=== PATIENT | female | born 1955 | race African-American/Black ===

== ENCOUNTER 2017-01-02 15:00 | Emergency (ER) | payer MEDICAID ==
[~2017-01-02] VITALS: Ht 167.6 cm; Wt 93.4 kg
[~2017-01-02 15:00] MED LIST: AMLO10TA2; ATEN100T; GLIP-115; GLUC-202; HYDR-2595; INSUINJ37; METF-316; OMEP20TA44; ONDA4TAB5; PANT1INJ3; [UNRECOGNIZED DRUG - CODE]; [UNRECOGNIZED DRUG - CODE]
[2017-01-02 15:47] LABS: Urine Bilirubin Negative (Negative); Urine Blood Negative /uL (Negative); Urine Color Yellow (Yellow); Urine Ketone Negative (Negative); Urine Nitrite Negative (Negative); Urine RBC 1 /hpf (0 - 4); Urine Squamous Epithelial Cell FEW /hpf (<5); Urine Urobilinogen Normal (Negative); Urine pH 6.5 (5.0-8.0)
[2017-01-02 15:56] LABS: Urine Glucose 4+ mg/dL (Normal)
[2017-01-02 16:08] LABS: Basophils # (auto) 0.1 uL; Basophils % (auto) 0.9 % (0.0-2.0); DEFINITIVE VIEW TRANSMISSION; Eosinophils # (auto) 0.2 uL; Eosinophils % (auto) 1.9 % (0.0-7.0); Hematocrit 47.1 % (36.0-46.0); Hemoglobin 14.8 g/dL (12.2-16.2); Lymphocytes # (auto) 2.8 uL; Lymphocytes % (auto) 32.1 % (10.0-50.0); Mean Corpuscular Hemoglobin 26.7 pg (28.0-32.0); Mean Corpuscular Hgb Conc. 31.5 g/dL (32.0-36.0); Mean Platelet Volume 10.8 fL (7.4-10.4); Monocytes # (auto) 0.8 uL; Monocytes % (auto) 9.1 % (0.0-12.0); Neutrophils # (auto) 4.9 uL; Platelet Count (auto) 206 10^3/uL (140-450); Red Cell Distribution Width 15.3 % (11.6-16.0); White Blood Cell 8.8 10^3/uL (4.4-10.8)
[2017-01-02 16:23] LABS: Alkaline Phosphatase 117 U/L (45-117); Anion Gap 10 (5-15); Aspartate Aminotransferase 33 U/L (15-37); BUN/Creatinine Ratio 16.4; Bilirubin, Total 0.4 mg/dL (0.2-1.0); Blood Urea Nitrogen 20 mg/dL (7-18); Calcium 9.4 mg/dL (8.5-10.1); Carbon Dioxide 26 mmol/L (21-32); Chloride 101 mmol/L (98-107); GFR African American 57 mL/min; GFR Non-African American 47 mL/min; Glucose 399 mg/dL (74-106); Potassium 4.1 mmol/L (3.5-5.1); Sodium 137 mmol/L (136-145)
[2017-01-02] MEDS ORDERED: SODIUM CHLORIDE 0.9% 1,000 ML IVB ONE (22:50)
[2017-01-02] MEDS ORDERED: SODIUM CHLORIDE 0.9% 1,000 ML IV ONE (23:00)
[2017-01-02 23:52] LABS: Basophils # (auto) 0 uL; Basophils % (auto) 0.4 % (0.0-2.0); DEFINITIVE VIEW TRANSMISSION; Eosinophils # (auto) 0.2 uL; Eosinophils % (auto) 2.2 % (0.0-7.0); Hematocrit 45.8 % (36.0-46.0); Hemoglobin 14.2 g/dL (12.2-16.2); Lymphocytes % (auto) 34.4 % (10.0-50.0); Mean Corpuscular Hemoglobin 26.4 pg (28.0-32.0); Mean Corpuscular Hgb Conc. 31.1 g/dL (32.0-36.0); Mean Corpuscular Volume 84.9 fL (80.0-100.0); Mean Platelet Volume 10.6 fL (7.4-10.4); Monocytes # (auto) 1.1 uL; Monocytes % (auto) 12.5 % (0.0-12.0); Neutrophils # (auto) 4.4 uL; Neutrophils % (auto) 50.5 % (37.0-80.0); Platelet Count (auto) 188 10^3/uL (140-450); Red Cell Distribution Width 15.5 % (11.6-16.0); White Blood Cell 8.7 10^3/uL (4.4-10.8)
[2017-01-02 23:57] LABS: Partial Thromboplastin Time 24.8 sec (22.64-33.71); Prothrombin Time 12.2 sec (9.37-12.3)
[2017-01-03 00:04] LABS: INR 1.18 (0.9-1.15)
[2017-01-03 00:05] LABS: Albumin 3.8 g/dL (3.4-5.0); BUN/Creatinine Ratio 16.7; Calcium 8.5 mg/dL (8.5-10.1); Potassium 3.4 mmol/L (3.5-5.1)
[2017-01-03 00:08] LABS: Bilirubin, Total 0.5 mg/dL (0.2-1.0); Total Protein 7.4 g/dL (6.4-8.2)
[2017-01-03 00:33] LABS: B-Type Natriuretic Peptide 10.05 pg/mL (0-100)
[2017-01-03 00:37] LABS: Temperature: 22.2 C (20.0-25.0)
[2017-01-03] MEDS ORDERED: InsuLIN REG 1unit/0.01ml Soln (100units/ml) IV ONE (05:00)
[2017-01-03] MEDS ORDERED: SODIUM CHLORIDE 0.9% 1,000 ML IV ONE (05:00)
[2017-01-03 06:25] VITALS: BP 141/85
== END 2017-01-03 06:45 | disposition home or self-care (01) ==
LOC: EDBD 15:00 → ER 15:04
DX: E10.65 Type 1 diabetes mellitus with hyperglycemia (principal); I10 Essential (primary) hypertension; K76.9 Liver disease, unspecified; Z79.4 Long term (current) use of insulin; R07.9 Chest pain, unspecified; Z79.899 Other long term (current) drug therapy
CPT/HCPCS: 36415; 71010; 71020; 80053; 81001; 82010; 82962; 83036; 83735; 83880; 84484; 85025; 85610; 85730; 93005; 94761; 96361; 96374; 99285; J1815; J7030

== ENCOUNTER 2024-12-12 11:35 | Inpatient (IN) | payer MEDICARE, MEDICAID, OTHER ==
[2024-12-09 13:02] LABS: Basophils # (auto) 0.1 10 ^3/uL (0-0.2); Eosinophils # (auto) 0.3 10 ^3/uL (0-0.8); Eosinophils % (auto) 4.2 % (0.0-7.0); Hematocrit 41.3 % (36.0-46.0); Hemoglobin 13.4 g/dL (12.2-16.2); Lymphocytes # (auto) 2.5 10 ^3/uL (0.4-5.4); Lymphocytes % (auto) 32.6 % (10.0-50.0); Mean Corpuscular Hgb Conc. 32.4 g/dL (32.0-36.0); Mean Corpuscular Volume 83.3 fL (80.0-100.0); Monocytes # (auto) 0.9 10 ^3/uL (0-1.3); Monocytes % (auto) 11.8 % (0.0-12.0); Neutrophils # (auto) 3.8 10 ^3/uL (1.6-8.6); Neutrophils % (auto) 50.4 % (37.0-80.0); Nucleated Red Blood Cells % 0.1 %; Platelet Count (auto) 196 10^3/uL (140-450); Red Blood Cells 4.95 10^6/uL (4.0-5.20); Red Cell Distribution Width 18.7 % (11.8-14.3); White Blood Cell 7.6 10^3/uL (4.4-10.8)
[2024-12-09 13:25] LABS: Alanine Aminotransferase 16 U/L (7-40); Albumin 3.9 g/dL (3.2-4.8); Alkaline Phosphatase 98 U/L (46-116); Anion Gap 8 (5-15); Aspartate Aminotransferase 25 U/L (13-40); Blood Urea Nitrogen 20 mg/dL (9-23); Calcium 9.2 mg/dL (8.7-10.4); Carbon Dioxide 23 mmol/L (20-31); INR 1.17 (0.9-1.15); Partial Thromboplastin Time 27.9 SEC (24.5-34.5); Prothrombin Time 12.2 sec (9.3-11.8); Sodium 139 mmol/L (136-145)
[2024-12-09 13:26] LABS: Bilirubin, Total 0.4 mg/dL (0.2-1.0); Total Protein 6.2 g/dL (5.7-8.2)
[2024-12-09 13:35] LABS: Chloride 108 mmol/L (98-107); Glucose 222 mg/dL (74-106)
[2024-12-09 14:00] LABS: Urine Bacteria FEW /hpf (None Seen); Urine Blood Negative /uL (Negative); Urine Clarity Clear (Clear); Urine Color Light-Yellow (Yellow); Urine Hyaline Cast FEW /lpf (0 - 2); Urine Protein, UAD Negative (Negative); Urine Specific Gravity 1.017 (1.001-1.035); Urine Squamous Epithelial Cell FEW /hpf (<5); Urine Urobilinogen Normal (Negative); Urine WBC 3 /HPF (0-5)
[~2024-12-12] VITALS: Ht 167.6 cm; Wt 105.9 kg
[~2024-12-12 11:35] MED LIST changes: +ALPR0.254 PO; -AMLO10TA2; +ASPI-543 PO; -ATEN100T; +ATOR20TA50 PO; +CARV25TA55 PO; +CHOL20007 PO; +DOCU-268 PO; +DONE1TAB88 PO; +ESTR1TAB6 PO; -GLIP-115; -GLUC-202; -HYDR-2595; +HYDR-4798 PO; -INSUINJ37; +LORA10CA12 PO; +LOSA-533 PO; -METF-316; +NIFE90TA75 PO; -OMEP20TA44; -ONDA4TAB5; -PANT1INJ3; +PROG200C21 PO; +TIRZ5INJ SC; -[UNRECOGNIZED DRUG - CODE]; -[UNRECOGNIZED DRUG - CODE]
[2024-12-12] MEDS ORDERED: fentaNYL CITRATE 100 MCG/2 ML VL ONE (12:54)
[2024-12-12] MEDS ORDERED: MIDAZOLAM HCL 2MG/2ML 2ml VIAL (1mg/ml) ONE (12:54)
[2024-12-12] MEDS ORDERED: MEPERIDINE HCL (25 MG/ML) 1ML VIAL ONE (12:54)
[2024-12-12] MEDS: ceFAZolin 2 GM/D5W100ml 100 ML IV ONE (13:00)
[2024-12-12] MEDS ORDERED: NITROGLYCERIN 0.4 MG SL TAB SL PRN (13:15)
[2024-12-12] MEDS ORDERED: MIDAZOLAM HCL 2MG/2ML 2ml VIAL (1mg/ml) IV PRN (13:15)
[2024-12-12] MEDS ORDERED: DEXTROSE (50%) 50ML SYRG IV PRN ×2 (13:15→17:45)
[2024-12-12] MEDS ORDERED: hydrALAZINE HCL 20 MG/ML VL IV PRN (13:15)
[2024-12-12] MEDS ORDERED: ePHEDrine SULFATE 50 MG/ML AMP IV PRN (13:15)
[2024-12-12] MEDS: ceFAZolin 1GM/50ML 50 ML IV ONE (13:15)
[2024-12-12] MEDS ORDERED: MORPHINE SULFATE INJ 2 MG/ml SYRG IV PRN (13:15)
[2024-12-12] MEDS ORDERED: ONDANSETRON HCL 4 MG/2 ML VIAL IV PRN (13:15)
[2024-12-12] MEDS ORDERED: MORPHINE SULFATE 4 MG/ML SYR/VIAL IV PRN (13:15)
--- NOTE | 2024-12-12 13:26 | DVHOP2 ---
Operative Report - 2 Report Details Date: 12/12/24 Preop Diagnosis: Pelvic prolapse, pelvic pain, cystocele, stress incontinence Postop Diagnosis: Same Surgeon: Saúl Redman Church Warden: None Anesthesiologist: Charly CINTRON Anesthesia: General Implant: URETHRAL SLING Desera I ; Revita 2X12 GRAFT sub urethral Consent: The patient was informed of the risks and benefits of the procedure. These include but are not limited to complications of anesthesia, postoperative infection, incomplete relief of symptoms, recurrence of symptoms, damage to blood vessels, nerves and tendons, deep venous thrombosis, pulmonary embolism and possible need for repeat surgery in the future. THIS DISCUSSION NOT LIMITED TO INFECTION BLEEDING ANESTHESIA ACUTE CHRONIC PAIN DAMAGE TO ADJACENT ORGANS URETER BOWEL BLADDER VESSELS NERVES OR MUSCLES. PATIENT UNDERSTANDS THE RISKS ASSOCIATED WITH MESH IN LITIGATION ASSOCIATED PREVIOUSLY. SHE UNDERSTANDS THE RISKS OF MESH ACUTE CHRONIC PAIN EROSION FISTULA FAILURE. PATIENT UNDERSTANDS RISK OF NC STROKE PE DVT PARALYSIS. ALL QUESTIONS ANSWERED AND ENCOURAGED. Complications: None Estimated Blood Loss: 50 cc Fluids: See anesthesia log Findings: 10 x 20 cm abdominal rectus mesh Severe bowel adhesions impossible to free safely from the pelvis Grade II uterine prolapse Indications for Surgery: Pelvic prolapse , cystocele , stress incontinence Name of Procedure Performed Attempted diagnostic laparoscopy, abandoned for exploratory laparotomy, Desera I single incision urethral sling, cystocele repair Procedure Details Procedure Details: Patient taken to the operating room placed in supine position general anesthesia performed without difficulty she was then prepped draped sterile fashion pelvic exam shows you have grade 2 uterine prolapse and cystocele: Cervix was grasped with sharp tooth tenaculum Uterus sounded to 7 cm we then placed a [place] uterine manipulator placed and perineum re draped. Gloves changed attention turned to the abdomen. She had a large mid old scar incision with her umbilicus essentially gone from previous scar tissue. Secondary to the midline incision I elected to rotate her 30 to the left an attempt to enter the right lower quadrant with a Veress needle which was performed " water drip test" flowed easily and then pneumoperitoneum attempted to be started but she had no flow of CO2 ; At this point we abandoned the 5 mm right lower quadrant port and rotated her 30 to the right and attempted the left lower quadrant 5 mm port rectus fascia grasped with towel clip tented anteriorly Veress needle placed water flowed test flowed easily and then the pneumoperitoneum was again attempted with no flow at this point banded the right and left lower quadrant incisions ; I elected to perform midline incision proximally 4 cm cephalad to her what appeared to be an old umbilical scar this was carried through to the rectus fascia was immediately evident the rectus fascia ,once it was penetrated, that she had a large approximately 10 x 20 cm mesh with severe bowel adhesions gently and tediously I dissected to the right and left lower quadrants were the previous Veress and 5 mm port laparoscopy had been attempted I was able to identify the cecum as well as small bowel in the area of the Rt trocar attempted with no evidence of any bowel damage or internal organ damage. I then dissected to left lower quadrant and was able to obtain the colon and the small bowel in that area with no evidence of any bowel or other organ damage. At this point I called General surgery who was proximally 1 hour away. I felt as though it had a good exploration there was no evidence of bowel or organ damage so I told Dr. Laughlin ( General surgeon on the phone ) that I would go ahead and place a drain intraperitoneally ; I then closed the rectus fascia peritoneal mesh complex with interrupted of 0 Ethibond to the midline ; Camper's Lisbet's fascia space closed with 2-0 chromic; A David drain was placed within the peritoneum and brought out through the skin, just inferior central expl lap incision ; The intraperitoneal drain was secured with 0 silk; . Betadine soak swab was placed over the staple line as well as ABD pad and pressure dressing. Attention then turned to the pelvis ; The Ilana disposable cervical uterine manipulator was removed. The cystocele was grasped with Scotty clamp lateral to the midline Marcaine with epi was used subcu 10 cc to hydro dissect and for pos top pain. The cystocele was dissected inferior superior and laterally at the urethrovesical junction the Desera I single incision sling was placed with the appropriate tension. The chorionic amniotic graft was placed between the urethra and the mesh sling to promote granulation tissue and inhibit erosion. It was noted that she had a discolored lesion adjacent to the vaginal incision which was sent separate from the redundant vaginal mucosa as vaginal lesion. The redundant vaginal mucosa was sent to Pathology as vaginal mucosa. We then plicated cystocele to the midline using 2-0 Vicryl and closed vaginal mucosa with a running continuous 2-0 Vicryl copiously irrigated copiously placed a Premarin vaginal pack Alvarez in place was removed and cystoscopy showed no evidence of any bladder mucosal damage or blood. Alvarez replaced patient taken recovery room stable in stable condition instrument and sponge count correct x2. Hospital consult ordered was for medical management of her diabetes and hypertension. Dr Cabrera hospitalist according to PBX. Page sent order placed in [employer] as well. Discussed by phone with Dr Cabrera who " agreed to follow her for medical management". Specimen: Vaginal mucosa, Vaginal lesion Condition Good Disposition tele bed CALVIN REDMAN DO Dec 12, 2024 13:26
[2024-12-12] MEDS ORDERED: DexAMETHasone SOD PHOS 10MG/1ML VIAL INJ ONE (13:40)
[2024-12-12] MEDS ORDERED: PROPOFOL 10 MG/ML 20 ML IV ONE (13:40)
[2024-12-12] MEDS ORDERED: ONDANSETRON HCL 4 MG/2 ML VIAL ONE (13:40)
[2024-12-12] MEDS: BUPIVACAINE 0.25% INJ 50ML VIAL ONE (14:39)
[2024-12-12] MEDS: LIDOCAINE W/ EPINEPHRINE 1% 20ML VIAL ONE (14:39)
[2024-12-12] MEDS ORDERED: SUGAMMADEX 200mg/2ml Vial (100MG/ML) IV ONE (14:54)
[2024-12-12 15:15] VITALS: PULSE 59; RESP 10; O2SAT 99
[2024-12-12] MEDS ORDERED: ROCURONIUM 10MG/ML 10ML VIAL IV ONE (15:22)
[2024-12-12] MEDS: HYDROmorphone HCL 2 MG/ML VL/or syr IV PRN (15:25)
[2024-12-12] MEDS: ACETAMINOPHEN IV 1000 MG/100ML (10MG/ML) IV PRN (16:36)
[2024-12-12] MEDS: KETOROLAC TROMETH 30 MG/ML 1ML VIAL IV ONE (16:46)
[2024-12-12] MEDS: ACETAMINOPHEN IV 100 ML IV ONE (16:46)
[2024-12-12] MEDS: KETOROLAC TROMETH 30 MG/ML 1ML VIAL ONE (16:46)
[2024-12-12] MEDS: CONJ ESTROGENS 0.625MG/GM VAG CRM 30GM PV ONE (16:47)
[2024-12-12] MEDS: NIFEdipine 10 MG CAP PO ONE (16:47)
[2024-12-12] MEDS: ONDANSETRON HCL 4 MG/2 ML VIAL IV ONE (16:48)
[2024-12-12 16:58] VITALS: PULSE 68; RESP 20; O2SAT 97
[2024-12-12 17:00] VITALS: BP 119/69; PULSE 55; RESP 17; TEMP 97.4; O2SAT 94
--- NOTE | 2024-12-12 17:35 | DVHINCON2 ---
Date Seen: Dec 12, [address] KINGSTON Family History: Cancer G8 SISTER FHx: epilepsy G8 BROTHER Family history: Diabetes mellitus G8 FATHER G8 SISTER Family history: Hypertension G8 MOTHER G8 SISTER G8 SISTER Seizure disorder (situation) G8 BROTHER Allergies: Coded Allergies: NO KNOWN ALLERGIES (Unverified , 01/10/15) Home Meds Reported Medications Tirzepatide (Mounjaro) 5 Mg/0.5 Ml Inj, 5 MG SC, INJ 12/09/24 Cholecalciferol (VITAMIN D3) 2,000 Unit Tab, 1 TAB PO DAILY, #30 TAB 5 Refills 12/09/24 Losartan Potassium (Losartan Potassium) 25 Mg Tab, 12.5 MG PO DAILY for 30 Days, MG 12/09/24 Loratadine (Loratadine) 10 Mg Cap, 10 MG PO, CAP 12/09/24 Hydrocodone-Acetaminophen (Hydrocodone Bitartrate/AC 10-325 mg) 1 Tab Tab, 1 TAB PO, TAB 12/09/24 Progesterone Micronized (PROGESTERONE) 200 Mg Cap, 200 MG PO, CAP 12/09/24 Nifedipine (Nifedipine Er) 90 Mg Tab, 1 TAB PO DAILY, #30 TAB 5 Refills 12/09/24 Docusate Sodium (Gnp Stool Softener) 100 Mg Cap, 100 MG PO BID, CAP 12/09/24 Estradiol (Estradiol) 1 Mg Tab, 1 MG PO DAILY, MG 12/09/24 Alprazolam (Alprazolam) 0.25 Mg Tab, 1 TAB PO, #90 TAB 12/09/24 Donepezil Hydrochloride (DONEPEZIL HCL) 10 Mg Tab, 10 MG PO DAILY for 30 Days, MG 12/09/24 Carvedilol (Carvedilol) 25 Mg Tab, 25 MG PO for 30 Days, MG 12/09/24 Atorvastatin Calcium (ATORVASTATIN CALCIUM) 20 Mg Tab, 1 TAB PO DAILY, #30 TAB 5 Refills 12/09/24 Aspirin (Aspir-Low) 81 Mg Tab, 81 MG PO DAILY for 30 Days, MG 12/09/24 Current Medications Current Medications Medications (Trade) Dose Ordered Sig/Carlos Route PRN Reason Start Time Stop Time Status Last Admin Aspirin (Ecotrin Enteric Coated Tablet) 81 mg DAILY PO 12/13/24 10:00 Atorvastatin Calcium (Lipitor) 20 mg HS PO 12/12/24 22:00 Docusate Sodium (Colace Capsule) 100 mg BID PO 12/12/24 22:00 Losartan Potassium (Cozaar Tablet) 12.5 mg DAILY PO 12/13/24 10:00 12/12/24 17:34 DC Hydralazine HCl (Apresoline Injection) 5 mg Q10M PRN IV SBP>160 12/12/24 13:15 12/12/24 14:06 DC Morphine Sulfate 2 mg Q2HPRN PRN IV BREAKTHROUGH PAIN (7-10) 12/12/24 13:15 12/12/24 18:30 Midazolam HCl (Versed Injection) 1 mg Q10M PRN IV ANXIETY 12/12/24 13:15 12/12/24 18:30 Ephedrine Sulfate (ePHEDrine SULFATE) 10 mg Q10M PRN IV SBP LESS THAN 90 12/12/24 13:15 12/12/24 13:56 DC Hydromorphone HCl (Dilaudid Injection) 0.5 mg Q10M PRN IV SEVERE PAIN (7-10 PAIN SCALE) 12/12/24 13:15 12/12/24 18:30 12/12/24 16:24 Ondansetron HCl (Zofran) 4 mg Q4HP PRN IV NAUSEA / VOMITING 12/12/24 13:15 Morphine Sulfate 2 mg Q4HP PRN IV SEVERE PAIN (7-10 PAIN SCALE) 12/12/24 13:15 Acetaminophen (Tylenol Tablet Or Capsule) 500 mg Q6HP PRN PO TEMP GREATER THAN 100.4 12/12/24 13:15 Nitroglycerin (Ntrostat Sublingual) 0.4 mg Q5MINP PRN SL FOR CHEST PAIN 12/12/24 13:15 Morphine Sulfate 2 mg Q30M PRN IV FOR CHEST PAIN 12/12/24 13:15 Diagnostic Test (Pha) (Accu-Chek Comfort Curve T) 1 strip Q6HR 12/12/24 18:00 Insulin Human Regular (InsuLIN R) Q6HR SC 12/12/24 18:00 12/12/24 17:34 DC Dextrose 50 ml UD PRN IV Blood Sugar LESS THAN 60 12/12/24 13:15 Acetaminophen (Ofirmev) 1,000 mg ONCE PRN IV PAIN SCALE 1-3 OR TEMP>100.4 12/12/24 16:30 12/12/24 16:33 DC 12/12/24 16:36 Vital Signs Vital Signs Date Time Temp Pulse Resp B/P (MAP) Pulse Ox O2 Delivery O2 Flow Rate FiO2 12/12/24 17:00 97.4 55 17 119/69 (86) 94 97.4 12/12/24 15:15 Mask 7.0 12/12/24 15:15 99 Labs/Diagnostic Data Labs Test 12/12/24 12:26 12/09/24 12:40 Range/Units POC Glucose 130 H 70-106 mg/dl White Blood Count 7.6 4.4-10.8 10^3/uL Red Blood Count 4.95 4.0-5.20 10^6/uL Hemoglobin 13.4 12.2-16.2 g/dL Hematocrit 41.3 36.0-46.0 % Mean Corpuscular Volume 83.3 80.0-100.0 fL Mean Corpuscular Hemoglobin 27.0 L 28.0-32.0 pg Mean Corpuscular Hemoglobin Concent 32.4 32.0-36.0 g/dL Red Cell Distribution Width 18.7 H 11.8-14.3 % Platelet Count 196 140-450 10^3/uL Mean Platelet Volume 9.1 6.9-10.8 fL Neutrophils (%) (Auto) 50.4 37.0-80.0 % Lymphocytes (%) (Auto) 32.6 10.0-50.0 % Monocytes (%) (Auto) 11.8 0.0-12.0 % Eosinophils (%) (Auto) 4.2 0.0-7.0 % Basophils (%) (Auto) 1.0 0.0-2.0 % Neutrophils # (Auto) 3.8 1.6-8.6 10 ^3/uL Lymphocytes # (Auto) 2.5 0.4-5.4 10 ^3/uL Monocytes # (Auto) 0.9 0-1.3 10 ^3/uL Eosinophils # (Auto) 0.3 0-0.8 10 ^3/uL Basophils # (Auto) 0.1 0-0.2 10 ^3/uL Nucleated Red Blood Cells 0.1 % Prothrombin Time 12.2 H 9.3-11.8 sec Prothrombin Time INR 1.17 H 0.9-1.15 Activated Partial Thromboplast Time 27.9 24.5-34.5 SEC Urine Color Light-yellow Yellow Urine Clarity Clear Clear Urine pH 5.0 5.0-9.0 Urine Specific Lawn 1.017 1.001-1.035 Urine Protein Negative Negative Urine Ketones Negative Negative Urine Blood Negative Negative /uL Urine Nitrite Negative Negative Urine Bilirubin Negative Negative Urine Urobilinogen Normal Negative mg/dL Urine Leukocyte Esterase Negative Negative /uL Urine RBC 8 0 - 4 /hpf Urine Microscopic WBC 3 0-5 /HPF Urine Squamous Epithelial Cells Few <5 /hpf Urine Bacteria Few H None Seen /hpf Urine Hyaline Casts Few 0 - 2 /lpf Urine Glucose 4+ H Normal mg/dL Sodium Level 139 136-145 mmol/L Potassium Level 4.0 3.5-5.1 mmol/L Chloride Level 108 H 98-107 mmol/L Carbon Dioxide Level 23 20-31 mmol/L Anion Gap 8 5-15 Blood Urea Nitrogen 20 9-23 mg/dL Creatinine 1.33 H 0.550-1.02 mg/dL Glomerular Filtration Rate Calc 43 >90 mL/min BUN/Creatinine Ratio 15.0 10.0-20.0 Serum Glucose 222 H 74-106 mg/dL Calcium Level 9.2 8.7-10.4 mg/dL Total Bilirubin 0.4 0.2-1.0 mg/dL Aspartate Amino Transferase (AST) 25 13-40 U/L Alanine Aminotransferase (ALT) 16 7-40 U/L Alkaline Phosphatase 98 46-116 U/L Total Protein 6.2 5.7-8.2 g/dL Albumin 3.9 3.2-4.8 g/dL Microbiology Date/Time Source Procedure Growth Status 12/09/24 12:40 Voided Urine Urine Culture - Final Complete Assessment SEE DICTATED NOTE Plan discussed with: Patient Date of Service: Dec 12, 2024 Billing Provider: MJ PERERA MD Common Visit Codes: [id number] INP/OBS CARE (HIGH) MJ PERERA MD Dec 12, 2024 17:35
--- NOTE | 2024-12-12 17:38 | CODING ---
Date of Service: Dec 12, 2024 Billing Provider: MJ PERERA MD Common Visit Codes: [id number] INP/OBS CARE (HIGH) Secondary Visit Codes: [id number] CARE PLAN 30 MINUTES MJ PERERA MD Dec 12, 2024 17:38
--- NOTE | 2024-12-12 17:58 | DVHINCON2 ---
DATE OF CONSULTATION: 12/12/2024 INTERNAL MEDICINE CONSULT HISTORY OF PRESENT ILLNESS: The patient is a 68-year-old lady who was admitted after she underwent surgery for pelvic prolapse and cystocele. The patient denies any significant pain. No chest pain or shortness of breath. No nausea or vomiting. REVIEW OF SYSTEMS: Review of rest of systems are otherwise currently negative. PAST MEDICAL HISTORY: Significant for diabetes, hypertension, dementia, hyperlipidemia. MEDICATIONS: Include aspirin, Lipitor, Coreg, Aricept, losartan, Mounjaro. ALLERGIES: No known drug allergies. SOCIAL HISTORY: Denies smoking or alcohol. Lives at home with a caregiver. FAMILY HISTORY: Negative. PHYSICAL EXAMINATION: GENERAL: The patient is awake, alert. VITAL SIGNS: Temperature of 97.3, pulse of 61 per minute, blood pressure 119/62. SHEENT: Unremarkable. NECK: There is no JVD, no pedal edema. LUNGS: Equal bilaterally. No added sounds. CARDIOVASCULAR: S1, S2 is regular, no murmurs. ABDOMEN: Soft. There is no organomegaly. NEUROLOGIC: Nonfocal. MUSCULOSKELETAL: Normal. ASSESSMENT AND PLAN: * Diabetes mellitus for which she was placed on sliding scale insulin and a hemoglobin A1c will be checked. * Hypertension. * Chronic kidney disease, likely chronic kidney disease stage IIIB. * Obesity. * Hyperlipidemia. * Dementia. * Status post surgery for pelvic prolapse for which she will be followed up by Dr. Braun. ADVANCE CARE PLANNING: The patient is a Full Code. Time spent was 19 minutes. MD FLORESITA Reilly/OUSMANE TID: [id number] RECEIPT: [id number]
[2024-12-12] MEDS ORDERED: InsuLIN REG 1unit/0.01ml Soln (100units/ml) SC SCH (18:00)
[2024-12-12] MEDS ORDERED: ACCU-CHEK COMFORT CURVE STRIP VI SCH (18:00)
[2024-12-12] MEDS: MORPHINE SULFATE 4 MG/ML SYR/VIAL IV PRN (18:21)
[2024-12-12] MEDS: SODIUM CHLORIDE 0.9% 1,000 ML IV SCH (18:30)
[2024-12-12 20:00] VITALS: PULSE 71; RESP 20
[2024-12-12] MEDS: ATORVASTATIN 20 MG TAB PO SCH (21:27)
[2024-12-12] MEDS: DOCUSATE SOD 100 MG CAP PO SCH (21:27)
[2024-12-12] MEDS: ACCU-CHEK COMFORT CURVE STRIP VI SCH (21:28)
[2024-12-12] MEDS: InsuLIN REG 1unit/0.01ml Soln (100units/ml) SC SCH (21:36)
[2024-12-12] MEDS: ACETAMINOPHEN 500 MG TAB or CAP PO PRN (21:39)
[2024-12-12 22:00] VITALS: BP 145/76; PULSE 73; RESP 19; TEMP 98.1; O2SAT 90
[2024-12-13] VITALS (8 sets, daily range): BP systolic 113–172; BP diastolic 62–108; PULSE 97–114; RESP 18–21; TEMP 97.6–99; O2SAT 92–99
[2024-12-13] MEDS ORDERED: TIMO0.5S28 EACHEYE (05:57)
[2024-12-13] MEDS ORDERED: DORZ2SOL18 EACHEYE (05:57)
[2024-12-13] MEDS ORDERED: BRIM0.159 OP (05:57)
--- NOTE | 2024-12-13 06:15 | DVHPN2 ---
Chief Complaints Patient reports: Feels better, Feels worse (Poor pain control on Morphine and Tylenol ... ordered Dilaudid), Other (Patient has not ambulated or passed flatus) Nursing reports: No new complaints, No chest pain, No dizziness, No cough Objective Vitals Vital Signs Date Time Temp Pulse Resp B/P (MAP) Pulse Ox O2 Delivery O2 Flow Rate FiO2 12/13/24 05:00 97.6 97 19 168/108 (128) 96 97.6 12/12/24 20:00 Nasal Cannula* 3 32 Medications Current Medications Medications (Trade) Dose Ordered Sig/Carlos Route PRN Reason Start Time Stop Time Status Last Admin Acetaminophen (Tylenol Tablet Or Capsule) 500 mg Q6HP PRN PO TEMP GREATER THAN 100.4 12/12/24 13:15 12/13/24 05:32 Aspirin (Ecotrin Enteric Coated Tablet) 81 mg DAILY PO 12/13/24 10:00 Atorvastatin Calcium (Lipitor) 20 mg HS PO 12/12/24 22:00 12/12/24 21:27 Dextrose 50 ml UD PRN IV Blood Sugar LESS THAN 60 12/12/24 17:45 Diagnostic Test (Pha) (Accu-Chek Comfort Curve T) 1 strip ACHS 12/12/24 22:00 12/12/24 21:28 Docusate Sodium (Colace Capsule) 100 mg BID PO 12/12/24 22:00 12/12/24 21:27 Insulin Human Regular (InsuLIN R) ACHS SC 12/12/24 22:00 12/12/24 21:36 Morphine Sulfate 2 mg Q30M PRN IV FOR CHEST PAIN 12/12/24 13:15 Morphine Sulfate 2 mg Q4HP PRN IV SEVERE PAIN (7-10 PAIN SCALE) 12/12/24 13:15 12/13/24 03:51 Nitroglycerin (Ntrostat Sublingual) 0.4 mg Q5MINP PRN SL FOR CHEST PAIN 12/12/24 13:15 Ondansetron HCl (Zofran) 4 mg Q4HP PRN IV NAUSEA / VOMITING 12/12/24 13:15 Sodium Chloride 1,000 ml @ 75 mls/hr [id number] IV 12/12/24 17:45 12/12/24 18:30 Comment David drain dark old blood, no odor. General: Normal Head/Eyes: Normal Neck: Normal Lungs: Normal Cardiovascular: Normal Abdominal: Normal (+BS David drain serosang) Musculoskeletal: Normal Extremities: Normal Skin: Normal Neurological: Normal Studies Test 12/13/24 05:05 Range/Units Serum Glucose Pending Ass/Plan Assessment Poor Pain contraol ;Post op day one Explore lap / Lysis of adhesion, cystocele repair urethral sling, Intraperitoneal drain placement Plan Up in chair / ambulate, advance care , CBC results pending, PT for ambulating assist, Vag packing removal , Alvarez to stay 7 days CALVIN KINGSTON DO Dec 13, 2024 06:15
[2024-12-13 06:20] LABS: Basophils # (auto) 0 10 ^3/uL (0-0.2); Basophils % (auto) 0.2 % (0.0-2.0); Eosinophils # (auto) 0 10 ^3/uL (0-0.8); Hematocrit 48.5 % (36.0-46.0); Hemoglobin 15.7 g/dL (12.2-16.2); Lymphocytes # (auto) 1.7 10 ^3/uL (0.4-5.4); Lymphocytes % (auto) 9.2 % (10.0-50.0); Mean Corpuscular Hemoglobin 27.4 pg (28.0-32.0); Mean Corpuscular Hgb Conc. 32.3 g/dL (32.0-36.0); Mean Corpuscular Volume 84.8 fL (80.0-100.0); Monocytes # (auto) 1.8 10 ^3/uL (0-1.3); Monocytes % (auto) 9.6 % (0.0-12.0); Neutrophils # (auto) 14.8 10 ^3/uL (1.6-8.6); Platelet Count (auto) 230 10^3/uL (140-450); Red Blood Cells 5.71 10^6/uL (4.0-5.20); Red Cell Distribution Width 18.6 % (11.8-14.3); White Blood Cell 18.3 10^3/uL (4.4-10.8)
[2024-12-13] MEDS ORDERED: HYDROmorphone HCL 2 MG/ML VL/or syr IV PRN (06:30)
[2024-12-13 06:40] LABS: Alanine Aminotransferase 35 U/L (7-40); Albumin 4.6 g/dL (3.2-4.8); Anion Gap 14 (5-15); BUN/Creatinine Ratio 16.5 (10.0-20.0); Chloride 99 mmol/L (98-107); Potassium 4.7 mmol/L (3.5-5.1)
[2024-12-13 06:41] LABS: Bilirubin, Total 0.8 mg/dL (0.2-1.0); Total Protein 7.6 g/dL (5.7-8.2)
[2024-12-13 06:51] LABS: Alkaline Phosphatase 135 U/L (46-116); Aspartate Aminotransferase 57 U/L (13-40); Blood Urea Nitrogen 23 mg/dL (9-23); Calcium 10.6 mg/dL (8.7-10.4); Carbon Dioxide 20 mmol/L (20-31); Glucose 309 mg/dL (74-106); Sodium 133 mmol/L (136-145)
[2024-12-13] MEDS ORDERED: MORPHINE SULFATE 4 MG/ML SYR/VIAL IV PRN (07:15)
[2024-12-13] MEDS: HYDROmorphone HCL 2 MG/ML VL/or syr IV PRN ×2 (08:02→12:39)
--- NOTE | 2024-12-13 08:26 | DVH ---
CHEST RADIOGRAPH Indication: HTN Technique: Single frontal view of the chest was obtained Comparison: None FINDINGS: Lines and Tubes: None Lungs: No focal consolidation. Pleura: No effusion. No pneumothorax. Cardiomediastinal contours: Unremarkable Bones: No acute osseous abnormality. IMPRESSION: No acute cardiopulmonary disease.
[2024-12-13] MEDS ORDERED: LOSARTAN POTASSIUM 25 MG TAB PO SCH (10:00)
[2024-12-13] MEDS: ASPirin-EC 81 mg tab PO SCH (10:03)
[2024-12-13] MEDS: CARVEDILOL 3.125 MG TAB PO ONE (12:30)
[2024-12-13] MEDS: NIFEdipine ER 30 MG TAB PO ONE (12:30)
[2024-12-13] MEDS ORDERED: HYDROcodone-ACET 5/325MG TAB PO PRN (12:30)
--- NOTE | 2024-12-13 12:39 | DVHPN2 ---
Progress Note Date Seen: Dec 13, 2024 Medical Necessity Reason Pt with a Central, PICC or Fol: No Subjective Patient reports: No new complaints Review of Systems: HEENT:Normal, CVS:Normal, RESPIRATORY:Normal, GI:Normal, :Normal, MSK:Normal, NEURO:Normal Objective vital signs Vital Sign Date Time Temp Pulse Resp B/P (MAP) Pulse Ox O2 Delivery O2 Flow Rate FiO2 12/13/24 09:00 98.0 101 21 172/91 (118) 94 98.0 12/13/24 08:00 Nasal Cannula* 3 32 Total Intake and Output 12/12/24 12/12/24 12/13/24 15:00 23:00 07:00 Intake Total 100 ml 0 ml 400 ml Output Total 600 ml 2650 ml Balance 100 ml -600 ml -2250 ml medications Current Medications Medications Dose Ordered Sig/Carlos Route Start Time Stop Time Status Last Admin Dose Admin Aspirin 81 mg DAILY PO 12/13/24 10:00 12/13/24 10:03 81 MG Atorvastatin Calcium 20 mg HS PO 12/12/24 22:00 12/12/24 21:27 20 MG Docusate Sodium 100 mg BID PO 12/12/24 22:00 12/13/24 10:02 100 MG Ondansetron HCl 4 mg Q4HP PRN IV 12/12/24 13:15 Acetaminophen 500 mg Q6HP PRN PO 12/12/24 13:15 12/13/24 05:32 500 MG Nitroglycerin 0.4 mg Q5MINP PRN SL 12/12/24 13:15 Morphine Sulfate 2 mg Q30M PRN IV 12/12/24 13:15 Diagnostic Test (Pha) 1 strip ACHS 12/12/24 22:00 12/13/24 12:14 1 STRIP Insulin Human Regular ACHS SC 12/12/24 22:00 12/13/24 12:29 6 UNITS Dextrose 50 ml UD PRN IV 12/12/24 17:45 Sodium Chloride 1,000 ml @ 75 mls/hr [id number] IV 12/12/24 17:45 12/12/24 18:30 75 MLS/HR Morphine Sulfate 2 mg Q4HP PRN IV 12/13/24 07:15 Hydromorphone HCl 1 mg Q3HPRN PRN IV 12/13/24 10:00 Examination: GENERAL:Normal, HEENT:Normal, NECK:Normal, LUNGS:Normal, CVS:Normal, ABDOMEN:Normal, MSK:Normal, SKIN:Normal, NEURO:Normal, :Normal laboratory and microbiology Laboratory Tests 12/13/24 05:05 Test 12/13/24 05:05 Range/Units Serum Glucose 309 H 74-106 mg/dL Microbiology Date/Time Source Procedure Growth Status 12/09/24 12:40 Voided Urine Urine Culture - Final Complete Problem List/Assessment/Plan Problem List/Assessment/Plan * Diabetes mellitus for which she was placed on sliding scale insulin and a hemoglobin A1c will be checked. * Hypertension : resume home meds. * Chronic kidney disease, likely chronic kidney disease stage IIIB. * Obesity. * Hyperlipidemia. * Dementia. * Status post surgery for pelvic prolapse for which she will be followed up by Dr. Braun, pain control advance care planning- full code- time spent 18 mins Plan discussed with: Patient My Orders My Orders Orders - MJ PERERA MD Procedure Category Date Status Time Glucose Blood PHA 12/12/24 In Process (Accu-Chek Comfort 22:00 Insulin R (Human) PHA 12/12/24 In Process (Insulin R) 22:00 Dextrose 50% Syringe PHA 12/12/24 In Process 17:45 Sodium Chloride 0.9% PHA 12/12/24 In Process 17:45 Chest Portable XY 12/13/24 Resulted 06:00 Nifedipine Er PHA 12/14/24 Verified (Procardia Xl 10:00 Nifedipine Er PHA 12/13/24 Verified (Procardia Xl 12:30 Carvedilol Tablet PHA 12/13/24 Verified (Coreg Tablet) 12:30 Carvedilol Tablet PHA 12/13/24 Verified (Coreg Tablet) 22:00 Hydrocodone-Acet PHA 12/13/24 Verified 5/325mg Tab ([place]ising [place] 12:30 Timolol 0.5% Opth PHA 12/13/24 Verified Soln (Timoptic 0.5%) 22:00 Hydralazine Injection PHA 12/13/24 Verified (Apresoline Inject 12:30 Basic Metabolic Panel LAB 12/14/24 Verified 06:00 Complete Blood Count LAB 12/14/24 Verified 06:00 Date of Service: Dec 13, 2024 Billing Provider: MJ PERERA MD Common Visit Codes: [id number] INP/OBS CARE(HIGH) Secondary Visit Codes: [id number] CARE PLAN 30 MINUTES MJ PERERA MD Dec 13, 2024 12:39
--- NOTE | 2024-12-13 19:13 | DVHINCON2 ---
Date of service: Dec 13, [address] Braun Reason for Consultation Abdominal pain status post cystocel and Urethral sling History of Present Illness This is a 68-year-old Female who had severe uterine prolasus which underwent Cystocele repair and Urethral sling but complains of pain and is also lethargic. Past Medical History DM, Hyperlipidemia, HTN, and Dementia Past Surgical History Insignificant Family History: Cancer G8 SISTER FHx: epilepsy G8 BROTHER Family history: Diabetes mellitus G8 FATHER G8 SISTER Family history: Hypertension G8 MOTHER G8 SISTER G8 SISTER Seizure disorder (situation) G8 BROTHER Allergies: Coded Allergies: NO KNOWN ALLERGIES (Unverified , 01/10/15) Home Meds Reported Medications Dorzolamide-Timolol (Dorzolamide Hcl/Timolol M) 1 Ml Elsy, 1 DROP EACHEYE BID, #10 ML 6 Refills 12/13/24 Timolol Maleate (Timolol Maleate Ophthalmi) 0.5 % Elsy, 1 DROP EACHEYE QAM, #5 ML 5 Refills 12/13/24 Brimonidine Tartrate (Brimonidine Tartrate) 0.15 % Elsy, 1 DROP OP TID, DROP 12/13/24 Tirzepatide (Mounjaro) 5 Mg/0.5 Ml Inj, 5 MG SC, INJ 12/09/24 Cholecalciferol (VITAMIN D3) 2,000 Unit Tab, 1 TAB PO DAILY, #30 TAB 5 Refills 12/09/24 Losartan Potassium (Losartan Potassium) 25 Mg Tab, 12.5 MG PO DAILY for 30 Days, MG 12/09/24 Loratadine (Loratadine) 10 Mg Cap, 10 MG PO, CAP 12/09/24 Hydrocodone-Acetaminophen (Hydrocodone Bitartrate/AC 10-325 mg) 1 Tab Tab, 1 TAB PO, TAB 12/09/24 Progesterone Micronized (PROGESTERONE) 200 Mg Cap, 200 MG PO, CAP 12/09/24 Nifedipine (Nifedipine Er) 90 Mg Tab, 1 TAB PO DAILY, #30 TAB 5 Refills 12/09/24 Docusate Sodium (Gnp Stool Softener) 100 Mg Cap, 100 MG PO BID, CAP 12/09/24 Estradiol (Estradiol) 1 Mg Tab, 1 MG PO DAILY, MG 12/09/24 Alprazolam (Alprazolam) 0.25 Mg Tab, 1 TAB PO, #90 TAB 12/09/24 Donepezil Hydrochloride (DONEPEZIL HCL) 10 Mg Tab, 10 MG PO DAILY for 30 Days, MG 12/09/24 Carvedilol (Carvedilol) 25 Mg Tab, 25 MG PO for 30 Days, MG 12/09/24 Atorvastatin Calcium (ATORVASTATIN CALCIUM) 20 Mg Tab, 1 TAB PO DAILY, #30 TAB 5 Refills 12/09/24 Aspirin (Aspir-Low) 81 Mg Tab, 81 MG PO DAILY for 30 Days, MG 12/09/24 Current Medications Current Medications Medications (Trade) Dose Ordered Sig/Carlos Route PRN Reason Start Time Stop Time Status Last Admin Aspirin (Ecotrin Enteric Coated Tablet) 81 mg DAILY PO 12/13/24 10:00 12/13/24 10:03 Atorvastatin Calcium (Lipitor) 20 mg HS PO 12/12/24 22:00 12/12/24 21:27 Docusate Sodium (Colace Capsule) 100 mg BID PO 12/12/24 22:00 12/13/24 10:02 Losartan Potassium (Cozaar Tablet) 12.5 mg DAILY PO 12/13/24 10:00 12/12/24 17:34 DC Diagnostic Test (Pha) (Accu-Chek Comfort Curve T) 1 strip ACHS 12/12/24 22:00 12/13/24 16:23 Insulin Human Regular (InsuLIN R) ACHS SC 12/12/24 22:00 12/13/24 16:28 Hydromorphone HCl (Dilaudid Injection) 2 mg Q4HPRN PRN IV SEVERE PAIN (7-10 PAIN SCALE) 12/13/24 06:30 12/13/24 07:09 DC Hydromorphone HCl (Dilaudid Injection) 1.5 mg Q4HPRN PRN IV SEVERE PAIN (7-10 PAIN SCALE) 12/13/24 06:30 12/13/24 09:52 DC 12/13/24 08:02 Morphine Sulfate 2 mg Q4HP PRN IV BREAKTHROUGH PAIN 12/13/24 07:15 Hydromorphone HCl (Dilaudid Injection) 1 mg Q3HPRN PRN IV SEVERE PAIN (7-10 PAIN SCALE) 12/13/24 10:00 12/13/24 15:46 Nifedipine (Procardia Xl (Time-Release)) 90 mg DAILY PO 12/14/24 10:00 Carvedilol (Coreg Tablet) 6.25 mg Q12HR PO 12/13/24 22:00 Acetaminophen/ Hydrocodone Bitart (Mulberry 5/325MG Tab) 1 tab Q4HPRN PRN PO MODERATE PAIN (4-6 PAIN SCALE) 12/13/24 12:30 Timolol Maleate (Timoptic 0.5%) 1 drop BID EACHEYE 12/13/24 22:00 Hydralazine HCl (Apresoline Injection) 10 mg Q6HP PRN IV SBP>150 12/13/24 12:30 Review of Systems All ten review systems are within normal limit except mentioned before. Vital Signs Vital Signs Date Time Temp Pulse Resp B/P (MAP) Pulse Ox O2 Delivery O2 Flow Rate FiO2 12/13/24 17:01 98.7 102 18 115/64 (81) 93 98.7 12/13/24 08:00 Nasal Cannula* 3 32 Physical Exam She is lethargic and does not answer the questions. HEENT: PEERLA Neck: Supple Heart: S1, S2 Lung: Clear Abdomen: Soft Cranial nerves are intact. Labs/Diagnostic Data Labs Test 12/13/24 16:18 12/13/24 05:05 12/09/24 12:40 Range/Units POC Glucose 222 H 70-106 mg/dl White Blood Count 18.3 #H 4.4-10.8 10^3/uL Red Blood Count 5.71 H 4.0-5.20 10^6/uL Hemoglobin 15.7 # 12.2-16.2 g/dL Hematocrit 48.5 #H 36.0-46.0 % Mean Corpuscular Volume 84.8 80.0-100.0 fL Mean Corpuscular Hemoglobin 27.4 L 28.0-32.0 pg Mean Corpuscular Hemoglobin Concent 32.3 32.0-36.0 g/dL Red Cell Distribution Width 18.6 H 11.8-14.3 % Platelet Count 230 140-450 10^3/uL Mean Platelet Volume 9.1 6.9-10.8 fL Neutrophils (%) (Auto) 81.0 H 37.0-80.0 % Lymphocytes (%) (Auto) 9.2 L 10.0-50.0 % Monocytes (%) (Auto) 9.6 0.0-12.0 % Eosinophils (%) (Auto) 0.0 0.0-7.0 % Basophils (%) (Auto) 0.2 0.0-2.0 % Neutrophils # (Auto) 14.8 H 1.6-8.6 10 ^3/uL Lymphocytes # (Auto) 1.7 0.4-5.4 10 ^3/uL Monocytes # (Auto) 1.8 H 0-1.3 10 ^3/uL Eosinophils # (Auto) 0 0-0.8 10 ^3/uL Basophils # (Auto) 0 0-0.2 10 ^3/uL Nucleated Red Blood Cells 0.0 % Sodium Level 133 #L 136-145 mmol/L Potassium Level 4.7 3.5-5.1 mmol/L Chloride Level 99 98-107 mmol/L Carbon Dioxide Level 20 20-31 mmol/L Anion Gap 14 5-15 Blood Urea Nitrogen 23 9-23 mg/dL Creatinine 1.39 H 0.550-1.02 mg/dL Glomerular Filtration Rate Calc 41 >90 mL/min BUN/Creatinine Ratio 16.5 10.0-20.0 Serum Glucose 309 H 74-106 mg/dL Hemoglobin A1c 8.2 H <5.7 % A1C Calcium Level 10.6 H 8.7-10.4 mg/dL Total Bilirubin 0.8 0.2-1.0 mg/dL Aspartate Amino Transferase (AST) 57 H 13-40 U/L Alanine Aminotransferase (ALT) 35 7-40 U/L Alkaline Phosphatase 135 H 46-116 U/L Total Protein 7.6 5.7-8.2 g/dL Albumin 4.6 3.2-4.8 g/dL Prothrombin Time 12.2 H 9.3-11.8 sec Prothrombin Time INR 1.17 H 0.9-1.15 Activated Partial Thromboplast Time 27.9 24.5-34.5 SEC Urine Color Light-yellow Yellow Urine Clarity Clear Clear Urine pH 5.0 5.0-9.0 Urine Specific [place] 1.017 1.001-1.035 Urine Protein Negative Negative Urine Ketones Negative Negative Urine Blood Negative Negative /uL Urine Nitrite Negative Negative Urine Bilirubin Negative Negative Urine Urobilinogen Normal Negative mg/dL Urine Leukocyte Esterase Negative Negative /uL Urine RBC 8 0 - 4 /hpf Urine Microscopic WBC 3 0-5 /HPF Urine Squamous Epithelial Cells Few <5 /hpf Urine Bacteria Few H None Seen /hpf Urine Hyaline Casts Few 0 - 2 /lpf Urine Glucose 4+ H Normal mg/dL Microbiology Date/Time Source Procedure Growth Status 12/09/24 12:40 Voided Urine Urine Culture - Final Complete Assessment She is suffering from post-op pain and also is lethargic and does not respond to the questions. It can be related to pain or her Dementia.I will adjust her medication as well. Plan discussed with: Spouse MRACELINO READ MD Dec 13, 2024 19:13
[2024-12-13] MEDS: LORazepam 2MG/ML-1ML VIAL IV ONE (19:15)
[2024-12-13] MEDS: TIMOLOL MAL 0.5% OPTH(EYE) SOL 5ML EACHEYE SCH (22:00)
[2024-12-13] MEDS: CARVEDILOL 3.125 MG TAB PO SCH (22:00)
[2024-12-13] MEDS: diphenhdrAMINE HCL 50 MG/1 ML VL IV PRN (23:25)
[2024-12-14] VITALS (9 sets, daily range): BP systolic 136–195; BP diastolic 57–101; PULSE 90–122; RESP 18–20; TEMP 98–99.1; O2SAT 96–100
[2024-12-14 00:23] LABS: Basophils # (auto) 0.1 10 ^3/uL (0-0.2); Eosinophils # (auto) 0 10 ^3/uL (0-0.8); Hemoglobin 14.6 g/dL (12.2-16.2); White Blood Cell 14.4 10^3/uL (4.4-10.8)
[2024-12-14 00:25] LABS: Basophils % (auto) 0.4 % (0.0-2.0); Eosinophils % (auto) 0.1 % (0.0-7.0); Hematocrit 44.7 % (36.0-46.0); Lymphocytes # (auto) 1.4 10 ^3/uL (0.4-5.4); Lymphocytes % (auto) 9.5 % (10.0-50.0); Mean Corpuscular Hemoglobin 27.3 pg (28.0-32.0); Mean Corpuscular Hgb Conc. 32.7 g/dL (32.0-36.0); Mean Corpuscular Volume 83.5 fL (80.0-100.0); Monocytes # (auto) 1.4 10 ^3/uL (0-1.3); Monocytes % (auto) 9.8 % (0.0-12.0); Neutrophils # (auto) 11.6 10 ^3/uL (1.6-8.6); Neutrophils % (auto) 80.2 % (37.0-80.0); Nucleated Red Blood Cells % 0.1 %; Platelet Count (auto) 211 10^3/uL (140-450); Red Blood Cells 5.36 10^6/uL (4.0-5.20); Red Cell Distribution Width 18.4 % (11.8-14.3)
[2024-12-14 00:43] LABS: Alanine Aminotransferase 22 U/L (7-40); Albumin 4.1 g/dL (3.2-4.8); Alkaline Phosphatase 106 U/L (46-116); Anion Gap 11 (5-15); Bilirubin, Total 1.2 mg/dL (0.2-1.0); Carbon Dioxide 24 mmol/L (20-31); Chloride 99 mmol/L (98-107); Potassium 4.9 mmol/L (3.5-5.1); Total Protein 6.9 g/dL (5.7-8.2)
[2024-12-14 00:44] LABS: Aspartate Aminotransferase 42 U/L (13-40); Blood Urea Nitrogen 37 mg/dL (9-23); Glucose 209 mg/dL (74-106); Sodium 134 mmol/L (136-145)
[2024-12-14 01:40] LABS: Urine Bacteria None Seen /hpf (None Seen)
[2024-12-14 01:49] LABS: Urine Blood 2+ /uL (Negative); Urine Clarity Turbid (Clear); Urine Color Yellow (Yellow); Urine Hyaline Cast FEW /lpf (0 - 2); Urine Mucus FEW (None Seen); Urine Protein, UAD TRACE (Negative); Urine Specific Gravity 1.019 (1.001-1.035); Urine Squamous Epithelial Cell FEW /hpf (<5); Urine Urobilinogen Normal (Negative); Urine WBC 7 /HPF (0-5)
[2024-12-14] MEDS: PIPERACILLIN-TAZOB 3.375GM 100 ML IV SCH (07:07)
[2024-12-14] MEDS: GASTROGRAFIN 120 ML SOL ONE ×2 (08:14→14:05)
--- NOTE | 2024-12-14 09:50 | DVH ---
CLINICAL INFORMATION: 68 years old, Female; possible bowel injury. TECHNIQUE: Axial CT images of the abdomen and pelvis were obtained without IV contrast. Coronal and sagittal reformatted images were obtained, reviewed, and stored. Evaluation of the parenchymal organs is limited without IV contrast. Evaluation of the bowel and mesentery is limited without oral contra st. All CT scans at this medical facility are performed using dose modulation techniques as appropria te to a performed exam including the following: Automated exposure control was utilized; adjustment o f the MA and/or KV according to patient size; and use of iterative reconstruction technique. CTDIvol = 21.5 mGy DLP = 1229.7 mGy-cm COMPARISON: None FINDINGS: Lung bases: Trace bilateral pleural effusions with overlying atelectasis. Liver: Grossly unremarkable in its noncontrast enhanced appearance. No abnormal density or focal les ion identified. Biliary: Cholecystectomy. Spleen: Unremarkable. Pancreas: Grossly unremarkable in its noncontrast enhanced appearance. Adrenal glands: Unremarkable. No mass. Kidneys: No hydronephrosis. Cyst in the upper pole of the right kidney measures up to 2.9 cm. Small n onobstructing left renal calculi. No obstructing calculus. Aorta/Vascular: Scattered atherosclerotic calcification. No abdominal aortic aneurysm. Retroperitoneum: No mass or lymphadenopathy. Bowel/mesentery: There is a small volume pneumoperitoneum, may be partly due to recent postsurgical c hanges. A surgical drain extends adjacent to a fluid collection in the anterior aspect of the ventral abdomen adjacent to small bowel loops. The fluid and gas collection measures up to 7 cm in AP dimen shania, 5.5 cm in transverse dimension, and approximately 7.4 cm in craniocaudal dimension. Additional small foci of free air near this location. There is also stranding in the anterior abdomen and right hemiabdomen adjacent to large and small bowel loops. There are nonspecific Mildly distended small bow el loops, some are fluid-filled. There is mild distention of the stomach with fluid. Appendix is not visualized. Pelvic organs: Heterogeneous fibroid uterus with associated calcifications. Bladder: Bladder is partially collapsed around a Alvarez catheter balloon. Abdominal wall: There is marked subcutaneous emphysema in the ventral abdominal wall and left lateral abdominal wall. Cutaneous attila are seen overlying the midline of the ventral abdominal wall. Bones: No acute fracture or suspicious intraosseous lesion. IMPRESSION: 1. Pneumoperitoneum, may be partly due to recent postsurgical changes. 2. There is a surgical drain in the ventral aspect of the abdomen adjacent to small bowel loops, with a focal collection adjacent to the drainage catheter containing fluid and gas measuring up to 7.4 c m in greatest dimension. Given the proximity to the small bowel, may be due to small bowel perforatio n, although there is also abnormal appearing transverse colon near this location. 3. There is also stranding in the anterior and right lateral aspects of the abdomen adjacent to large and small bowel loops. 4. Distended small bowel loops gastric distension, may be due to ileus associated with the process in volving the small bowel and colon in the anterior abdomen. 5. Marked subcutaneous emphysema in the abdominal wall as described above. Cutaneous attila overlyin g the ventral abdominal wall from recent postsurgical changes. Critical findings Critical Result: Gas and fluid collection in the anterior aspect of the abdomen adjacent to small bow el loops and in close proximity to the transverse colon. Can not exclude bowel perforation or bowel i njury. Findings discussed with OUMAR MCWILLIAMS by Dr. Valdivia by phone at 12/14/2024 11:44 AM, and acknow ledged receipt and understanding of the findings. ..
[2024-12-14] MEDS: NIFEdipine ER 30 MG TAB PO SCH (09:56)
[2024-12-14 11:26] LABS: Basophils # (auto) 0 10 ^3/uL (0-0.2); Basophils % (auto) 0.1 % (0.0-2.0); Eosinophils # (auto) 0 10 ^3/uL (0-0.8)
[2024-12-14 11:28] LABS: Hematocrit 46.1 % (36.0-46.0); Hemoglobin 14.7 g/dL (12.2-16.2); Lymphocytes % (auto) 6.5 % (10.0-50.0); Mean Corpuscular Hemoglobin 26.9 pg (28.0-32.0); Mean Corpuscular Hgb Conc. 31.8 g/dL (32.0-36.0); Mean Corpuscular Volume 84.4 fL (80.0-100.0); Monocytes # (auto) 1.9 10 ^3/uL (0-1.3); Monocytes % (auto) 12.1 % (0.0-12.0); Neutrophils # (auto) 12.7 10 ^3/uL (1.6-8.6); Neutrophils % (auto) 81.3 % (37.0-80.0); Platelet Count (auto) 199 10^3/uL (140-450); Red Blood Cells 5.46 10^6/uL (4.0-5.20); Red Cell Distribution Width 18.3 % (11.8-14.3); White Blood Cell 15.6 10^3/uL (4.4-10.8)
[2024-12-14 11:35] LABS: Chloride 100 mmol/L (98-107)
[2024-12-14 11:36] LABS: Anion Gap 12 (5-15); Carbon Dioxide 22 mmol/L (20-31)
[2024-12-14 11:43] LABS: Blood Urea Nitrogen 33 mg/dL (9-23); Calcium 10.5 mg/dL (8.7-10.4); Glucose 278 mg/dL (74-106); Potassium 5.2 mmol/L (3.5-5.1); Sodium 134 mmol/L (136-145)
--- NOTE | 2024-12-14 11:44 | DVHPN2 ---
Progress Note Date Seen: Dec 14, 2024 Medical Necessity Reason Pt with a Central, PICC or Fol: No Subjective Patient reports: No new complaints Review of Systems: HEENT:Normal, CVS:Normal, RESPIRATORY:Normal, GI:Normal, :Normal, MSK:Normal, NEURO:Normal Objective vital signs Vital Sign Date Time Temp Pulse Resp B/P (MAP) Pulse Ox O2 Delivery O2 Flow Rate FiO2 12/14/24 09:00 99.1 95 18 165/75 (105) 97 99.1 12/13/24 20:00 Nasal Cannula* 3 32 Total Intake and Output 12/13/24 12/13/24 12/14/24 15:00 23:00 07:00 Intake Total 750 ml 750 ml Output Total 710 ml 600 ml Balance 40 ml 150 ml medications Current Medications Medications Dose Ordered Sig/Carlos Route Start Time Stop Time Status Last Admin Dose Admin Aspirin 81 mg DAILY PO 12/13/24 10:00 12/13/24 10:03 81 MG Atorvastatin Calcium 20 mg HS PO 12/12/24 22:00 12/12/24 21:27 20 MG Docusate Sodium 100 mg BID PO 12/12/24 22:00 12/13/24 10:02 100 MG Ondansetron HCl 4 mg Q4HP PRN IV 12/12/24 13:15 Acetaminophen 500 mg Q6HP PRN PO 12/12/24 13:15 12/13/24 05:32 500 MG Nitroglycerin 0.4 mg Q5MINP PRN SL 12/12/24 13:15 Morphine Sulfate 2 mg Q30M PRN IV 12/12/24 13:15 Diagnostic Test (Pha) 1 strip ACHS 12/12/24 22:00 12/14/24 11:24 1 STRIP Insulin Human Regular ACHS SC 12/12/24 22:00 12/14/24 11:24 6 UNITS Dextrose 50 ml UD PRN IV 12/12/24 17:45 Morphine Sulfate 2 mg Q4HP PRN IV 12/13/24 07:15 Hydromorphone HCl 1 mg Q3HPRN PRN IV 12/13/24 10:00 12/13/24 20:12 1 MG Nifedipine 90 mg DAILY PO 12/14/24 10:00 Carvedilol 6.25 mg Q12HR PO 12/13/24 22:00 Timolol Maleate 1 drop BID EACHEYE 12/13/24 22:00 12/14/24 11:08 1 DROP Hydralazine HCl 10 mg Q6HP PRN IV 12/13/24 12:30 Diphenhydramine HCl 25 mg Q6HPRN PRN IV 12/13/24 23:15 12/13/24 23:25 25 MG Piperacillin Sod/ Tazobactam Sod 100 ml @ 25 mls/hr Q6H IV 12/14/24 07:00 12/14/24 07:07 25 MLS/HR Examination: GENERAL:Normal, HEENT:Normal, NECK:Normal, LUNGS:Normal, CVS:Normal, ABDOMEN:Normal, ABDOMEN:Abnormal (DISTENSION, TENDER), MSK:Normal, SKIN:Normal, NEURO:Normal, :Normal laboratory and microbiology Laboratory Tests 12/14/24 10:47 Test 12/14/24 10:47 Range/Units Serum Glucose Pending Microbiology Date/Time Source Procedure Growth Status 12/09/24 12:40 Voided Urine Urine Culture - Final Complete Problem List/Assessment/Plan Problem List/Assessment/Plan * Diabetes mellitus for which she was placed on sliding scale insulin and a hemoglobin A1c will be checked. * Hypertension : prn meds * acute on Chronic kidney disease, likely chronic kidney disease stage IIIB. * Obesity. * Hyperlipidemia. * Dementia. * Status post surgery for pelvic prolapse for which she will be followed up by Dr. Braun, pain control * ? bowel perforation: npo, ivf, iv antibiotics, dw dr Braun, dr Riley advance care planning- full code- time spent 18 mins Plan discussed with: Patient My Orders My Orders Orders - MJ PERERA MD Procedure Category Date Status Time Nifedipine Er PHA 12/14/24 In Process (Procardia Xl 10:00 Carvedilol Tablet PHA 12/13/24 In Process (Coreg Tablet) 22:00 Timolol 0.5% Opth PHA 12/13/24 In Process Soln (Timoptic 0.5%) 22:00 Hydralazine Injection PHA 12/13/24 In Process (Apresoline Inject 12:30 Basic Metabolic Panel LAB 12/14/24 In Process 06:00 Date of Service: Dec 14, 2024 Billing Provider: MJ PERERA MD Common Visit Codes: [id number] INP/OBS CARE(HIGH) MJ PERERA MD Dec 14, 2024 11:43
--- NOTE | 2024-12-14 11:44 | DVHINCON2 ---
Date of service: Dec 14, 2024 Reason for Consultation abdominal pain History of Present Illness History Source: Patient, RN Notes, MD Notes Exam Limitations: No limitations Home Meds Reported Medications Dorzolamide-Timolol (Dorzolamide Hcl/Timolol M) 1 Ml Elsy, 1 DROP EACHEYE BID, #10 ML 6 Refills 12/13/24 Timolol Maleate (Timolol Maleate Ophthalmi) 0.5 % Elsy, 1 DROP EACHEYE QAM, #5 ML 5 Refills 12/13/24 Brimonidine Tartrate (Brimonidine Tartrate) 0.15 % Elsy, 1 DROP OP TID, DROP 12/13/24 Tirzepatide (Mounjaro) 5 Mg/0.5 Ml Inj, 5 MG SC, INJ 12/09/24 Cholecalciferol (VITAMIN D3) 2,000 Unit Tab, 1 TAB PO DAILY, #30 TAB 5 Refills 12/09/24 Losartan Potassium (Losartan Potassium) 25 Mg Tab, 12.5 MG PO DAILY for 30 Days, MG 12/09/24 Loratadine (Loratadine) 10 Mg Cap, 10 MG PO, CAP 12/09/24 Hydrocodone-Acetaminophen (Hydrocodone Bitartrate/AC 10-325 mg) 1 Tab Tab, 1 TAB PO, TAB 12/09/24 Progesterone Micronized (PROGESTERONE) 200 Mg Cap, 200 MG PO, CAP 12/09/24 Nifedipine (Nifedipine Er) 90 Mg Tab, 1 TAB PO DAILY, #30 TAB 5 Refills 12/09/24 Docusate Sodium (Gnp Stool Softener) 100 Mg Cap, 100 MG PO BID, CAP 12/09/24 Estradiol (Estradiol) 1 Mg Tab, 1 MG PO DAILY, MG 12/09/24 Alprazolam (Alprazolam) 0.25 Mg Tab, 1 TAB PO, #90 TAB 12/09/24 Donepezil Hydrochloride (DONEPEZIL HCL) 10 Mg Tab, 10 MG PO DAILY for 30 Days, MG 12/09/24 Carvedilol (Carvedilol) 25 Mg Tab, 25 MG PO for 30 Days, MG 12/09/24 Atorvastatin Calcium (ATORVASTATIN CALCIUM) 20 Mg Tab, 1 TAB PO DAILY, #30 TAB 5 Refills 12/09/24 Aspirin (Aspir-Low) 81 Mg Tab, 81 MG PO DAILY for 30 Days, MG 12/09/24 Past Medical History Cardiac: HTN Dermatology: No pertinent Hx Others per notes DM, Hyperlipidemia, HTN, and Dementia patient unable to answer questions Patient Family History: Cancer G8 SISTER FHx: epilepsy G8 BROTHER Family history: Diabetes mellitus G8 FATHER G8 SISTER Family history: Hypertension G8 MOTHER G8 SISTER G8 SISTER Seizure disorder (situation) G8 BROTHER Review of Systems Constitutional: No symptom reported Ears, Nose, & Throat: No symptom reported Eyes: No symptom reported Pulmonary/Respiratory: No symptom reported Cardiovascular: No symptom reported Gastrointestinal: Abdominal Pain Genitourinary: No symptom reported Musculoskeletal: No symptom reported Skin: No symptom reported Psychiatric: No symptom reported Endocrine: No symptom reported Hemotologic/Lymphatic: No symptom reported H&P Exam Vital Signs Vital Signs Date Time Temp Pulse Resp B/P (MAP) Pulse Ox O2 Delivery O2 Flow Rate FiO2 12/14/24 09:00 99.1 95 18 165/75 (105) 97 99.1 12/13/24 20:00 Nasal Cannula* 3 32 General Appeara: Moderate distress Pulmonary/Respiratory: Normal inspection Cardiovascular/Chest: Normal inspection, Regular rate, Normal Rhythm Neuro/Mental St: Disoriented Labs/Xrays Labs Test 12/14/24 10:58 12/14/24 10:47 12/14/24 01:38 12/14/24 00:00 Range/Units POC Glucose 255 H 70-106 mg/dl Urine Color Yellow Yellow Urine Clarity Turbid H Clear Urine pH 5.0 5.0-9.0 Urine Specific [place] 1.019 1.001-1.035 Urine Protein Trace H Negative Urine Ketones Negative Negative Urine Blood 2+ H Negative /uL Urine Nitrite Negative Negative Urine Bilirubin Negative Negative Urine Urobilinogen Normal Negative mg/dL Urine Leukocyte Esterase Trace Negative /uL Urine RBC 59 0 - 4 /hpf Urine Microscopic WBC 7 H 0-5 /HPF Urine Squamous Epithelial Cells Few <5 /hpf Urine Bacteria None seen None Seen /hpf Urine Hyaline Casts Few 0 - 2 /lpf Urine Mucus Few None Seen Urine Glucose 3+ H Normal mg/dL Eosinophils (%) (Auto) 0.1 0.0-7.0 % Eosinophils # (Auto) 0 0-0.8 10 ^3/uL Basophils # (Auto) 0.1 0-0.2 10 ^3/uL Nucleated Red Blood Cells 0.1 % Total Bilirubin 1.2 H 0.2-1.0 mg/dL Aspartate Amino Transferase (AST) 42 H 13-40 U/L Alanine Aminotransferase (ALT) 22 7-40 U/L Alkaline Phosphatase 106 46-116 U/L Total Protein 6.9 5.7-8.2 g/dL Albumin 4.1 3.2-4.8 g/dL Test 12/13/24 05:05 12/09/24 12:40 Range/Units Hemoglobin A1c 8.2 H <5.7 % A1C Prothrombin Time 12.2 H 9.3-11.8 sec Prothrombin Time INR 1.17 H 0.9-1.15 Activated Partial Thromboplast Time 27.9 24.5-34.5 SEC Microbiology Date/Time Source Procedure Growth Status 12/09/24 12:40 Voided Urine Urine Culture - Final Complete Assessment/Plan Plan image reports, labs and notes reviewed, patient disoriented, sitter at bedside,patient does not answer question, abdomen tender, abdominal distention, LIZA drain dark red fluid 20cc NGT to LCS NPO close observation continue IV antibiotics LIZA drain to LIZA bulb suction Dr. Riley agrees with plan Plan discussed with: Other (Dr. Riley ) Visit Coding Surgery Date of Service if different f: Dec 14, 2024 Billing Provider: NITO RILEY MD Surgery Visit Codes: 46869 - INP CONSULT <80 MIN ANTHONY ONOFRE [employer] MANAGER Dec 14, 2024 11:44
[2024-12-14] MEDS: SODIUM CHLORIDE 0.9% 1,000 ML IV SCH (11:45)
--- NOTE | 2024-12-14 13:28 | DVH ---
XY CHEST XRAY 1 VIEW, HISTORY: NG TUBE PLACEMENT COMPARISON: XY CHEST PORTABLE on DOS: 12/13/24 XY CHEST PORTABLE on DOS: 12/13/24 TECHNICAL DATA: 1 view of the chest was obtained. FINDINGS: Lines and tubes: NG in the stomach. Cardiomediastinal silhouette: normal Pulmonary vasculature: normal Lung expansion: normal Lung airspace: normal Lung interstitium: normal Pleura: normal Pneumothorax: no Bones: Unremarkable Other: Left chest wall subcutaneous emphysema is seen. IMPRESSION: No acute intrathoracic abnormality. Left chest wall subcutaneous emphysema is seen.
[2024-12-14] MEDS: hydrALAZINE HCL 20 MG/ML VL IV PRN (17:50)
--- NOTE | 2024-12-14 18:18 | DVHPN2 ---
Progress Note - Dictate Date Seen: Dec 14, 2024 Medical Necessity Reason Pt with a Central, PICC or Fol: Yes The following are medically ne: Porter Catheter Reason for porter catheter: Bladder Retention/Obstruc, Dony. Abd Surgery, Strict I&O vital signs Vital Sign Date Time Temp Pulse Resp B/P (MAP) Pulse Ox O2 Delivery O2 Flow Rate FiO2 12/14/24 17:50 197/96 12/14/24 17:00 98.0 93 19 100 98.0 12/14/24 08:00 Nasal Cannula* 3 32 Total Intake and Output 12/13/24 12/13/24 12/14/24 15:00 23:00 07:00 Intake Total 750 ml 750 ml Output Total 710 ml 600 ml Balance 40 ml 150 ml medications Current Medications Medications Dose Ordered Sig/Carlos Route Start Time Stop Time Status Last Admin Dose Admin Ondansetron HCl 4 mg Q4HP PRN IV 12/12/24 13:15 Acetaminophen 500 mg Q6HP PRN PO 12/12/24 13:15 12/13/24 05:32 500 MG Nitroglycerin 0.4 mg Q5MINP PRN SL 12/12/24 13:15 Morphine Sulfate 2 mg Q30M PRN IV 12/12/24 13:15 Diagnostic Test (Pha) 1 strip ACHS 12/12/24 22:00 12/14/24 17:00 1 STRIP Insulin Human Regular ACHS SC 12/12/24 22:00 12/14/24 17:00 6 UNITS Dextrose 50 ml UD PRN IV 12/12/24 17:45 Hydromorphone HCl 1 mg Q3HPRN PRN IV 12/13/24 10:00 12/13/24 20:12 1 MG Timolol Maleate 1 drop BID EACHEYE 12/13/24 22:00 12/14/24 11:08 1 DROP Hydralazine HCl 10 mg Q6HP PRN IV 12/13/24 12:30 12/14/24 17:50 10 MG Diphenhydramine HCl 25 mg Q6HPRN PRN IV 12/13/24 23:15 12/13/24 23:25 25 MG Piperacillin Sod/ Tazobactam Sod 100 ml @ 25 mls/hr Q6H IV 12/14/24 07:00 1/29/25 16:47 25 MLS/HR Sodium Chloride 1,000 ml @ 100 mls/hr Q10H IV 12/14/24 11:45 12/14/24 11:45 100 MLS/HR laboratory and microbiology Laboratory Tests 12/14/24 10:47 Test 12/14/24 10:47 Range/Units Serum Glucose 278 H 74-106 mg/dL Assessment/Plan appreciate recommendations of general surgeon and Internal medicine, agree will follow along. Dr. Braun will be available for surgical needs should they arise. image reports, labs and notes reviewed, patient disoriented, sitter at bedside,patient does not answer question, abdomen tender, abdominal distention, LIZA drain dark red fluid NPO close observation Prognosis guarded Plan discussed with: Other LIBBY DIAZ FINGER WAVER Dec 14, 2024 18:18
--- NOTE | 2024-12-14 22:05 | DVH ---
Procedure: XY SMALL BOWEL SERIES-W GASTROGRA Reason for study/Clinical History: r/o extravasation Comparison Study: CT abdomen pelvis from earlier today Technique: Single contrast small bowel series performed. FINDINGS/IMPRESSION: Gas distention of central small bowel loops. Skin attila in the midline abdomen and in the bilateral abdomen. A surgical drain projects over the lower abdomen and pelvis. Alvarez catheter projects over t he pelvis. Soft tissue emphysema projects over the left abdomen known to be in the body wall on same- day CT. Gastric tube with tip projecting over the body of the stomach Contrast opacifies the stomach and duodenum. No significant contrast is otherwise seen in the bowel. No definite extraluminal contrast is visualized at 7 hours
[2024-12-15] VITALS (59 sets, daily range): BP systolic 79–225; BP diastolic 44–108; PULSE 71–115; RESP 13–19; TEMP 98.1–99.8; O2SAT 96–100
--- NOTE | 2024-12-15 07:22 | DVHPN2 ---
Progress Note Date Seen: Dec 15, 2024 Medical Necessity Reason Pt with a Central, PICC or Fol: Yes The following are medically ne: Porter Catheter Reason for porter catheter: Bladder Retention/Obstruc, Dony. Abd Surgery, Strict I&O Objective vital signs Vital Sign Date Time Temp Pulse Resp B/P (MAP) Pulse Ox O2 Delivery O2 Flow Rate FiO2 12/15/24 05:00 98.9 113 19 152/86 (108) 96 98.9 12/14/24 20:00 Nasal Cannula* 3 32 Total Intake and Output 12/14/24 12/14/24 12/15/24 15:00 23:00 07:00 Intake Total 100 ml 1100 ml 100 ml Output Total 750 ml 750 ml Balance 100 ml 350 ml -650 ml medications Current Medications Medications Dose Ordered Sig/Carlos Route Start Time Stop Time Status Last Admin Dose Admin Ondansetron HCl 4 mg Q4HP PRN IV 12/12/24 13:15 Acetaminophen 500 mg Q6HP PRN PO 12/12/24 13:15 12/13/24 05:32 500 MG Nitroglycerin 0.4 mg Q5MINP PRN SL 12/12/24 13:15 Morphine Sulfate 2 mg Q30M PRN IV 12/12/24 13:15 Diagnostic Test (Pha) 1 strip ACHS 12/12/24 22:00 12/15/24 06:32 1 STRIP Insulin Human Regular ACHS SC 12/12/24 22:00 12/15/24 06:36 8 UNITS Dextrose 50 ml UD PRN IV 12/12/24 17:45 Hydromorphone HCl 1 mg Q3HPRN PRN IV 12/13/24 10:00 12/13/24 20:12 1 MG Timolol Maleate 1 drop BID EACHEYE 12/13/24 22:00 12/14/24 21:20 1 DROP Hydralazine HCl 10 mg Q6HP PRN IV 12/13/24 12:30 12/15/24 01:27 10 MG Diphenhydramine HCl 25 mg Q6HPRN PRN IV 12/13/24 23:15 12/13/24 23:25 25 MG Piperacillin Sod/ Tazobactam Sod 100 ml @ 25 mls/hr Q6H IV 12/14/24 07:00 12/15/24 06:32 25 MLS/HR Sodium Chloride 1,000 ml @ 100 mls/hr Q10H IV 12/14/24 11:45 12/14/24 21:38 100 MLS/HR laboratory and microbiology Laboratory Tests 12/14/24 10:47 Test 12/14/24 10:47 Range/Units Serum Glucose 278 H 74-106 mg/dL Problem List/Assessment/Plan Problem List/Assessment/Plan 12/15/24 abdomen more distended, green drainage per colleen drains elev.WBC, abdomen very tender, will proceed with exploratory laparotomy as CT scan report is suspicious for bowel perforation and clinical findings corroborate the suspicion. Plan discussed with: Other NITO LANDA MD Dec 15, 2024 07:22
[2024-12-15] MEDS: LIDOCAINE W/ EPINEPHRINE 1% 20ML VIAL ONE (07:34)
[2024-12-15] MEDS: BUPIVACAINE 0.25% INJ 50ML VIAL ONE (07:34)
[2024-12-15] MEDS ORDERED: GLYCOPYRROLATE 0.2 MG/ML 1ML VIAL ONE (09:21)
[2024-12-15] MEDS ORDERED: LIDOCAINE 2% (LOCAL ANESTH.) PF 5ml SDV ONE (09:21)
[2024-12-15] MEDS ORDERED: PROPOFOL 10 MG/ML 20 ML IV ONE (09:21)
[2024-12-15] MEDS ORDERED: ONDANSETRON HCL 4 MG/2 ML VIAL ONE (09:21)
[2024-12-15] MEDS ORDERED: KETOROLAC TROMETH 30 MG/ML 1ML VIAL ONE (09:21)
[2024-12-15] MEDS ORDERED: DexAMETHasone SOD PHOS 10MG/1ML VIAL INJ ONE (09:21)
[2024-12-15] MEDS ORDERED: LIDOCAINE HCL 2% TOP JELLY 5ML TOP ONE (09:21)
[2024-12-15] MEDS ORDERED: ROCURONIUM 10MG/ML 10ML VIAL IV ONE (09:21)
[2024-12-15] MEDS ORDERED: KETAMINE 50mg/ML 1ml syringe ONE (09:22)
[2024-12-15] MEDS: VASOPRESSIN 20 UNIT/ML ONE (10:03)
--- NOTE | 2024-12-15 10:12 | DVH ---
Exam: XY KUB ABDOMEN SINGLE VIEW Indication: R/O EXTRAVASATION Comparison: None Technique: 1 radiographic views of the abdomen. Findings: Nonspecific bowel-gas pattern. Surgical drain in the midabdomen. There is no definite evidence for pneumoperitoneum. No abnormal calcifications noted. Impression: Nonspecific bowel-gas pattern.
[2024-12-15] MEDS ORDERED: LABETALOL HCL 5 MG/ML ML 20ML VIAL IV ONE (10:41)
[2024-12-15] MEDS ORDERED: MIDAZOLAM HCL 2MG/2ML 2ml VIAL (1mg/ml) ONE (11:10)
[2024-12-15] MEDS ORDERED: ONDANSETRON HCL 4 MG/2 ML VIAL IV PRN ×2 (11:45→12:15)
--- NOTE | 2024-12-15 12:04 | DVHOP ---
DATE OF SURGERY: 12/15/2024 PREOPERATIVE DIAGNOSIS: Peritonitis. POSTOPERATIVE DIAGNOSES: Peritonitis secondary to small bowel perforation and feculent contamination. SURGEON: Hill Riley MD TREE TRIMMING LINE TECHNICIAN: Rory Andino. ANESTHESIA: General endotracheal. ANESTHESIOLOGIST: Julian Jenkins. PROCEDURES: Exploratory laparotomy, small bowel resection, enteroenterostomy, irrigation of the bowel, lysis of adhesions, insertion of drains. DESCRIPTION OF PROCEDURE: Under general endotracheal anesthesia, with the patient's skin prepped and draped, previous attila secondary to a Leakage Tester procedure 48 hours prior to this operation were removed. The drain that was left by the previous surgeon was removed. The abdomen was opened. There was immediate presentation of feculent enteric contents. Cultures and sensitivities were submitted. The abdomen was then thoroughly explored. Lysis of adhesions was accomplished. The small bowel was found to have a transection in the mid portion of the jejunum. The bowel was densely adherent to the anterior abdominal wall and it was lysed from these adhesions secondary to serosal injuries and the segment of bowel was resected. Enteroenterostomy was then accomplished utilizing an Endo-SAEED stapler. The mesenteric defect was approximated using 2-0 Monocryl suture, the abdomen was then profusely irrigated with 5 liters of warm saline, which was aspirated. At this point, the entire bowel from the ligament of Treitz to the ileocecal valve was inspected. There were no other injuries to the bowel noted. The transverse colon was inspected. It was densely adherent to the anterior abdominal wall, where there was a prosthetic material from previous surgery. The colon was partially mobilized and found to be intact. Two new Lamont-Brody drains were placed into the peritoneal cavity and separately exteriorized in the right and left lower quadrant, secured with a 2-0 nylon suture. Subsequently, following assurance of complete hemostasis and assurance of an accurate needle and sponge count reported x 2 by the nurses, the fascia was approximated using #1 double-stranded PDS suture. The subcutaneous tissues were irrigated. A 10 mm LIZA drain was placed into the subcutaneous space and metallic skin attila used for approximation of skin edges. The patient remained hemodynamically stable throughout the procedure, left the operating room following an accurate needle and sponge count. The patient's daughter, Vicki Oseguera, was thoroughly informed at [phone]. Hill Riley MD PF/ALETHEA TID: [id number] RECEIPT: [id number]
[2024-12-15] MEDS ORDERED: NALOXONE HCL 0.4 MG/ML VIAL IV PRN (12:15)
[2024-12-15] MEDS ORDERED: ePHEDrine SULFATE 50 MG/ML AMP IV PRN (12:15)
[2024-12-15] MEDS ORDERED: HYDROmorphone HCL 2 MG/ML VL/or syr IV PRN (12:15)
[2024-12-15] MEDS ORDERED: FLUMAZENIL 0.1 MG/ML INJ 10ML MDV IV PRN (12:15)
[2024-12-15] MEDS ORDERED: fentaNYL CITRATE 100 MCG/2 ML VL IV PRN (12:15)
[2024-12-15] MEDS: hydrALAZINE HCL 20 MG/ML VL IV PRN (12:20)
[2024-12-15] MEDS: NOREPINEPHRINE 8 MG/250ML KIT 250 ML IV SCH (12:45)
[2024-12-15] MEDS: MIDAZOLAM DRIP 50 mg/50mL 50 ML IV SCH ×2 (12:45→15:00)
--- NOTE | 2024-12-15 12:46 | DVH ---
EXAM: XY CHEST PORTABLE Indication: post intubation in the OR Technique: Single frontal view of the chest was obtained Comparison: XY CHEST XRAY 1 VIEW on DOS: 12/14/24, XY CHEST PORTABLE on DOS: 12/13/24 FINDINGS: Lines and Tubes: Endotracheal tube projects 2 cm above the clare. Right internal jugular central ve nous catheter tip projects over the cavoatrial junction. Enteric tube projects in appropriate positio n. Lungs: Low lung volumes. Left chest wall subcutaneous emphysema is again visualized. Pleura: No effusion. No pneumothorax. Cardiomediastinal contours: Unchanged. Bones: No acute osseous abnormality. IMPRESSION: Endotracheal tube is in appropriate position.
[2024-12-15] MEDS: fentaNYL Drip 2500mCg/250mlNS 250 ML IV ONE (13:16)
[2024-12-15] MEDS: PROPOFOL 100 ML IV ONE (13:16)
[2024-12-15] MEDS: fentaNYL Drip 2500mCg/250mlNS 250 ML IV SCH (13:30)
[2024-12-15] MEDS: PROPOFOL 100 ML IV SCH (13:30)
[2024-12-15] MEDS: metroNIDAZOLE 500MG/100ML 100 ML IV SCH (13:47)
[2024-12-15] MEDS: D5W/SOD CHL 0.45%/KCL 20MEQ 1,000 ML IV SCH (13:54)
[2024-12-15 14:38] LABS: Basophils # (auto) 0 10 ^3/uL (0-0.2); Eosinophils # (auto) 0 10 ^3/uL (0-0.8); Hematocrit 43.9 % (36.0-46.0); Hemoglobin 14.1 g/dL (12.2-16.2); Lymphocytes # (auto) 0.5 10 ^3/uL (0.4-5.4); Lymphocytes % (auto) 4.5 % (10.0-50.0); Mean Corpuscular Hemoglobin 26.5 pg (28.0-32.0); Mean Corpuscular Hgb Conc. 32.1 g/dL (32.0-36.0); Mean Corpuscular Volume 82.6 fL (80.0-100.0); Monocytes # (auto) 1.2 10 ^3/uL (0-1.3); Monocytes % (auto) 10.3 % (0.0-12.0); Neutrophils # (auto) 10.1 10 ^3/uL (1.6-8.6); Neutrophils % (auto) 85.2 % (37.0-80.0); Nucleated Red Blood Cells % 0.2 %; Platelet Count (auto) 233 10^3/uL (140-450); Red Blood Cells 5.32 10^6/uL (4.0-5.20); White Blood Cell 11.9 10^3/uL (4.4-10.8)
[2024-12-15 14:51] LABS: INR 1.2 (0.9-1.15); Partial Thromboplastin Time 27.6 SEC (24.5-34.5); Prothrombin Time 12.5 sec (9.3-11.8)
[2024-12-15 14:57] LABS: Base Excess -3.1 mmol/L (-2.0-3.0)
[2024-12-15] MEDS: SODIUM CHLORIDE 0.9% 1,000 ML IV SCH (15:00)
[2024-12-15 15:06] LABS: Albumin 3.8 g/dL (3.2-4.8); Alkaline Phosphatase 102 U/L (46-116); Anion Gap 13 (5-15); Aspartate Aminotransferase 26 U/L (13-40); BUN/Creatinine Ratio 28.7 (10.0-20.0); Calcium 9.6 mg/dL (8.7-10.4); Carbon Dioxide 24 mmol/L (20-31); Chloride 106 mmol/L (98-107); Potassium 3.9 mmol/L (3.5-5.1); Sodium 143 mmol/L (136-145); Total Protein 6.5 g/dL (5.7-8.2)
--- NOTE | 2024-12-15 15:09 | DVHPN2 ---
Progress Note Date Seen: Dec 15, 2024 Medical Necessity Reason Pt with a Central, PICC or Fol: Yes The following are medically ne: Central Line, Porter Catheter Reason for porter catheter: Bladder Retention/Obstruc, Dony. Abd Surgery, Strict I&O Subjective Patient reports: No new complaints Review of Systems: HEENT:Normal, CVS:Normal, RESPIRATORY:Normal, GI:Normal, :Normal, MSK:Normal, NEURO:Normal Objective vital signs Vital Sign Date Time Temp Pulse Resp B/P (MAP) Pulse Ox O2 Delivery O2 Flow Rate FiO2 12/15/24 14:15 84 17 120/61 (80) 100 135/65 (88) 12/15/24 13:34 100 12/15/24 13:32 Mechanical Ventilator+ 12/15/24 13:00 98.1 98.1 12/15/24 08:00 0 Total Intake and Output 12/14/24 12/14/24 12/15/24 14:59 22:59 06:59 Intake Total 100 ml 1100 ml 100 ml Output Total 750 ml 750 ml Balance 100 ml 350 ml -650 ml medications Current Medications Medications Dose Ordered Sig/Carlos Route Start Time Stop Time Status Last Admin Dose Admin Ondansetron HCl 4 mg Q4HP PRN IV 12/12/24 13:15 Acetaminophen 500 mg Q6HP PRN PO 12/12/24 13:15 12/13/24 05:32 500 MG Nitroglycerin 0.4 mg Q5MINP PRN SL 12/12/24 13:15 Morphine Sulfate 2 mg Q30M PRN IV 12/12/24 13:15 Diagnostic Test (Pha) 1 strip ACHS 12/12/24 22:00 12/15/24 13:55 1 STRIP Insulin Human Regular ACHS SC 12/12/24 22:00 12/15/24 06:36 8 UNITS Dextrose 50 ml UD PRN IV 12/12/24 17:45 Timolol Maleate 1 drop BID EACHEYE 12/13/24 22:00 12/14/24 21:20 1 DROP Hydralazine HCl 10 mg Q6HP PRN IV 12/13/24 12:30 12/15/24 01:27 10 MG Piperacillin Sod/ Tazobactam Sod 100 ml @ 25 mls/hr Q6H IV 12/14/24 07:00 12/15/24 13:47 25 MLS/HR Pantoprazole Sodium 40 mg DAILY IV 12/16/24 10:00 Metronidazole 100 ml @ 100 mls/hr Q8HR IV 12/15/24 14:00 12/15/24 13:47 100 MLS/HR Propofol 100 ml @ 2.856 mls/ hr Q24H IV 12/15/24 12:15 12/15/24 13:30 2.856 MLS/HR Norepinephrine Bitartrate 250 ml @ 3.75 mls/hr Q24H IV 12/15/24 12:45 Midazolam HCl 50 ml @ 1 mls/hr Q24H IV 12/15/24 12:45 Fentanyl Citrate 250 ml @ 2.5 mls/hr Q24H IV 12/15/24 12:45 12/15/24 13:30 2.5 MLS/HR Examination: GENERAL:Normal, HEENT:Normal, NECK:Normal, LUNGS:Normal, LUNGS:Abnormal (intubated), CVS:Normal, ABDOMEN:Normal, ABDOMEN:Abnormal (colleen drains), MSK:Normal, SKIN:Normal, NEURO:Normal, :Normal laboratory and microbiology Laboratory Tests 12/15/24 14:08 Test 12/15/24 14:08 Range/Units Serum Glucose Pending Microbiology Date/Time Source Procedure Growth Status 12/09/24 12:40 Voided Urine Urine Culture - Final Complete Problem List/Assessment/Plan Problem List/Assessment/Plan * Diabetes mellitus for which she was placed on sliding scale insulin and a hemoglobin A1c will be checked. * Hypertension : prn meds * acute on Chronic kidney disease, likely chronic kidney disease stage IIIB.- atn/vmn * Obesity. * Hyperlipidemia. * Dementia. * Status post surgery for pelvic prolapse for which she will be followed up by Dr. Braun, pain control * small bowel perforation: s/p exp lap * acute resp failure: cont acv advance care planning- full code- time spent 18 mins Plan discussed with: Other (rn) My Orders My Orders Orders - MJ PERERA MD Procedure Category Date Status Time Kub Abdomen Single XY 12/15/24 Resulted View 08:00 Norepinephrine 8 PHA 12/15/24 In Process Mg/250ml Kit 12:45 Midazolam Drip 50 PHA 12/15/24 In Process Mg/50ml (Versed Drip 5 12:45 Fentanyl Drip PHA 12/15/24 In Process 2500mcg/250mlns 12:45 Comprehensive LAB 12/15/24 In Process Metabolic Panel 12:44 Magnesium LAB 12/15/24 In Process 12:44 Mrsa Screen MADELYN 12/15/24 In Process 13:10 Versed Drip Target -3 PHA 12/15/24 Transmitted Rass 15:15 Rass Sedation Scale ABEBE 12/15/24 Transmitted 15:03 NS PHA 12/15/24 Transmitted 15:15 Vancomycin Per PHA 12/15/24 Transmitted Pharmacy 15:15 Glucose Blood PHA 12/15/24 Transmitted (Accu-Chek Comfort 18:00 Moderate Insulin Ss PHA 12/15/24 Transmitted 18:00 Dextrose 50% Syringe PHA 12/15/24 Transmitted 15:15 Complete Blood Count LAB 12/16/24 Verified 06:00 Comprehensive LAB 12/16/24 Verified Metabolic Panel 06:00 Chest Portable XY 12/16/24 Transmitted 06:00 Abg W/ Co-Ox RT 12/16/24 Verified 06:00 Critical Care Time (mins): 41 (critical care time 41 mins) Date of Service: Dec 15, 2024 Billing Provider: MJ PERERA MD Common Visit Codes: [id number] CARE 30-74 MIN MJ PERERA MD Dec 15, 2024 15:09
[2024-12-15 15:11] LABS: Bilirubin, Total 1.4 mg/dL (0.2-1.0); Blood Urea Nitrogen 45 mg/dL (9-23); Glucose 288 mg/dL (74-106); Magnesium 2.7 mg/dL (1.6-2.6)
[2024-12-15] MEDS ORDERED: VANCOMYCIN PER PHARMACY 0 MG IV SCH (15:15)
[2024-12-15] MEDS ORDERED: DEXTROSE (50%) 50ML SYRG IV PRN (15:15)
[2024-12-15 15:27] LABS: Alanine Aminotransferase 12 U/L (7-40)
[2024-12-15] MEDS: VANCOMYCIN 1GM/250ML KIT 250 ML IV ONE (15:30)
[2024-12-15] MEDS: ACCU-CHEK COMFORT CURVE STRIP VI SCH (16:32)
[2024-12-15] MEDS: InsuLIN REG 1unit/0.01ml Soln (100units/ml) SC SCH (16:33)
[2024-12-16] VITALS (118 sets, daily range): BP systolic 88–167; BP diastolic 38–75; PULSE 43–86; RESP 12–21; TEMP 98.2–99.4; O2SAT 93–100
[2024-12-16 04:09] LABS: Basophils # (auto) 0 10 ^3/uL (0-0.2); Basophils % (auto) 0.2 % (0.0-2.0); Eosinophils # (auto) 0 10 ^3/uL (0-0.8); Hematocrit 37.5 % (36.0-46.0); Hemoglobin 12.3 g/dL (12.2-16.2); Lymphocytes # (auto) 0.5 10 ^3/uL (0.4-5.4); Lymphocytes % (auto) 3.6 % (10.0-50.0); Mean Corpuscular Hemoglobin 27.2 pg (28.0-32.0); Mean Corpuscular Hgb Conc. 32.7 g/dL (32.0-36.0); Mean Corpuscular Volume 83.1 fL (80.0-100.0); Monocytes # (auto) 1.5 10 ^3/uL (0-1.3); Neutrophils % (auto) 86.2 % (37.0-80.0); Platelet Count (auto) 227 10^3/uL (140-450); Red Blood Cells 4.52 10^6/uL (4.0-5.20); Red Cell Distribution Width 18.2 % (11.8-14.3)
[2024-12-16 04:22] LABS: Albumin 3.5 g/dL (3.2-4.8); Alkaline Phosphatase 89 U/L (46-116); Anion Gap 12 (5-15); Aspartate Aminotransferase 23 U/L (13-40); BUN/Creatinine Ratio 25.6 (10.0-20.0); Bilirubin, Total 1.1 mg/dL (0.2-1.0); Calcium 8.8 mg/dL (8.7-10.4); Carbon Dioxide 22 mmol/L (20-31); Potassium 3.9 mmol/L (3.5-5.1); Sodium 142 mmol/L (136-145); Total Protein 5.8 g/dL (5.7-8.2)
[2024-12-16 04:24] LABS: Alanine Aminotransferase 9 U/L (7-40); Blood Urea Nitrogen 55 mg/dL (9-23); Chloride 108 mmol/L (98-107)
[2024-12-16 04:25] LABS: Glucose 433 mg/dL (74-106)
--- NOTE | 2024-12-16 05:24 | DVH ---
CHEST RADIOGRAPH Indication: resp failure Technique: Single frontal view of the chest was obtained COMPARISON: XY CHEST PORTABLE on DOS: 12/15/24, XY CHEST XRAY 1 VIEW on DOS: 12/14/24, XY CHEST PORTABL E on DOS: 12/13/24 FINDINGS: Lines and Tubes: Endotracheal tube is 0.8 cm above the level of the clare. Enteric catheter and righ t central venous catheter in satisfactory position. Lungs: Diffuse congestion Pleura: No effusion. No pneumothorax. Cardiomediastinal contours: Unremarkable Bones: Unremarkable IMPRESSION: Recommend retraction of endotracheal tube by 1 cm.
[2024-12-16] MEDS ORDERED: DEXTROSE (50%) 50ML SYRG IV PRN (05:45)
[2024-12-16 07:22] LABS: Base Excess -1.7 mmol/L (-2.0-3.0)
[2024-12-16] MEDS: PANTOPRAZOLE 40 MG/10 ML VIAL INJ IV SCH (07:35)
[2024-12-16] MEDS: ACCU-CHEK COMFORT CURVE STRIP VI SCH (07:35)
[2024-12-16] MEDS: InsuLIN REG 1unit/0.01ml Soln (100units/ml) SC SCH (07:46)
--- NOTE | 2024-12-16 12:00 | DVHPN2 ---
Progress Note Date Seen: Dec 16, 2024 Medical Necessity Reason Pt with a Central, PICC or Fol: Yes The following are medically ne: Central Line, Porter Catheter Reason for porter catheter: Bladder Retention/Obstruc, Dony. Abd Surgery, Strict I&O Objective vital signs Vital Sign Date Time Temp Pulse Resp B/P (MAP) Pulse Ox O2 Delivery O2 Flow Rate FiO2 12/16/24 11:50 40 12/16/24 11:49 14 98 Mechanical Ventilator+ 12/16/24 11:46 98.2 53 131/50 (77) 98.2 122/49 (73) 12/15/24 08:00 0 Total Intake and Output 12/15/24 12/15/24 12/16/24 15:00 23:00 07:00 Intake Total 462.492 ml 1336.068 ml 1357.50 ml Output Total 40 ml 400 ml 480 ml Balance 422.492 ml 936.068 ml 877.50 ml medications Current Medications Medications Dose Ordered Sig/Carlos Route Start Time Stop Time Status Last Admin Dose Admin Ondansetron HCl 4 mg Q4HP PRN IV 12/12/24 13:15 Acetaminophen 500 mg Q6HP PRN PO 12/12/24 13:15 12/13/24 05:32 500 MG Nitroglycerin 0.4 mg Q5MINP PRN SL 12/12/24 13:15 Morphine Sulfate 2 mg Q30M PRN IV 12/12/24 13:15 Dextrose 50 ml UD PRN IV 12/12/24 17:45 Timolol Maleate 1 drop BID EACHEYE 12/13/24 22:00 12/16/24 10:16 1 DROP Hydralazine HCl 10 mg Q6HP PRN IV 12/13/24 12:30 12/15/24 01:27 10 MG Piperacillin Sod/ Tazobactam Sod 100 ml @ 25 mls/hr Q6H IV 12/14/24 07:00 12/16/24 07:35 25 MLS/HR Pantoprazole Sodium 40 mg DAILY IV 12/16/24 10:00 12/16/24 07:35 40 MG Metronidazole 100 ml @ 100 mls/hr Q8HR IV 12/15/24 14:00 12/16/24 05:40 100 MLS/HR Propofol 100 ml @ 2.856 mls/ hr Q24H IV 12/15/24 12:15 12/15/24 13:30 2.856 MLS/HR Norepinephrine Bitartrate 250 ml @ 3.75 mls/hr Q24H IV 12/15/24 12:45 12/16/24 03:00 18.75 MLS/HR Fentanyl Citrate 250 ml @ 2.5 mls/hr Q24H IV 12/15/24 12:45 12/15/24 23:54 15 MLS/HR Midazolam HCl 50 ml @ 1 mls/hr Q24H IV 12/15/24 15:15 12/16/24 03:00 5 MLS/HR Sodium Chloride 1,000 ml @ 100 mls/hr Q10H IV 12/15/24 15:15 12/16/24 11:00 100 MLS/HR Vancomycin HCl 0 ml @ 0 mls/hr UD IV 12/15/24 15:15 Diagnostic Test (Pha) 1 strip IQ4HR 12/16/24 08:00 12/16/24 11:04 1 STRIP Insulin Human Regular IQ4HR SC 12/16/24 08:00 12/16/24 11:47 9 UNITS Dextrose 50 ml UD PRN IV 12/16/24 05:45 laboratory and microbiology Laboratory Tests 12/16/24 03:00 Test 12/16/24 03:00 Range/Units Serum Glucose 433 *H 74-106 mg/dL Problem List/Assessment/Plan Problem List/Assessment/Plan 12/15/24 abdomen more distended, green drainage per colleen drains elev.WBC, abdomen very tender, will proceed with exploratory laparotomy as CT scan report is suspicious for bowel perforation and clinical findings corroborate the suspicion. 12/16/24 AFEBRILE, WOUND CLEAN AND WELL APPROXIMATED, DRAINS SEROSANGUINEOUS, ABDOMEN NON DISTENDED, SOFT, GOOD URINE OUTPUT. DISCUSSED WITH PRIMARY TEAM WEANING OFF VENTILATOR. Plan discussed with: Patient NITO LANDA MD Dec 16, 2024 12:00
--- NOTE | 2024-12-16 12:26 | DVHPNRES ---
Progress Note Date Seen: Dec 16, 2024 Resident Creating Document: SAMARA MARKS RESIDENT Medical Necessity Reason Pt with a Central, PICC or Fol: Yes The following are medically ne: Central Line, Porter Catheter Reason for porter catheter: Bladder Retention/Obstruc, Dony. Abd Surgery, Strict I&O Subjective Review of Systems ANEESH QUINTANILLA Nisha 68 years old female with a PMH of type 2 DM, HTN, dementia admitted for the surgery of pelvic prolapse and cystocele, surgery was done on 12/12/2024, developed peritonitis and small-bowel perforation which is evident on CT, performed exploratory laparotomy on 12/15/2024, intubated and brought her to ICU. Patient seen and examined at the bedside. Currently sedated, intubated and on mechanical ventilation. Unable to obtain ROS due to patient's clinical status. Monitoring lab. Started Diet Clinimix. Objective vital signs Vital Sign Date Time Temp Pulse Resp B/P (MAP) Pulse Ox O2 Delivery O2 Flow Rate FiO2 12/16/24 11:56 52 12/16/24 11:50 40 12/16/24 11:49 14 98 Mechanical Ventilator+ 12/16/24 11:46 98.2 131/50 (77) 98.2 122/49 (73) 12/15/24 08:00 0 Total Intake and Output 12/15/24 12/15/24 12/16/24 14:59 22:59 06:59 Intake Total 431.068 ml 1124.992 ml 1463.75 ml Output Total 40 ml 400 ml 480 ml Balance 391.068 ml 724.992 ml 983.75 ml medications Current Medications Medications Dose Ordered Sig/Carlos Route Start Time Stop Time Status Last Admin Dose Admin Ondansetron HCl 4 mg Q4HP PRN IV 12/12/24 13:15 Acetaminophen 500 mg Q6HP PRN PO 12/12/24 13:15 12/13/24 05:32 500 MG Nitroglycerin 0.4 mg Q5MINP PRN SL 12/12/24 13:15 Morphine Sulfate 2 mg Q30M PRN IV 12/12/24 13:15 Dextrose 50 ml UD PRN IV 12/12/24 17:45 Timolol Maleate 1 drop BID EACHEYE 12/13/24 22:00 12/16/24 10:16 1 DROP Hydralazine HCl 10 mg Q6HP PRN IV 12/13/24 12:30 12/15/24 01:27 10 MG Piperacillin Sod/ Tazobactam Sod 100 ml @ 25 mls/hr Q6H IV 12/14/24 07:00 12/16/24 07:35 25 MLS/HR Pantoprazole Sodium 40 mg DAILY IV 12/16/24 10:00 12/16/24 07:35 40 MG Metronidazole 100 ml @ 100 mls/hr Q8HR IV 12/15/24 14:00 12/16/24 05:40 100 MLS/HR Propofol 100 ml @ 2.856 mls/ hr Q24H IV 12/15/24 12:15 12/15/24 13:30 2.856 MLS/HR Norepinephrine Bitartrate 250 ml @ 3.75 mls/hr Q24H IV 12/15/24 12:45 12/16/24 03:00 18.75 MLS/HR Fentanyl Citrate 250 ml @ 2.5 mls/hr Q24H IV 12/15/24 12:45 12/15/24 23:54 15 MLS/HR Midazolam HCl 50 ml @ 1 mls/hr Q24H IV 12/15/24 15:15 12/16/24 03:00 5 MLS/HR Sodium Chloride 1,000 ml @ 100 mls/hr Q10H IV 12/15/24 15:15 12/16/24 11:00 100 MLS/HR Vancomycin HCl 0 ml @ 0 mls/hr UD IV 12/15/24 15:15 Diagnostic Test (Pha) 1 strip IQ4HR 12/16/24 08:00 12/16/24 11:04 1 STRIP Insulin Human Regular IQ4HR SC 12/16/24 08:00 12/16/24 11:47 9 UNITS Dextrose 50 ml UD PRN IV 12/16/24 05:45 Examination Pt is lying on bed General Appearance: sedated, intubated and on mechanical ventilation HEENT: Atraumatic, Mucous membranes moist/pink Respiratory: Clear to auscultation, Normal air movement, No added sounds Cardiovascular: Regular rate, Normal S1, Normal S2, No murmurs Abdominal: Laparotomy wound covered with dressing, sutures intact no signs of infection inflammation for now, [address], mildly distended Extremities: No edema, Normal pulses, No tenderness/swelling Skin: No Significant rash, except surgical wound Neuro: sedated, pupillary reflex reactive Nurse was there as kaminine during examination laboratory and microbiology Laboratory Tests 12/16/24 03:00 Test 12/16/24 03:00 Range/Units Serum Glucose 433 *H 74-106 mg/dL Microbiology Date/Time Source Procedure Growth Status 12/15/24 11:59 Sputum Gram Stain - Final Resulted 12/15/24 11:59 Sputum Respiratory Culture - Preliminary Resulted 12/15/24 11:30 Peritoneal Fluid Gram Stain - Final Resulted 12/15/24 11:30 Peritoneal Fluid Anaerobic Culture - Preliminary Resulted 12/15/24 11:30 Peritoneal Fluid Aerobic Culture - Preliminary Resulted 12/09/24 12:40 Voided Urine Urine Culture - Final Complete Labs and/or images reviewed: Labs reviewed by me, Image(s) reviewed by me Problem List/Assessment/Plan Problem List/Assessment/Plan Neurology Cardiology # HTN # Shock likely due to sepsis from peritonitis - currently on Levophed 12/15 - sedated with fentanyl and Versed 12/15 - currently receiving Zosyn, vancomycin & Flagyl - ordered pancultures, preliminary showed no growth - monitor lab Respiratory # acute hypoxic respiratory failure likely due to sepsis s/p intubation - sedated, intubated and on mechanical ventilation - RR 14, VT 500, FiO2 30%, peep 5 - currently ICU status - currently on Levophed and sedated with fentanyl and Versed 12/15 - currently receiving Zosyn, vancomycin - Dc Flagyl - Monitor GI/Liver/ Abdomen # Morbid Obesity - Nutrional councelling # Peritonitis due to ? perforation # Septic shock due to above # ? small bowel perforation # Bowel Adhesions - Evident on CT - postoperative day 1 status post exploratory laparotomy, small-bowel resection, enteroenterostomy, adhesiolysis, patient tolerated to the procedure - currently monitoring - sedated, intubated and on mechanical ventilation - currently receiving Zosyn, vancomycin - Dc flagyl /Kidney/Reproductive # JAKE likely vasomotor on CKD stage 3 - monitor lab - avoid nephrotoxic agents # Uterine/Pelvic prolapse # cystocele # stress incontinence # ? vaginal lesion - postoperative day 4 status post desera I single incision urethral sling, cystocele repair - vaginal mucosa lesion sent for biopsy MSK Endocrine/Meatbolic # uncontrolled type 2 DM HbA1c 8.2 - Accu-Cheks and ISS # hyperkalemia - monitor lab # Skin ID # Peritonitis due to ? perforation # Septic shock due to above - currently receiving Zosyn, vancomycin - DC Flagyl - ordered pancultures, preliminary showed no growth Lines Intubated 12/15 Right IJ CVC 12/15 Porter Dips Fentanyl Versed Levophed Diprivan DC 12/16 PUD PPX : Protonix VTE PPX : SCDs Diet: Clinimix Goals of care discussed with the family for more than 29 minutes: Full code status Critical care time spent including chart review, discussing with the patient's family excluding procedures: 54 minutes Plan of care updated to daughter on phone. Case discussed with Dr. Philip Plan discussed with: Other (family) My Orders My Orders Orders - SAMARA MARKS Procedure Category Date Status Time Mrsa Screen MADELYN 12/16/24 Uncollected 12:09 Date of Service: Dec 16, 2024 Billing Provider: MARTIN PHILIP MD Common Visit Codes: [id number] CARE 30-74 MIN SAMARA MARKS Dec 16, 2024 12:26 MARTIN PHILIP MD Dec 19, 2024 09:07
[2024-12-16] MEDS: INSULIN LANTUS (GLARGINE) 1 /0.01ml (100units/ml) SC ONE (15:30)
[2024-12-16] MEDS ORDERED: CLINIMIX PER PHARMACY 0 ML IV SCH (15:30)
[2024-12-16] MEDS: VANCOMYCIN 500mg/100mL 100 ML IV ONE (16:00)
--- NOTE | 2024-12-16 19:31 | DVHPN2 ---
Progress Note - Dictate Date Seen: Dec 16, 2024 Medical Necessity Reason Pt with a Central, PICC or Fol: Yes The following are medically ne: Central Line, Proter Catheter Reason for porter catheter: Bladder Retention/Obstruc, Dony. Abd Surgery, Strict I&O vital signs Vital Sign Date Time Temp Pulse Resp B/P (MAP) Pulse Ox O2 Delivery O2 Flow Rate FiO2 12/16/24 18:46 98.4 46 13 117/45 (69) 99 209.1 109/50 (69) 12/16/24 18:26 40 12/16/24 18:24 Mechanical Ventilator+ 12/15/24 08:00 0 Total Intake and Output 12/15/24 12/15/24 12/16/24 15:00 23:00 07:00 Intake Total 462.492 ml 1336.068 ml 1357.50 ml Output Total 40 ml 400 ml 480 ml Balance 422.492 ml 936.068 ml 877.50 ml medications Current Medications Medications Dose Ordered Sig/Carlos Route Start Time Stop Time Status Last Admin Dose Admin Acetaminophen 500 mg Q6HP PRN PO 12/12/24 13:15 12/13/24 05:32 500 MG Timolol Maleate 1 drop BID EACHEYE 12/13/24 22:00 12/16/24 10:16 1 DROP Pantoprazole Sodium 40 mg DAILY IV 12/16/24 10:00 12/16/24 07:35 40 MG Propofol 100 ml @ 2.856 mls/ hr Q24H IV 12/15/24 12:15 12/15/24 13:30 2.856 MLS/HR Norepinephrine Bitartrate 250 ml @ 3.75 mls/hr Q24H IV 12/15/24 12:45 12/16/24 14:51 18.75 MLS/HR Fentanyl Citrate 250 ml @ 2.5 mls/hr Q24H IV 12/15/24 12:45 12/16/24 13:01 20 MLS/HR Midazolam HCl 50 ml @ 1 mls/hr Q24H IV 12/15/24 15:15 12/16/24 18:18 5 MLS/HR Vancomycin HCl 0 ml @ 0 mls/hr UD IV 12/15/24 15:15 Diagnostic Test (Pha) 1 strip IQ4HR 12/16/24 08:00 12/16/24 16:02 1 STRIP Insulin Human Regular IQ4HR SC 12/16/24 08:00 12/16/24 16:03 6 UNITS Dextrose 50 ml UD PRN IV 12/16/24 05:45 Piperacillin Sod/ Tazobactam Sod 100 ml @ 25 mls/hr Q8H IV 12/16/24 21:00 Insulin Glargine 15 units QAM SC 12/17/24 07:00 Amino Acids 0 ml @ 0 mls/hr PER PHARMACY IV 12/16/24 15:30 Amino Acids/ Electrolytes/ Dextrose 1,000 ml @ 41 mls/hr DAILY@2200 IV 12/16/24 22:00 objective 68 years old female with a PMH of type 2 DM, HTN, dementia admitted for the surgery of pelvic prolapse and cystocele, surgery was done on 12/12/2024, developed peritonitis and small-bowel perforation which is evident on CT, performed exploratory laparotomy on 12/15/2024, intubated and brought her to ICU. Patient seen and examined at the bedside. Currently sedated, intubated and on mechanical ventilation. On pressors for blood pressure support. Unable to obtain ROS due to patient's clinical status. Monitoring lab. Started Diet Clinimix. Pt is bradycardic. laboratory and microbiology Laboratory Tests 12/16/24 03:00 Test 12/16/24 03:00 Range/Units Serum Glucose 433 *H 74-106 mg/dL Assessment/Plan appreciate recommendations of general surgeon and Internal medicine, agree will follow along. Dr. Braun will be available for surgical needs should they arise. image reports, labs and notes reviewed, patient disoriented, sitter at bedside,patient does not answer question, abdomen tender, abdominal distention, LIZA drain dark red fluid NPO close observation Prognosis gaurded Plan discussed with: Other Total Time (mins): 12 LIBBY DIAZ NP Dec 16, 2024 19:31
[2024-12-16] MEDS: PIPERACILLIN-TAZOB 3.375GM 100 ML IV SCH (20:34)
[2024-12-16] MEDS: EPINEPHrine HCL 250 ML IV SCH (20:46)
[2024-12-16] MEDS: EPINEPHrine HCL 250 ML IV ONE (20:54)
[2024-12-16] MEDS: AMINO ACID INFUSION IN D10W 1,000 ML IV SCH (21:48)
[2024-12-17] VITALS (116 sets, daily range): BP systolic 89–197; BP diastolic 38–148; PULSE 40–74; RESP 12–18; TEMP 97.7–98.6; O2SAT 98–100
[2024-12-17 03:58] LABS: Basophils # (auto) 0 10 ^3/uL (0-0.2); Basophils % (auto) 0.2 % (0.0-2.0); Eosinophils # (auto) 0 10 ^3/uL (0-0.8); Hematocrit 35.7 % (36.0-46.0); Hemoglobin 11.5 g/dL (12.2-16.2); Lymphocytes % (auto) 6.1 % (10.0-50.0); Mean Corpuscular Hemoglobin 26.6 pg (28.0-32.0); Mean Corpuscular Hgb Conc. 32.3 g/dL (32.0-36.0); Mean Corpuscular Volume 82.3 fL (80.0-100.0); Monocytes # (auto) 1.8 10 ^3/uL (0-1.3); Monocytes % (auto) 10.7 % (0.0-12.0); Nucleated Red Blood Cells % 0.2 %; Platelet Count (auto) 232 10^3/uL (140-450); Red Blood Cells 4.34 10^6/uL (4.0-5.20); Red Cell Distribution Width 18.2 % (11.8-14.3); White Blood Cell 16.8 10^3/uL (4.4-10.8)
[2024-12-17 04:24] LABS: Alanine Aminotransferase 13 U/L (7-40); Alkaline Phosphatase 96 U/L (46-116); Anion Gap 10 (5-15); Bilirubin, Total 0.8 mg/dL (0.2-1.0); Carbon Dioxide 22 mmol/L (20-31); Phosphorus 2.8 mg/dL (2.4-5.1); Potassium 3.9 mmol/L (3.5-5.1)
[2024-12-17 04:25] LABS: Albumin 3.1 g/dL (3.2-4.8); Aspartate Aminotransferase 40 U/L (13-40); Blood Urea Nitrogen 57 mg/dL (9-23); Chloride 115 mmol/L (98-107); Glucose 364 mg/dL (74-106); Sodium 147 mmol/L (136-145); Total Protein 5.6 g/dL (5.7-8.2)
[2024-12-17] MEDS: INSULIN LANTUS (GLARGINE) 1 /0.01ml (100units/ml) SC SCH (05:56)
--- NOTE | 2024-12-17 06:10 | DVH ---
CHEST RADIOGRAPH Indication: Pna Technique: Single frontal view of the chest was obtained COMPARISON: XY CHEST PORTABLE on DOS: 12/16/24, XY CHEST PORTABLE on DOS: 12/15/24, XY CHEST XRAY 1 VIE W on DOS: 12/14/24, XY CHEST PORTABLE on DOS: 12/13/24 FINDINGS: Lines and Tubes: Endotracheal tube and right central venous catheter and enteric catheter in satisfac tory position. Lungs: Mild congestion Pleura: No effusion. No pneumothorax. Cardiomediastinal contours: Unremarkable Bones: Unremarkable IMPRESSION: Lines and tubes in satisfactory position. No significant interval change.
[2024-12-17 09:34] LABS: Base Excess -5.3 mmol/L (-2.0-3.0)
[2024-12-17] MEDS ORDERED: DEXTROSE (50%) 50ML SYRG IV PRN (09:45)
--- NOTE | 2024-12-17 09:47 | DVHPN2 ---
Subjective 12/17-follow up with the pressure drip was changed from leave O2 appy due to new onset bradycardia overnight. No atropine given/needed. This a.m. heart rates RN low 40s, we will start dopamine goal to keep heart rate more than 45. Consult Cardiology for bradycardia. Clinimix was started last night on 40 and local closer high now, she was on morbid q.4 SSI which revealed upgrade to aggressive q.4 SSI. On vanc/Zosyn/Flagyl. We will keep the antibiotics despite dual anaerobic coverage, preference by surgery for significant abdominal surgery/manipulation. Plan for bradycardia , have epi/ dopamine drips now, +cardiology consult. We will try SBT today, no plan for weaning vasopressors. Reviewed: H&P Changes from previous H/P or p: No Changes General: Per HPI Objective Vitals Vital Signs Date Time Temp Pulse Resp B/P (MAP) Pulse Ox O2 Delivery O2 Flow Rate FiO2 12/17/24 08:46 98.1 41 14 137/59 (85) 100 208.6 128/106 (113) 12/17/24 08:22 30 12/17/24 08:21 Mechanical Ventilator+ 12/15/24 08:00 0 Intake/Output Intake and Output 12/17/24 07:00 Intake Total 2981.75 ml Output Total 1420 ml Balance 1561.75 ml Intake Oral 0 ml IV Total 2981.75 ml Output Urine Total 1300 ml Gastric Drainage Total 15 ml Drainage Total 105 ml Exam Lungs clear, abdominal sounds present, no crepitus in abdomen are anywhere. Chest x-ray this a.m. without any concern for pneumoperitoneum. Blood pressure stable on a line. vents minimal. Laparotomy wound covered with dressing, sutures intact no signs of infection inflammation for now, [address], mildly distended Medications Current Medications Medications Dose Ordered Sig/Carlos Route Start Time Stop Time Status Last Admin Dose Admin Acetaminophen 500 mg Q6HP PRN PO 12/12/24 13:15 12/13/24 05:32 500 MG Timolol Maleate 1 drop BID EACHEYE 12/13/24 22:00 12/17/24 07:43 1 DROP Pantoprazole Sodium 40 mg DAILY IV 12/16/24 10:00 12/17/24 07:43 40 MG Propofol 100 ml @ 2.856 mls/ hr Q24H IV 12/15/24 12:15 12/15/24 13:30 2.856 MLS/HR Norepinephrine Bitartrate 250 ml @ 3.75 mls/hr Q24H IV 12/15/24 12:45 12/16/24 14:51 18.75 MLS/HR Fentanyl Citrate 250 ml @ 2.5 mls/hr Q24H IV 12/15/24 12:45 12/17/24 07:26 12.5 MLS/HR Midazolam HCl 50 ml @ 1 mls/hr Q24H IV 12/15/24 15:15 12/17/24 07:43 8 MLS/HR Vancomycin HCl 0 ml @ 0 mls/hr UD IV 12/15/24 15:15 Diagnostic Test (Pha) 1 strip IQ4HR 12/16/24 08:00 12/17/24 07:43 1 STRIP Insulin Human Regular IQ4HR SC 12/16/24 08:00 12/17/24 07:52 12 UNITS Dextrose 50 ml UD PRN IV 12/16/24 05:45 Piperacillin Sod/ Tazobactam Sod 100 ml @ 25 mls/hr Q8H IV 12/16/24 21:00 12/17/24 04:41 25 MLS/HR Insulin Glargine 15 units QAM SC 12/17/24 07:00 12/17/24 05:56 15 UNITS Amino Acids 0 ml @ 0 mls/hr PER PHARMACY IV 12/16/24 15:30 Amino Acids/ Electrolytes/ Dextrose 1,000 ml @ 41 mls/hr DAILY@2200 IV 12/16/24 22:00 12/16/24 21:48 41 MLS/HR Epinephrine HCl 250 ml @ 7.5 mls/hr Q24H IV 12/16/24 21:00 12/16/24 20:46 7.5 MLS/HR Laboratory Results Laboratory Tests 12/17/24 03:25 Chemistry Test 12/17/24 03:25 Albumin 3.1 g/dL (3.2-4.8) L Calcium Level 9.0 mg/dL (8.7-10.4) Magnesium Level 3.0 mg/dL (1.6-2.6) H Phosphorus Level 2.8 mg/dL (2.4-5.1) Total Protein 5.6 g/dL (5.7-8.2) L LFT Test 12/17/24 03:25 Alanine Aminotransferase (ALT) 13 U/L (7-40) Alkaline Phosphatase 96 U/L (46-116) Aspartate Amino Transferase (AST) 40 U/L (13-40) Total Bilirubin 0.8 mg/dL (0.2-1.0) Urinalysis Test 12/14/24 01:38 Urine Color Yellow (Yellow) Urine Clarity Turbid (Clear) H Urine pH 5.0 (5.0-9.0) Urine Specific [place] 1.019 (1.001-1.035) Urine Protein Trace (Negative) H Urine Ketones Negative (Negative) Urine Blood 2+ /uL (Negative) H Urine Nitrite Negative (Negative) Urine Bilirubin Negative (Negative) Urine Urobilinogen Normal mg/dL (Negative) Urine Leukocyte Esterase Trace /uL (Negative) Urine RBC 59 /hpf (0 - 4) Urine Microscopic WBC 7 /HPF (0-5) H Urine Squamous Epithelial Cells Few /hpf (<5) Urine Bacteria None seen /hpf (None Seen) Urine Hyaline Casts Few /lpf (0 - 2) Urine Mucus Few (None Seen) Urine Glucose 3+ mg/dL (Normal) H Blood Gas Results Test 12/17/24 07:50 Arterial Blood pH 7.356 (7.350-7.450) FiO2 % 30.0 Microbiology Microbiology Date/Time Source Procedure Growth Status 12/15/24 13:10 Nose MRSA Screen - Final Complete 12/15/24 11:59 Sputum Gram Stain - Final Resulted 12/15/24 11:59 Sputum Respiratory Culture - Preliminary Resulted 12/15/24 11:30 Peritoneal Fluid Gram Stain - Final Resulted 12/15/24 11:30 Peritoneal Fluid Anaerobic Culture - Preliminary Resulted 12/15/24 11:30 Peritoneal Fluid Aerobic Culture - Preliminary Resulted 12/09/24 12:40 Voided Urine Urine Culture - Final Complete Labs and/or images reviewed: Labs reviewed by me, Image(s) reviewed by me Assessment/Plan Assessment/Plan 12/17-follow up with the pressure drip was changed from leave O2 appy due to new onset bradycardia overnight. No atropine given/needed. This a.m. heart rates RN low 40s, we will start dopamine goal to keep heart rate more than 45. Consult Cardiology for bradycardia. Clinimix was started last night on 40 and local closer high now, she was on morbid q.4 SSI which revealed upgrade to aggressive q.4 SSI. On vanc/Zosyn/Flagyl. We will keep the antibiotics despite dual anaerobic coverage, preference by surgery for significant abdominal surgery/manipulation. Plan for bradycardia , have epi/ dopamine drips now, +cardiology consult. We will try SBT today, no plan for weaning vasopressors. Neurology Cardiology # HTN # Shock likely due to sepsis from peritonitis - currently on epi and dopa (prior Levophed 12/15) - sedated with fentanyl and Versed 12/15 - currently receiving Zosyn, vancomycin & Flagyl - ordered pancultures, preliminary showed no growth - monitor lab #bradycardia - on 12/16 overnight, ekg w/o ST changes. 12/17 started epi and dopa gtt goal HR>45, card consulted. - atropine push for acute HR<35 Respiratory # acute hypoxic respiratory failure likely due to sepsis s/p intubation - sedated, intubated and on mechanical ventilation - RR 14, VT 500, FiO2 30%, peep 5 - currently ICU status - currently on Levophed and sedated with fentanyl and Versed 12/15 - currently receiving Zosyn, vancomycin - Dc Flagyl - Monitor GI/Liver/ Abdomen # Morbid Obesity - Nutrional councelling. started on clinimix # Peritonitis due to ? perforation # Septic shock due to above # ? small bowel perforation # Bowel Adhesions - Evident on CT - postoperative day 1 status post exploratory laparotomy, small-bowel resection, enteroenterostomy, adhesiolysis, patient tolerated to the procedure - currently monitoring - sedated, intubated and on mechanical ventilation - currently receiving Zosyn, vancomycin , Dc flagyl 12/16 /Kidney/Reproductive # JAKE likely vasomotor on CKD stage 3 - monitor lab - avoid nephrotoxic agents # Uterine/Pelvic prolapse # cystocele # stress incontinence # ? vaginal lesion - postoperative day 4 status post desera I single incision urethral sling, cystocele repair - vaginal mucosa lesion sent for biopsy [facility] Endocrine/Meatbolic # uncontrolled type 2 DM HbA1c 8.2 - Accu-Cheks and ISS # hyperkalemia - monitor lab # Skin ID # Peritonitis due to ? perforation # Septic shock due to above - currently receiving Zosyn, vancomycin - DC Flagyl - ordered pancultures, preliminary showed no growth Lines Intubated 12/15 Right IJ CVC 12/15 Alvarez Dips Fentanyl Versed epi dopa Diprivan DC 12/16 PUD PPX : Protonix VTE PPX : SCDs Diet: Clinimix Goals of care discussed with the family for more than 29 minutes: Full code status Critical care time spent including chart review, discussing with the patient's family excluding procedures: 54 minutes Plan of care updated to RN Plan discussed with: Other Date of Service: Dec 17, 2024 Billing Provider: MARIA TERESA STEVEN MD Common Visit Codes: 32658-[id number] CARE-EACH +30MIN MARIA TERESA STEVEN MD Dec 17, 2024 09:47
[2024-12-17] MEDS: DOPamine 1600MCG/ML D5W 250 ML IV SCH (09:56)
--- NOTE | 2024-12-17 10:18 | ECG ---
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
[2024-12-17] MEDS: ACCU-CHEK COMFORT CURVE STRIP VI SCH (11:47)
[2024-12-17] MEDS: InsuLIN REG 1unit/0.01ml Soln (100units/ml) SC SCH (12:21)
--- NOTE | 2024-12-17 12:24 | DVHPN2 ---
Progress Note Date Seen: Dec 17, 2024 Medical Necessity Reason Pt with a Central, PICC or Fol: Yes The following are medically ne: Central Line, Porter Catheter Reason for porter catheter: Bladder Retention/Obstruc, Dony. Abd Surgery, Strict I&O Objective vital signs Vital Sign Date Time Temp Pulse Resp B/P (MAP) Pulse Ox O2 Delivery O2 Flow Rate FiO2 12/17/24 12:03 30 12/17/24 12:02 14 99 Mechanical Ventilator+ 12/17/24 12:01 97.7 42 118/48 (71) 207.9 96/85 (89) 12/15/24 08:00 0 Total Intake and Output 12/16/24 12/16/24 12/17/24 15:00 23:00 07:00 Intake Total 1375.50 ml 723.25 ml 883.0 ml Output Total 635 ml 785 ml Balance 1375.50 ml 88.25 ml 98.0 ml medications Current Medications Medications Dose Ordered Sig/Acrlos Route Start Time Stop Time Status Last Admin Dose Admin Acetaminophen 500 mg Q6HP PRN PO 12/12/24 13:15 12/13/24 05:32 500 MG Timolol Maleate 1 drop BID EACHEYE 12/13/24 22:00 12/17/24 07:43 1 DROP Pantoprazole Sodium 40 mg DAILY IV 12/16/24 10:00 12/17/24 07:43 40 MG Propofol 100 ml @ 2.856 mls/ hr Q24H IV 12/15/24 12:15 12/15/24 13:30 2.856 MLS/HR Norepinephrine Bitartrate 250 ml @ 3.75 mls/hr Q24H IV 12/15/24 12:45 12/16/24 14:51 18.75 MLS/HR Fentanyl Citrate 250 ml @ 2.5 mls/hr Q24H IV 12/15/24 12:45 12/17/24 07:26 12.5 MLS/HR Midazolam HCl 50 ml @ 1 mls/hr Q24H IV 12/15/24 15:15 12/17/24 07:43 8 MLS/HR Vancomycin HCl 0 ml @ 0 mls/hr UD IV 12/15/24 15:15 Piperacillin Sod/ Tazobactam Sod 100 ml @ 25 mls/hr Q8H IV 12/16/24 21:00 12/17/24 12:14 25 MLS/HR Insulin Glargine 15 units QAM SC 12/17/24 07:00 12/17/24 05:56 15 UNITS Amino Acids 0 ml @ 0 mls/hr PER PHARMACY IV 12/16/24 15:30 Amino Acids/ Electrolytes/ Dextrose 1,000 ml @ 41 mls/hr DAILY@2200 IV 12/16/24 22:00 12/16/24 21:48 41 MLS/HR Epinephrine HCl 250 ml @ 7.5 mls/hr Q24H IV 12/16/24 21:00 12/16/24 20:46 7.5 MLS/HR Dopamine HCl/ Dextrose 250 ml @ 18.6 mls/hr [id number] IV 12/17/24 09:30 12/17/24 09:56 18.6 MLS/HR Diagnostic Test (Pha) 1 strip IQ4HR 12/17/24 12:00 12/17/24 11:47 1 STRIP Insulin Human Regular IQ4HR SC 12/17/24 12:00 12/17/24 12:21 12 UNITS Dextrose 50 ml UD PRN IV 12/17/24 09:45 laboratory and microbiology Laboratory Tests 12/17/24 03:25 Test 12/17/24 03:25 Range/Units Serum Glucose 364 H 74-106 mg/dL Problem List/Assessment/Plan Problem List/Assessment/Plan 12/15/24 abdomen more distended, green drainage per colleen drains elev.WBC, abdomen very tender, will proceed with exploratory laparotomy as CT scan report is suspicious for bowel perforation and clinical findings corroborate the suspicion. 12/16/24 AFEBRILE, WOUND CLEAN AND WELL APPROXIMATED, DRAINS SEROSANGUINEOUS, ABDOMEN NON DISTENDED, SOFT, GOOD URINE OUTPUT. DISCUSSED WITH PRIMARY TEAM WEANING OFF VENTILATOR. 12/17/24 REMAINS INTUBATED SEDATED ON VENTILATOR, WOUND CLEAN AND WELL APPROXIMATED, COLLEEN DRAINAGE SERO SANGUINEOUS, LABS OK, 'surgically"stable. Plan discussed with: NITO Urbina MD Dec 17, 2024 12:24
--- NOTE | 2024-12-17 13:58 | DVH ---
CLINICAL INFORMATION: 68 years old, Female; endotracheal tube placement. TECHNIQUE: Single AP portable chest radiograph was obtained. COMPARISON: XY CHEST XRAY 1 VIEW on DOS: 12/17/24 5:21 a.m., XY CHEST PORTABLE on DOS: 12/16/24, XY CHES T PORTABLE on DOS: 12/15/24 FINDINGS: Distal tip of the endotracheal tube is approximately 2.2 cm above the level of the clare, in satisfa ctory position. Enteric tube reaches the stomach with the tip at the level of the gastric antrum. Sta ble satisfactory positioning of the right internal jugular central venous catheter. There is contras t within the body of the stomach. Atelectasis in the lung bases. No focal consolidation visualized. N o pneumothorax. No other significant interval change. IMPRESSION: 1. Satisfactory positioning of the endotracheal tube, enteric tube, and right internal jugular centra l venous catheter. 2. No other significant interval change.
--- NOTE | 2024-12-17 15:39 | DVHINCON2 ---
Date Seen: Dec 17, 2024 Referring Physician MD Dori Reason for Consultation Bradycardia History of Present Illness This is a 68 year old female who initially comes to this facility for surgical repair of pelvic prolapse and cystocele. The patient was initially taken for surgery on 12/12/24. Postoperatively, the patient was on the telemetry unit and began deteriorating. Subsequently, imaging revealed a pneumoperitoneum and the patient was urgently taken to the operating room on 12/15/24 in which the patient underwent an exploratory laparotomy and small-bowel resection. The patient is in the intensive care unit at time of assessment, mechanically ventilated and chemically sedated. History obtained from bedside RN and patient's medical records. Cardiology has been consulted for new onset bradycardia. A recent twelve lead electrocardiogram reveals sinus bradycardia. After reviewing retail center receptionist, no pauses or atrioventricular blocks noted. Significant past medical history includes hypertension and type 2 diabetes mellitus. Past Medical History Past medical history reviewed. No other significant than mentioned above. Past Surgical History 12/12/24 exploratory laparotomy with single incision urethral sling, cystocele repair 12/15/24 exploratory laparotomy, small-bowel resection, enteroenterostomy, irrigation of the bowel, lysis of adhesions Family History: Cancer G8 SISTER FHx: epilepsy G8 BROTHER Family history: Diabetes mellitus G8 FATHER G8 SISTER Family history: Hypertension G8 MOTHER G8 SISTER G8 SISTER Seizure disorder (situation) G8 BROTHER Family History Family history reviewed. Social History Unable to obtain at this time Allergies: Coded Allergies: NO KNOWN ALLERGIES (Unverified , 01/10/15) Home Meds Reported Medications Dorzolamide-Timolol (Dorzolamide Hcl/Timolol M) 1 Ml Elsy, 1 DROP EACHEYE BID, #10 ML 6 Refills 12/13/24 Timolol Maleate (Timolol Maleate Ophthalmi) 0.5 % Elsy, 1 DROP EACHEYE QAM, #5 ML 5 Refills 12/13/24 Brimonidine Tartrate (Brimonidine Tartrate) 0.15 % Elsy, 1 DROP OP TID, DROP 12/13/24 Tirzepatide (Mounjaro) 5 Mg/0.5 Ml Inj, 5 MG SC, INJ 12/09/24 Cholecalciferol (VITAMIN D3) 2,000 Unit Tab, 1 TAB PO DAILY, #30 TAB 5 Refills 12/09/24 Losartan Potassium (Losartan Potassium) 25 Mg Tab, 12.5 MG PO DAILY for 30 Days, MG 12/09/24 Loratadine (Loratadine) 10 Mg Cap, 10 MG PO, CAP 12/09/24 Hydrocodone-Acetaminophen (Hydrocodone Bitartrate/AC 10-325 mg) 1 Tab Tab, 1 TAB PO, TAB 12/09/24 Progesterone Micronized (PROGESTERONE) 200 Mg Cap, 200 MG PO, CAP 12/09/24 Nifedipine (Nifedipine Er) 90 Mg Tab, 1 TAB PO DAILY, #30 TAB 5 Refills 12/09/24 Docusate Sodium (Gnp Stool Softener) 100 Mg Cap, 100 MG PO BID, CAP 12/09/24 Estradiol (Estradiol) 1 Mg Tab, 1 MG PO DAILY, MG 12/09/24 Alprazolam (Alprazolam) 0.25 Mg Tab, 1 TAB PO, #90 TAB 12/09/24 Donepezil Hydrochloride (DONEPEZIL HCL) 10 Mg Tab, 10 MG PO DAILY for 30 Days, MG 12/09/24 Carvedilol (Carvedilol) 25 Mg Tab, 25 MG PO for 30 Days, MG 12/09/24 Atorvastatin Calcium (ATORVASTATIN CALCIUM) 20 Mg Tab, 1 TAB PO DAILY, #30 TAB 5 Refills 12/09/24 Aspirin (Aspir-Low) 81 Mg Tab, 81 MG PO DAILY for 30 Days, MG 12/09/24 Home Meds Home medications reviewed. Current Medications Current Medications Medications (Trade) Dose Ordered Sig/Carlos Route PRN Reason Start Time Stop Time Status Last Admin Piperacillin Sod/ Tazobactam Sod 100 ml @ 25 mls/hr Q8H IV 12/16/24 21:00 12/17/24 12:14 Insulin Glargine (Lantus) 15 units QAM SC 12/17/24 07:00 12/17/24 05:56 Amino Acids/ Electrolytes/ Dextrose 1,000 ml @ 41 mls/hr DAILY@2200 IV 12/16/24 22:00 12/16/24 21:48 Epinephrine HCl 250 ml @ 7.5 mls/hr Q24H IV 12/16/24 21:00 12/16/24 20:46 Dopamine HCl/ Dextrose 250 ml @ 18.6 mls/hr [id number] IV 12/17/24 09:30 12/17/24 09:56 Diagnostic Test (Pha) (Accu-Chek Comfort Curve T) 1 strip IQ4HR 12/17/24 12:00 12/17/24 14:17 Insulin Human Regular (InsuLIN R) IQ4HR SC 12/17/24 12:00 12/17/24 12:21 Dextrose 50 ml UD PRN IV Blood Sugar LESS THAN 60 12/17/24 09:45 Review of Systems Constitutional: Generalized weakness Ears, Nose, & Throat: No symptom reported Eyes: No symptom reported Neurological: No symptoms reported Pulmonary/Respiratory: No symptoms reported Cardiovascular: No symptom reported Gastrointestinal: No symptom reported Genitourinary: No symptom reported Musculoskeletal: No symptom reported Skin: No symptom reported Psychiatric: No symptom reported Endocrine: No symptom reported Hematologic/Lymphatic: No symptom reported Vital Signs Vital Signs Date Time Temp Pulse Resp B/P (MAP) Pulse Ox O2 Delivery O2 Flow Rate FiO2 12/17/24 14:16 97.9 42 14 108/43 (64) 99 208.2 126/53 (77) 12/17/24 13:46 30 12/17/24 13:36 Mechanical Ventilator+ 12/15/24 08:00 0 Physical Exam General Appearance: Calm, relaxed Pulmonary/Respiratory: Clear, bilateral breaths sounds. Mechanically ventilated Cardiovascular/Chest: Regular rate and rhythm. Peripheral Pulses: 2+ Radial (R). 2+ Radial (L). 2+ Pedal (R). 2+ Pedal (L) Abdominal Exam: Normal bowel sounds. Ankle Exam: Negative ankle edema Lower extremities: Negative lower extremity edema Neuro/Mental Status: Chemically sedated Thoughts/Psych: Deferred Appearance: No acute distress. Skin Exam: Normal inspection. Normal color. Warm and dry. Labs/Diagnostic Data Labs Test 12/17/24 12:17 12/17/24 07:50 12/17/24 03:25 12/15/24 14:08 Range/Units POC Glucose 254 H 70-106 mg/dl Blood Gas Specimen Type Arterial Blood Gas Sample Site Arterial line Blood Gas Patient Temperature 37.0 Arterial Blood Date Drawn [id number] Arterial Blood pH 7.356 7.350-7.450 Arterial Blood Partial Pressure CO2 35.7 32.0-45.0 mmHg Arterial Blood Partial Pressure O2 90.5 83.0-108.0 mmHg Arterial Blood HCO3 19.5 L 21.0-28.0 mmol/L Arterial Blood Oxygen Saturation 96.4 94.0-98.0 % Arterial Blood Base Excess -5.3 L -2.0-3.0 mmol/L Arterial Blood Oxyhemoglobin 95.2 94.0-98.0 % Arterial Blood Carboxyhemoglobin 1.0 0.5-1.5 % Arterial Blood Methemoglobin 0.2 0.0-1.5 % Leandro Test N/a Blood Gas Total Hemoglobin 12.80 12.0-16.0 g/dL Blood Gas Set Respiration Rate 14.0 Blood Gas Modality Vent - ac FiO2 % 30.0 Blood Gas Tidal Volume 500.0 Blood Gas PEEP or CPAP 5.0 Blood Gas Critical Value Read Back Yes White Blood Count 16.8 H 4.4-10.8 10^3/uL Red Blood Count 4.34 4.0-5.20 10^6/uL Hemoglobin 11.5 L 12.2-16.2 g/dL Hematocrit 35.7 L 36.0-46.0 % Mean Corpuscular Volume 82.3 80.0-100.0 fL Mean Corpuscular Hemoglobin 26.6 L 28.0-32.0 pg Mean Corpuscular Hemoglobin Concent 32.3 32.0-36.0 g/dL Red Cell Distribution Width 18.2 H 11.8-14.3 % Platelet Count 232 140-450 10^3/uL Mean Platelet Volume 9.4 6.9-10.8 fL Neutrophils (%) (Auto) 83.0 H 37.0-80.0 % Lymphocytes (%) (Auto) 6.1 L 10.0-50.0 % Monocytes (%) (Auto) 10.7 0.0-12.0 % Eosinophils (%) (Auto) 0.0 0.0-7.0 % Basophils (%) (Auto) 0.2 0.0-2.0 % Neutrophils # (Auto) 14.0 H 1.6-8.6 10 ^3/uL Lymphocytes # (Auto) 1.0 0.4-5.4 10 ^3/uL Monocytes # (Auto) 1.8 H 0-1.3 10 ^3/uL Eosinophils # (Auto) 0 0-0.8 10 ^3/uL Basophils # (Auto) 0 0-0.2 10 ^3/uL Nucleated Red Blood Cells 0.2 % Sodium Level 147 #H 136-145 mmol/L Potassium Level 3.9 3.5-5.1 mmol/L Chloride Level 115 H 98-107 mmol/L Carbon Dioxide Level 22 20-31 mmol/L Anion Gap 10 5-15 Blood Urea Nitrogen 57 H 9-23 mg/dL Creatinine 1.90 H 0.550-1.02 mg/dL Glomerular Filtration Rate Calc 28 >90 mL/min BUN/Creatinine Ratio 30.0 H 10.0-20.0 Serum Glucose 364 H 74-106 mg/dL Calcium Level 9.0 8.7-10.4 mg/dL Phosphorus Level 2.8 2.4-5.1 mg/dL Magnesium Level 3.0 H 1.6-2.6 mg/dL Total Bilirubin 0.8 0.2-1.0 mg/dL Aspartate Amino Transferase (AST) 40 13-40 U/L Alanine Aminotransferase (ALT) 13 7-40 U/L Alkaline Phosphatase 96 46-116 U/L Total Protein 5.6 L 5.7-8.2 g/dL Albumin 3.1 L 3.2-4.8 g/dL Random Vancomycin Level 10.9 H 5-10 ug/mL Prothrombin Time 12.5 H 9.3-11.8 sec Prothrombin Time INR 1.20 H 0.9-1.15 Activated Partial Thromboplast Time 27.6 24.5-34.5 SEC Test 12/14/24 01:38 12/13/24 05:05 Range/Units Urine Color Yellow Yellow Urine Clarity Turbid H Clear Urine pH 5.0 5.0-9.0 Urine Specific [place] 1.019 1.001-1.035 Urine Protein Trace H Negative Urine Ketones Negative Negative Urine Blood 2+ H Negative /uL Urine Nitrite Negative Negative Urine Bilirubin Negative Negative Urine Urobilinogen Normal Negative mg/dL Urine Leukocyte Esterase Trace Negative /uL Urine RBC 59 0 - 4 /hpf Urine Microscopic WBC 7 H 0-5 /HPF Urine Squamous Epithelial Cells Few <5 /hpf Urine Bacteria None seen None Seen /hpf Urine Hyaline Casts Few 0 - 2 /lpf Urine Mucus Few None Seen Urine Glucose 3+ H Normal mg/dL Hemoglobin A1c 8.2 H <5.7 % A1C Microbiology Date/Time Source Procedure Growth Status 12/16/24 00:00 Voided Urine Urine Culture - Preliminary Resulted 12/15/24 13:10 Nose MRSA Screen - Final Complete 12/15/24 11:59 Sputum Gram Stain - Final Resulted 12/15/24 11:59 Sputum Respiratory Culture - Preliminary Resulted 12/15/24 11:30 Peritoneal Fluid Gram Stain - Final Resulted 12/15/24 11:30 Peritoneal Fluid Anaerobic Culture - Preliminary Resulted 12/15/24 11:30 Peritoneal Fluid Aerobic Culture - Preliminary Resulted Assessment Sinus bradycardia without pauses or atrioventricular blocks Rule out structural heart disease Peritonitis status post exploratory laparotomy History of hypertension Type 2 diabetes mellitus Acute kidney injury Uterine prolapse status post cystocele repair Plan/Recommendation We will continue with the following plan/recommendations (Dr. Jameson): * Transthoracic echocardiogram to evaluate cardiac function * Avoid all AV manuel blocking agents * Stopped dopamine drip * Titrate down on sedation * Close Cardiac surveillance: Notify cardiology team for any pauses or high- degree AV blocks * Check TSH Patient seen and examined at bedside with . At this time, we will recommend to titrate down off of sedation. Patient is in sinus bradycardia without any pauses or atrioventricular blocks were seen on retail center receptionist. No indication at this time for temporary or permanent pacemaker. We will continue to monitor closely. Thank you for allowing us to care for this patient. Please call with any questions or concerns. Critical care time spent: 41 minutes This medical document was created using an electronic medical record system with voice recognition software and computerized dictation system. Although this document has been carefully reviewed, there might still be some phonetic and typographical errors. Occasional wrong-word or ``sound-alike substitutions may have occurred due to the inherent limitations of voice recognition software. These areas are purely typographical due to imperfections of the software programs and do not reflect any compromise in the patient's medical care. Please read the chart carefully and recognize, using context, where these substitutions have occurred. Plan discussed with: Other (Bedside RN) NYHA Physical activity limitations: NA Date of Service: Dec 17, 2024 Billing Provider: RASHEEDA DOVER Cardiology Common Codes: [id number] INP/OBS CARE (High) Cardiology Consultation Codes: [id number] CONSULT <45MIN RASHEEDA DOVER Dec 17, 2024 15:39
[2024-12-17] MEDS: VANCOMYCIN 500mg/100mL 100 ML IV ONE (16:13)
--- NOTE | 2024-12-17 20:31 | DVHSR ---
APPROVED REPORT EXAM: Two-dimensional and M-mode echocardiogram with Doppler and color Doppler. Blood Pressure: 108/43 mmHg INDICATION Heart function RISK FACTORS Obesity: Height: 5'6", Weight: 218 DIMENSIONS LVDd4.1 (3.8-5.7cm)LA (2D)4.2 (1.9-4.0cm)Aortic Root3.1 (2.0-3.7cm) LVDs2.8 (2.5-4.0cm)LA (MM) (1.9-4.0cm)Aortic Cusp Exc1.7 (1.5-2.0cm) EF (%) 60.0 (55-70%)Rt. Atrium4.1 (1.9-4.0cm)Asc. Aorta cm IVSd1.1 (0.7-1.1cm)RV (D)3.6 (1.8-2.4cm) PWd1.2 (0.7-1.1cm) Mitral Valve MitralMitral Stenosis E wave0.69m/sMV Mean GR.mmHg A wave0.93m/sMV Peak GR.mmHg E/A ratio0.72D MVAcm2 DECEL [id number] 1/2 Timems Aortic Valve Aortic ValveAortic Stenosis V11.11m/Lian Mean GR.4mmHg V21.42m/Lian Peak GR.8mmHg LVOT Diameter1.7 (1.8-2.4cm)Doppler AVA1.77cm2 Pulmonic Valve V20.83m/s Tricuspid Valve TR Velocity2.67m/s [id number] LEFT VENTRICLE The left ventricle is normal size. There is borderlineconcentric left ventricular hypertrophy. The left ventricle is normal in structure and function, LVEF 65%. Mild diastolic dysfunction. Normal wall motion. RIGHT VENTRICLE The right ventricle is normal size. The right ventricular systolic function is normal. ATRIA The left atrial size is normal. The right atrium size is normal. MITRAL VALVE The mitral valve is grossly normal. Mitral regurgitation is trace. PULMONIC VALVE The pulmonic valve is not well visualized. There is trace pulmonic valvular regurgitation. TRICUSPID VALVE The tricuspid valve is grossly normal. There is trace to mild tricuspid regurgitation. AORTIC VALVE The aortic valve is trileaflet. No aortic regurgitation is present. GREAT VESSELS The aortic root is normal size. PERICARDIAL EFFUSION No significant pericardial effusion. Other Information Technically limited study due to body habitus and on vent. Conclusion The left ventricle is normal size. There is borderlineconcentric left ventricular hypertrophy. The le ft ventricle is normal in structure and function, LVEF 65%. Mild diastolic dysfunction. Normal wall m otion. The right ventricular systolic function is normal. The left and right atrial size is normal. No significant valvular abnormalities. No significant pericardial effusion.
--- NOTE | 2024-12-17 23:29 | DVHINCON2 ---
Date of service: Dec 17, 2024 Referring Physician Covering ICU team Reason for Consultation Acute hypoxic respiratory failure requiring mechanical vent History of Present Illness A 68-year-old woman with PMHx of diabetes, hypertension, dementia, and hyperlipidemia. who was admitted on 12/12/24 after she underwent surgery for pelvic prolapse and cystocele. Subsequently, imaging revealed a pneumoperitoneum and the patient was urgently taken to the operating room on 12/15/24 and underwent exploratory laparotomy and small-bowel resection. Pulmonary consultation is requested for evaluation and management of acute hypoxic respiratory failure requiring mechanical vent. Review of Systems: 14-point review of systems negative unless otherwise noted above. Past Medical History: Significant for diabetes, hypertension, dementia, hyperlipidemia. Past Surgical History: 12/12/24 exploratory laparotomy with single incision urethral sling, cystocele repair 12/15/24 exploratory laparotomy, small-bowel resection, enteroenterostomy, irr igation of the bowel, lysis of adhesions Medications: Reviewed. Allergies: No known drug allergies. Family History: Cancer Epilepsy Diabetes mellitus Hypertension Seizure disorder Social History: Nonsmoker. No alcohol or illicit drug use. Family History: Cancer G8 SISTER FHx: epilepsy G8 BROTHER Family history: Diabetes mellitus G8 FATHER G8 SISTER Family history: Hypertension G8 MOTHER G8 SISTER G8 SISTER Seizure disorder (situation) G8 BROTHER Allergies: Coded Allergies: NO KNOWN ALLERGIES (Unverified , 01/10/15) Home Meds Reported Medications Dorzolamide-Timolol (Dorzolamide Hcl/Timolol M) 1 Ml Elsy, 1 DROP EACHEYE BID, #10 ML 6 Refills 12/13/24 Timolol Maleate (Timolol Maleate Ophthalmi) 0.5 % Elsy, 1 DROP EACHEYE QAM, #5 ML 5 Refills 12/13/24 Brimonidine Tartrate (Brimonidine Tartrate) 0.15 % Elsy, 1 DROP OP TID, DROP 12/13/24 Tirzepatide (Mounjaro) 5 Mg/0.5 Ml Inj, 5 MG SC, INJ 12/09/24 Cholecalciferol (VITAMIN D3) 2,000 Unit Tab, 1 TAB PO DAILY, #30 TAB 5 Refills 12/09/24 Losartan Potassium (Losartan Potassium) 25 Mg Tab, 12.5 MG PO DAILY for 30 Days, MG 12/09/24 Loratadine (Loratadine) 10 Mg Cap, 10 MG PO, CAP 12/09/24 Hydrocodone-Acetaminophen (Hydrocodone Bitartrate/AC 10-325 mg) 1 Tab Tab, 1 TAB PO, TAB 12/09/24 Progesterone Micronized (PROGESTERONE) 200 Mg Cap, 200 MG PO, CAP 12/09/24 Nifedipine (Nifedipine Er) 90 Mg Tab, 1 TAB PO DAILY, #30 TAB 5 Refills 12/09/24 Docusate Sodium (Gnp Stool Softener) 100 Mg Cap, 100 MG PO BID, CAP 12/09/24 Estradiol (Estradiol) 1 Mg Tab, 1 MG PO DAILY, MG 12/09/24 Alprazolam (Alprazolam) 0.25 Mg Tab, 1 TAB PO, #90 TAB 12/09/24 Donepezil Hydrochloride (DONEPEZIL HCL) 10 Mg Tab, 10 MG PO DAILY for 30 Days, MG 12/09/24 Carvedilol (Carvedilol) 25 Mg Tab, 25 MG PO for 30 Days, MG 12/09/24 Atorvastatin Calcium (ATORVASTATIN CALCIUM) 20 Mg Tab, 1 TAB PO DAILY, #30 TAB 5 Refills 12/09/24 Aspirin (Aspir-Low) 81 Mg Tab, 81 MG PO DAILY for 30 Days, MG 12/09/24 Current Medications Current Medications Medications (Trade) Dose Ordered Sig/Carlos Route PRN Reason Start Time Stop Time Status Last Admin Insulin Glargine (Lantus) 15 units QAM SC 12/17/24 07:00 12/17/24 05:56 Dopamine HCl/ Dextrose 250 ml @ 18.6 mls/hr [id number] IV 12/17/24 09:30 12/17/24 09:56 Diagnostic Test (Pha) (Accu-Chek Comfort Curve T) 1 strip IQ4HR 12/17/24 12:00 12/17/24 23:26 Insulin Human Regular (InsuLIN R) IQ4HR SC 12/17/24 12:00 12/17/24 23:26 Dextrose 50 ml UD PRN IV Blood Sugar LESS THAN 60 12/17/24 09:45 Vital Signs Vital Signs Date Time Temp Pulse Resp B/P (MAP) Pulse Ox O2 Delivery O2 Flow Rate FiO2 12/17/24 22:09 55 14 109/44 (65) 100 30 12/17/24 21:30 98.1 208.6 12/17/24 20:00 Mechanical Ventilator+ 12/15/24 08:00 0 Physical Exam Gen.: Patient lying in bed in medical ICU. Sedated, intubated on mechanical ventilator. Head: Normocephalic, atraumatic. Eyes: PERRLA. Ears: Normal external anatomy. Throat: Endotracheal tube and orogastric tube in place. Neck: Supple, trachea midline. Chest: Transmitted breath sounds bilaterally. Decreased air entry bilaterally. No wheezing. Bibasilar crackles. Cardiovascular: Positive S1, positive S2. Regular rate and rhythm. Abdomen: Positive bowel sounds in all 4 quadrants. Soft, nontender, nondistended. : Alvarez in place. Normal external genitalia. Rectal: Deferred. Skin: Warm, dry. Intact. Extremities: 2+ radial pulses bilaterally. No lower extremity edema. Neuro: Sedated. Labs/Diagnostic Data Labs Test 12/17/24 20:32 12/17/24 15:40 12/17/24 07:50 12/17/24 03:25 Range/Units POC Glucose 146 H 70-106 mg/dl Lactic Acid Level 1.8 0.4-2.0 mmol/L Blood Gas Specimen Type Arterial Blood Gas Sample Site Arterial line Blood Gas Patient Temperature 37.0 Arterial Blood Date Drawn Arterial Blood pH 7.356 7.350-7.450 Arterial Blood Partial Pressure CO2 35.7 32.0-45.0 mmHg Arterial Blood Partial Pressure O2 90.5 83.0-108.0 mmHg Arterial Blood HCO3 19.5 L 21.0-28.0 mmol/L Arterial Blood Oxygen Saturation 96.4 94.0-98.0 % Arterial Blood Base Excess -5.3 L -2.0-3.0 mmol/L Arterial Blood Oxyhemoglobin 95.2 94.0-98.0 % Arterial Blood Carboxyhemoglobin 1.0 0.5-1.5 % Arterial Blood Methemoglobin 0.2 0.0-1.5 % Leandro Test N/a Blood Gas Total Hemoglobin 12.80 12.0-16.0 g/dL Blood Gas Set Respiration Rate 14.0 Blood Gas Modality Vent - ac FiO2 % 30.0 Blood Gas Tidal Volume 500.0 Blood Gas PEEP or CPAP 5.0 Blood Gas Critical Value Read Back Yes White Blood Count 16.8 H 4.4-10.8 10^3/uL Red Blood Count 4.34 4.0-5.20 10^6/uL Hemoglobin 11.5 L 12.2-16.2 g/dL Hematocrit 35.7 L 36.0-46.0 % Mean Corpuscular Volume 82.3 80.0-100.0 fL Mean Corpuscular Hemoglobin 26.6 L 28.0-32.0 pg Mean Corpuscular Hemoglobin Concent 32.3 32.0-36.0 g/dL Red Cell Distribution Width 18.2 H 11.8-14.3 % Platelet Count 232 140-450 10^3/uL Mean Platelet Volume 9.4 6.9-10.8 fL Neutrophils (%) (Auto) 83.0 H 37.0-80.0 % Lymphocytes (%) (Auto) 6.1 L 10.0-50.0 % Monocytes (%) (Auto) 10.7 0.0-12.0 % Eosinophils (%) (Auto) 0.0 0.0-7.0 % Basophils (%) (Auto) 0.2 0.0-2.0 % Neutrophils # (Auto) 14.0 H 1.6-8.6 10 ^3/uL Lymphocytes # (Auto) 1.0 0.4-5.4 10 ^3/uL Monocytes # (Auto) 1.8 H 0-1.3 10 ^3/uL Eosinophils # (Auto) 0 0-0.8 10 ^3/uL Basophils # (Auto) 0 0-0.2 10 ^3/uL Nucleated Red Blood Cells 0.2 % Sodium Level 147 #H 136-145 mmol/L Potassium Level 3.9 3.5-5.1 mmol/L Chloride Level 115 H 98-107 mmol/L Carbon Dioxide Level 22 20-31 mmol/L Anion Gap 10 5-15 Blood Urea Nitrogen 57 H 9-23 mg/dL Creatinine 1.90 H 0.550-1.02 mg/dL Glomerular Filtration Rate Calc 28 >90 mL/min BUN/Creatinine Ratio 30.0 H 10.0-20.0 Serum Glucose 364 H 74-106 mg/dL Calcium Level 9.0 8.7-10.4 mg/dL Phosphorus Level 2.8 2.4-5.1 mg/dL Magnesium Level 3.0 H 1.6-2.6 mg/dL Total Bilirubin 0.8 0.2-1.0 mg/dL Aspartate Amino Transferase (AST) 40 13-40 U/L Alanine Aminotransferase (ALT) 13 7-40 U/L Alkaline Phosphatase 96 46-116 U/L Total Protein 5.6 L 5.7-8.2 g/dL Albumin 3.1 L 3.2-4.8 g/dL Thyroid Stimulating Hormone (TSH) 0.39 L 0.55-4.78 uIU/mL Random Vancomycin Level 10.9 H 5-10 ug/mL Test 12/15/24 14:08 12/14/24 01:38 12/13/24 05:05 Range/Units Prothrombin Time 12.5 H 9.3-11.8 sec Prothrombin Time INR 1.20 H 0.9-1.15 Activated Partial Thromboplast Time 27.6 24.5-34.5 SEC Urine Color Yellow Yellow Urine Clarity Turbid H Clear Urine pH 5.0 5.0-9.0 Urine Specific [place] 1.019 1.001-1.035 Urine Protein Trace H Negative Urine Ketones Negative Negative Urine Blood 2+ H Negative /uL Urine Nitrite Negative Negative Urine Bilirubin Negative Negative Urine Urobilinogen Normal Negative mg/dL Urine Leukocyte Esterase Trace Negative /uL Urine RBC 59 0 - 4 /hpf Urine Microscopic WBC 7 H 0-5 /HPF Urine Squamous Epithelial Cells Few <5 /hpf Urine Bacteria None seen None Seen /hpf Urine Hyaline Casts Few 0 - 2 /lpf Urine Mucus Few None Seen Urine Glucose 3+ H Normal mg/dL Hemoglobin A1c 8.2 H <5.7 % A1C Microbiology Date/Time Source Procedure Growth Status 12/16/24 00:00 Voided Urine Urine Culture - Preliminary Resulted 12/15/24 13:10 Nose MRSA Screen - Final Complete 12/15/24 11:59 Sputum Gram Stain - Final Resulted 12/15/24 11:59 Sputum Respiratory Culture - Preliminary Resulted 12/15/24 11:30 Peritoneal Fluid Gram Stain - Final Resulted 12/15/24 11:30 Peritoneal Fluid Anaerobic Culture - Preliminary Resulted 12/15/24 11:30 Peritoneal Fluid Aerobic Culture - Preliminary Resulted Assessment Impression: Acute hypoxic respiratory failure On mechanical ventilator S/p perforated bowel. S/p bowel resection Shock Obesity Plan: s/p intubation on mechanical ventilator. CXR image and report reviewed. Devices in place. Atelectasis in the lung bases. No focal consolidation. No pneumothorax. ABG reviewed, compensated. On AC mode; RR 14, VT 500, PEEP 5, FiO2 30% Titrate FIO2 to keep O2 saturation above 90%. VAP bundle. Daily ABG and CXR while intubated Sedate for ventilator synchrony - On Versed, Fentanyl. Continue antibiotics. Clinimix for nutritional support Off pressors - on dopamine/epinephrine in AM. Start pressors if necessary to maintain a mean arterial blood pressure greater than 65 mmHg. Monitor renal function Monitor electrolytes. Supplement as necessary. Monitor ins and outs. Maintain euvolemia. Taper sedation as tolerated CPAP in AM with PS 8, PEEP 5. GI prophylaxis. DVT prophylaxis. Prognosis: Poor given patient's multiple co-morbidities. Condition: Critical Rest of plan per hospitalist and other consultants. A total of 35 minutes of critical care time was spent reviewing the patient record, examining the patient, making a diagnostic and therapeutic plan, discussing this plan with the medical personnel, following up on diagnostic studies and following the patient for clinical stability excluding any and all procedures. At least 50% of this time was spent in direct, [id number] contact. Thank you Dr. Meadows for allowing me to participate in this patient's care. Further recommendations will depend on the patient's clinical course. Please do not hesitate to contact me if you have any questions or concerns. This medical document was created using an electronic medical record system with [employer] dictation system. Although these documentations are being carefully reviewed, there may still be some phonetic and typographical changes. The errors are purely typographical, due to imperfection on the software program , and do not reflect any compromise in the patient's medical care. Plan discussed with: Other (DAVID Aragon/MD Diego) DANA MAK MD Dec 17, 2024 23:29
[2024-12-18] VITALS (107 sets, daily range): BP systolic 93–216; BP diastolic 42–107; PULSE 52–112; RESP 12–18; TEMP 97.7–99.3; O2SAT 94–100
[2024-12-18 03:40] LABS: Basophils # (auto) 0 10 ^3/uL (0-0.2); Eosinophils # (auto) 0 10 ^3/uL (0-0.8); Eosinophils % (auto) 0.2 % (0.0-7.0); Hemoglobin 11.4 g/dL (12.2-16.2); Lymphocytes # (auto) 1.1 10 ^3/uL (0.4-5.4); Neutrophils # (auto) 8.9 10 ^3/uL (1.6-8.6); Nucleated Red Blood Cells % 0.2 %; White Blood Cell 11.4 10^3/uL (4.4-10.8)
[2024-12-18 03:43] LABS: Basophils % (auto) 0.1 % (0.0-2.0); Hematocrit 35.3 % (36.0-46.0); Lymphocytes % (auto) 9.5 % (10.0-50.0); Mean Corpuscular Hemoglobin 26.9 pg (28.0-32.0); Mean Corpuscular Hgb Conc. 32.2 g/dL (32.0-36.0); Mean Corpuscular Volume 83.6 fL (80.0-100.0); Monocytes # (auto) 1.4 10 ^3/uL (0-1.3); Neutrophils % (auto) 78.2 % (37.0-80.0); Platelet Count (auto) 181 10^3/uL (140-450); Red Blood Cells 4.23 10^6/uL (4.0-5.20); Red Cell Distribution Width 17.8 % (11.8-14.3)
[2024-12-18 04:02] LABS: Alanine Aminotransferase 13 U/L (7-40); Alkaline Phosphatase 96 U/L (46-116); Anion Gap 8 (5-15); BUN/Creatinine Ratio 31.3 (10.0-20.0); Calcium 9.1 mg/dL (8.7-10.4); Carbon Dioxide 23 mmol/L (20-31); Potassium 3.7 mmol/L (3.5-5.1)
[2024-12-18 04:03] LABS: Bilirubin, Total 0.7 mg/dL (0.2-1.0)
[2024-12-18 04:18] LABS: Albumin 2.9 g/dL (3.2-4.8); Aspartate Aminotransferase 44 U/L (13-40); Blood Urea Nitrogen 46 mg/dL (9-23); Chloride 122 mmol/L (98-107); Glucose 181 mg/dL (74-106); Magnesium 2.8 mg/dL (1.6-2.6); Phosphorus 2.2 mg/dL (2.4-5.1); Sodium 153 mmol/L (136-145); Total Protein 5.2 g/dL (5.7-8.2)
[2024-12-18] MEDS: FREE WATER GT SCH (06:12)
[2024-12-18] MEDS: hydrALAZINE HCL 20 MG/ML VL IV PRN (06:15)
--- NOTE | 2024-12-18 06:54 | DVH ---
EXAM: XY CHEST PORTABLE HISTORY: INTUBATED COMPARISON: XY CHEST PORTABLE on DOS: 12/17/24, XY CHEST XRAY 1 VIEW on DOS: 12/17/24, XY CHEST PORTABLE on DOS: 12/16/24, XY CHEST PORTABLE on DOS: 12/15/24, XY CHEST XRAY 1 VIEW on DOS: 12/14/24 TECHNIQUE: Portable AP view of the chest was performed. FINDINGS: Endotracheal tube is re-identified with its tip 3.5 cm above the clare. OG tube and right IJ centra l line are re-identified. There is mild patchy infiltrate in the left lung base, slightly increased s sally the previous chest x-ray. No pneumothorax or pulmonary edema. The heart is borderline enlarged. Left chest wall subcutaneous emphysema is re-identified. Chronic right distal clavicle fracture re-i dentified. IMPRESSION: 1. Mechanical ventilation with tubes and lines as above. 2. Increased left basilar infiltrate.
[2024-12-18 07:28] LABS: Base Excess -4.3 mmol/L (-2.0-3.0)
--- NOTE | 2024-12-18 08:33 | DVH ---
CHEST RADIOGRAPH Indication: NG RE-INSERTION. Technique: Single frontal view of the chest was obtained COMPARISON: XY CHEST PORTABLE on DOS: 12/18/24, XY CHEST PORTABLE on DOS: 12/17/24, XY CHEST XRAY 1 VIEW on DOS: 12/17/24, XY CHEST PORTABLE on DOS: 12/16/24, XY CHEST PORTABLE on DOS: 12/15/24 FINDINGS: Lines and Tubes: Endotracheal tube, enteric catheter and right central venous catheter in satisfactor y position. Lungs: Congestion Pleura: No effusion. No pneumothorax. Cardiomediastinal contours: Unremarkable Bones: Unremarkable IMPRESSION: Lines and tubes in satisfactory position. No significant interval change.
--- NOTE | 2024-12-18 10:25 | DVHPN2 ---
Subjective 12/17-follow up with the pressure drip was changed from leave O2 appy due to new onset bradycardia overnight. No atropine given/needed. This a.m. heart rates RN low 40s, we will start dopamine goal to keep heart rate more than 45. Consult Cardiology for bradycardia. Clinimix was started last night on 40 and local closer high now, she was on morbid q.4 SSI which revealed upgrade to aggressive q.4 SSI. On vanc/Zosyn/Flagyl. We will keep the antibiotics despite dual anaerobic coverage, preference by surgery for significant abdominal surgery/manipulation. Plan for bradycardia , have epi/ dopamine drips now, +cardiology consult. We will try SBT today, no plan for weaning vasopressors. 12/18-unclear cause of bradycardia, couldve been sedation. card evaluated no PPM indication. this am is hypernatremic, npo in NG tube, will give IVF. SAT trial failed as patient hypertension and grimacing with pain when weaning tried. failed SAT, will hold off SBT. Reviewed: H&P Changes from previous H/P or p: No Changes General: Per HPI Objective Vitals Vital Signs Date Time Temp Pulse Resp B/P (MAP) Pulse Ox O2 Delivery O2 Flow Rate FiO2 12/18/24 09:51 69 14 127/49 (75) 100 30 12/18/24 08:00 Mechanical Ventilator+ 12/18/24 08:00 98.1 208.6 Intake/Output Intake and Output 12/18/24 07:00 Intake Total 1802.00 ml Output Total 1970 ml Balance -168.00 ml Intake Oral 0 ml IV Total 1802.00 ml Output Urine Total 1900 ml Gastric Drainage Total 5 ml Drainage Total 65 ml Exam Lungs clear, abdominal sounds present, no crepitus in abdomen are anywhere. Chest x-ray this a.m. without any concern for pneumoperitoneum. Blood pressure stable on a line. vents minimal. Laparotomy wound covered with dressing, sutures intact no signs of infection inflammation for now, [address], mildly distended Medications Current Medications Medications Dose Ordered Sig/Carlos Route Start Time Stop Time Status Last Admin Dose Admin Acetaminophen 500 mg Q6HP PRN PO 12/12/24 13:15 12/13/24 05:32 500 MG Pantoprazole Sodium 40 mg DAILY IV 12/16/24 10:00 12/17/24 07:43 40 MG Propofol 100 ml @ 2.856 mls/ hr Q24H IV 12/15/24 12:15 12/15/24 13:30 2.856 MLS/HR Norepinephrine Bitartrate 250 ml @ 3.75 mls/hr Q24H IV 12/15/24 12:45 12/16/24 14:51 18.75 MLS/HR Fentanyl Citrate 250 ml @ 2.5 mls/hr Q24H IV 12/15/24 12:45 12/18/24 08:20 2.5 MLS/HR Midazolam HCl 50 ml @ 1 mls/hr Q24H IV 12/15/24 15:15 12/17/24 14:17 7 MLS/HR Vancomycin HCl 0 ml @ 0 mls/hr UD IV 12/15/24 15:15 Piperacillin Sod/ Tazobactam Sod 100 ml @ 25 mls/hr Q8H IV 12/16/24 21:00 12/18/24 04:18 25 MLS/HR Insulin Glargine 15 units QAM SC 12/17/24 07:00 12/18/24 06:12 15 UNITS Amino Acids 0 ml @ 0 mls/hr PER PHARMACY IV 12/16/24 15:30 Amino Acids/ Electrolytes/ Dextrose 1,000 ml @ 41 mls/hr DAILY@2200 IV 12/16/24 22:00 12/17/24 21:52 41 MLS/HR Epinephrine HCl 250 ml @ 7.5 mls/hr Q24H IV 12/16/24 21:00 12/16/24 20:46 7.5 MLS/HR Dopamine HCl/ Dextrose 250 ml @ 18.6 mls/hr [id number] IV 12/17/24 09:30 12/17/24 09:56 18.6 MLS/HR Diagnostic Test (Pha) 1 strip IQ4HR 12/17/24 12:00 12/18/24 08:18 1 STRIP Insulin Human Regular IQ4HR SC 12/17/24 12:00 12/18/24 08:18 4 UNITS Dextrose 50 ml UD PRN IV 12/17/24 09:45 Purified Water 200 ml Q4HR GT 12/18/24 06:00 12/18/24 06:12 200 ML Hydralazine HCl 10 mg Q6HP PRN IV 12/18/24 06:15 12/18/24 06:15 10 MG Laboratory Results Laboratory Tests 12/18/24 03:05 Chemistry Test 12/18/24 03:05 Albumin 2.9 g/dL (3.2-4.8) L Calcium Level 9.1 mg/dL (8.7-10.4) Magnesium Level 2.8 mg/dL (1.6-2.6) H Phosphorus Level 2.2 mg/dL (2.4-5.1) L Total Protein 5.2 g/dL (5.7-8.2) L LFT Test 12/18/24 03:05 Alanine Aminotransferase (ALT) 13 U/L (7-40) Alkaline Phosphatase 96 U/L (46-116) Aspartate Amino Transferase (AST) 44 U/L (13-40) H Total Bilirubin 0.7 mg/dL (0.2-1.0) Urinalysis Test 12/14/24 01:38 Urine Color Yellow (Yellow) Urine Clarity Turbid (Clear) H Urine pH 5.0 (5.0-9.0) Urine Specific [place] 1.019 (1.001-1.035) Urine Protein Trace (Negative) H Urine Ketones Negative (Negative) Urine Blood 2+ /uL (Negative) H Urine Nitrite Negative (Negative) Urine Bilirubin Negative (Negative) Urine Urobilinogen Normal mg/dL (Negative) Urine Leukocyte Esterase Trace /uL (Negative) Urine RBC 59 /hpf (0 - 4) Urine Microscopic WBC 7 /HPF (0-5) H Urine Squamous Epithelial Cells Few /hpf (<5) Urine Bacteria None seen /hpf (None Seen) Urine Hyaline Casts Few /lpf (0 - 2) Urine Mucus Few (None Seen) Urine Glucose 3+ mg/dL (Normal) H Blood Gas Results Test 12/18/24 07:15 Arterial Blood pH 7.356 (7.350-7.450) FiO2 % 30.0 Microbiology Microbiology Date/Time Source Procedure Growth Status 12/16/24 00:00 Voided Urine Urine Culture - Preliminary Resulted 12/15/24 13:10 Nose MRSA Screen - Final Complete 12/15/24 11:59 Sputum Gram Stain - Final Resulted 12/15/24 11:59 Sputum Respiratory Culture - Preliminary Resulted 12/15/24 11:30 Peritoneal Fluid Gram Stain - Final Resulted 12/15/24 11:30 Peritoneal Fluid Anaerobic Culture - Preliminary Resulted 12/15/24 11:30 Peritoneal Fluid Aerobic Culture - Preliminary Resulted Labs and/or images reviewed: Labs reviewed by me, Image(s) reviewed by me Assessment/Plan Assessment/Plan 12/18-unclear cause of bradycardia, couldve been sedation. card evaluated no PPM indication. this am is hypernatremic, npo in NG tube, will give IVF. nephro consult was input overnight for hyperNa and jake. SAT trial failed as patient hypertension and grimacing with pain when weaning tried. failed SAT, will hold off SBT. cont clinimix, off vaso[pressors. cont aggressive SSI for hihgh BG. continue vanc/zosyn (stopped flagyl). Neurology Cardiology # HTN # Shock likely due to sepsis from peritonitis - currently on epi and dopa (prior Levophed 12/15) - sedated with fentanyl and Versed 12/15 - currently receiving Zosyn, vancomycin & Flagyl - ordered pancultures, preliminary showed no growth - monitor lab #bradycardia - on 12/16 overnight, ekg w/o ST changes. 12/17 started epi and dopa gtt goal HR>45, card consulted. - atropine push for acute HR<35 Respiratory # acute hypoxic respiratory failure likely due to sepsis s/p intubation - sedated, intubated and on mechanical ventilation - RR 14, VT 500, FiO2 30%, peep 5 - currently ICU status - currently on Levophed and sedated with fentanyl and Versed 12/15 - currently receiving Zosyn, vancomycin - Dc Flagyl - Monitor GI/Liver/ Abdomen # Morbid Obesity - Nutrional councelling. started on clinimix # Peritonitis due to ? perforation # Septic shock due to above # ? small bowel perforation # Bowel Adhesions - Evident on CT - postoperative day 1 status post exploratory laparotomy, small-bowel resection, enteroenterostomy, adhesiolysis, patient tolerated to the procedure - currently monitoring - sedated, intubated and on mechanical ventilation - currently receiving Zosyn, vancomycin , Dc flagyl 12/16 /Kidney/Reproductive # JAKE likely vasomotor on CKD stage 3 - monitor lab - avoid nephrotoxic agents # Uterine/Pelvic prolapse # cystocele # stress incontinence # ? vaginal lesion - postoperative day 4 status post desera I single incision urethral sling, cystocele repair - vaginal mucosa lesion sent for biopsy [facility] Endocrine/Meatbolic # uncontrolled type 2 DM HbA1c 8.2 - Accu-Cheks and ISS # hyperkalemia - monitor lab # Skin ID # Peritonitis due to ? perforation # Septic shock due to above - currently receiving Zosyn, vancomycin - DC Flagyl - ordered pancultures, preliminary showed no growth Lines Intubated 12/15 Right IJ CVC 12/15 Alvarez Dips Fentanyl Versed epi dopa Diprivan DC 12/16 PUD PPX : Protonix VTE PPX : SCDs Diet: Clinimix Goals of care discussed with the family for more than 29 minutes: Full code status Critical care time spent including chart review, discussing with the patient's family excluding procedures: 54 minutes Plan of care updated to RN Plan discussed with: Patient My Orders Orders - MARIA TERESA TSEVEN MD Procedure Category Date Status Time Chest Portable XY 12/17/24 Resulted 12:33 Chest Portable XY 12/18/24 Resulted 04:00 Cpap Trial For Am ORDERS 12/18/24 Transmitted 08:00 Date of Service: Dec 18, 2024 Billing Provider: MARIA TERESA STEVEN MD Common Visit Codes: [id number] CARE-EACH +30MIN MARIA TERESA STEVEN MD Dec 18, 2024 10:25
[2024-12-18] MEDS: D5W 5% 1,000 ML IV SCH (10:43)
--- NOTE | 2024-12-18 11:47 | DVHPN2 ---
Progress Note Date Seen: Dec 18, 2024 Medical Necessity Reason Pt with a Central, PICC or Fol: Yes The following are medically ne: Central Line, Porter Catheter Reason for porter catheter: Bladder Retention/Obstruc, Dony. Abd Surgery, Strict I&O Objective vital signs Vital Sign Date Time Temp Pulse Resp B/P (MAP) Pulse Ox O2 Delivery O2 Flow Rate FiO2 12/18/24 10:00 64 12/18/24 10:00 30 12/18/24 09:51 14 127/49 (75) 100 12/18/24 08:00 Mechanical Ventilator+ 12/18/24 08:00 98.1 208.6 Total Intake and Output 12/17/24 12/17/24 12/18/24 15:00 23:00 07:00 Intake Total 808.00 ml 546.50 ml 447.5 ml Output Total 1390 ml 580 ml Balance 808.00 ml -843.50 ml -132.5 ml medications Current Medications Medications Dose Ordered Sig/Carlos Route Start Time Stop Time Status Last Admin Dose Admin Acetaminophen 500 mg Q6HP PRN PO 12/12/24 13:15 12/13/24 05:32 500 MG Pantoprazole Sodium 40 mg DAILY IV 12/16/24 10:00 12/18/24 10:31 40 MG Propofol 100 ml @ 2.856 mls/ hr Q24H IV 12/15/24 12:15 12/15/24 13:30 2.856 MLS/HR Norepinephrine Bitartrate 250 ml @ 3.75 mls/hr Q24H IV 12/15/24 12:45 12/16/24 14:51 18.75 MLS/HR Fentanyl Citrate 250 ml @ 2.5 mls/hr Q24H IV 12/15/24 12:45 12/18/24 08:20 2.5 MLS/HR Midazolam HCl 50 ml @ 1 mls/hr Q24H IV 12/15/24 15:15 12/17/24 14:17 7 MLS/HR Vancomycin HCl 0 ml @ 0 mls/hr UD IV 12/15/24 15:15 Piperacillin Sod/ Tazobactam Sod 100 ml @ 25 mls/hr Q8H IV 12/16/24 21:00 12/18/24 04:18 25 MLS/HR Insulin Glargine 15 units QAM SC 2/1/25 07:00 12/18/24 06:12 15 UNITS Amino Acids 0 ml @ 0 mls/hr PER PHARMACY IV 12/16/24 15:30 Amino Acids/ Electrolytes/ Dextrose 1,000 ml @ 41 mls/hr DAILY@2200 IV 12/16/24 22:00 12/17/24 21:52 41 MLS/HR Epinephrine HCl 250 ml @ 7.5 mls/hr Q24H IV 12/16/24 21:00 12/16/24 20:46 7.5 MLS/HR Dopamine HCl/ Dextrose 250 ml @ 18.6 mls/hr [id number] IV 12/17/24 09:30 12/17/24 09:56 18.6 MLS/HR Diagnostic Test (Pha) 1 strip IQ4HR 12/17/24 12:00 12/18/24 08:18 1 STRIP Insulin Human Regular IQ4HR SC 12/17/24 12:00 12/18/24 08:18 4 UNITS Dextrose 50 ml UD PRN IV 12/17/24 09:45 Purified Water 200 ml Q4HR GT 12/18/24 06:00 12/18/24 06:12 200 ML Hydralazine HCl 10 mg Q6HP PRN IV 12/18/24 06:15 12/18/24 06:15 10 MG Dextrose 1,000 ml @ 75 mls/hr [id number] IV 12/18/24 10:30 12/18/24 15:29 12/18/24 10:43 75 MLS/HR laboratory and microbiology Laboratory Tests 12/18/24 03:05 Test 12/18/24 03:05 Range/Units Serum Glucose 181 H 74-106 mg/dL Problem List/Assessment/Plan Problem List/Assessment/Plan 12/15/24 abdomen more distended, green drainage per colleen drains elev.WBC, abdomen very tender, will proceed with exploratory laparotomy as CT scan report is suspicious for bowel perforation and clinical findings corroborate the suspicion. 12/16/24 AFEBRILE, WOUND CLEAN AND WELL APPROXIMATED, DRAINS SEROSANGUINEOUS, ABDOMEN NON DISTENDED, SOFT, GOOD URINE OUTPUT. DISCUSSED WITH PRIMARY TEAM WEANING OFF VENTILATOR. 12/17/24 REMAINS INTUBATED SEDATED ON VENTILATOR, WOUND CLEAN AND WELL APPROXIMATED, COLLEEN DRAINAGE SERO SANGUINEOUS, LABS OK, 'surgically"stable 12/18/24 lightly sedated, still intubated, wound clean and well approximated , COLLEEN drainage serous, qabdeomen soft and not distended, labs:HyperNatremia, cbc OK. should bed able to be weaned off ventilator Plan discussed with: Other Dietary Evaluation Review Comments: 1. Consider increasing PN regime to meet nutritional needs when labs WNL 2. Consider advance to CCHO 60g diet when medically appropriate Expected Outcomes/Goals: 1. Pt will consume >75% of estimated needs within 2-3 days NITO LANDA MD Dec 18, 2024 11:47
--- NOTE | 2024-12-18 12:57 | DVHPN2 ---
RASHEEDA DOVER [facility] 12/18/24 1257: Consult Progress Note Subjective Other Systems: The patient remains chemically sedated and mechanically ventilated Patient in normal sinus rhythm on gambling monitor at time of assessment. Objective vital signs Vital Sign Date Time Temp Pulse Resp B/P (MAP) Pulse Ox O2 Delivery O2 Flow Rate FiO2 12/18/24 12:15 98.6 61 14 170/69 (102) 100 209.5 12/18/24 12:00 30 12/18/24 08:00 Mechanical Ventilator+ Total Intake and Output 12/17/24 12/17/24 12/18/24 15:00 23:00 07:00 Intake Total 808.00 ml 546.50 ml 447.5 ml Output Total 1390 ml 580 ml Balance 808.00 ml -843.50 ml -132.5 ml medications Current Medications Medications Dose Ordered Sig/Carlos Route Start Time Stop Time Status Last Admin Dose Admin Acetaminophen 500 mg Q6HP PRN PO 12/12/24 13:15 12/13/24 05:32 500 MG Pantoprazole Sodium 40 mg DAILY IV 12/16/24 10:00 12/18/24 10:31 40 MG Propofol 100 ml @ 2.856 mls/ hr Q24H IV 12/15/24 12:15 12/15/24 13:30 2.856 MLS/HR Norepinephrine Bitartrate 250 ml @ 3.75 mls/hr Q24H IV 12/15/24 12:45 12/16/24 14:51 18.75 MLS/HR Fentanyl Citrate 250 ml @ 2.5 mls/hr Q24H IV 12/15/24 12:45 12/18/24 08:20 2.5 MLS/HR Midazolam HCl 50 ml @ 1 mls/hr Q24H IV 12/15/24 15:15 12/17/24 14:17 7 MLS/HR Vancomycin HCl 0 ml @ 0 mls/hr UD IV 12/15/24 15:15 Piperacillin Sod/ Tazobactam Sod 100 ml @ 25 mls/hr Q8H IV 12/16/24 21:00 12/18/24 04:18 25 MLS/HR Insulin Glargine 15 units QAM SC 12/17/24 07:00 12/18/24 06:12 15 UNITS Amino Acids 0 ml @ 0 mls/hr PER PHARMACY IV 12/16/24 15:30 Amino Acids/ Electrolytes/ Dextrose 1,000 ml @ 41 mls/hr DAILY@2200 IV 12/16/24 22:00 12/17/24 21:52 41 MLS/HR Epinephrine HCl 250 ml @ 7.5 mls/hr Q24H IV 12/16/24 21:00 12/16/24 20:46 7.5 MLS/HR Dopamine HCl/ Dextrose 250 ml @ 18.6 mls/hr [id number] IV 12/17/24 09:30 12/17/24 09:56 18.6 MLS/HR Diagnostic Test (Pha) 1 strip IQ4HR 12/17/24 12:00 12/18/24 12:06 1 STRIP Insulin Human Regular IQ4HR SC 12/17/24 12:00 12/18/24 12:10 4 UNITS Dextrose 50 ml UD PRN IV 12/17/24 09:45 Hydralazine HCl 10 mg Q6HP PRN IV 12/18/24 06:15 12/18/24 06:15 10 MG Dextrose 1,000 ml @ 75 mls/hr [id number] IV 12/18/24 10:30 12/18/24 15:29 12/18/24 10:43 75 MLS/HR Examination: GENERAL:Abnormal, LUNGS:Abnormal (Mechanically ventilated), CVS:Normal, NEURO:Abnormal (Chemically sedated) laboratory and microbiology Laboratory Tests 12/18/24 03:05 Test 12/18/24 03:05 Range/Units Serum Glucose 181 H 74-106 mg/dL Problem List/Assessment/Plan Problem List/Assessment/Plan Sinus bradycardia, now normal sinus rhythm Peritonitis status post exploratory laparotomy History of hypertension Type 2 diabetes mellitus Acute kidney injury Uterine prolapse status post cystocele repair Plan/Recommendation (Dr. Alarcon): * Transthoracic echocardiogram reveals EF 65% * Avoid all AV manuel blocking agents * Titrate down on sedation * Close Cardiac surveillance: Notify cardiology team for any pauses or high- degree AV blocks Patient seen and examined at bedside with . At the time of assessment, the patient remains in normal sinus rhythm. No bradycardia events seen overnight. Cardiology will sign off at this time. Please reconsult if needed. Thank you for allowing us to care for this patient. Please call with any questions or concerns. This medical document was created using an electronic medical record system with voice recognition software and computerized dictation system. Although this document has been carefully reviewed, there might still be some phonetic and typographical errors. Occasional wrong-word or ``sound-alike substitutions may have occurred due to the inherent limitations of voice recognition software. These areas are purely typographical due to imperfections of the software programs and do not reflect any compromise in the patient's medical care. Please read the chart carefully and recognize, using context, where these substitutions have occurred. Plan discussed with: Other (Bedside RN) Dietary Evaluation Review Comments: 1. Consider increasing PN regime to meet nutritional needs when labs WNL 2. Consider advance to CCHO 60g diet when medically appropriate Expected Outcomes/Goals: 1. Pt will consume >75% of estimated needs within 2-3 days Date of Service: Dec 18, 2024 Billing Provider: RASHEEDA DOVER Common Visit Codes: [id number] CARE 30-74 MIN ART ALARCON MD 12/18/24 2003: Consult Progress Note Problem List/Assessment/Plan Problem List/Assessment/Plan Stopped patient's timolol eye drops, which was the likely culprit, with improvement in heart rates. Once patient is hemodynamically stable off pressors and sedation, can consider restarting her eye drops vs finding an alternate option. RASHEEDA DOVER Dec 18, 2024 12:57 ART ALARCON MD Dec 18, 2024 20:03
[2024-12-18 15:51] LABS: Potassium 4.1 mmol/L (3.5-5.1)
[2024-12-18 15:52] LABS: Anion Gap 7 (5-15); Carbon Dioxide 24 mmol/L (20-31)
[2024-12-18 15:57] LABS: BUN/Creatinine Ratio 29.7 (10.0-20.0)
[2024-12-18 16:01] LABS: Blood Urea Nitrogen 41 mg/dL (9-23); Calcium 8.7 mg/dL (8.7-10.4); Chloride 120 mmol/L (98-107); Glucose 239 mg/dL (74-106); Sodium 151 mmol/L (136-145)
[2024-12-18] MEDS: VANCOMYCIN 750MG KIT 100 ML IV SCH (17:47)
--- NOTE | 2024-12-18 22:32 | DVHPN2 ---
Progress Note - Dictate Date Seen: Dec 18, 2024 Medical Necessity Reason Pt with a Central, PICC or Fol: Yes The following are medically ne: Central Line, Porter Catheter Reason for porter catheter: Bladder Retention/Obstruc, Dony. Abd Surgery, Strict I&O Subjective Patient seen and examined at bedside. intubated on mechanical ventilator. Overnight events reviewed. vital signs Vital Sign Date Time Temp Pulse Resp B/P (MAP) Pulse Ox O2 Delivery O2 Flow Rate FiO2 12/18/24 22:18 81 17 124/42 (69) 100 30 12/18/24 19:00 98.6 209.5 12/18/24 08:00 Mechanical Ventilator+ Total Intake and Output 12/17/24 12/17/24 12/18/24 15:00 23:00 07:00 Intake Total 808.00 ml 546.50 ml 447.5 ml Output Total 1390 ml 580 ml Balance 808.00 ml -843.50 ml -132.5 ml medications Current Medications Medications Dose Ordered Sig/Carlos Route Start Time Stop Time Status Last Admin Dose Admin Acetaminophen 500 mg Q6HP PRN PO 12/12/24 13:15 12/13/24 05:32 500 MG Pantoprazole Sodium 40 mg DAILY IV 12/16/24 10:00 12/18/24 10:31 40 MG Propofol 100 ml @ 2.856 mls/ hr Q24H IV 12/15/24 12:15 12/15/24 13:30 2.856 MLS/HR Norepinephrine Bitartrate 250 ml @ 3.75 mls/hr Q24H IV 12/15/24 12:45 12/16/24 14:51 18.75 MLS/HR Fentanyl Citrate 250 ml @ 2.5 mls/hr Q24H IV 12/15/24 12:45 12/18/24 08:20 2.5 MLS/HR Midazolam HCl 50 ml @ 1 mls/hr Q24H IV 12/15/24 15:15 12/17/24 14:17 7 MLS/HR Vancomycin HCl 0 ml @ 0 mls/hr UD IV 12/15/24 15:15 Piperacillin Sod/ Tazobactam Sod 100 ml @ 25 mls/hr Q8H IV 12/16/24 21:00 12/18/24 20:33 25 MLS/HR Insulin Glargine 15 units QAM SC 12/17/24 07:00 12/18/24 06:12 15 UNITS Amino Acids 0 ml @ 0 mls/hr PER PHARMACY IV 12/16/24 15:30 Amino Acids/ Electrolytes/ Dextrose 1,000 ml @ 41 mls/hr DAILY@2200 IV 12/16/24 22:00 12/18/24 20:33 41 MLS/HR Epinephrine HCl 250 ml @ 7.5 mls/hr Q24H IV 12/16/24 21:00 12/16/24 20:46 7.5 MLS/HR Dopamine HCl/ Dextrose 250 ml @ 18.6 mls/hr [id number] IV 12/17/24 09:30 12/17/24 09:56 18.6 MLS/HR Diagnostic Test (Pha) 1 strip IQ4HR 12/17/24 12:00 12/18/24 19:55 1 STRIP Insulin Human Regular IQ4HR SC 12/17/24 12:00 12/18/24 20:04 2 UNITS Dextrose 50 ml UD PRN IV 12/17/24 09:45 Hydralazine HCl 10 mg Q6HP PRN IV 12/18/24 06:15 12/18/24 18:37 10 MG Vancomycin HCl 100 ml @ 100 mls/hr Q24H IV 12/18/24 18:00 12/18/24 17:47 100 MLS/HR objective Gen.: Patient lying in bed in medical ICU. Intubated on mechanical ventilator. Head: Normocephalic, atraumatic. Eyes: PERRLA. Ears: Normal external anatomy. Throat: Endotracheal tube and orogastric tube in place. Neck: Supple, trachea midline. Chest: Transmitted breath sounds bilaterally. Decreased air entry bilaterally. No wheezing. Bibasilar crackles. Cardiovascular: Positive S1, positive S2. Regular rate and rhythm. Abdomen: Positive bowel sounds in all 4 quadrants. Soft, nontender, nondistended. : Porter in place. Normal external genitalia. Rectal: Deferred. Skin: Warm, dry. Intact. Extremities: 2+ radial pulses bilaterally. No lower extremity edema. Neuro: Off sedation laboratory and microbiology Laboratory Tests 12/18/24 15:09 12/18/24 03:05 Test 12/18/24 15:09 Range/Units Serum Glucose 239 H 74-106 mg/dL Assessment/Plan Impression: Acute hypoxic respiratory failure On mechanical ventilator S/p perforated bowel. S/p bowel resection Shock Obesity Events: Patient placed on SBT CPAP with PS 12, PEEP 5 Tidal volume 450-550 mL; RR of 15. ABG reviewed, compensated. Off Versed Fentanyl drip for analgesia Off pressors, hemodynamically stable. Clinimix for nutritional support Mentation not at goal for extubation. Labs and imaging reviewed. Rest of plan as noted below. Plan: s/p intubation on mechanical ventilator. CXR image and report reviewed. Devices in place. Atelectasis in the lung bases. No focal consolidation. No pneumothorax. ABG reviewed, compensated. On AC mode; RR 14, VT 500, PEEP 5, FiO2 30% Titrate FIO2 to keep O2 saturation above 90%. VAP bundle. Daily ABG and CXR while intubated Off sedation Continue antibiotics. Clinimix for nutritional support Start pressors if necessary to maintain a mean arterial blood pressure greater than 65 mmHg. Monitor renal function Monitor electrolytes. Supplement as necessary. Monitor ins and outs. Maintain euvolemia. Taper sedation as tolerated SBT/SHUKRI GI prophylaxis. DVT prophylaxis. Prognosis: Poor given patient's multiple co-morbidities. Condition: Critical Rest of plan per hospitalist and other consultants. A total of 35 minutes of critical care time was spent reviewing the patient record, examining the patient, making a diagnostic and therapeutic plan, discussing this plan with the medical personnel, following up on diagnostic studies and following the patient for clinical stability excluding any and all procedures. At least 50% of this time was spent in direct, [id number] contact. Thank you Dr. Meadows for allowing me to participate in this patient's care. Further recommendations will depend on the patient's clinical course. Please do not hesitate to contact me if you have any questions or concerns. This medical document was created using an electronic medical record system with [employer] dictation system. Although these documentations are being carefully reviewed, there may still be some phonetic and typographical changes. The errors are purely typographical, due to imperfection on the software program, and do not reflect any compromise in the patient's medical care. Dietary Evaluation Review Comments: 1. Consider increasing PN regime to meet nutritional needs when labs WNL 2. Consider advance to CCHO 60g diet when medically appropriate Expected Outcomes/Goals: 1. Pt will consume >75% of estimated needs within 2-3 days Plan discussed with: Other (DAVID Aragon) Critical Care Time(min): 35 DANA MAK MD Dec 18, 2024 22:32
[2024-12-19] VITALS (105 sets, daily range): BP systolic 61–210; BP diastolic 42–126; PULSE 60–95; RESP 13–22; TEMP 98.2–99.3; O2SAT 98–100
[2024-12-19 04:32] LABS: Alanine Aminotransferase 15 U/L (7-40); Alkaline Phosphatase 102 U/L (46-116); Anion Gap 10 (5-15); Aspartate Aminotransferase 36 U/L (13-40); BUN/Creatinine Ratio 26.8 (10.0-20.0); Bilirubin, Total 0.9 mg/dL (0.2-1.0); Calcium 9.3 mg/dL (8.7-10.4); Carbon Dioxide 23 mmol/L (20-31); Magnesium 2.4 mg/dL (1.6-2.6); Phosphorus 2.9 mg/dL (2.4-5.1); Potassium 3.7 mmol/L (3.5-5.1)
[2024-12-19 04:35] LABS: Hematocrit 39.2 % (36.0-46.0); Hemoglobin 12.4 g/dL (12.2-16.2); Mean Corpuscular Hemoglobin 26.5 pg (28.0-32.0); Mean Corpuscular Hgb Conc. 31.7 g/dL (32.0-36.0); Mean Corpuscular Volume 83.6 fL (80.0-100.0); Platelet Count (auto) 187 10^3/uL (140-450); Red Blood Cells 4.69 10^6/uL (4.0-5.20); Red Cell Distribution Width 18.6 % (11.8-14.3); White Blood Cell 13.3 10^3/uL (4.4-10.8)
[2024-12-19 04:40] LABS: Basophils % (manual) 0 (0.0-2.0); Blast Cells 0; Metamyelocytes % 0; Myelocytes % 0; Promyelocytes % 0; Reactive Lymphocytes 0
[2024-12-19 04:43] LABS: Albumin 3.1 g/dL (3.2-4.8); Blood Urea Nitrogen 33 mg/dL (9-23); Chloride 120 mmol/L (98-107); Glucose 224 mg/dL (74-106); Sodium 153 mmol/L (136-145); Total Protein 5.6 g/dL (5.7-8.2)
--- NOTE | 2024-12-19 05:12 | DVH ---
EXAM: XR Chest, 1 View CLINICAL INDICATION: INTUBATED TECHNIQUE: Frontal view of the chest. COMPARISON: XY CHEST PORTABLE on DOS: 12/18/24, XY CHEST PORTABLE on DOS: 12/18/24, XY CHEST PORTABLE o n DOS: 12/17/24, XY CHEST XRAY 1 VIEW on DOS: 12/17/24, XY CHEST PORTABLE on DOS: 12/16/24 FINDINGS: LUNGS AND PLEURAL SPACES: Mild congestion. No consolidation. No pneumothorax. HEART: Unremarkable. No cardiomegaly. MEDIASTINUM: Unremarkable. Normal mediastinal contour. BONES/JOINTS: Unremarkable. No acute fracture. TUBES, LINES AND DEVICES: Stable tubes and lines. OTHER FINDINGS: . IMPRESSION: Mild congestion.
[2024-12-19 05:35] LABS: Band Neutrophils % (manual) 1; Eosinophils % (manual) 2 (0-7)
[2024-12-19 05:36] LABS: Anisocytosis Slight; Large Platelets FEW; Lymphocytes % (manual) 14 (10.0-50.0); Monocytes % (manual) 10 (0-12); Platelet Estimate Adequate; Stomatocytes Few; Target Cell FEW
[2024-12-19 05:46] LABS: Triglycerides 106 mg/dL (< 150)
--- NOTE | 2024-12-19 08:50 | DVHPN2 ---
Progress Note Date Seen: Dec 19, 2024 Medical Necessity Reason Pt with a Central, PICC or Fol: Yes The following are medically ne: Central Line, Porter Catheter Reason for porter catheter: Bladder Retention/Obstruc, Dony. Abd Surgery, Strict I&O Objective vital signs Vital Sign Date Time Temp Pulse Resp B/P (MAP) Pulse Ox O2 Delivery O2 Flow Rate FiO2 12/19/24 08:21 88 17 161/90 (113) 100 30 12/19/24 06:45 98.6 209.5 12/18/24 20:00 Mechanical Ventilator+ Total Intake and Output 12/18/24 12/18/24 12/19/24 15:00 23:00 07:00 Intake Total 703.0 ml 608.0 ml 337 ml Output Total 1020 ml 1365 ml Balance 703.0 ml -412.0 ml -1028 ml medications Current Medications Medications Dose Ordered Sig/Carlos Route Start Time Stop Time Status Last Admin Dose Admin Acetaminophen 500 mg Q6HP PRN PO 12/12/24 13:15 12/13/24 05:32 500 MG Pantoprazole Sodium 40 mg DAILY IV 12/16/24 10:00 12/18/24 10:31 40 MG Propofol 100 ml @ 2.856 mls/ hr Q24H IV 12/15/24 12:15 12/15/24 13:30 2.856 MLS/HR Norepinephrine Bitartrate 250 ml @ 3.75 mls/hr Q24H IV 12/15/24 12:45 12/16/24 14:51 18.75 MLS/HR Fentanyl Citrate 250 ml @ 2.5 mls/hr Q24H IV 12/15/24 12:45 12/18/24 08:20 2.5 MLS/HR Midazolam HCl 50 ml @ 1 mls/hr Q24H IV 12/15/24 15:15 12/17/24 14:17 7 MLS/HR Vancomycin HCl 0 ml @ 0 mls/hr UD IV 12/15/24 15:15 Piperacillin Sod/ Tazobactam Sod 100 ml @ 25 mls/hr Q8H IV 12/16/24 21:00 12/19/24 05:00 25 MLS/HR Insulin Glargine 15 units QAM SC 12/17/24 07:00 12/19/24 07:00 15 UNITS Amino Acids 0 ml @ 0 mls/hr PER PHARMACY IV 12/16/24 15:30 Amino Acids/ Electrolytes/ Dextrose 1,000 ml @ 41 mls/hr DAILY@2200 IV 12/16/24 22:00 12/18/24 20:33 41 MLS/HR Epinephrine HCl 250 ml @ 7.5 mls/hr Q24H IV 12/16/24 21:00 12/16/24 20:46 7.5 MLS/HR Dopamine HCl/ Dextrose 250 ml @ 18.6 mls/hr [id number] IV 12/17/24 09:30 12/17/24 09:56 18.6 MLS/HR Diagnostic Test (Pha) 1 strip IQ4HR 12/17/24 12:00 12/19/24 04:06 1 STRIP Insulin Human Regular IQ4HR SC 12/17/24 12:00 12/19/24 04:00 8 UNITS Dextrose 50 ml UD PRN IV 12/17/24 09:45 Hydralazine HCl 10 mg Q6HP PRN IV 12/18/24 06:15 12/19/24 03:02 10 MG Vancomycin HCl 100 ml @ 100 mls/hr Q24H IV 12/18/24 18:00 12/18/24 17:47 100 MLS/HR laboratory and microbiology Laboratory Tests 12/19/24 03:25 Test 12/19/24 03:25 Range/Units Serum Glucose 224 H 74-106 mg/dL Problem List/Assessment/Plan Problem List/Assessment/Plan 12/19/24 labs, notes , reviewed and discussed with Dr. Riley patient intubated , off sedation, abdomen soft, LIZA drain serous fluid, wound clean dry and intact, per nurse CPAP trial today Plan discussed with: Other (Dr. Riley) Dietary Evaluation Review Comments: 1. Consider increasing PN regime to meet nutritional needs when labs WNL 2. Consider advance to CCHO 60g diet when medically appropriate Expected Outcomes/Goals: 1. Pt will consume >75% of estimated needs within 2-3 days ANTHONY ONOFRE NP Dec 19, 2024 08:50
[2024-12-19] MEDS: D5W 5% 1,000 ML IV SCH (09:15)
[2024-12-19 11:39] LABS: Free T3 1.14 pg/mL (2.3-4.2)
[2024-12-19 11:40] LABS: Free T4 (Free Thyroxine) 0.73 ng/dL (0.89-1.76)
[2024-12-19 11:44] LABS: Base Excess -1.6 mmol/L (-2.0-3.0)
--- NOTE | 2024-12-19 13:24 | DVHPN2 ---
Chief Complaints Patient reports: Other (Patient postop day 7 from her original cystocele urethral sling repair attempted laparoscopy open mini-laparotomy and David drain placement with partial vaginectomy. She is postop day 7 from her 2nd surgery open exploratory laparotomy additional to drain placement as well as enterotomy repair of the jejunum. Three) Objective Vitals Vital Signs Date Time Temp Pulse Resp B/P (MAP) Pulse Ox O2 Delivery O2 Flow Rate FiO2 12/19/24 12:07 80 19 103/45 (64) 99 30 12/19/24 11:45 99.0 210.2 12/18/24 20:00 Mechanical Ventilator+ Medications Current Medications Medications (Trade) Dose Ordered Sig/Carlos Route PRN Reason Start Time Stop Time Status Last Admin Dexmedetomidine HCl 400 mcg/ Dextrose 100 ml @ 4.955 mls/ hr [id number] IV 12/19/24 09:30 12/19/24 10:22 Dextrose 1,000 ml @ 75 mls/hr [id number] IV 12/19/24 09:15 Vancomycin HCl 100 ml @ 100 mls/hr Q24H IV 12/18/24 18:00 12/18/24 17:47 General: Normal, Other (Resting comfortably intubated sedated) Head/Eyes: Normal Neck: Normal Lungs: Normal, Chest non-tender Cardiovascular: Normal, Other (Tachy okay Tammi probably Thursday RUL found Mondays or known Thursday or Thursday 2 days or nightmares feeding get in a Thursday evening or afternoon given your be in and out quick) Abdominal: Normal (+BS David drain serosang), Other (Three drains in place to serosanguineous with 1. Putting out some bilious appearing discharge) Extremities: Normal, Other (Generalized edema) Skin: Normal Studies Laboratory Tests 12/19/24 03:25 Test 12/19/24 03:25 Range/Units Serum Glucose 224 H 74-106 mg/dL Ass/Plan Assessment Postop day 7 from original surgery cystic appearance cell repair urethral sling attempted laparoscopy mini-laparotomy. Poor Pain contraol ;Post op day one Explore lap / Lysis of adhesion, cystocele repair urethral sling, Intraperitoneal drain placement Plan Continue supportive care by assistant customer service manager team CALVIN KINGSTON DO Dec 19, 2024 13:24
--- NOTE | 2024-12-19 16:09 | DVHINCON2 ---
Date of service: Dec 19, 2024 History of Present Illness 68 years old female with past medical history of diabetes, hypertension, Chronic kidney disease came for elective surgery initially by dye range operator eventually was ventilated and sedated.. Underwent another surgery on December 15 both surgery details as mentioned below Nephrology consulted for hypernatremia and Acute kidney injury her sodium today is 153 She might have had possible baseline Chronic kidney disease three no recent baseline available surgery on December 12, 2024 for pelvic prolapse, cystocele Patient underwent exploratory laparotomy, small-bowel resection, enteroenterostomy lysis of adhesions and irrigation for peritonitis on December 15, 2024 Past Medical History As per HPI Past Surgical History As documented in HPI Allergies: Coded Allergies: NO KNOWN ALLERGIES (Unverified , 01/10/15) Home Meds Reported Medications Dorzolamide-Timolol (Dorzolamide Hcl/Timolol M) 1 Ml Elsy, 1 DROP EACHEYE BID, #10 ML 6 Refills 12/13/24 Timolol Maleate (Timolol Maleate Ophthalmi) 0.5 % Elsy, 1 DROP EACHEYE QAM, #5 ML 5 Refills 12/13/24 Brimonidine Tartrate (Brimonidine Tartrate) 0.15 % Elsy, 1 DROP OP TID, DROP 12/13/24 Tirzepatide (Mounjaro) 5 Mg/0.5 Ml Inj, 5 MG SC, INJ 12/09/24 Cholecalciferol (VITAMIN D3) 2,000 Unit Tab, 1 TAB PO DAILY, #30 TAB 5 Refills 12/09/24 Losartan Potassium (Losartan Potassium) 25 Mg Tab, 12.5 MG PO DAILY for 30 Days, MG 12/09/24 Loratadine (Loratadine) 10 Mg Cap, 10 MG PO, CAP 12/09/24 Hydrocodone-Acetaminophen (Hydrocodone Bitartrate/AC 10-325 mg) 1 Tab Tab, 1 TAB PO, TAB 12/09/24 Progesterone Micronized (PROGESTERONE) 200 Mg Cap, 200 MG PO, CAP 12/09/24 Nifedipine (Nifedipine Er) 90 Mg Tab, 1 TAB PO DAILY, #30 TAB 5 Refills 12/09/24 Docusate Sodium (Gnp Stool Softener) 100 Mg Cap, 100 MG PO BID, CAP 12/09/24 Estradiol (Estradiol) 1 Mg Tab, 1 MG PO DAILY, MG 12/09/24 Alprazolam (Alprazolam) 0.25 Mg Tab, 1 TAB PO, #90 TAB 12/09/24 Donepezil Hydrochloride (DONEPEZIL HCL) 10 Mg Tab, 10 MG PO DAILY for 30 Days, MG 12/09/24 Carvedilol (Carvedilol) 25 Mg Tab, 25 MG PO for 30 Days, MG 12/09/24 Atorvastatin Calcium (ATORVASTATIN CALCIUM) 20 Mg Tab, 1 TAB PO DAILY, #30 TAB 5 Refills 12/09/24 Aspirin (Aspir-Low) 81 Mg Tab, 81 MG PO DAILY for 30 Days, MG 12/09/24 Current Medications Current Medications Medications (Trade) Dose Ordered Sig/Carlos Route PRN Reason Start Time Stop Time Status Last Admin Vancomycin HCl 100 ml @ 100 mls/hr Q24H IV 12/18/24 18:00 12/18/24 17:47 Dextrose 1,000 ml @ 75 mls/hr [id number] IV 12/19/24 09:15 Dexmedetomidine HCl 400 mcg/ Dextrose 100 ml @ 4.955 mls/ hr [id number] IV 12/19/24 09:30 12/19/24 10:22 Family History: Cancer G8 SISTER FHx: epilepsy G8 BROTHER Family history: Diabetes mellitus G8 FATHER G8 SISTER Family history: Hypertension G8 MOTHER G8 SISTER G8 SISTER Seizure disorder (situation) G8 BROTHER Review of Systems Unable to obtain as patient intubated H&P Exam Vital Signs/I&O Vital Sign Date Time Temp Pulse Resp B/P (MAP) Pulse Ox O2 Delivery O2 Flow Rate FiO2 12/19/24 15:30 98.6 87 19 157/67 (97) 99 209.5 154/66 (95) 12/19/24 14:17 30 12/19/24 08:00 Mechanical Ventilator+ Intake and Output 12/18/24 12/19/24 19:00 07:00 Intake Total 1072.0 ml 601 ml Output Total 1020 ml 1365 ml Balance 52.0 ml -764 ml Intake Oral 0 ml 0 ml IV Total 1072.0 ml 601 ml Output Urine Total 900 ml 1250 ml Gastric Drainage Total 10 ml 40 ml Drainage Total 110 ml 75 ml Physical Exam General-not in any distress HEENT-normocephalic, no icterus, no pallor, neck supple Respiratory-fair air entry bilateral, no rhonchi, no wheeze [id number] heard, no murmurs appreciated Abdominal-soft, nontender, patient has three LIZA drains Musculoskeletal-no pedal edema, no calf tenderness Genitourinary-deferred Neuro-awake not alert or oriented Labs/Diagnostic Data Labs/Diagnostic Data Laboratory Tests Test 12/19/24 13:18 12/19/24 11:38 12/19/24 08:56 12/19/24 03:25 Range/Units POC Glucose 141 H 168 H 70-106 mg/dl Blood Gas Specimen Type Arterial Blood Gas Sample Site Arterial line Blood Gas Patient Temperature 37.0 Arterial Blood Date Drawn [id number] Arterial Blood pH 7.439 7.350-7.450 Arterial Blood Partial Pressure CO2 33.0 32.0-45.0 mmHg Arterial Blood Partial Pressure O2 103.7 83.0-108.0 mmHg Arterial Blood HCO3 21.9 21.0-28.0 mmol/L Arterial Blood Oxygen Saturation 98.1 H 94.0-98.0 % Arterial Blood Base Excess -1.6 -2.0-3.0 mmol/L Arterial Blood Oxyhemoglobin 97.6 94.0-98.0 % Arterial Blood Carboxyhemoglobin 0.1 L 0.5-1.5 % Arterial Blood Methemoglobin 0.4 0.0-1.5 % Leandro Test N/a Blood Gas Total Hemoglobin 12.60 12.0-16.0 g/dL Blood Gas Modality Vent - cpap FiO2 % 30.0 Blood Gas Pressure Support 10 Blood Gas PEEP or CPAP 5.0 White Blood Count 13.3 H 4.4-10.8 10^3/uL Red Blood Count 4.69 4.0-5.20 10^6/uL Hemoglobin 12.4 12.2-16.2 g/dL Hematocrit 39.2 # 36.0-46.0 % Mean Corpuscular Volume 83.6 80.0-100.0 fL Mean Corpuscular Hemoglobin 26.5 L 28.0-32.0 pg Mean Corpuscular Hemoglobin Concent 31.7 L 32.0-36.0 g/dL Red Cell Distribution Width 18.6 H 11.8-14.3 % Platelet Count 187 140-450 10^3/uL Mean Platelet Volume 9.3 6.9-10.8 fL Neutrophils (%) (Auto) 37.0-80.0 % Lymphocytes (%) (Auto) 10.0-50.0 % Monocytes (%) (Auto) 0.0-12.0 % Basophils (%) (Auto) 0.0-2.0 % Neutrophils # (Auto) 1.6-8.6 10 ^3/uL Lymphocytes # (Auto) 0.4-5.4 10 ^3/uL Monocytes # (Auto) 0-1.3 10 ^3/uL Differential Total Cells Counted 100.0 100 Neutrophils % (Manual) 73 37.0-80.0 Band Neutrophils % (Manual) 1 Lymphocytes % (Manual) 14 10.0-50.0 Monocytes % (Manual) 10 0-12 Eosinophils % (Manual) 2 0-7 Basophils % (Manual) 0 0.0-2.0 Metamyelocytes % (manual) 0 Myelocytes % (Manual) 0 Promyelocytes % (Manual) 0 Blast Cells % (Manual) 0 Nucleated Red Blood Cells 2.0 % Reactive Lymphocytes 0 Platelet Estimate Adequate Large Platelets Few Anisocytosis (manual) Slight Target Cells Few Stomatocytes Few Sodium Level 153 H 136-145 mmol/L Potassium Level 3.7 3.5-5.1 mmol/L Chloride Level 120 H 98-107 mmol/L Carbon Dioxide Level 23 20-31 mmol/L Anion Gap 10 5-15 Blood Urea Nitrogen 33 H 9-23 mg/dL Creatinine 1.23 H 0.550-1.02 mg/dL Glomerular Filtration Rate Calc 47 >90 mL/min BUN/Creatinine Ratio 26.8 H 10.0-20.0 Serum Glucose 224 H 74-106 mg/dL Calcium Level 9.3 8.7-10.4 mg/dL Phosphorus Level 2.9 2.4-5.1 mg/dL Magnesium Level 2.4 1.6-2.6 mg/dL Total Bilirubin 0.9 0.2-1.0 mg/dL Aspartate Amino Transferase (AST) 36 13-40 U/L Alanine Aminotransferase (ALT) 15 7-40 U/L Alkaline Phosphatase 102 46-116 U/L Total Protein 5.6 L 5.7-8.2 g/dL Albumin 3.1 L 3.2-4.8 g/dL Triglycerides Level 106 < 150 mg/dL Test 12/18/24 23:50 12/18/24 20:02 12/18/24 15:13 12/18/24 15:09 Range/Units POC Glucose 178 H 144 H 209 H 70-106 mg/dl Sodium Level 151 H 136-145 mmol/L Potassium Level 4.1 3.5-5.1 mmol/L Chloride Level 120 H 98-107 mmol/L Carbon Dioxide Level 24 20-31 mmol/L Anion Gap 7 5-15 Blood Urea Nitrogen 41 H 9-23 mg/dL Creatinine 1.38 H 0.550-1.02 mg/dL Glomerular Filtration Rate Calc 41 >90 mL/min BUN/Creatinine Ratio 29.7 H 10.0-20.0 Serum Glucose 239 H 74-106 mg/dL Calcium Level 8.7 8.7-10.4 mg/dL Test 12/18/24 12:04 12/18/24 08:09 12/18/24 07:15 12/18/24 04:14 Range/Units POC Glucose 194 H 191 H 159 H 70-106 mg/dl Blood Gas Specimen Type Arterial Blood Gas Sample Site Arterial line Blood Gas Patient Temperature 37.0 Arterial Blood Date Drawn [id number] Arterial Blood pH 7.356 7.350-7.450 Arterial Blood Partial Pressure CO2 37.7 32.0-45.0 mmHg Arterial Blood Partial Pressure O2 91.4 83.0-108.0 mmHg Arterial Blood HCO3 20.6 L 21.0-28.0 mmol/L Arterial Blood Oxygen Saturation 96.9 94.0-98.0 % Arterial Blood Base Excess -4.3 L -2.0-3.0 mmol/L Arterial Blood Oxyhemoglobin 96.0 94.0-98.0 % Arterial Blood Carboxyhemoglobin 0.6 0.5-1.5 % Arterial Blood Methemoglobin 0.3 0.0-1.5 % Leandro Test N/a Blood Gas Total Hemoglobin 15.40 12.0-16.0 g/dL Blood Gas Set Respiration Rate 14.0 Blood Gas Modality Vent - ac FiO2 % 30.0 Blood Gas Tidal Volume 500.0 Blood Gas PEEP or CPAP 5.0 Test 12/18/24 03:05 12/17/24 23:23 12/17/24 20:32 12/17/24 16:17 Range/Units White Blood Count 11.4 #H 4.4-10.8 10^3/uL Red Blood Count 4.23 4.0-5.20 10^6/uL Hemoglobin 11.4 L 12.2-16.2 g/dL Hematocrit 35.3 L 36.0-46.0 % Mean Corpuscular Volume 83.6 80.0-100.0 fL Mean Corpuscular Hemoglobin 26.9 L 28.0-32.0 pg Mean Corpuscular Hemoglobin Concent 32.2 32.0-36.0 g/dL Red Cell Distribution Width 17.8 H 11.8-14.3 % Platelet Count 181 140-450 10^3/uL Mean Platelet Volume 9.2 6.9-10.8 fL Neutrophils (%) (Auto) 78.2 37.0-80.0 % Lymphocytes (%) (Auto) 9.5 L 10.0-50.0 % Monocytes (%) (Auto) 12.0 0.0-12.0 % Eosinophils (%) (Auto) 0.2 0.0-7.0 % Basophils (%) (Auto) 0.1 0.0-2.0 % Neutrophils # (Auto) 8.9 H 1.6-8.6 10 ^3/uL Lymphocytes # (Auto) 1.1 0.4-5.4 10 ^3/uL Monocytes # (Auto) 1.4 H 0-1.3 10 ^3/uL Eosinophils # (Auto) 0 0-0.8 10 ^3/uL Basophils # (Auto) 0 0-0.2 10 ^3/uL Nucleated Red Blood Cells 0.2 % Sodium Level 153 #H 136-145 mmol/L Potassium Level 3.7 3.5-5.1 mmol/L Chloride Level 122 H 98-107 mmol/L Carbon Dioxide Level 23 20-31 mmol/L Anion Gap 8 5-15 Blood Urea Nitrogen 46 #H 9-23 mg/dL Creatinine 1.47 H 0.550-1.02 mg/dL Glomerular Filtration Rate Calc 38 >90 mL/min BUN/Creatinine Ratio 31.3 H 10.0-20.0 Serum Glucose 181 H 74-106 mg/dL Calcium Level 9.1 8.7-10.4 mg/dL Phosphorus Level 2.2 L 2.4-5.1 mg/dL Magnesium Level 2.8 H 1.6-2.6 mg/dL Total Bilirubin 0.7 0.2-1.0 mg/dL Aspartate Amino Transferase (AST) 44 H 13-40 U/L Alanine Aminotransferase (ALT) 13 7-40 U/L Alkaline Phosphatase 96 46-116 U/L Total Protein 5.2 L 5.7-8.2 g/dL Albumin 2.9 L 3.2-4.8 g/dL Random Vancomycin Level 11.0 H 5-10 ug/mL POC Glucose 171 H 146 H 163 H 70-106 mg/dl Test 12/17/24 15:40 12/17/24 12:17 12/17/24 07:50 12/17/24 07:48 Range/Units Lactic Acid Level 1.8 0.4-2.0 mmol/L Free Thyroxine (T4) Calculated 0.73 L 0.89-1.76 ng/dL Free Triiodothyronine (T3) pg/mL 1.14 L 2.3-4.2 pg/mL POC Glucose 254 H 314 H 70-106 mg/dl Blood Gas Specimen Type Arterial Blood Gas Sample Site Arterial line Blood Gas Patient Temperature 37.0 Arterial Blood Date Drawn Arterial Blood pH 7.356 7.350-7.450 Arterial Blood Partial Pressure CO2 35.7 32.0-45.0 mmHg Arterial Blood Partial Pressure O2 90.5 83.0-108.0 mmHg Arterial Blood HCO3 19.5 L 21.0-28.0 mmol/L Arterial Blood Oxygen Saturation 96.4 94.0-98.0 % Arterial Blood Base Excess -5.3 L -2.0-3.0 mmol/L Arterial Blood Oxyhemoglobin 95.2 94.0-98.0 % Arterial Blood Carboxyhemoglobin 1.0 0.5-1.5 % Arterial Blood Methemoglobin 0.2 0.0-1.5 % Leandro Test N/a Blood Gas Total Hemoglobin 12.80 12.0-16.0 g/dL Blood Gas Set Respiration Rate 14.0 Blood Gas Modality Vent - ac FiO2 % 30.0 Blood Gas Tidal Volume 500.0 Blood Gas PEEP or CPAP 5.0 Blood Gas Critical Value Read Back Yes Test 12/17/24 04:45 12/17/24 03:25 12/17/24 00:08 12/16/24 20:17 Range/Units POC Glucose 362 H 295 H 201 H 70-106 mg/dl White Blood Count 16.8 H 4.4-10.8 10^3/uL Red Blood Count 4.34 4.0-5.20 10^6/uL Hemoglobin 11.5 L 12.2-16.2 g/dL Hematocrit 35.7 L 36.0-46.0 % Mean Corpuscular Volume 82.3 80.0-100.0 fL Mean Corpuscular Hemoglobin 26.6 L 28.0-32.0 pg Mean Corpuscular Hemoglobin Concent 32.3 32.0-36.0 g/dL Red Cell Distribution Width 18.2 H 11.8-14.3 % Platelet Count 232 140-450 10^3/uL Mean Platelet Volume 9.4 6.9-10.8 fL Neutrophils (%) (Auto) 83.0 H 37.0-80.0 % Lymphocytes (%) (Auto) 6.1 L 10.0-50.0 % Monocytes (%) (Auto) 10.7 0.0-12.0 % Eosinophils (%) (Auto) 0.0 0.0-7.0 % Basophils (%) (Auto) 0.2 0.0-2.0 % Neutrophils # (Auto) 14.0 H 1.6-8.6 10 ^3/uL Lymphocytes # (Auto) 1.0 0.4-5.4 10 ^3/uL Monocytes # (Auto) 1.8 H 0-1.3 10 ^3/uL Eosinophils # (Auto) 0 0-0.8 10 ^3/uL Basophils # (Auto) 0 0-0.2 10 ^3/uL Nucleated Red Blood Cells 0.2 % Sodium Level 147 #H 136-145 mmol/L Potassium Level 3.9 3.5-5.1 mmol/L Chloride Level 115 H 98-107 mmol/L Carbon Dioxide Level 22 20-31 mmol/L Anion Gap 10 5-15 Blood Urea Nitrogen 57 H 9-23 mg/dL Creatinine 1.90 H 0.550-1.02 mg/dL Glomerular Filtration Rate Calc 28 >90 mL/min BUN/Creatinine Ratio 30.0 H 10.0-20.0 Serum Glucose 364 H 74-106 mg/dL Calcium Level 9.0 8.7-10.4 mg/dL Phosphorus Level 2.8 2.4-5.1 mg/dL Magnesium Level 3.0 H 1.6-2.6 mg/dL Total Bilirubin 0.8 0.2-1.0 mg/dL Aspartate Amino Transferase (AST) 40 13-40 U/L Alanine Aminotransferase (ALT) 13 7-40 U/L Alkaline Phosphatase 96 46-116 U/L Total Protein 5.6 L 5.7-8.2 g/dL Albumin 3.1 L 3.2-4.8 g/dL Thyroid Stimulating Hormone (TSH) 0.39 L 0.55-4.78 uIU/mL Random Vancomycin Level 10.9 H 5-10 ug/mL Test 12/16/24 15:12 12/16/24 11:00 12/16/24 07:39 12/16/24 07:14 Range/Units POC Glucose 227 H 297 H 376 H 70-106 mg/dl Blood Gas Specimen Type Arterial Blood Gas Sample Site Right radial Blood Gas Patient Temperature 37.0 Arterial Blood Date Drawn [id number] Arterial Blood pH 7.370 7.350-7.450 Arterial Blood Partial Pressure CO2 41.7 32.0-45.0 mmHg Arterial Blood Partial Pressure O2 81.1 L 83.0-108.0 mmHg Arterial Blood HCO3 23.6 21.0-28.0 mmol/L Arterial Blood Oxygen Saturation 95.1 94.0-98.0 % Arterial Blood Base Excess -1.7 -2.0-3.0 mmol/L Arterial Blood Oxyhemoglobin 94.4 94.0-98.0 % Arterial Blood Carboxyhemoglobin 0.4 L 0.5-1.5 % Arterial Blood Methemoglobin 0.3 0.0-1.5 % Leandro Test Yes Blood Gas Total Hemoglobin 13.00 12.0-16.0 g/dL Blood Gas Set Respiration Rate 14.0 Blood Gas Modality Vent - ac FiO2 % 30.0 Blood Gas Tidal Volume 500.0 Blood Gas PEEP or CPAP 5.0 Test 12/16/24 05:22 12/16/24 03:00 12/15/24 23:57 12/15/24 16:29 Range/Units POC Glucose 400 H 393 H 340 H 70-106 mg/dl White Blood Count 15.0 #H 4.4-10.8 10^3/uL Red Blood Count 4.52 4.0-5.20 10^6/uL Hemoglobin 12.3 12.2-16.2 g/dL Hematocrit 37.5 # 36.0-46.0 % Mean Corpuscular Volume 83.1 80.0-100.0 fL Mean Corpuscular Hemoglobin 27.2 L 28.0-32.0 pg Mean Corpuscular Hemoglobin Concent 32.7 32.0-36.0 g/dL Red Cell Distribution Width 18.2 H 11.8-14.3 % Platelet Count 227 140-450 10^3/uL Mean Platelet Volume 9.6 6.9-10.8 fL Neutrophils (%) (Auto) 86.2 H 37.0-80.0 % Lymphocytes (%) (Auto) 3.6 L 10.0-50.0 % Monocytes (%) (Auto) 10.0 0.0-12.0 % Eosinophils (%) (Auto) 0.0 0.0-7.0 % Basophils (%) (Auto) 0.2 0.0-2.0 % Neutrophils # (Auto) 13.0 H 1.6-8.6 10 ^3/uL Lymphocytes # (Auto) 0.5 0.4-5.4 10 ^3/uL Monocytes # (Auto) 1.5 H 0-1.3 10 ^3/uL Eosinophils # (Auto) 0 0-0.8 10 ^3/uL Basophils # (Auto) 0 0-0.2 10 ^3/uL Nucleated Red Blood Cells 0.0 % Sodium Level 142 136-145 mmol/L Potassium Level 3.9 3.5-5.1 mmol/L Chloride Level 108 H 98-107 mmol/L Carbon Dioxide Level 22 20-31 mmol/L Anion Gap 12 5-15 Blood Urea Nitrogen 55 #H 9-23 mg/dL Creatinine 2.15 #H 0.550-1.02 mg/dL Glomerular Filtration Rate Calc 24 >90 mL/min BUN/Creatinine Ratio 25.6 H 10.0-20.0 Serum Glucose 433 *H 74-106 mg/dL Calcium Level 8.8 8.7-10.4 mg/dL Total Bilirubin 1.1 H 0.2-1.0 mg/dL Aspartate Amino Transferase (AST) 23 13-40 U/L Alanine Aminotransferase (ALT) 9 7-40 U/L Alkaline Phosphatase 89 46-116 U/L Total Protein 5.8 5.7-8.2 g/dL Albumin 3.5 3.2-4.8 g/dL Random Vancomycin Level 10.3 H 5-10 ug/mL Test 12/15/24 14:42 12/15/24 14:08 12/15/24 06:23 12/14/24 21:08 Range/Units Blood Gas Specimen Type Arterial Blood Gas Sample Site Arterial line Blood Gas Patient Temperature 37.0 Arterial Blood Date Drawn [id number] Arterial Blood pH 7.390 7.350-7.450 Arterial Blood Partial Pressure CO2 35.8 32.0-45.0 mmHg Arterial Blood Partial Pressure O2 216.4 H 83.0-108.0 mmHg Arterial Blood HCO3 21.2 21.0-28.0 mmol/L Arterial Blood Oxygen Saturation 99.5 H 94.0-98.0 % Arterial Blood Base Excess -3.1 L -2.0-3.0 mmol/L Arterial Blood Oxyhemoglobin 98.6 H 94.0-98.0 % Arterial Blood Carboxyhemoglobin 0.7 0.5-1.5 % Arterial Blood Methemoglobin 0.2 0.0-1.5 % Leandro Test N/a Blood Gas Total Hemoglobin 14.40 12.0-16.0 g/dL Blood Gas Set Respiration Rate 16.0 Blood Gas Modality Vent - ac FiO2 % 100.0 Blood Gas Tidal Volume 500.0 Blood Gas PEEP or CPAP 5.0 White Blood Count 11.9 H 4.4-10.8 10^3/uL Red Blood Count 5.32 H 4.0-5.20 10^6/uL Hemoglobin 14.1 12.2-16.2 g/dL Hematocrit 43.9 36.0-46.0 % Mean Corpuscular Volume 82.6 80.0-100.0 fL Mean Corpuscular Hemoglobin 26.5 L 28.0-32.0 pg Mean Corpuscular Hemoglobin Concent 32.1 32.0-36.0 g/dL Red Cell Distribution Width 18.0 H 11.8-14.3 % Platelet Count 233 140-450 10^3/uL Mean Platelet Volume 9.8 6.9-10.8 fL Neutrophils (%) (Auto) 85.2 H 37.0-80.0 % Lymphocytes (%) (Auto) 4.5 L 10.0-50.0 % Monocytes (%) (Auto) 10.3 0.0-12.0 % Eosinophils (%) (Auto) 0.0 0.0-7.0 % Basophils (%) (Auto) 0.0 0.0-2.0 % Neutrophils # (Auto) 10.1 H 1.6-8.6 10 ^3/uL Lymphocytes # (Auto) 0.5 0.4-5.4 10 ^3/uL Monocytes # (Auto) 1.2 0-1.3 10 ^3/uL Eosinophils # (Auto) 0 0-0.8 10 ^3/uL Basophils # (Auto) 0 0-0.2 10 ^3/uL Nucleated Red Blood Cells 0.2 % Prothrombin Time 12.5 H 9.3-11.8 sec Prothrombin Time INR 1.20 H 0.9-1.15 Activated Partial Thromboplast Time 27.6 24.5-34.5 SEC Sodium Level 143 # 136-145 mmol/L Potassium Level 3.9 3.5-5.1 mmol/L Chloride Level 106 98-107 mmol/L Carbon Dioxide Level 24 20-31 mmol/L Anion Gap 13 5-15 Blood Urea Nitrogen 45 #H 9-23 mg/dL Creatinine 1.57 H 0.550-1.02 mg/dL Glomerular Filtration Rate Calc 35 >90 mL/min BUN/Creatinine Ratio 28.7 H 10.0-20.0 Serum Glucose 288 H 74-106 mg/dL Calcium Level 9.6 8.7-10.4 mg/dL Magnesium Level 2.7 H 1.6-2.6 mg/dL Total Bilirubin 1.4 H 0.2-1.0 mg/dL Aspartate Amino Transferase (AST) 26 13-40 U/L Alanine Aminotransferase (ALT) 12 7-40 U/L Alkaline Phosphatase 102 46-116 U/L Total Protein 6.5 5.7-8.2 g/dL Albumin 3.8 3.2-4.8 g/dL POC Glucose 307 H 284 H 70-106 mg/dl Test 12/14/24 10:58 12/14/24 10:47 12/14/24 01:38 12/14/24 00:00 Range/Units POC Glucose 255 H 70-106 mg/dl White Blood Count 15.6 H 14.4 H 4.4-10.8 10^3/uL Red Blood Count 5.46 H 5.36 H 4.0-5.20 10^6/uL Hemoglobin 14.7 14.6 12.2-16.2 g/dL Hematocrit 46.1 H 44.7 36.0-46.0 % Mean Corpuscular Volume 84.4 83.5 80.0-100.0 fL Mean Corpuscular Hemoglobin 26.9 L 27.3 L 28.0-32.0 pg Mean Corpuscular Hemoglobin Concent 31.8 L 32.7 32.0-36.0 g/dL Red Cell Distribution Width 18.3 H 18.4 H 11.8-14.3 % Platelet Count 199 211 140-450 10^3/uL Mean Platelet Volume 9.4 9.0 6.9-10.8 fL Neutrophils (%) (Auto) 81.3 H 80.2 H 37.0-80.0 % Lymphocytes (%) (Auto) 6.5 L 9.5 L 10.0-50.0 % Monocytes (%) (Auto) 12.1 H 9.8 0.0-12.0 % Eosinophils (%) (Auto) 0.0 0.1 0.0-7.0 % Basophils (%) (Auto) 0.1 0.4 0.0-2.0 % Neutrophils # (Auto) 12.7 H 11.6 H 1.6-8.6 10 ^3/uL Lymphocytes # (Auto) 1.0 1.4 0.4-5.4 10 ^3/uL Monocytes # (Auto) 1.9 H 1.4 H 0-1.3 10 ^3/uL Eosinophils # (Auto) 0 0 0-0.8 10 ^3/uL Basophils # (Auto) 0 0.1 0-0.2 10 ^3/uL Nucleated Red Blood Cells 0.0 0.1 % Sodium Level 134 L 134 L 136-145 mmol/L Potassium Level 5.2 H 4.9 3.5-5.1 mmol/L Chloride Level 100 99 98-107 mmol/L Carbon Dioxide Level 22 24 20-31 mmol/L Anion Gap 12 11 5-15 Blood Urea Nitrogen 33 H 37 #H 9-23 mg/dL Creatinine 1.74 H 2.47 #H 0.550-1.02 mg/dL Glomerular Filtration Rate Calc 31 20 >90 mL/min BUN/Creatinine Ratio 19.0 15.0 10.0-20.0 Serum Glucose 278 H 209 H 74-106 mg/dL Calcium Level 10.5 H 10.0 8.7-10.4 mg/dL Urine Color Yellow Yellow Urine Clarity Turbid H Clear Urine pH 5.0 5.0-9.0 Urine Specific [place] 1.019 1.001-1.035 Urine Protein Trace H Negative Urine Ketones Negative Negative Urine Blood 2+ H Negative /uL Urine Nitrite Negative Negative Urine Bilirubin Negative Negative Urine Urobilinogen Normal Negative mg/dL Urine Leukocyte Esterase Trace Negative /uL Urine RBC 59 0 - 4 /hpf Urine Microscopic WBC 7 H 0-5 /HPF Urine Squamous Epithelial Cells Few <5 /hpf Urine Bacteria None seen None Seen /hpf Urine Hyaline Casts Few 0 - 2 /lpf Urine Mucus Few None Seen Urine Glucose 3+ H Normal mg/dL Total Bilirubin 1.2 H 0.2-1.0 mg/dL Aspartate Amino Transferase (AST) 42 H 13-40 U/L Alanine Aminotransferase (ALT) 22 7-40 U/L Alkaline Phosphatase 106 46-116 U/L Total Protein 6.9 5.7-8.2 g/dL Albumin 4.1 3.2-4.8 g/dL Test 12/13/24 22:04 12/13/24 16:18 12/13/24 12:14 12/13/24 06:09 Range/Units POC Glucose 214 H 222 H 290 H 287 H 70-106 mg/dl Test 12/13/24 05:05 12/12/24 12:26 12/09/24 12:40 Range/Units White Blood Count 18.3 #H 7.6 4.4-10.8 10^3/uL Red Blood Count 5.71 H 4.95 4.0-5.20 10^6/uL Hemoglobin 15.7 # 13.4 12.2-16.2 g/dL Hematocrit 48.5 #H 41.3 36.0-46.0 % Mean Corpuscular Volume 84.8 83.3 80.0-100.0 fL Mean Corpuscular Hemoglobin 27.4 L 27.0 L 28.0-32.0 pg Mean Corpuscular Hemoglobin Concent 32.3 32.4 32.0-36.0 g/dL Red Cell Distribution Width 18.6 H 18.7 H 11.8-14.3 % Platelet Count 230 196 140-450 10^3/uL Mean Platelet Volume 9.1 9.1 6.9-10.8 fL Neutrophils (%) (Auto) 81.0 H 50.4 37.0-80.0 % Lymphocytes (%) (Auto) 9.2 L 32.6 10.0-50.0 % Monocytes (%) (Auto) 9.6 11.8 0.0-12.0 % Eosinophils (%) (Auto) 0.0 4.2 0.0-7.0 % Basophils (%) (Auto) 0.2 1.0 0.0-2.0 % Neutrophils # (Auto) 14.8 H 3.8 1.6-8.6 10 ^3/uL Lymphocytes # (Auto) 1.7 2.5 0.4-5.4 10 ^3/uL Monocytes # (Auto) 1.8 H 0.9 0-1.3 10 ^3/uL Eosinophils # (Auto) 0 0.3 0-0.8 10 ^3/uL Basophils # (Auto) 0 0.1 0-0.2 10 ^3/uL Nucleated Red Blood Cells 0.0 0.1 % Sodium Level 133 #L 139 136-145 mmol/L Potassium Level 4.7 4.0 3.5-5.1 mmol/L Chloride Level 99 108 H 98-107 mmol/L Carbon Dioxide Level 20 23 20-31 mmol/L Anion Gap 14 8 5-15 Blood Urea Nitrogen 23 20 9-23 mg/dL Creatinine 1.39 H 1.33 H 0.550-1.02 mg/dL Glomerular Filtration Rate Calc 41 43 >90 mL/min BUN/Creatinine Ratio 16.5 15.0 10.0-20.0 Serum Glucose 309 H 222 H 74-106 mg/dL Hemoglobin A1c 8.2 H <5.7 % A1C Calcium Level 10.6 H 9.2 8.7-10.4 mg/dL Total Bilirubin 0.8 0.4 0.2-1.0 mg/dL Aspartate Amino Transferase (AST) 57 H 25 13-40 U/L Alanine Aminotransferase (ALT) 35 16 7-40 U/L Alkaline Phosphatase 135 H 98 46-116 U/L Total Protein 7.6 6.2 5.7-8.2 g/dL Albumin 4.6 3.9 3.2-4.8 g/dL POC Glucose 130 H 70-106 mg/dl Prothrombin Time 12.2 H 9.3-11.8 sec Prothrombin Time INR 1.17 H 0.9-1.15 Activated Partial Thromboplast Time 27.9 24.5-34.5 SEC Urine Color Light-yellow Yellow Urine Clarity Clear Clear Urine pH 5.0 5.0-9.0 Urine Specific [place] 1.017 1.001-1.035 Urine Protein Negative Negative Urine Ketones Negative Negative Urine Blood Negative Negative /uL Urine Nitrite Negative Negative Urine Bilirubin Negative Negative Urine Urobilinogen Normal Negative mg/dL Urine Leukocyte Esterase Negative Negative /uL Urine RBC 8 0 - 4 /hpf Urine Microscopic WBC 3 0-5 /HPF Urine Squamous Epithelial Cells Few <5 /hpf Urine Bacteria Few H None Seen /hpf Urine Hyaline Casts Few 0 - 2 /lpf Urine Glucose 4+ H Normal mg/dL Microbiology Date/Time Source Procedure Growth Status 12/16/24 00:00 Voided Urine Urine Culture - Final Complete 12/15/24 13:10 Nose MRSA Screen - Final Complete 12/15/24 11:59 Sputum Gram Stain - Final Complete 12/15/24 11:59 Sputum Respiratory Culture - Final Complete Assessment Hypernatremia Acute kidney injury on Chronic kidney disease 3A versus B likely hemodynamic mediated--no recent baseline renal function available Diabetes Hypertension surgery on December 12, 2024 for pelvic prolapse, cystocele s/p exploratory laparotomy, small-bowel resection, enteroenterostomy lysis of adhesions and irrigation for peritonitis on December 15, 2024 Recommendations Continue D5W IV for now She is on CPAP trial today We will follow closely Has Alvarez catheter remains nonoliguric Plan discussed with: RENAN Whittaker MD Dec 19, 2024 16:09
--- NOTE | 2024-12-19 18:52 | DVHPNRES ---
Progress Note Date Seen: Dec 19, 2024 Resident Creating Document: SAMARA MARKS RESIDENT Medical Necessity Reason Pt with a Central, PICC or Fol: Yes The following are medically ne: Central Line, Porter Catheter Reason for porter catheter: Bladder Retention/Obstruc, Dony. Abd Surgery, Strict I&O Subjective Review of Systems Patient seen and examined at the bedside. Currently sedated, intubated and on mechanical ventilation. Unable to obtain ROS due to patient's clinical status. Monitoring lab. Started Diet Clinimix. CPAP trial tomorrow. Currently on D5W for hypernatremia. NPO status for now. Titrating down on Levophed. Objective vital signs Vital Sign Date Time Temp Pulse Resp B/P (MAP) Pulse Ox O2 Delivery O2 Flow Rate FiO2 12/19/24 18:00 98.8 79 16 149/66 (93) 100 209.8 152/66 (94) 12/19/24 18:00 30 12/19/24 08:00 Mechanical Ventilator+ Total Intake and Output 12/18/24 12/18/24 12/19/24 15:00 23:00 07:00 Intake Total 703.0 ml 608.0 ml 362 ml Output Total 1020 ml 1365 ml Balance 703.0 ml -412.0 ml -1003 ml medications Current Medications Medications Dose Ordered Sig/Carlos Route Start Time Stop Time Status Last Admin Dose Admin Acetaminophen 500 mg Q6HP PRN PO 12/12/24 13:15 12/13/24 05:32 500 MG Pantoprazole Sodium 40 mg DAILY IV 12/16/24 10:00 12/19/24 08:57 40 MG Propofol 100 ml @ 2.856 mls/ hr Q24H IV 12/15/24 12:15 12/15/24 13:30 2.856 MLS/HR Fentanyl Citrate 250 ml @ 2.5 mls/hr Q24H IV 12/15/24 12:45 12/18/24 08:20 2.5 MLS/HR Midazolam HCl 50 ml @ 1 mls/hr Q24H IV 12/15/24 15:15 12/17/24 14:17 7 MLS/HR Vancomycin HCl 0 ml @ 0 mls/hr UD IV 12/15/24 15:15 Piperacillin Sod/ Tazobactam Sod 100 ml @ 25 mls/hr Q8H IV 12/16/24 21:00 12/19/24 13:14 25 MLS/HR Insulin Glargine 15 units QAM SC 12/17/24 07:00 12/19/24 07:00 15 UNITS Amino Acids 0 ml @ 0 mls/hr PER PHARMACY IV 12/16/24 15:30 Amino Acids/ Electrolytes/ Dextrose 1,000 ml @ 41 mls/hr DAILY@2200 IV 12/16/24 22:00 12/18/24 20:33 41 MLS/HR Diagnostic Test (Pha) 1 strip IQ4HR 12/17/24 12:00 12/19/24 17:17 1 STRIP Insulin Human Regular IQ4HR SC 12/17/24 12:00 12/19/24 17:21 2 UNITS Dextrose 50 ml UD PRN IV 12/17/24 09:45 Hydralazine HCl 10 mg Q6HP PRN IV 12/18/24 06:15 12/19/24 09:18 10 MG Vancomycin HCl 100 ml @ 100 mls/hr Q24H IV 12/18/24 18:00 12/19/24 17:23 100 MLS/HR Dextrose 1,000 ml @ 75 mls/hr [id number] IV 12/19/24 09:15 12/19/24 18:19 75 MLS/HR Dexmedetomidine HCl 400 mcg/ Dextrose 100 ml @ 4.955 mls/ hr [id number] IV 12/19/24 09:30 12/19/24 17:24 7.433 MLS/HR Examination Pt is lying on bed General Appearance: sedated, intubated and on mechanical ventilation HEENT: Atraumatic, Mucous membranes moist/pink Respiratory: Clear to auscultation, Normal air movement, No added sounds Cardiovascular: Regular rate, Normal S1, Normal S2, No murmurs Abdominal: Laparotomy wound covered with dressing, sutures intact no signs of infection inflammation for now, [address], mildly distended Extremities: No edema, Normal pulses, No tenderness/swelling Skin: No Significant rash, except surgical wound Neuro: sedated, pupillary reflex reactive laboratory and microbiology Laboratory Tests 12/19/24 03:25 Test 12/19/24 03:25 Range/Units Serum Glucose 224 H 74-106 mg/dL Microbiology Date/Time Source Procedure Growth Status 12/16/24 00:00 Voided Urine Urine Culture - Final Complete 12/15/24 13:10 Nose MRSA Screen - Final Complete 12/15/24 11:59 Sputum Gram Stain - Final Complete 12/15/24 11:59 Sputum Respiratory Culture - Final Complete 12/15/24 11:30 Peritoneal Fluid Gram Stain - Final Resulted 12/15/24 11:30 Peritoneal Fluid Anaerobic Culture - Preliminary Resulted 12/15/24 11:30 Peritoneal Fluid Aerobic Culture - Preliminary Resulted Labs and/or images reviewed: Labs reviewed by me, Image(s) reviewed by me Problem List/Assessment/Plan Problem List/Assessment/Plan Neurology Cardiology # HTN # Shock likely due to sepsis from peritonitis - currently on Levophed 12/15 - sedated with fentanyl and Versed 12/15 - currently receiving Zosyn, vancomycin & Flagyl - ordered pancultures, preliminary showed no growth - monitor lab Respiratory # acute hypoxic respiratory failure likely due to sepsis s/p intubation - sedated, intubated and on mechanical ventilation - RR 14, VT 500, FiO2 30%, peep 5 - currently ICU status - currently on Levophed and sedated with fentanyl and Versed 12/15 - currently receiving Zosyn, vancomycin - Dc Flagyl - Monitor GI/Liver/ Abdomen # Morbid Obesity - Nutrional councelling # Peritonitis due to ? perforation # Septic shock due to above # ? small bowel perforation # Bowel Adhesions - Evident on CT - postoperative day 1 status post exploratory laparotomy, small-bowel resection, enteroenterostomy, adhesiolysis, patient tolerated to the procedure - currently monitoring - sedated, intubated and on mechanical ventilation - currently receiving Zosyn, vancomycin - Dc flagyl /Kidney/Reproductive # JAKE likely vasomotor on CKD stage 3 - monitor lab - avoid nephrotoxic agents # Uterine/Pelvic prolapse # cystocele # stress incontinence # ? vaginal lesion - postoperative day 4 status post desera I single incision urethral sling, cystocele repair - vaginal mucosa lesion sent for biopsy MSK Endocrine/Meatbolic # uncontrolled type 2 DM HbA1c 8.2 - Accu-Cheks and ISS # hypernatremia -monitor lab for now -D5W # hyperkalemia - monitor lab # Skin ID # Peritonitis due to ? perforation # Septic shock due to above - currently receiving Zosyn, vancomycin - DC Flagyl - ordered pancultures, preliminary showed no growth Lines Intubated 1/30 Right IJ CVC 12/15 Porter Dips Fentanyl , Versed,Diprivan off 01/16 Levophed off 12/19 Precedex /3 PUD PPX : Protonix VTE PPX : SCDs Diet: Clinimix Goals of care discussed with the family for more than 29 minutes: Full code status Critical care time spent including chart review, discussing with the patient's family excluding procedures: 54 minutes Plan of care updated to daughter on phone. Case discussed with . CPAP trial tomorrow. Plan discussed with: Daughter My Orders My Orders Orders - SAMARA MARKS Procedure Category Date Status Time D5w 5% (Dextrose 5%) PHA 12/19/24 In Process W/Dexmedetomidine 09:30 Cpap Trial For Am ORDERS 12/19/24 Transmitted 17:13 Abg W/ Co-Ox RT 12/20/24 Logged 04:00 Chest Xray 1 View XY 12/20/24 Logged 04:00 Dietary Evaluation Review Comments: 1. Consider increasing PN regime to meet nutritional needs when labs WNL 2. Consider advance to CCHO 60g diet when medically appropriate Expected Outcomes/Goals: 1. Pt will consume >75% of estimated needs within 2-3 days Date of Service: Dec 19, 2024 Billing Provider: MJ PERERA MD Common Visit Codes: [id number] CARE 30-74 MIN SAMARA MARKS RESIDENT Dec 19, 2024 18:52 MJ PERERA MD Dec 20, 2024 13:10
[2024-12-20] VITALS (78 sets, daily range): BP systolic 87–258; BP diastolic 36–249; PULSE 52–100; RESP 12–26; TEMP 97.7–100.4; O2SAT 98–100
[2024-12-20 04:07] LABS: Basophils # (auto) 0 10 ^3/uL (0-0.2); Basophils % (auto) 0.1 % (0.0-2.0); Eosinophils # (auto) 0.2 10 ^3/uL (0-0.8); Eosinophils % (auto) 1.7 % (0.0-7.0); Hematocrit 33.5 % (36.0-46.0); Hemoglobin 10.6 g/dL (12.2-16.2); Lymphocytes # (auto) 1.1 10 ^3/uL (0.4-5.4); Lymphocytes % (auto) 9.9 % (10.0-50.0); Mean Corpuscular Hemoglobin 26.8 pg (28.0-32.0); Mean Corpuscular Hgb Conc. 31.8 g/dL (32.0-36.0); Mean Corpuscular Volume 84.1 fL (80.0-100.0); Monocytes % (auto) 9.1 % (0.0-12.0); Neutrophils # (auto) 8.7 10 ^3/uL (1.6-8.6); Neutrophils % (auto) 79.2 % (37.0-80.0); Nucleated Red Blood Cells % 0.1 %; Platelet Count (auto) 152 10^3/uL (140-450); Red Blood Cells 3.98 10^6/uL (4.0-5.20); Red Cell Distribution Width 18.5 % (11.8-14.3)
[2024-12-20 04:23] LABS: Alanine Aminotransferase 15 U/L (7-40); Alkaline Phosphatase 96 U/L (46-116); Anion Gap 7 (5-15); BUN/Creatinine Ratio 23.5 (10.0-20.0); Carbon Dioxide 23 mmol/L (20-31); Magnesium 2.3 mg/dL (1.6-2.6)
[2024-12-20 04:24] LABS: Aspartate Aminotransferase 30 U/L (13-40); Bilirubin, Total 0.7 mg/dL (0.2-1.0); Phosphorus 2.5 mg/dL (2.4-5.1)
[2024-12-20 04:39] LABS: Albumin 2.6 g/dL (3.2-4.8); Blood Urea Nitrogen 28 mg/dL (9-23); Chloride 121 mmol/L (98-107); Glucose 290 mg/dL (74-106); Potassium 3.4 mmol/L (3.5-5.1); Sodium 151 mmol/L (136-145); Total Protein 4.8 g/dL (5.7-8.2)
--- NOTE | 2024-12-20 05:09 | DVH ---
CHEST RADIOGRAPH Indication: pna Technique: Single frontal view of the chest was obtained Comparison: XY CHEST PORTABLE on DOS: 12/19/24 FINDINGS: Lines and Tubes: The endotracheal tube terminates 1.9 cm above the clare. Right central venous jessica ter terminates in the superior cavoatrial junction. The enteric tube terminates in the stomach. Lungs: Patchy bilateral opacities. Pleura: No effusion. No pneumothorax. Cardiomediastinal contours: Stable. Bones: No acute osseous abnormality. IMPRESSION: 1. Patchy bilateral opacities which may reflect pulmonary congestion in the appropriate clinical sett ing. Overall no significant interval change.
[2024-12-20 07:18] LABS: Base Excess -3.6 mmol/L (-2.0-3.0)
[2024-12-20] MEDS: POTASSIUM CHL 20MEQ/100ML 100 ML IV ONE ×2 (07:54→19:35)
--- NOTE | 2024-12-20 10:37 | ECG ---
[facility] Test Date: 2024-12-17 Test Time: 04:24:12 Pat Name: ANEESH QUINTANILLA Department: Room: [address] [place] [address] A Gender: F [employer] Autom[employer] Technician: Percy ACOSTA : 1955 Requested By: CARRIE SIDDIQUI Order Number: [id number] Reading MD: Pasha Bryan Measurements Intervals [place] Rate: 43 P: 71 WI: 132 QRS: 46 QRSD: 80 T: 59 QT: 566 QTc: 478 Interpretive Statements Marked sinus bradycardia Electronically Signed On 12-20-2024 17:36:39 PST by Pasha Bryan Please click the below link to view image of tracing.
--- NOTE | 2024-12-20 10:37 | ECG ---
[facility] Test Date: 2024-12-17 Test Time: 04:19:58 Pat Name: ANEESH QUINTANILLA Department: Room: [address] [address] A Gender: F Custodial Aide: Percy ACOSTA : 1955 Requested By: CARRIE SIDDIQUI Order Number: [id number] Reading MD: Pasha Bryan Measurements Intervals [place] Rate: 43 P: 71 IN: 134 QRS: 47 QRSD: 84 T: 61 QT: 562 QTc: 474 Interpretive Statements Marked sinus bradycardia Electronically Signed On 12-20-2024 17:36:33 PST by Pasha Bryan Please click the below link to view image of tracing.
[2024-12-20] MEDS: FUROSEMIDE 20 MG/2 ML VIAL IV ONE ×2 (11:31→15:49)
--- NOTE | 2024-12-20 12:29 | DVHPN2 ---
Progress Note Date Seen: Dec 20, 2024 Medical Necessity Reason Pt with a Central, PICC or Fol: Yes The following are medically ne: Central Line, Porter Catheter Reason for porter catheter: Bladder Retention/Obstruc, Dony. Abd Surgery, Strict I&O Objective vital signs Vital Sign Date Time Temp Pulse Resp B/P (MAP) Pulse Ox O2 Delivery O2 Flow Rate FiO2 12/20/24 11:31 170/56 12/20/24 11:30 99.9 64 22 99 211.8 12/20/24 11:06 30 12/20/24 08:00 Mechanical Ventilator+ Total Intake and Output 12/19/24 12/19/24 12/20/24 15:00 23:00 07:00 Intake Total 214.208 ml 928.732 ml 938.8 ml Output Total 0 ml 1210 ml 710 ml Balance 214.208 ml -281.268 ml 228.8 ml medications Current Medications Medications Dose Ordered Sig/Carlos Route Start Time Stop Time Status Last Admin Dose Admin Acetaminophen 500 mg Q6HP PRN PO 12/12/24 13:15 12/13/24 05:32 500 MG Pantoprazole Sodium 40 mg DAILY IV 12/16/24 10:00 12/20/24 07:53 40 MG Propofol 100 ml @ 2.856 mls/ hr Q24H IV 12/15/24 12:15 12/15/24 13:30 2.856 MLS/HR Fentanyl Citrate 250 ml @ 2.5 mls/hr Q24H IV 12/15/24 12:45 12/18/24 08:20 2.5 MLS/HR Midazolam HCl 50 ml @ 1 mls/hr Q24H IV 12/15/24 15:15 12/17/24 14:17 7 MLS/HR Vancomycin HCl 0 ml @ 0 mls/hr UD IV 12/15/24 15:15 Piperacillin Sod/ Tazobactam Sod 100 ml @ 25 mls/hr Q8H IV 12/16/24 21:00 12/20/24 05:03 25 MLS/HR Insulin Glargine 15 units QAM SC 12/17/24 07:00 12/20/24 06:27 15 UNITS Amino Acids 0 ml @ 0 mls/hr PER PHARMACY IV 12/16/24 15:30 Hold Amino Acids/ Electrolytes/ Dextrose 1,000 ml @ 41 mls/hr DAILY@2200 IV 12/16/24 22:00 Hold 12/19/24 21:22 41 MLS/HR Diagnostic Test (Pha) 1 strip IQ4HR 12/17/24 12:00 12/20/24 11:32 1 STRIP Insulin Human Regular IQ4HR SC 12/17/24 12:00 12/20/24 11:39 4 UNITS Dextrose 50 ml UD PRN IV 12/17/24 09:45 Hydralazine HCl 10 mg Q6HP PRN IV 12/18/24 06:15 12/20/24 11:31 10 MG Vancomycin HCl 100 ml @ 100 mls/hr Q24H IV 12/18/24 18:00 12/19/24 17:23 100 MLS/HR Dextrose 1,000 ml @ 75 mls/hr [id number] IV 12/19/24 09:15 Hold 12/19/24 18:19 75 MLS/HR Dexmedetomidine HCl 400 mcg/ Dextrose 100 ml @ 4.955 mls/ hr [id number] IV 12/19/24 09:30 12/19/24 17:24 7.433 MLS/HR laboratory and microbiology Laboratory Tests 12/20/24 03:15 Test 12/20/24 03:15 Range/Units Serum Glucose 290 H 74-106 mg/dL Problem List/Assessment/Plan Problem List/Assessment/Plan 12/15/24 abdomen more distended, green drainage per colleen drains elev.WBC, abdomen very tender, will proceed with exploratory laparotomy as CT scan report is suspicious for bowel perforation and clinical findings corroborate the suspicion. 12/16/24 AFEBRILE, WOUND CLEAN AND WELL APPROXIMATED, DRAINS SEROSANGUINEOUS, ABDOMEN NON DISTENDED, SOFT, GOOD URINE OUTPUT. DISCUSSED WITH PRIMARY TEAM WEANING OFF VENTILATOR. 12/17/24 REMAINS INTUBATED SEDATED ON VENTILATOR, WOUND CLEAN AND WELL APPROXIMATED, COLLEEN DRAINAGE SERO SANGUINEOUS, LABS OK, 'surgically"stable 12/18/24 lightly sedated, still intubated, wound clean and well approximated , COLLEEN drainage serous, qabdeomen soft and not distended, labs:HyperNatremia, cbc OK. should bed able to be weaned off ventilator 12/20/24/ CPAP TRIAL IN PROGRESS, AROUSABLE, WOUND CLEAN AND WELL APPROXIMATED, DRAINAGE NON BILIOUS, NON PARTICULAR, ABDOMEN SOFT DOES NOT APPEAR TO BE TENDER OTHER THAN EXPECTED TENDERNESS Plan discussed with: Other Dietary Evaluation Review Comments: 1. Consider increasing PN regime to meet nutritional needs when labs WNL 2. Consider advance to CCHO 60g diet when medically appropriate Expected Outcomes/Goals: 1. Pt will consume >75% of estimated needs within 2-3 days NITO LANDA MD Dec 20, 2024 12:29
[2024-12-20] MEDS ORDERED: TPN PER PHARMACY 0 ML IV SCH (14:00)
--- NOTE | 2024-12-20 14:05 | DVHPNRES ---
Progress Note Date Seen: Dec 20, 2024 Resident Creating Document: SAMARA MARKS RESIDENT Medical Necessity Reason Pt with a Central, PICC or Fol: Yes The following are medically ne: Central Line, Porter Catheter Reason for porter catheter: Bladder Retention/Obstruc, Dony. Abd Surgery, Strict I&O Subjective Review of Systems Patient seen and examined at the bedside. Extubated 2/4 a.m. continuously monitoring, reported no new complaints except mild abdominal tenderness. Started TPN. Objective vital signs Vital Sign Date Time Temp Pulse Resp B/P (MAP) Pulse Ox O2 Delivery O2 Flow Rate FiO2 12/20/24 13:17 100.4 12/20/24 12:55 100 10.0 12/20/24 11:31 170/56 12/20/24 11:30 64 22 12/20/24 11:06 30 12/20/24 08:00 Mechanical Ventilator+ Total Intake and Output 12/19/24 12/19/24 12/20/24 15:00 23:00 07:00 Intake Total 214.208 ml 928.732 ml 1084.755 ml Output Total 0 ml 1210 ml 710 ml Balance 214.208 ml -281.268 ml 374.755 ml medications Current Medications Medications Dose Ordered Sig/Carlos Route Start Time Stop Time Status Last Admin Dose Admin Acetaminophen 500 mg Q6HP PRN PO 12/12/24 13:15 12/20/24 13:17 500 MG Pantoprazole Sodium 40 mg DAILY IV 12/16/24 10:00 12/20/24 07:53 40 MG Vancomycin HCl 0 ml @ 0 mls/hr UD IV 12/15/24 15:15 Piperacillin Sod/ Tazobactam Sod 100 ml @ 25 mls/hr Q8H IV 12/16/24 21:00 12/20/24 13:16 25 MLS/HR Insulin Glargine 15 units QAM SC 12/17/24 07:00 12/20/24 06:27 15 UNITS Amino Acids/ Electrolytes/ Dextrose 1,000 ml @ 41 mls/hr DAILY@2200 IV 12/16/24 22:00 Hold 12/19/24 21:22 41 MLS/HR Diagnostic Test (Pha) 1 strip IQ4HR 12/17/24 12:00 12/20/24 11:32 1 STRIP Insulin Human Regular IQ4HR SC 12/17/24 12:00 12/20/24 11:39 4 UNITS Dextrose 50 ml UD PRN IV 12/17/24 09:45 Hydralazine HCl 10 mg Q6HP PRN IV 12/18/24 06:15 12/20/24 11:31 10 MG Vancomycin HCl 100 ml @ 100 mls/hr Q24H IV 12/18/24 18:00 12/19/24 17:23 100 MLS/HR Dexmedetomidine HCl 400 mcg/ Dextrose 100 ml @ 4.955 mls/ hr [id number] IV 12/19/24 09:30 12/19/24 17:24 7.433 MLS/HR Amino Acids 0 ml @ 0 mls/hr PER PHARMACY IV 12/20/24 14:00 UNV Examination General Appearance: extubated, mildly agitated, able to follow commands HEENT: Atraumatic, Mucous membranes moist/pink Respiratory: Clear to auscultation, Normal air movement, No added sounds Cardiovascular: Regular rate, Normal S1, Normal S2, No murmurs Abdominal: Laparotomy wound covered with dressing, sutures intact no signs of infection inflammation for now, [address], mildly distended Extremities: No edema, Normal pulses, No tenderness/swelling Skin: No Significant rash, except surgical wound Neuro: mildly agitated, limited exam due to patient's status. laboratory and microbiology Laboratory Tests 12/20/24 03:15 Test 12/20/24 03:15 Range/Units Serum Glucose 290 H 74-106 mg/dL Microbiology Date/Time Source Procedure Growth Status 12/16/24 00:00 Voided Urine Urine Culture - Final Complete 12/15/24 13:10 Nose MRSA Screen - Final Complete 12/15/24 11:59 Sputum Gram Stain - Final Complete 12/15/24 11:59 Sputum Respiratory Culture - Final Complete 12/15/24 11:30 Peritoneal Fluid Gram Stain - Final Resulted 12/15/24 11:30 Peritoneal Fluid Anaerobic Culture - Preliminary Resulted 12/15/24 11:30 Peritoneal Fluid Aerobic Culture - Preliminary Resulted Labs and/or images reviewed: Labs reviewed by me, Image(s) reviewed by me Problem List/Assessment/Plan Problem List/Assessment/Plan Neurology Cardiology # HTN # Shock likely due to sepsis from peritonitis - Extubated 2 a.m. - currently ICU status - DC Levophed, fentanyl and Versed - currently receiving Zosyn, vancomycin & Flagyl - ordered pancultures, preliminary showed no growth - monitor lab Respiratory # acute hypoxic respiratory failure likely due to sepsis s/p intubation - Extubated / a.m. - currently ICU status - DC Levophed, fentanyl and Versed - currently receiving Zosyn, vancomycin - Dc Flagyl - Monitor GI/Liver/ Abdomen # Morbid Obesity - Nutrional councelling # Peritonitis due to ? perforation # Septic shock due to above # ? small bowel perforation # Bowel Adhesions - Evident on CT - status post exploratory laparotomy, small-bowel resection, enteroenterostomy, adhesiolysis, patient tolerated to the procedure - currently monitoring - currently receiving Zosyn, vancomycin /Kidney/Reproductive # JAKE likely vasomotor on CKD stage 3 - monitor lab - avoid nephrotoxic agents # Uterine/Pelvic prolapse # cystocele # stress incontinence # ? vaginal lesion - postoperative day 4 status post desera I single incision urethral sling, cystocele repair - vaginal mucosa lesion sent for biopsy [facility] Endocrine/Meatbolic # uncontrolled type 2 DM HbA1c 8.2 - Accu-Cheks and ISS # hypernatremia -monitor lab for now -D5W # hyperkalemia - monitor lab # Skin ID # Peritonitis due to ? perforation # Septic shock due to above - currently receiving Zosyn, vancomycin - ordered pancultures, preliminary showed no growth Lines Intubated 12/15 Extubated /4 a.m. Right IJ CVC 12/15 Porter Dips Fentanyl , Versed,Diprivan off 3/3 Levophed off 2/3 Precedex 2/3 PUD PPX : Protonix VTE PPX : SCDs Diet: TPN Goals of care discussed with the family for more than 29 minutes: Full code status Critical care time spent including chart review, discussing with the patient's family excluding procedures: 54 minutes Plan of care updated to daughter on phone. Case discussed with . Extubated 12/20 a.m. Plan discussed with: Patient, Daughter My Orders My Orders Orders - SAMARA MARKS RESIDENT Procedure Category Date Status Time Cpap Trial For Am ORDERS 12/19/24 Transmitted 17:13 Abg W/ Co-Ox RT 12/20/24 Logged 04:00 Chest Xray 1 View XY 12/20/24 Resulted 04:00 Rapid Influenza A&B LAB 2/4/25 Logged 08:03 Covid19 Antigen [facility] 12/20/24 Logged Cpap Trial For Am ORDERS 12/20/24 Transmitted 08:51 Cpap/Sed Vacation Med ORDERS 12/20/24 Transmitted Weaning 08:51 Tpn Per Pharmacy PHA 12/20/24 Logged 14:00 Dietary Evaluation Review Comments: 1. Consider increasing PN regime to meet nutritional needs when labs WNL 2. Consider advance to CCHO 60g diet when medically appropriate Expected Outcomes/Goals: 1. Pt will consume >75% of estimated needs within 2-3 days Date of Service: Dec 20, 2024 Billing Provider: MJ PERERA MD Common Visit Codes: [id number] CARE 30-74 MIN SAMARA MARKS RESIDENT Dec 20, 2024 14:05 MJ PERERA MD Dec 21, 2024 14:55
--- NOTE | 2024-12-20 15:13 | DVHPN2 ---
Progress Note Date Seen: Dec 20, 2024 Medical Necessity Reason Pt with a Central, PICC or Fol: Yes The following are medically ne: Central Line, Porter Catheter Reason for porter catheter: Bladder Retention/Obstruc, Dony. Abd Surgery, Strict I&O Subjective Patient reports: Other (extubated) Review of Systems: Deferred Objective vital signs Vital Sign Date Time Temp Pulse Resp B/P (MAP) Pulse Ox O2 Delivery O2 Flow Rate FiO2 12/20/24 14:31 100.0 87 20 179/68 (105) 100 212.0 12/20/24 12:55 10.0 12/20/24 11:06 30 12/20/24 08:00 Mechanical Ventilator+ Total Intake and Output 12/19/24 12/19/24 12/20/24 15:00 23:00 07:00 Intake Total 214.208 ml 928.732 ml 1084.755 ml Output Total 0 ml 1210 ml 710 ml Balance 214.208 ml -281.268 ml 374.755 ml medications Current Medications Medications Dose Ordered Sig/Carlos Route Start Time Stop Time Status Last Admin Dose Admin Acetaminophen 500 mg Q6HP PRN PO 12/12/24 13:15 12/20/24 13:17 500 MG Pantoprazole Sodium 40 mg DAILY IV 12/16/24 10:00 12/20/24 07:53 40 MG Vancomycin HCl 0 ml @ 0 mls/hr UD IV 12/15/24 15:15 Piperacillin Sod/ Tazobactam Sod 100 ml @ 25 mls/hr Q8H IV 12/16/24 21:00 12/20/24 13:16 25 MLS/HR Insulin Glargine 15 units QAM SC 12/17/24 07:00 12/20/24 06:27 15 UNITS Diagnostic Test (Pha) 1 strip IQ4HR 12/17/24 12:00 12/20/24 11:32 1 STRIP Insulin Human Regular IQ4HR SC 12/17/24 12:00 12/20/24 11:39 4 UNITS Dextrose 50 ml UD PRN IV 12/17/24 09:45 Hydralazine HCl 10 mg Q6HP PRN IV 12/18/24 06:15 12/20/24 11:31 10 MG Vancomycin HCl 100 ml @ 100 mls/hr Q24H IV 12/18/24 18:00 12/19/24 17:23 100 MLS/HR Dexmedetomidine HCl 400 mcg/ Dextrose 100 ml @ 4.955 mls/ hr [id number] IV 12/19/24 09:30 12/19/24 17:24 7.433 MLS/HR Amino Acids 0 ml @ 0 mls/hr PER PHARMACY IV 12/20/24 14:00 Examination: GENERAL:Abnormal, LUNGS:Abnormal, MSK:Abnormal, NEURO:Normal laboratory and microbiology Laboratory Tests 12/20/24 03:15 Test 12/20/24 03:15 Range/Units Serum Glucose 290 H 74-106 mg/dL Microbiology Date/Time Source Procedure Growth Status 12/16/24 00:00 Voided Urine Urine Culture - Final Complete 12/15/24 13:10 Nose MRSA Screen - Final Complete 12/15/24 11:59 Sputum Gram Stain - Final Complete 12/15/24 11:59 Sputum Respiratory Culture - Final Complete 12/15/24 11:30 Peritoneal Fluid Gram Stain - Final Resulted 12/15/24 11:30 Peritoneal Fluid Anaerobic Culture - Preliminary Resulted 12/15/24 11:30 Peritoneal Fluid Aerobic Culture - Preliminary Resulted Problem List/Assessment/Plan Problem List/Assessment/Plan Hypernatremia Acute kidney injury on Chronic kidney disease 3A versus B likely hemodynamic mediated--no recent baseline renal function available Diabetes Hypertension surgery on December 12, 2024 for pelvic prolapse, cystocele s/p exploratory laparotomy, small-bowel resection, enteroenterostomy lysis of adhesions and irrigation for peritonitis on December 15, 2024 Recommendations extubated lasix iv as ordered k replace prn Plan discussed with: Other My Orders My Orders Orders - RENAN PEREIRA MD Procedure Category Date Status Time Furosemide Injection PHA 12/21/24 Logged (Lasix Injection) 10:00 Furosemide Injection PHA 12/20/24 Logged (Lasix Injection) 15:15 Dietary Evaluation Review Comments: 1. Consider increasing PN regime to meet nutritional needs when labs WNL 2. Consider advance to CCHO 60g diet when medically appropriate Expected Outcomes/Goals: 1. Pt will consume >75% of estimated needs within 2-3 days RENAN PEREIRA MD Dec 20, 2024 15:13
[2024-12-20] MEDS: MORPHINE SULFATE INJ 2 MG/ml SYRG IV PRN ×2 (16:49→23:14)
[2024-12-20] MEDS ORDERED: MORPHINE SULFATE INJ 2 MG/ml SYRG IV PRN (17:30)
[2024-12-20] MEDS: ONDANSETRON HCL 4 MG/2 ML VIAL IV PRN (18:00)
[2024-12-20] MEDS: MORPHINE SULFATE INJ 2 MG/ml SYRG IM ONE (18:02)
[2024-12-20] MEDS: MORPHINE SULFATE INJ 2 MG/ml SYRG IV ONE (19:00)
[2024-12-20] MEDS ORDERED: HYDROcodone-ACET 5/325MG TAB PO PRN (19:00)
[2024-12-20] MEDS: AMINO ACID INFUSION IN D10W 1,000 ML IV ONE (20:16)
--- NOTE | 2024-12-20 20:19 | DVHPN2 ---
Chief Complaints Patient reports: Feels better, Other (extubated) Objective Vitals Vital Signs Date Time Temp Pulse Resp B/P (MAP) Pulse Ox O2 Delivery O2 Flow Rate FiO2 12/20/24 19:28 183/100 12/20/24 19:00 92 15 12/20/24 18:01 100.0 99 212.0 12/20/24 12:55 10.0 12/20/24 11:06 30 12/20/24 08:00 Mechanical Ventilator+ Medications Current Medications Medications (Trade) Dose Ordered Sig/Carlos Route PRN Reason Start Time Stop Time Status Last Admin Amino Acids 0 ml @ 0 mls/hr PER PHARMACY IV 12/20/24 14:00 Furosemide (Lasix Injection) 40 mg DAILY IV 12/21/24 10:00 Labetalol HCl (Labetalol HCl) 5 mg Q2HPRN PRN IV SBP>150 12/20/24 19:00 Morphine Sulfate 4 mg Q4HPRN PRN IV SEVERE PAIN (7-10 PAIN SCALE) 12/20/24 19:00 Ondansetron HCl (Zofran) 4 mg Q6HPRN PRN IV NAUSEA / VOMITING 12/20/24 16:45 12/20/24 18:00 General: Other (Resting comfortably intubated sedated) Head/Eyes: Normal Neck: Normal Lungs: Normal, Chest non-tender Cardiovascular: Other (Tachy okay Tammi probably Thursday RUL found Mondays or known Thursday or Thursday 2 days or nightmares feeding get in a Thursday evening or afternoon given your be in and out quick) Abdominal: Normal (+BS David drain serosang), Other (Three drains in place to serosanguineous with 1. Putting out less bilious appearing discharge) Extremities: Other (Generalized edema) Skin: Normal Studies Laboratory Tests 12/20/24 16:41 12/20/24 03:15 Test 12/20/24 03:15 Range/Units Serum Glucose 290 H 74-106 mg/dL Ass/Plan Assessment Postop day 8 from original surgery cystic appearance cell repair urethral sling attempted laparoscopy mini-laparotomy.POD #5 Expl lap bowel repair. Extubated breathing on her own.... Plan Continue supportive care , antibiotics , pain control... CALVIN KINGSTON DO Dec 20, 2024 20:19
[2024-12-20 21:32] LABS: COVID19 ANTIGEN SOFIA FIA NEGATIVE (NEGATIVE)
[2024-12-20 21:34] LABS: Rapid Influenza A Negative (Negative); Rapid Influenza B Negative (Negative)
[2024-12-20] MEDS: LABETALOL HCL 20 MG/4 ML VL IV PRN (21:59)
[2024-12-21] VITALS (26 sets, daily range): BP systolic 142–186; BP diastolic 50–99; PULSE 59–85; RESP 13–20; TEMP 99–99.1; O2SAT 97–100
[2024-12-21 03:51] LABS: Basophils # (auto) 0 10 ^3/uL (0-0.2); Basophils % (auto) 0.2 % (0.0-2.0); Monocytes # (auto) 1.6 10 ^3/uL (0-1.3)
[2024-12-21 03:54] LABS: Eosinophils # (auto) 0.3 10 ^3/uL (0-0.8); Eosinophils % (auto) 1.7 % (0.0-7.0); Hematocrit 37.2 % (36.0-46.0); Lymphocytes # (auto) 1.6 10 ^3/uL (0.4-5.4); Lymphocytes % (auto) 9.4 % (10.0-50.0); Mean Corpuscular Hemoglobin 26.8 pg (28.0-32.0); Mean Corpuscular Hgb Conc. 32.3 g/dL (32.0-36.0); Mean Corpuscular Volume 82.9 fL (80.0-100.0); Neutrophils # (auto) 13.9 10 ^3/uL (1.6-8.6); Neutrophils % (auto) 79.7 % (37.0-80.0); Nucleated Red Blood Cells % 0.2 %; Platelet Count (auto) 201 10^3/uL (140-450); Red Blood Cells 4.49 10^6/uL (4.0-5.20); Red Cell Distribution Width 17.8 % (11.8-14.3); White Blood Cell 17.4 10^3/uL (4.4-10.8)
[2024-12-21 04:10] LABS: Alanine Aminotransferase 20 U/L (7-40); Anion Gap 10 (5-15); Aspartate Aminotransferase 40 U/L (13-40); BUN/Creatinine Ratio 18.1 (10.0-20.0); Blood Urea Nitrogen 19 mg/dL (9-23); Calcium 9.2 mg/dL (8.7-10.4); Carbon Dioxide 24 mmol/L (20-31); Magnesium 1.9 mg/dL (1.6-2.6)
[2024-12-21 04:11] LABS: Bilirubin, Total 0.7 mg/dL (0.2-1.0); Phosphorus 3.3 mg/dL (2.4-5.1)
[2024-12-21 04:17] LABS: INR 1.13 (0.9-1.15); Partial Thromboplastin Time 26.8 SEC (24.5-34.5); Prothrombin Time 11.8 sec (9.3-11.8)
[2024-12-21 04:39] LABS: Alkaline Phosphatase 129 U/L (46-116); Chloride 115 mmol/L (98-107); Glucose 231 mg/dL (74-106); Potassium 3.4 mmol/L (3.5-5.1); Sodium 149 mmol/L (136-145); Total Protein 5.5 g/dL (5.7-8.2)
--- NOTE | 2024-12-21 05:15 | DVH ---
CHEST RADIOGRAPH Indication: pna Technique: Single frontal view of the chest was obtained COMPARISON: XY CHEST XRAY 1 VIEW on DOS: 12/20/24, XY CHEST PORTABLE on DOS: 12/19/24, XY CHEST PORTABLE on DOS: 12/18/24, XY CHEST PORTABLE on DOS: 12/18/24, XY CHEST PORTABLE on DOS: 12/17/24 FINDINGS: Lines and Tubes: Enteric catheter and right central venous catheter in satisfactory position. Lungs: Congestion Pleura: No effusion. No pneumothorax. Cardiomediastinal contours: Cardiomegaly Bones: Unremarkable IMPRESSION: Lines and tubes in satisfactory position. No significant interval change.
[2024-12-21] MEDS: POTASSIUM CHL 20MEQ/100ML 100 ML IV ONE ×2 (07:46→14:53)
[2024-12-21] MEDS: MAGNESIUM SULFATE 1GM/100ML 100 ML IV ONE (07:46)
[2024-12-21] MEDS: FUROSEMIDE 40 MG/4 ML VIAL IV SCH (09:57)
[2024-12-21] MEDS: hydrALAZINE HCL 20 MG/ML VL IV PRN (11:52)
[2024-12-21] MEDS ORDERED: LABETALOL HCL 20 MG/4 ML VL IV PRN (14:00)
[2024-12-21] MEDS: LABETALOL HCL 20 MG/4 ML VL IV PRN (14:55)
--- NOTE | 2024-12-21 14:57 | DVHPN2 ---
Progress Note Date Seen: Dec 21, 2024 Medical Necessity Reason Pt with a Central, PICC or Fol: Yes The following are medically ne: Central Line, Porter Catheter Reason for porter catheter: Bladder Retention/Obstruc, Dony. Abd Surgery, Strict I&O Subjective Patient reports: Other (extubated) Review of Systems: Deferred Objective vital signs Vital Sign Date Time Temp Pulse Resp B/P (MAP) Pulse Ox O2 Delivery O2 Flow Rate FiO2 12/21/24 14:04 73 16 186/58 12/21/24 11:00 98 12/21/24 08:00 99.1 99.1 12/21/24 08:00 Nasal Cannula* 2 28 Total Intake and Output 12/20/24 12/20/24 12/21/24 14:59 22:59 06:59 Intake Total 668.955 ml 272 ml 453 ml Output Total 2285 ml 1697 ml Balance 668.955 ml -2013 ml -1244 ml medications Current Medications Medications Dose Ordered Sig/Carlos Route Start Time Stop Time Status Last Admin Dose Admin Acetaminophen 500 mg Q6HP PRN PO 12/12/24 13:15 12/20/24 13:17 500 MG Pantoprazole Sodium 40 mg DAILY IV 12/16/24 10:00 12/21/24 09:56 40 MG Vancomycin HCl 0 ml @ 0 mls/hr UD IV 12/15/24 15:15 Piperacillin Sod/ Tazobactam Sod 100 ml @ 25 mls/hr Q8H IV 12/16/24 21:00 12/21/24 12:11 25 MLS/HR Insulin Glargine 15 units QAM SC 12/17/24 07:00 12/21/24 06:27 15 UNITS Diagnostic Test (Pha) 1 strip IQ4HR 12/17/24 12:00 12/21/24 11:19 1 STRIP Insulin Human Regular IQ4HR SC 12/17/24 12:00 12/21/24 11:24 8 UNITS Dextrose 50 ml UD PRN IV 12/17/24 09:45 Vancomycin HCl 100 ml @ 100 mls/hr Q24H IV 12/18/24 18:00 12/20/24 18:00 100 MLS/HR Amino Acids 0 ml @ 0 mls/hr PER PHARMACY IV 12/20/24 14:00 Ondansetron HCl 4 mg Q6HPRN PRN IV 12/20/24 16:45 12/20/24 18:00 4 MG Hydralazine HCl 10 mg Q6HP PRN IV 12/21/24 03:00 12/21/24 11:52 10 MG Fat Emulsion Intravenous 50 ml/ Potassium Acetate 40 meq/Potassium Phosphate 20 meq/ Magnesium Sulfate 12 meq/ Multivitamins 10 ml/Chromium/ Copper/Manganese/ Zinc 1 ml/Insulin Human Regular 5 units/Amino Acids/ Dextrose/Purified Water 1,088.5955 ml @ 45 mls/hr [id number] IV 12/21/24 22:00 12/22/24 21:59 Labetalol HCl 20 mg Q2HPRN PRN IV 12/21/24 14:00 Examination: GENERAL:Abnormal, LUNGS:Abnormal, MSK:Abnormal, SKIN:Abnormal, NEURO:Abnormal laboratory and microbiology Laboratory Tests 12/21/24 03:24 Test 12/21/24 03:24 Range/Units Serum Glucose 231 H 74-106 mg/dL Microbiology Date/Time Source Procedure Growth Status 12/16/24 00:00 Voided Urine Urine Culture - Final Complete 12/15/24 13:10 Nose MRSA Screen - Final Complete 12/15/24 11:59 Sputum Gram Stain - Final Complete 12/15/24 11:59 Sputum Respiratory Culture - Final Complete 12/15/24 11:30 Peritoneal Fluid Gram Stain - Final Resulted 12/15/24 11:30 Peritoneal Fluid Anaerobic Culture - Preliminary Resulted 12/15/24 11:30 Aerobic Culture - Final Actinomyces israelii Resulted Problem List/Assessment/Plan Problem List/Assessment/Plan Hypernatremia Acute kidney injury on Chronic kidney disease 3A versus B likely hemodynamic mediated--no recent baseline renal function available Diabetes Hypertension surgery on December 12, 2024 for pelvic prolapse, cystocele s/p exploratory laparotomy, small-bowel resection, enteroenterostomy lysis of adhesions and irrigation for peritonitis on December 15, 2024 Recommendations sodium better k replace prn ct abd pending bp control Plan discussed with: Other Dietary Evaluation Review Comments: 1. TPN per pharmacy if NPO>7 days 2. Supplement Amino acids 41ml/hr with TF-glucerna @20 ml/hr (29g pro, 576 kcal),if EN/GI accessible. the combo of these two supports pt's protein needs at 0.7g/kg ABW and energy needs at 11 kcal/kg ABW 3. If medically feasible, advance diet to CCHO-60 Renal specific-60 g protein restriction and pt does not require dialysis, with a passing speech eval, Expected Outcomes/Goals: Gradual wt loss, improved protein nutrition status, RENAN PEREIRA MD Dec 21, 2024 14:57
[2024-12-21] MEDS: cloNIDine 0.1 mg/24hr 7 DAY PATCH TD SCH (15:00)
[2024-12-21] MEDS: LORazepam 2MG/ML-1ML VIAL IV ONE (15:00)
[2024-12-21] MEDS: IOHEXOL 300 MG/ML 100ML BOTTLE IJ ONE (17:10)
[2024-12-21] MEDS: HYDROmorphone HCL 2 MG/ML VL/or syr IV PRN (17:36)
[2024-12-21] MEDS: cloNIDine 0.1 mg/24hr 7 DAY PATCH TD ONE (17:37)
--- NOTE | 2024-12-21 18:12 | DVH ---
Exam: CT CT AB PEL WITH IV CON ONLY History: ABDOMINAL ABSCESS Comparison Study: 12/14/2024 TECHNIQUE: Multidetector CT of the abdomen and pelvis with contrast. Axial, coronal and sagittal mult iplanar reformats were obtained from the axial data set by the technologist. Radiation Dose Information: CT Dose: CTDI volume is 27.17 mGy. Dose-length product is 1412.48 mGy*cm FINDINGS: Bibasilar atelectasis. Partially visualized heart is unremarkable. Status post cholecystectomy. Micronodular contour of the liver. No focal hepatic lesion. Otherwise, l iver, spleen, pancreas and adrenal glands unremarkable. The common bile duct measures up to 1.2 cm of the pancreatic head with the appearance of debris /artifact within the common bile duct. Mild bilateral perinephric fat stranding. Punctate nonobstructing left renal calculi. 3.4 cm right re nal upper pole cyst. Ureters are unremarkable. Urinary bladder is decompressed with Alvarez catheter in place. Multiple calcifications within the uterus which may represent calcified fibroids. Enteric tube terminates within the stomach. Mild gastric wall thickening which may be from inadequate distension. There appears to be postsurgical changes possible small bowel segment over the right low er abdominal quadrant which is not definitely appreciated on the prior study. Otherwise, Small bowel loops are unremarkable. Appendix is not definitely visualized. Contrast is noted within the ascendin g colon, transverse and descending colons with small to moderate amount of fecal material within the colon. There is a rectal wire looped within the rectum. There are 2 ventral lower abdominal approach drainage catheters terminating over the right anterior l ower abdomen on the right and left anterior mid abdomen on the left. There is interval improvement in the mild ascites and fluid collection over the ventral abdomen and a ssociated free air with minimal residual. No large pocket of fluid collection is noted. There is interval improvement in the extensive subcutaneous emphysema with small to moderate residual most prominent of the ventral lower abdomen. There is left abdominal wall hematoma underlying the pr eviously noted areas of significant subcutaneous emphysema with mild edema of the right lateral abdom inal and pelvic wall Postsurgical changes of midline ventral abdomen. No destructive osseous lesions are noted. IMPRESSION: Intraperitoneal drainage catheters are noted with interval significant improvement in the ascites , f luid collection and foci of free air within the abdomen. Small residual is noted. No large loculated fluid collection is noted. Interval improvement in the subcutaneous emphysema of the left abdominal and chest wall with small to moderate residual . Left abdominal wall hematoma of the previous area of large subcutaneous emphyse ma. There appears to be postsurgical changes possible small bowel segment over the right lower abdominal quadrant which is not definitely appreciated on the prior study. Recommend clinical correlation. Additional findings as above.
--- NOTE | 2024-12-21 18:36 | DVHPNRES ---
Progress Note Date Seen: Dec 21, 2024 Resident Creating Document: SAMARA MARKS RESIDENT Medical Necessity Reason Pt with a Central, PICC or Fol: Yes The following are medically ne: Central Line, Porter Catheter Reason for porter catheter: Bladder Retention/Obstruc, Dony. Abd Surgery, Strict I&O Subjective Review of Systems Patient seen and examined at the bedside. Extubated 2/4 a.m. continuously monitoring, reported no new complaints except mild abdominal pain, giving pain medication as needed. Started TPN. Ordered new CT with the contrast which showed no significant interval changes. Patient reports: Feels better Objective vital signs Vital Sign Date Time Temp Pulse Resp B/P (MAP) Pulse Ox O2 Delivery O2 Flow Rate FiO2 12/21/24 18:06 66 13 171/60 12/21/24 18:00 99 12/21/24 16:00 99.0 99.0 12/21/24 08:00 Nasal Cannula* 2 28 Total Intake and Output 12/20/24 12/20/24 12/21/24 15:00 23:00 07:00 Intake Total 548 ml 288 ml 453 ml Output Total 2285 ml 1697 ml Balance 548 ml -1997 ml -1244 ml medications Current Medications Medications Dose Ordered Sig/Carlos Route Start Time Stop Time Status Last Admin Dose Admin Acetaminophen 500 mg Q6HP PRN PO 12/12/24 13:15 12/20/24 13:17 500 MG Pantoprazole Sodium 40 mg DAILY IV 12/16/24 10:00 12/21/24 09:56 40 MG Vancomycin HCl 0 ml @ 0 mls/hr UD IV 12/15/24 15:15 Piperacillin Sod/ Tazobactam Sod 100 ml @ 25 mls/hr Q8H IV 12/16/24 21:00 12/21/24 12:11 25 MLS/HR Insulin Glargine 15 units QAM SC 12/17/24 07:00 12/21/24 06:27 15 UNITS Diagnostic Test (Pha) 1 strip IQ4HR 12/17/24 12:00 12/21/24 16:27 1 STRIP Insulin Human Regular IQ4HR SC 12/17/24 12:00 12/21/24 16:30 8 UNITS Dextrose 50 ml UD PRN IV 12/17/24 09:45 Vancomycin HCl 100 ml @ 100 mls/hr Q24H IV 12/18/24 18:00 12/21/24 18:22 100 MLS/HR Amino Acids 0 ml @ 0 mls/hr PER PHARMACY IV 12/20/24 14:00 Ondansetron HCl 4 mg Q6HPRN PRN IV 12/20/24 16:45 12/20/24 18:00 4 MG Hydralazine HCl 10 mg Q6HP PRN IV 12/21/24 03:00 12/21/24 11:52 10 MG Fat Emulsion Intravenous 50 ml/ Potassium Acetate 40 meq/Potassium Phosphate 20 meq/ Magnesium Sulfate 12 meq/ Multivitamins 10 ml/Chromium/ Copper/Manganese/ Zinc 1 ml/Insulin Human Regular 5 units/Amino Acids/ Dextrose/Purified Water 1,088.5955 ml @ 45 mls/hr [id number] IV 12/21/24 22:00 12/22/24 21:59 Labetalol HCl 20 mg Q2HPRN PRN IV 12/21/24 14:00 12/21/24 14:55 20 MG Hydromorphone HCl 1 mg Q4HPRN PRN IV 12/21/24 15:00 12/21/24 17:36 1 MG Clonidine HCl 0.1 mg Q7D TD 12/21/24 15:00 Examination General Appearance: Alert, not fully oriented, able to follow commands, mildly agitated HEENT: Atraumatic, Mucous membranes moist/pink Respiratory: Clear to auscultation, Normal air movement, No added sounds Cardiovascular: Regular rate, Normal S1, Normal S2, No murmurs Abdominal: Laparotomy wound covered with dressing, sutures intact no signs of infection inflammation for now, [address], mildly distended Extremities: No edema, Normal pulses, No tenderness/swelling Skin: No Significant rash, except surgical wound Neuro: mildly agitated, limited exam due to patient's status. laboratory and microbiology Laboratory Tests 12/21/24 03:24 Test 12/21/24 03:24 Range/Units Serum Glucose 231 H 74-106 mg/dL Microbiology Date/Time Source Procedure Growth Status 12/20/24 17:32 Gastric Fluid Gram Stain - Final Resulted 12/20/24 17:32 Gastric Fluid Body Fluid Culture Pending Resulted 12/16/24 00:00 Voided Urine Urine Culture - Final Complete 12/15/24 13:10 Nose MRSA Screen - Final Complete 12/15/24 11:59 Sputum Gram Stain - Final Complete 12/15/24 11:59 Sputum Respiratory Culture - Final Complete Labs and/or images reviewed: Labs reviewed by me, Image(s) reviewed by me Problem List/Assessment/Plan Problem List/Assessment/Plan Neurology Cardiology # HTN urgency # Shock likely due to sepsis from peritonitis - Extubated 24 a.m. - currently ICU status - DC Levophed, fentanyl and Versed - currently receiving Zosyn, vancomycin & Flagyl - ordered pancultures, Actinomyces samoan - monitor lab -clonidine patch for hypertension Respiratory # acute hypoxic respiratory failure likely due to sepsis s/p intubation - Extubated 12/20 a.m. - currently ICU status - DC Levophed, fentanyl and Versed - currently receiving Zosyn, vancomycin - Dc Flagyl - Monitor GI/Liver/ Abdomen # Morbid Obesity - Nutrional councelling # Peritonitis due to ? perforation # Septic shock due to above # ? small bowel perforation # Bowel Adhesions - Evident on CT - status post exploratory laparotomy, small-bowel resection, enteroenterostomy, adhesiolysis, patient tolerated to the procedure - currently monitoring - currently receiving Zosyn, vancomycin - Ordered new CT with the contrast which showed no significant interval changes. /Kidney/Reproductive # JAKE likely vasomotor on CKD stage 3 - monitor lab - avoid nephrotoxic agents # Uterine/Pelvic prolapse # cystocele # stress incontinence # ? vaginal lesion - postoperative day 4 status post desera I single incision urethral sling, cystocele repair - vaginal mucosa lesion sent for biopsy MSK Endocrine/Meatbolic # uncontrolled type 2 DM HbA1c 8.2 - Accu-Cheks and ISS # hypernatremia -monitor lab for now -D5W # hyperkalemia - monitor lab # Skin ID # Peritonitis due to ? perforation # Septic shock due to above - currently receiving Zosyn, vancomycin - ordered pancultures, Actinomyces samoan Lines Intubated 12/15 Extubated 4 a.m. Right IJ CVC 12/15 Porter Dips Fentanyl , Versed,Diprivan off 3/3 Levophed off 2/3 Precedex 2/3 PUD PPX : Protonix VTE PPX : SCDs Diet: TPN Goals of care discussed with the family for more than 29 minutes: Full code status Critical care time spent including chart review, discussing with the patient's family excluding procedures: 54 minutes Plan of care updated to daughter on phone. Case discussed with . Extubated 12/20 Plan discussed with: Patient, Daughter My Orders My Orders Orders - SAMARA MARKS Procedure Category Date Status Time Body Fluid Culture W/ MADELYN 12/20/24 Logged GS 20:38 Amino Acid PHA 12/21/24 In Process Infusion... W/Fat 22:00 Comprehensive LAB 12/22/24 Verified Metabolic Panel 06:00 Magnesium LAB 12/22/24 Verified 06:00 Phosphorus LAB 12/22/24 Verified 06:00 Tpn Per Pharmacy ABEBE 12/21/24 In Process 22:00 Complete Blood Count LAB 12/22/24 Verified 04:00 Comprehensive LAB 12/22/24 Verified Metabolic Panel 04:00 Magnesium LAB 12/22/24 Verified 04:00 Chest Xray 1 View XY 12/22/24 Logged 04:00 Npo (Nothing By DIET 12/22/24 Transmitted Mouth) Diet Breakfast Dietary Evaluation Review Comments: 1. TPN per pharmacy if NPO>7 days 2. Supplement Amino acids 41ml/hr with TF-glucerna @20 ml/hr (29g pro, 576 kcal),if EN/GI accessible. the combo of these two supports pt's protein needs at 0.7g/kg ABW and energy needs at 11 kcal/kg ABW 3. If medically feasible, advance diet to CCHO-60 Renal specific-60 g protein restriction and pt does not require dialysis, with a passing speech eval, Expected Outcomes/Goals: Gradual wt loss, improved protein nutrition status, Date of Service: Dec 21, 2024 Billing Provider: MJ PERERA MD Common Visit Codes: 31338-[id number] CARE 30-74 MIN SAMARA MARKS Dec 21, 2024 18:36 MJ PERERA MD Dec 22, 2024 12:37
[2024-12-21] MEDS: TPN PER PHARMACY IV NR (22:36)
[2024-12-22] VITALS (35 sets, daily range): BP systolic 120–178; BP diastolic 32–95; PULSE 64–100; RESP 9–22; TEMP 98.2–99.5; O2SAT 95–100
--- NOTE | 2024-12-22 05:13 | DVH ---
EXAM: XR Chest, 1 View CLINICAL INDICATION: pna TECHNIQUE: Frontal view of the chest. COMPARISON: XY CHEST XRAY 1 VIEW on DOS: 12/21/24, XY CHEST XRAY 1 VIEW on DOS: 12/20/24, XY CHEST PORT ABLE on DOS: 12/19/24, XY CHEST PORTABLE on DOS: 12/18/24, XY CHEST PORTABLE on DOS: 12/18/24 FINDINGS: LUNGS AND PLEURAL SPACES: Pulmonary congestion. No consolidation. No pneumothorax. HEART: Unremarkable. No cardiomegaly. MEDIASTINUM: Unremarkable. Normal mediastinal contour. BONES/JOINTS: Unremarkable. No acute fracture. TUBES, LINES AND DEVICES: Enteric tube tip in the stomach. Right internal jugular central venous c atheter tip in the superior vena cava. OTHER FINDINGS: . None. .. IMPRESSION: Pulmonary congestion.
[2024-12-22 05:40] LABS: Basophils # (auto) 0 10 ^3/uL (0-0.2); Basophils % (auto) 0.1 % (0.0-2.0); Eosinophils # (auto) 0.3 10 ^3/uL (0-0.8); Eosinophils % (auto) 1.7 % (0.0-7.0); Hematocrit 37.1 % (36.0-46.0); Hemoglobin 11.9 g/dL (12.2-16.2); Lymphocytes # (auto) 1.5 10 ^3/uL (0.4-5.4); Lymphocytes % (auto) 8.8 % (10.0-50.0); Mean Corpuscular Hemoglobin 26.9 pg (28.0-32.0); Mean Corpuscular Hgb Conc. 32.2 g/dL (32.0-36.0); Mean Corpuscular Volume 83.6 fL (80.0-100.0); Monocytes # (auto) 1.6 10 ^3/uL (0-1.3); Monocytes % (auto) 9.6 % (0.0-12.0); Neutrophils # (auto) 13.3 10 ^3/uL (1.6-8.6); Neutrophils % (auto) 79.8 % (37.0-80.0); Nucleated Red Blood Cells % 0.2 %; Platelet Count (auto) 215 10^3/uL (140-450); Red Blood Cells 4.43 10^6/uL (4.0-5.20); Red Cell Distribution Width 18.5 % (11.8-14.3); White Blood Cell 16.7 10^3/uL (4.4-10.8)
[2024-12-22 06:13] LABS: Alanine Aminotransferase 19 U/L (7-40); Albumin 3.2 g/dL (3.2-4.8); Anion Gap 10 (5-15); Aspartate Aminotransferase 36 U/L (13-40); BUN/Creatinine Ratio 17.1 (10.0-20.0); Blood Urea Nitrogen 19 mg/dL (9-23); Calcium 9.2 mg/dL (8.7-10.4); Carbon Dioxide 25 mmol/L (20-31); Magnesium 2.3 mg/dL (1.6-2.6); Potassium 3.6 mmol/L (3.5-5.1)
[2024-12-22 06:14] LABS: Bilirubin, Total 0.7 mg/dL (0.2-1.0); Phosphorus 2.9 mg/dL (2.4-5.1)
[2024-12-22 06:15] LABS: Alkaline Phosphatase 130 U/L (46-116); Chloride 112 mmol/L (98-107); Glucose 315 mg/dL (74-106); Sodium 147 mmol/L (136-145); Total Protein 5.6 g/dL (5.7-8.2)
--- NOTE | 2024-12-22 10:54 | DVHPN2 ---
Progress Note Date Seen: Dec 22, 2024 Medical Necessity Reason Pt with a Central, PICC or Fol: Yes The following are medically ne: Central Line, Porter Catheter Reason for porter catheter: Bladder Retention/Obstruc, Dony. Abd Surgery, Strict I&O Objective vital signs Vital Sign Date Time Temp Pulse Resp B/P (MAP) Pulse Ox O2 Delivery O2 Flow Rate FiO2 12/22/24 10:01 99.0 90 16 135/47 (76) 100 210.2 12/22/24 08:00 Nasal Cannula* 2 28 Total Intake and Output 12/21/24 12/21/24 12/22/24 15:00 23:00 07:00 Intake Total 364 ml 427.5 ml 460 ml Output Total 2590 ml 580 ml Balance 364 ml -2162.5 ml -120 ml medications Current Medications Medications Dose Ordered Sig/Carlos Route Start Time Stop Time Status Last Admin Dose Admin Acetaminophen 500 mg Q6HP PRN PO 12/12/24 13:15 12/20/24 13:17 500 MG Pantoprazole Sodium 40 mg DAILY IV 12/16/24 10:00 12/22/24 09:47 40 MG Vancomycin HCl 0 ml @ 0 mls/hr UD IV 12/15/24 15:15 Piperacillin Sod/ Tazobactam Sod 100 ml @ 25 mls/hr Q8H IV 12/16/24 21:00 12/22/24 04:03 25 MLS/HR Insulin Glargine 15 units QAM SC 12/17/24 07:00 12/22/24 06:28 15 UNITS Diagnostic Test (Pha) 1 strip IQ4HR 12/17/24 12:00 12/22/24 07:51 1 STRIP Insulin Human Regular IQ4HR SC 12/17/24 12:00 12/22/24 07:56 12 UNITS Dextrose 50 ml UD PRN IV 12/17/24 09:45 Amino Acids 0 ml @ 0 mls/hr PER PHARMACY IV 12/20/24 14:00 Ondansetron HCl 4 mg Q6HPRN PRN IV 12/20/24 16:45 12/20/24 18:00 4 MG Hydralazine HCl 10 mg Q6HP PRN IV 12/21/24 03:00 12/22/24 07:48 10 MG Fat Emulsion Intravenous 50 ml/ Potassium Acetate 40 meq/Potassium Phosphate 20 meq/ Magnesium Sulfate 12 meq/ Multivitamins 10 ml/Chromium/ Copper/Manganese/ Zinc 1 ml/Insulin Human Regular 5 units/Amino Acids/ Dextrose/Purified Water 1,088.5955 ml @ 45 mls/hr [id number] IV 12/21/24 22:00 12/22/24 21:59 12/21/24 22:36 45 MLS/HR Labetalol HCl 20 mg Q2HPRN PRN IV 12/21/24 14:00 12/21/24 20:11 20 MG Hydromorphone HCl 1 mg Q4HPRN PRN IV 12/21/24 15:00 12/22/24 02:53 1 MG Clonidine HCl 0.1 mg Q7D TD 12/21/24 15:00 Vancomycin HCl 100 ml @ 100 mls/hr Q18H IV 12/22/24 12:00 laboratory and microbiology Laboratory Tests 12/22/24 04:48 Test 12/22/24 04:48 Range/Units Serum Glucose 315 H 74-106 mg/dL Problem List/Assessment/Plan Problem List/Assessment/Plan 12/15/24 abdomen more distended, green drainage per colleen drains elev.WBC, abdomen very tender, will proceed with exploratory laparotomy as CT scan report is suspicious for bowel perforation and clinical findings corroborate the suspicion. 12/16/24 AFEBRILE, WOUND CLEAN AND WELL APPROXIMATED, DRAINS SEROSANGUINEOUS, ABDOMEN NON DISTENDED, SOFT, GOOD URINE OUTPUT. DISCUSSED WITH PRIMARY TEAM WEANING OFF VENTILATOR. 12/17/24 REMAINS INTUBATED SEDATED ON VENTILATOR, WOUND CLEAN AND WELL APPROXIMATED, COLLEEN DRAINAGE SERO SANGUINEOUS, LABS OK, 'surgically"stable 12/18/24 lightly sedated, still intubated, wound clean and well approximated , COLLEEN drainage serous, qabdeomen soft and not distended, labs:HyperNatremia, cbc OK. should bed able to be weaned off ventilator 12/20/24/ CPAP TRIAL IN PROGRESS, AROUSABLE, WOUND CLEAN AND WELL APPROXIMATED, DRAINAGE NON BILIOUS, NON PARTICULAR, ABDOMEN SOFT DOES NOT APPEAR TO BE TENDER OTHER THAN EXPECTED TENDERNESS 12/22/24 EXTUBATED,ALERT.ORIENTED,WOUND CLEAN AND WELL APPROXIMATED,ABDOMEN MINIMALLY TENDER, COLLEEN DRAINAGE CLEAR. HAVING NORMAL BOWEL ACTIVITY, EDOUARD START PO Plan discussed with: Patient Dietary Evaluation Review Comments: 1. TPN per pharmacy if NPO>7 days 2. Supplement Amino acids 41ml/hr with TF-glucerna @20 ml/hr (29g pro, 576 kcal),if EN/GI accessible. the combo of these two supports pt's protein needs at 0.7g/kg ABW and energy needs at 11 kcal/kg ABW 3. If medically feasible, advance diet to CCHO-60 Renal specific-60 g protein restriction and pt does not require dialysis, with a passing speech eval, Expected Outcomes/Goals: Gradual wt loss, improved protein nutrition status, NITO LANDA MD Dec 22, 2024 10:54
[2024-12-22] MEDS: VANCOMYCIN 750MG KIT 100 ML IV SCH (11:31)
[2024-12-22 16:16] LABS: Base Excess -1.7 mmol/L (-2.0-3.0)
--- NOTE | 2024-12-22 16:32 | DVHPN2 ---
Progress Note Date Seen: Dec 22, 2024 Medical Necessity Reason Pt with a Central, PICC or Fol: Yes The following are medically ne: Central Line, Porter Catheter Reason for porter catheter: Bladder Retention/Obstruc, Dony. Abd Surgery, Strict I&O Subjective Patient reports: No new complaints Review of Systems: Deferred Objective vital signs Vital Sign Date Time Temp Pulse Resp B/P (MAP) Pulse Ox O2 Delivery O2 Flow Rate FiO2 12/22/24 16:30 98.2 76 17 139/51 (80) 98 98.2 12/22/24 08:00 Nasal Cannula* 2 28 Total Intake and Output 12/21/24 12/21/24 12/22/24 15:00 23:00 07:00 Intake Total 364 ml 427.5 ml 460 ml Output Total 2590 ml 580 ml Balance 364 ml -2162.5 ml -120 ml medications Current Medications Medications Dose Ordered Sig/Carlos Route Start Time Stop Time Status Last Admin Dose Admin Acetaminophen 500 mg Q6HP PRN PO 12/12/24 13:15 12/20/24 13:17 500 MG Pantoprazole Sodium 40 mg DAILY IV 12/16/24 10:00 12/22/24 09:47 40 MG Vancomycin HCl 0 ml @ 0 mls/hr UD IV 12/15/24 15:15 Piperacillin Sod/ Tazobactam Sod 100 ml @ 25 mls/hr Q8H IV 12/16/24 21:00 12/22/24 13:25 25 MLS/HR Insulin Glargine 15 units QAM SC 12/17/24 07:00 12/22/24 06:28 15 UNITS Diagnostic Test (Pha) 1 strip IQ4HR 12/17/24 12:00 12/22/24 11:29 1 STRIP Insulin Human Regular IQ4HR SC 12/17/24 12:00 12/22/24 11:30 16 UNITS Dextrose 50 ml UD PRN IV 12/17/24 09:45 Amino Acids 0 ml @ 0 mls/hr PER PHARMACY IV 12/20/24 14:00 Ondansetron HCl 4 mg Q6HPRN PRN IV 12/20/24 16:45 12/20/24 18:00 4 MG Hydralazine HCl 10 mg Q6HP PRN IV 12/21/24 03:00 12/22/24 07:48 10 MG Fat Emulsion Intravenous 50 ml/ Potassium Acetate 40 meq/Potassium Phosphate 20 meq/ Magnesium Sulfate 12 meq/ Multivitamins 10 ml/Chromium/ Copper/Manganese/ Zinc 1 ml/Insulin Human Regular 5 units/Amino Acids/ Dextrose/Purified Water 1,088.5955 ml @ 45 mls/hr [id number] IV 12/21/24 22:00 12/22/24 21:59 12/21/24 22:36 45 MLS/HR Labetalol HCl 20 mg Q2HPRN PRN IV 12/21/24 14:00 12/21/24 20:11 20 MG Hydromorphone HCl 1 mg Q4HPRN PRN IV 12/21/24 15:00 12/22/24 12:00 1 MG Clonidine HCl 0.1 mg Q7D TD 12/21/24 15:00 Vancomycin HCl 100 ml @ 100 mls/hr Q18H IV 12/22/24 12:00 12/22/24 11:31 100 MLS/HR Fat Emulsion Intravenous 50 ml/ Potassium Acetate 20 meq/Potassium Phosphate 44 meq/ Magnesium Sulfate 8 meq/ Multivitamins 10 ml/Chromium/ Copper/Manganese/ Zinc 1 ml/Insulin Human Regular 16 units/Amino Acids/ Dextrose 983.16 ml @ 41 mls/hr [id number] IV 12/22/24 22:00 12/23/24 21:59 laboratory and microbiology Laboratory Tests 12/22/24 04:48 Test 12/22/24 04:48 Range/Units Serum Glucose 315 H 74-106 mg/dL Microbiology Date/Time Source Procedure Growth Status 12/20/24 17:32 Gastric Fluid Gram Stain - Final Resulted 12/20/24 17:32 Gastric Fluid Body Fluid Culture - Preliminary Resulted 12/16/24 00:00 Voided Urine Urine Culture - Final Complete 12/15/24 13:10 Nose MRSA Screen - Final Complete 12/15/24 11:59 Sputum Gram Stain - Final Complete 12/15/24 11:59 Sputum Respiratory Culture - Final Complete Problem List/Assessment/Plan Problem List/Assessment/Plan Hypernatremia Acute kidney injury on Chronic kidney disease 3A versus B likely hemodynamic mediated--no recent baseline renal function available Diabetes Hypertension surgery on December 12, 2024 for pelvic prolapse, cystocele s/p exploratory laparotomy, small-bowel resection, enteroenterostomy lysis of adhesions and irrigation for peritonitis on December 15, 2024 Recommendations stable renal function increase free water intake for na correction i will sign off this case Plan discussed with: Patient Dietary Evaluation Review Comments: 1. TPN per pharmacy if NPO>7 days 2. Supplement Amino acids 41ml/hr with TF-glucerna @20 ml/hr (29g pro, 576 kcal),if EN/GI accessible. the combo of these two supports pt's protein needs at 0.7g/kg ABW and energy needs at 11 kcal/kg ABW 3. If medically feasible, advance diet to CCHO-60 Renal specific-60 g protein restriction and pt does not require dialysis, with a passing speech eval, Expected Outcomes/Goals: Gradual wt loss, improved protein nutrition status, RENAN PEREIRA MD Dec 22, 2024 16:32
--- NOTE | 2024-12-22 18:50 | DVHPNRES ---
Progress Note Date Seen: Dec 22, 2024 Resident Creating Document: SAMARA MARKS RESIDENT Medical Necessity Reason Pt with a Central, PICC or Fol: Yes The following are medically ne: Central Line, Porter Catheter Reason for porter catheter: Bladder Retention/Obstruc, Dony. Abd Surgery, Strict I&O Subjective Review of Systems Patient seen and examined at the bedside. Extubated 2/4 a.m. continuously monitoring, reported no new complaints except mild abdominal pain, giving pain medication as needed. started diet today. Currently telemetry status. Patient reports: No new complaints, Feels better Objective vital signs Vital Sign Date Time Temp Pulse Resp B/P (MAP) Pulse Ox O2 Delivery O2 Flow Rate FiO2 12/22/24 18:14 72 16 106/51 12/22/24 16:30 98.2 98 98.2 12/22/24 08:00 Nasal Cannula* 2 28 Total Intake and Output 12/21/24 12/21/24 12/22/24 15:00 23:00 07:00 Intake Total 364 ml 427.5 ml 460 ml Output Total 2590 ml 580 ml Balance 364 ml -2162.5 ml -120 ml medications Current Medications Medications Dose Ordered Sig/Carlos Route Start Time Stop Time Status Last Admin Dose Admin Acetaminophen 500 mg Q6HP PRN PO 12/12/24 13:15 12/20/24 13:17 500 MG Pantoprazole Sodium 40 mg DAILY IV 12/16/24 10:00 12/22/24 09:47 40 MG Vancomycin HCl 0 ml @ 0 mls/hr UD IV 12/15/24 15:15 Piperacillin Sod/ Tazobactam Sod 100 ml @ 25 mls/hr Q8H IV 12/16/24 21:00 12/22/24 13:25 25 MLS/HR Insulin Glargine 15 units QAM SC 12/17/24 07:00 12/22/24 06:28 15 UNITS Diagnostic Test (Pha) 1 strip IQ4HR 12/17/24 12:00 12/22/24 16:00 1 STRIP Insulin Human Regular IQ4HR SC 12/17/24 12:00 12/22/24 16:00 12 UNITS Dextrose 50 ml UD PRN IV 12/17/24 09:45 Amino Acids 0 ml @ 0 mls/hr PER PHARMACY IV 12/20/24 14:00 Ondansetron HCl 4 mg Q6HPRN PRN IV 12/20/24 16:45 12/20/24 18:00 4 MG Hydralazine HCl 10 mg Q6HP PRN IV 12/21/24 03:00 12/22/24 07:48 10 MG Fat Emulsion Intravenous 50 ml/ Potassium Acetate 40 meq/Potassium Phosphate 20 meq/ Magnesium Sulfate 12 meq/ Multivitamins 10 ml/Chromium/ Copper/Manganese/ Zinc 1 ml/Insulin Human Regular 5 units/Amino Acids/ Dextrose/Purified Water 1,088.5955 ml @ 45 mls/hr [id number] IV 12/21/24 22:00 12/22/24 21:59 12/21/24 22:36 45 MLS/HR Labetalol HCl 20 mg Q2HPRN PRN IV 12/21/24 14:00 12/22/24 18:04 20 MG Hydromorphone HCl 1 mg Q4HPRN PRN IV 12/21/24 15:00 12/22/24 17:44 1 MG Clonidine HCl 0.1 mg Q7D TD 12/21/24 15:00 Vancomycin HCl 100 ml @ 100 mls/hr Q18H IV 12/22/24 12:00 12/22/24 11:31 100 MLS/HR Fat Emulsion Intravenous 50 ml/ Potassium Acetate 20 meq/Potassium Phosphate 44 meq/ Magnesium Sulfate 8 meq/ Multivitamins 10 ml/Chromium/ Copper/Manganese/ Zinc 1 ml/Insulin Human Regular 16 units/Amino Acids/ Dextrose 983.16 ml @ 41 mls/hr [id number] IV 12/22/24 22:00 12/23/24 21:59 Examination General Appearance: Alert, not fully oriented, able to follow commands, HEENT: Atraumatic, Mucous membranes moist/pink Respiratory: Clear to auscultation, Normal air movement, No added sounds Cardiovascular: Regular rate, Normal S1, Normal S2, No murmurs Abdominal: Laparotomy wound covered with dressing, sutures intact no signs of infection inflammation for now, [address], mildly distended Extremities: No edema, Normal pulses, No tenderness/swelling Skin: No Significant rash, except surgical wound Neuro: limited exam due to patient's status. laboratory and microbiology Laboratory Tests 12/22/24 04:48 Test 12/22/24 04:48 Range/Units Serum Glucose 315 H 74-106 mg/dL Microbiology Date/Time Source Procedure Growth Status 12/20/24 17:32 Gastric Fluid Gram Stain - Final Resulted 12/20/24 17:32 Gastric Fluid Body Fluid Culture - Preliminary Resulted 12/16/24 00:00 Voided Urine Urine Culture - Final Complete 12/15/24 13:10 Nose MRSA Screen - Final Complete 12/15/24 11:59 Sputum Gram Stain - Final Complete 12/15/24 11:59 Sputum Respiratory Culture - Final Complete Labs and/or images reviewed: Labs reviewed by me, Image(s) reviewed by me Problem List/Assessment/Plan Problem List/Assessment/Plan Neurology Cardiology # HTN urgency # Shock likely due to sepsis from peritonitis-improving - Extubated 12/20 a.m. - currently receiving Zosyn, vancomycin & Flagyl - ordered pancultures, Actinomyces bermudian - monitor lab -clonidine patch for hypertension Respiratory # acute hypoxic respiratory failure likely due to sepsis -resolving - Extubated 12/20 a.m. - currently receiving Zosyn, vancomycin - Monitor GI/Liver/ Abdomen # Morbid Obesity - Nutrional councelling # Peritonitis due to ? perforation-improved # Septic shock due to above # ? small bowel perforation # Bowel Adhesions - Evident on CT - status post exploratory laparotomy, small-bowel resection, enteroenterostomy, adhesiolysis, patient tolerated to the procedure - currently monitoring - currently receiving Zosyn, vancomycin - Ordered new CT with the contrast which showed no significant interval changes. /Kidney/Reproductive # JAKE likely vasomotor on CKD stage 3 - monitor lab - avoid nephrotoxic agents # Uterine/Pelvic prolapse # cystocele # stress incontinence # ? vaginal lesion - postoperative day 4 status post desera I single incision urethral sling, cystocele repair - vaginal mucosa lesion sent for biopsy [facility] Endocrine/Meatbolic # uncontrolled type 2 DM HbA1c 8.2 - Accu-Cheks and ISS # hypernatremia -monitor lab for now -D5W # hyperkalemia - monitor lab # Skin ID # Peritonitis due to ? perforation # Septic shock due to above - currently receiving Zosyn, vancomycin - ordered pancultures, Actinomyces bermudian Lines Intubated 12/15 Extubated 4 a.m. Right IJ CVC 12/15 Porter Dips Fentanyl , Versed,Diprivan off 01/16 Levophed off 2/3 Precedex 2/3 PUD PPX : Protonix VTE PPX : SCDs Diet: TPN Goals of care discussed with the family for more than 29 minutes: Full code status Critical care time spent including chart review, discussing with the patient's family excluding procedures: 44 minutes Plan of care updated to daughter on phone. Case discussed with . Extubated 2/ Plan discussed with: Patient, Other (family) My Orders My Orders Orders - SAMARA MARKS Procedure Category Date Status Time Amino Acid PHA 12/22/24 In Process Infusion... W/Fat 22:00 Comprehensive LAB 12/23/24 Verified Metabolic Panel 04:00 Magnesium LAB 12/23/24 Verified 04:00 Phosphorus LAB 12/23/24 Verified 04:00 Tpn Per Pharmacy [facility] 12/22/24 In Process 22:00 Complete Blood Count LAB 12/23/24 Verified 04:00 Dietary Evaluation Review Comments: 1. TPN per pharmacy if NPO>7 days 2. Supplement Amino acids 41ml/hr with TF-glucerna @20 ml/hr (29g pro, 576 kcal),if EN/GI accessible. the combo of these two supports pt's protein needs at 0.7g/kg ABW and energy needs at 11 kcal/kg ABW 3. If medically feasible, advance diet to CCHO-60 Renal specific-60 g protein restriction and pt does not require dialysis, with a passing speech eval, Expected Outcomes/Goals: Gradual wt loss, improved protein nutrition status, Date of Service: Dec 22, 2024 Billing Provider: MJ PERERA MD Common Visit Codes: 74961-[id number] CARE 30-74 MIN SAMARA MARKS RESIDENT Dec 22, 2024 18:50 MJ PERERA MD Dec 25, 2024 13:01
[2024-12-22] MEDS: TPN PER PHARMACY IV NR (22:36)
[2024-12-23] VITALS (7 sets, daily range): BP systolic 120–145; BP diastolic 48–72; PULSE 60–91; RESP 18–19; TEMP 97.4–99.3; O2SAT 90–100
[2024-12-23] MEDS: VANCOMYCIN 750MG KIT 100 ML IV SCH ×2 (06:00→17:23)
--- NOTE | 2024-12-23 09:18 | DVHPN2 ---
Progress Note Date Seen: Dec 23, 2024 Medical Necessity Reason Pt with a Central, PICC or Fol: Yes The following are medically ne: Central Line, Porter Catheter Reason for porter catheter: Bladder Retention/Obstruc, Dony. Abd Surgery, Strict I&O Subjective Review of Systems: HEENT:Normal, CVS:Normal, RESPIRATORY:Normal, GI:Abnormal (abdominal pain ), MSK:Normal, NEURO:Normal Objective vital signs Vital Sign Date Time Temp Pulse Resp B/P (MAP) Pulse Ox O2 Delivery O2 Flow Rate FiO2 12/23/24 09:02 98.3 86 18 139/52 (81) 94 98.3 12/22/24 20:00 Nasal Cannula* 2 28 Total Intake and Output 12/22/24 12/22/24 12/23/24 15:00 23:00 07:00 Intake Total 460 ml 0 ml 400 ml Output Total 650 ml Balance 460 ml 0 ml -250 ml medications Current Medications Medications Dose Ordered Sig/Carlos Route Start Time Stop Time Status Last Admin Dose Admin Acetaminophen 500 mg Q6HP PRN PO 12/12/24 13:15 12/20/24 13:17 500 MG Pantoprazole Sodium 40 mg DAILY IV 12/16/24 10:00 12/22/24 09:47 40 MG Vancomycin HCl 0 ml @ 0 mls/hr UD IV 12/15/24 15:15 Piperacillin Sod/ Tazobactam Sod 100 ml @ 25 mls/hr Q8H IV 12/16/24 21:00 12/23/24 04:04 25 MLS/HR Insulin Glargine 15 units QAM SC 12/17/24 07:00 12/23/24 05:37 15 UNITS Diagnostic Test (Pha) 1 strip IQ4HR 12/17/24 12:00 12/23/24 08:43 1 STRIP Insulin Human Regular IQ4HR SC 12/17/24 12:00 12/23/24 08:43 8 UNITS Dextrose 50 ml UD PRN IV 12/17/24 09:45 Amino Acids 0 ml @ 0 mls/hr PER PHARMACY IV 12/20/24 14:00 Ondansetron HCl 4 mg Q6HPRN PRN IV 12/20/24 16:45 12/22/24 20:05 4 MG Hydralazine HCl 10 mg Q6HP PRN IV 12/21/24 03:00 12/22/24 23:13 10 MG Labetalol HCl 20 mg Q2HPRN PRN IV 12/21/24 14:00 12/22/24 18:04 20 MG Hydromorphone HCl 1 mg Q4HPRN PRN IV 12/21/24 15:00 12/23/24 03:08 1 MG Clonidine HCl 0.1 mg Q7D TD 12/21/24 15:00 Fat Emulsion Intravenous 50 ml/ Potassium Acetate 20 meq/Potassium Phosphate 44 meq/ Magnesium Sulfate 8 meq/ Multivitamins 10 ml/Chromium/ Copper/Manganese/ Zinc 1 ml/Insulin Human Regular 16 units/Amino Acids/ Dextrose 983.16 ml @ 41 mls/hr [id number] IV 12/22/24 22:00 12/23/24 21:59 12/22/24 22:36 41 MLS/HR Vancomycin HCl 100 ml @ 100 mls/hr Q18H IV 12/23/24 06:00 Examination: GENERAL:Normal, HEENT:Normal, NECK:Normal, LUNGS:Normal, CVS:Normal, ABDOMEN:Abnormal (LIZA drains) laboratory and microbiology Test 12/23/24 08:55 Range/Units Serum Glucose Pending Problem List/Assessment/Plan Problem List/Assessment/Plan 12/19/24 labs, notes , reviewed and discussed with Dr. Riley patient intubated , off sedation, abdomen soft, LIZA drain serous fluid, wound clean dry and intact, per nurse CPAP trial today 12/23/24 patient complains of abdominal pain , abdomen appropriately tender, LIZA 1 drain murky, NPO, patient to ambulate, will get a Gastrografin study tomorrow Plan discussed with: Patient, Other (Dr. Riley) Dietary Evaluation Review Comments: 1. TPN per pharmacy if NPO>7 days 2. Supplement Amino acids 41ml/hr with TF-glucerna @20 ml/hr (29g pro, 576 kcal),if EN/GI accessible. the combo of these two supports pt's protein needs at 0.7g/kg ABW and energy needs at 11 kcal/kg ABW 3. If medically feasible, advance diet to CCHO-60 Renal specific-60 g protein restriction and pt does not require dialysis, with a passing speech eval, Expected Outcomes/Goals: Gradual wt loss, improved protein nutrition status, ANTHONY ONOFRE NP Dec 23, 2024 09:18
[2024-12-23 09:24] LABS: Basophils # (auto) 0 10 ^3/uL (0-0.2); Basophils % (auto) 0.2 % (0.0-2.0); Eosinophils # (auto) 0.3 10 ^3/uL (0-0.8); Mean Corpuscular Hemoglobin 26.7 pg (28.0-32.0); Neutrophils # (auto) 13.5 10 ^3/uL (1.6-8.6)
[2024-12-23 09:27] LABS: Eosinophils % (auto) 1.7 % (0.0-7.0); Hematocrit 38.1 % (36.0-46.0); Hemoglobin 12.1 g/dL (12.2-16.2); Lymphocytes # (auto) 1.8 10 ^3/uL (0.4-5.4); Lymphocytes % (auto) 10.2 % (10.0-50.0); Mean Corpuscular Hgb Conc. 31.7 g/dL (32.0-36.0); Mean Corpuscular Volume 84.3 fL (80.0-100.0); Monocytes % (auto) 11.5 % (0.0-12.0); Neutrophils % (auto) 76.4 % (37.0-80.0); Platelet Count (auto) 203 10^3/uL (140-450); Red Blood Cells 4.52 10^6/uL (4.0-5.20); Red Cell Distribution Width 18.1 % (11.8-14.3); White Blood Cell 17.6 10^3/uL (4.4-10.8)
[2024-12-23 09:39] LABS: Alanine Aminotransferase 23 U/L (7-40); Albumin 3.2 g/dL (3.2-4.8); Anion Gap 10 (5-15); Aspartate Aminotransferase 35 U/L (13-40); BUN/Creatinine Ratio 19.3 (10.0-20.0); Bilirubin, Total 0.7 mg/dL (0.2-1.0); Calcium 9.1 mg/dL (8.7-10.4); Carbon Dioxide 23 mmol/L (20-31); Magnesium 2.3 mg/dL (1.6-2.6); Phosphorus 2.7 mg/dL (2.4-5.1); Potassium 3.9 mmol/L (3.5-5.1); Sodium 141 mmol/L (136-145)
[2024-12-23 09:41] LABS: Alkaline Phosphatase 155 U/L (46-116); Blood Urea Nitrogen 23 mg/dL (9-23); Chloride 108 mmol/L (98-107); Glucose 246 mg/dL (74-106); Total Protein 5.3 g/dL (5.7-8.2)
--- NOTE | 2024-12-23 18:17 | DVHPNRES ---
Progress Note Date Seen: Dec 23, 2024 Resident Creating Document: SAMARA MARKS RESIDENT Medical Necessity Reason Pt with a Central, PICC or Fol: Yes The following are medically ne: Central Line, Porter Catheter Reason for porter catheter: Bladder Retention/Obstruc, Dony. Abd Surgery, Strict I&O Subjective Review of Systems Patient seen and examined at the bedside. Extubated 2/4 a.m. continuously monitoring, reported no new complaints except mild abdominal pain, giving pain medication as needed. Currently telemetry status. Surgery tomorrow. consultanant evaluated the patient advised Gastrografin study tomorrow. Patient reports: No new complaints, Feels better Objective vital signs Vital Sign Date Time Temp Pulse Resp B/P (MAP) Pulse Ox O2 Delivery O2 Flow Rate FiO2 12/23/24 10:17 91 16 145/54 12/23/24 09:02 98.3 94 98.3 12/22/24 20:00 Nasal Cannula* 2 28 Total Intake and Output 12/22/24 12/22/24 12/23/24 15:00 23:00 07:00 Intake Total 460 ml 0 ml 400 ml Output Total 650 ml Balance 460 ml 0 ml -250 ml medications Current Medications Medications Dose Ordered Sig/Carlos Route Start Time Stop Time Status Last Admin Dose Admin Acetaminophen 500 mg Q6HP PRN PO 12/12/24 13:15 12/20/24 13:17 500 MG Pantoprazole Sodium 40 mg DAILY IV 12/16/24 10:00 12/23/24 09:26 40 MG Vancomycin HCl 0 ml @ 0 mls/hr UD IV 12/15/24 15:15 Piperacillin Sod/ Tazobactam Sod 100 ml @ 25 mls/hr Q8H IV 12/16/24 21:00 12/23/24 13:01 25 MLS/HR Insulin Glargine 15 units QAM SC 12/17/24 07:00 12/23/24 05:37 15 UNITS Diagnostic Test (Pha) 1 strip IQ4HR 12/17/24 12:00 12/23/24 17:23 1 STRIP Insulin Human Regular IQ4HR SC 12/17/24 12:00 12/23/24 17:47 12 UNITS Dextrose 50 ml UD PRN IV 12/17/24 09:45 Amino Acids 0 ml @ 0 mls/hr PER PHARMACY IV 12/20/24 14:00 Ondansetron HCl 4 mg Q6HPRN PRN IV 12/20/24 16:45 12/22/24 20:05 4 MG Hydralazine HCl 10 mg Q6HP PRN IV 12/21/24 03:00 12/22/24 23:13 10 MG Labetalol HCl 20 mg Q2HPRN PRN IV 12/21/24 14:00 12/22/24 18:04 20 MG Hydromorphone HCl 1 mg Q4HPRN PRN IV 12/21/24 15:00 12/23/24 09:26 1 MG Clonidine HCl 0.1 mg Q7D TD 12/21/24 15:00 Fat Emulsion Intravenous 50 ml/ Potassium Acetate 20 meq/Potassium Phosphate 44 meq/ Magnesium Sulfate 8 meq/ Multivitamins 10 ml/Chromium/ Copper/Manganese/ Zinc 1 ml/Insulin Human Regular 16 units/Amino Acids/ Dextrose 983.16 ml @ 41 mls/hr [id number] IV 12/22/24 22:00 12/23/24 21:59 12/22/24 22:36 41 MLS/HR Fat Emulsion Intravenous 100 ml/Potassium Acetate 20 meq/ Potassium Phosphate 44 meq/ Magnesium Sulfate 8 meq/ Multivitamins 10 ml/Chromium/ Copper/Manganese/ Zinc 1 ml/Insulin Human Regular 22 units/Amino Acids/ Dextrose 1,033.22 ml @ 43 mls/hr Q24H2M IV 12/23/24 22:00 12/24/24 21:59 Fluconazole 100 ml @ 100 mls/hr 1900,2000 IV 12/23/24 19:00 Vancomycin HCl 100 ml @ 100 mls/hr Q14H IV 12/23/24 17:00 12/23/24 17:23 100 MLS/HR Examination General Appearance: Alert, fully oriented, able to follow commands, HEENT: Atraumatic, Mucous membranes moist/pink Respiratory: Clear to auscultation, Normal air movement, No added sounds Cardiovascular: Regular rate, Normal S1, Normal S2, No murmurs Abdominal: Laparotomy wound covered with dressing, sutures intact no signs of infection inflammation for now, [address], mildly distended. tenderness Extremities: No edema, Normal pulses, No tenderness/swelling Skin: No Significant rash, except surgical wound Neuro: limited exam due to patient's status. laboratory and microbiology Laboratory Tests 12/23/24 08:55 Test 12/23/24 08:55 Range/Units Serum Glucose 246 H 74-106 mg/dL Microbiology Date/Time Source Procedure Growth Status 12/20/24 17:32 Gastric Fluid Gram Stain - Final Resulted 12/20/24 17:32 Gastric Fluid Body Fluid Culture - Preliminary Resulted 12/16/24 00:00 Voided Urine Urine Culture - Final Complete 12/15/24 13:10 Nose MRSA Screen - Final Complete 12/15/24 11:59 Sputum Gram Stain - Final Complete 12/15/24 11:59 Sputum Respiratory Culture - Final Complete Labs and/or images reviewed: Labs reviewed by me, Image(s) reviewed by me Problem List/Assessment/Plan Problem List/Assessment/Plan Neurology Cardiology # HTN urgency # Shock likely due to sepsis from peritonitis-improving - Extubated 12/20 a.m. - currently receiving Zosyn, vancomycin & Flagyl - ordered pancultures, Actinomyces kittitian - monitor lab -clonidine patch for hypertension Respiratory # acute hypoxic respiratory failure likely due to sepsis -resolving - Extubated 12/20 a.m. - currently receiving Zosyn, vancomycin - Monitor GI/Liver/ Abdomen # Morbid Obesity - Nutrional councelling # Peritonitis due to ? perforation-improved # Septic shock due to above # ? small bowel perforation # Bowel Adhesions - Evident on CT - status post exploratory laparotomy, small-bowel resection, enteroenterostomy, adhesiolysis, patient tolerated to the procedure - currently monitoring - currently receiving Zosyn, vancomycin - Ordered new CT with the contrast which showed no significant interval changes. -started fluconazole due to body fluid culture showed possible yeast /Kidney/Reproductive # JAKE likely vasomotor on CKD stage 3 - monitor lab - avoid nephrotoxic agents # Uterine/Pelvic prolapse # cystocele # stress incontinence # ? vaginal lesion - postoperative day 4 status post desera I single incision urethral sling, cystocele repair - vaginal mucosa lesion sent for biopsy [facility] Endocrine/Meatbolic # uncontrolled type 2 DM HbA1c 8.2 - Accu-Cheks and ISS # hypernatremia -monitor lab for now -D5W # hyperkalemia - monitor lab # Skin ID # Peritonitis due to ? perforation # Septic shock due to above - currently receiving Zosyn, vancomycin - ordered pancultures, Actinomyces kittitian Lines Intubated 12/15 Extubated 2/4 a.m. Right IJ CVC 12/15 Porter Dips Fentanyl , Versed,Diprivan off 01/16 Levophed off 12/19 Precedex 2/3 PUD PPX : Protonix VTE PPX : SCDs Diet: TPN Goals of care discussed with the family for more than 29 minutes: Full code status Critical care time spent including chart review, discussing with the patient's family excluding procedures: 54 minutes Plan of care updated to daughter on phone. Case discussed with . Gastrografin studies tomorrow. NPO Plan discussed with: Patient, Daughter My Orders My Orders Orders - SAMARA MARKS RESIDENT Procedure Category Date Status Time Amino Acid PHA 12/23/24 In Process Infusion... W/Fat 22:00 Comprehensive LAB 12/24/24 Verified Metabolic Panel 04:00 Magnesium LAB 12/24/24 Verified 04:00 Phosphorus LAB 12/24/24 Verified 04:00 Tpn Per Pharmacy [facility] 12/23/24 In Process 22:00 Complete Blood Count LAB 12/24/24 Verified 04:00 Chest Xray 1 View XY 12/24/24 Logged 04:00 Dietary Evaluation Review Comments: 1. TPN per pharmacy if NPO>7 days 2. Supplement Amino acids 41ml/hr with TF-glucerna @20 ml/hr (29g pro, 576 kcal),if EN/GI accessible. the combo of these two supports pt's protein needs at 0.7g/kg ABW and energy needs at 11 kcal/kg ABW 3. If medically feasible, advance diet to CCHO-60 Renal specific-60 g protein restriction and pt does not require dialysis, with a passing speech eval, Expected Outcomes/Goals: Gradual wt loss, improved protein nutrition status, SAMARA MARKS RESIDENT Dec 23, 2024 18:17
--- NOTE | 2024-12-23 18:49 | DVHTSRES ---
Transfer Summary Transfer Summary Resident Creating Document: SAMARA MARKS Date of Admission Dec 12, 2024 at 13:06 Date of Transfer: Dec 23, 2024 Transfer Diagnosis Sepsis Brief Hx & Hospital Course: ANEESH QUINTANILLA 68 years old female with a PMH of type 2 DM, HTN, dementia admitted for the surgery of pelvic prolapse and cystocele, surgery was done on 12/12/2024, developed peritonitis and small-bowel perforation which is evident on CT, performed exploratory laparotomy on 12/15/2024, intubated and brought her to ICU. Patient is diagnosed as septic shock due to questionable peritonitis, acute hypoxic respiratory failure which required intubation, patient was transferred to ICU, kept her on Levophed and sedated with fentanyl and Versed and ordered pancultures which showed Actinomyces patient was given Zosyn, vancomycin and Flagyl eventually Flagyl discontinued. Due to peritonitis, surgeon evaluated the patient and performed exploratory laparotomy, small-bowel resection, enteroenterostomy, adhesiolysis, patient tolerated to the procedure. Patient was continuously monitored in ICU, Eventually patient condition is got better, extubated on 12/20/24, initiated diet on 12/22 as tolerated patient was downgraded to telemetry. Transfer to: Resident Transfer Status stable SAMARA MARKS Dec 23, 2024 18:48
--- NOTE | 2024-12-23 19:29 | DVH ---
CHEST RADIOGRAPH Indication: central line placement Technique: Single frontal view of the chest was obtained Comparison: XY CHEST XRAY 1 VIEW on DOS: 12/22/24, XY CHEST XRAY 1 VIEW on DOS: 12/21/24, XY CHEST XRAY 1 VIEW on DOS: 12/20/24 FINDINGS: Lines and Tubes: Right internal jugular catheter in place in the superior vena cava. There is no pneu mothorax on the right. Lungs: No focal consolidation. Pleura: No effusion. No pneumothorax. Cardiomediastinal contours: Unremarkable Bones: No acute osseous abnormality. IMPRESSION: 1. Right internal jugular catheter in the superior vena cava. 2. No pneumothorax.
[2024-12-23] MEDS: FLUCONAZOLE 200MG/100ML 100 ML IV SCH (20:00)
[2024-12-23] MEDS: TPN PER PHARMACY IV NR (20:53)
[2024-12-24] VITALS (8 sets, daily range): BP systolic 126–156; BP diastolic 40–66; PULSE 64–82; RESP 18–22; TEMP 98–100.3; O2SAT 98–100
[2024-12-24 07:26] LABS: Basophils # (auto) 0.1 10 ^3/uL (0-0.2); Basophils % (auto) 0.7 % (0.0-2.0); Eosinophils # (auto) 0.3 10 ^3/uL (0-0.8); Eosinophils % (auto) 2.5 % (0.0-7.0); Hematocrit 31.2 % (36.0-46.0); Hemoglobin 10.5 g/dL (12.2-16.2); Lymphocytes # (auto) 2.2 10 ^3/uL (0.4-5.4); Lymphocytes % (auto) 20.5 % (10.0-50.0); Mean Corpuscular Hemoglobin 33.2 pg (28.0-32.0); Mean Corpuscular Hgb Conc. 33.7 g/dL (32.0-36.0); Mean Corpuscular Volume 98.6 fL (80.0-100.0); Monocytes # (auto) 0.5 10 ^3/uL (0-1.3); Monocytes % (auto) 4.8 % (0.0-12.0); Neutrophils # (auto) 7.6 10 ^3/uL (1.6-8.6); Neutrophils % (auto) 71.5 % (37.0-80.0); Platelet Count (auto) 228 10^3/uL (140-450); Red Blood Cells 3.17 10^6/uL (4.0-5.20); Red Cell Distribution Width 14.4 % (11.8-14.3); White Blood Cell 10.7 10^3/uL (4.4-10.8)
[2024-12-24 07:41] LABS: Alanine Aminotransferase 12 U/L (7-40); Albumin 3.7 g/dL (3.2-4.8); Alkaline Phosphatase 84 U/L (46-116); Anion Gap 7 (5-15); BUN/Creatinine Ratio 26.4 (10.0-20.0); Bilirubin, Total 0.4 mg/dL (0.2-1.0); Carbon Dioxide 27 mmol/L (20-31); Magnesium 2.2 mg/dL (1.6-2.6); Phosphorus 4.2 mg/dL (2.4-5.1); Potassium 4.6 mmol/L (3.5-5.1); Sodium 141 mmol/L (136-145); Total Protein 5.8 g/dL (5.7-8.2)
[2024-12-24 07:43] LABS: Aspartate Aminotransferase 11 U/L (13-40); Blood Urea Nitrogen 34 mg/dL (9-23); Calcium 10.6 mg/dL (8.7-10.4); Chloride 107 mmol/L (98-107); Glucose 177 mg/dL (74-106)
--- NOTE | 2024-12-24 08:31 | DVH ---
EXAM: XR Chest, 1 View CLINICAL INDICATION: pna TECHNIQUE: Frontal view of the chest. COMPARISON: XY CHEST PORTABLE on DOS: 12/23/24, XY CHEST XRAY 1 VIEW on DOS: 12/22/24, XY CHEST XRAY 1 VIEW on DOS: 12/21/24, XY CHEST XRAY 1 VIEW on DOS: 12/20/24, XY CHEST PORTABLE on DOS: 12/19/24 FINDINGS: LUNGS AND PLEURAL SPACES: Unremarkable. No consolidation. No pneumothorax. HEART: Unremarkable. No cardiomegaly. MEDIASTINUM: Unremarkable. Normal mediastinal contour. BONES/JOINTS: Unremarkable. No acute fracture. OTHER FINDINGS: . Right IJ venous catheter with distal tip in SVC. IMPRESSION: No acute cardiopulmonary process.
--- NOTE | 2024-12-24 10:25 | DVHPN2 ---
Progress Note Date Seen: Dec 24, 2024 Medical Necessity Reason Pt with a Central, PICC or Fol: Yes The following are medically ne: Central Line, Porter Catheter Reason for porter catheter: Bladder Retention/Obstruc, Dony. Abd Surgery, Strict I&O Objective vital signs Vital Sign Date Time Temp Pulse Resp B/P (MAP) Pulse Ox O2 Delivery O2 Flow Rate FiO2 12/24/24 08:00 98.2 64 19 126/40 (68) 100 98.2 12/24/24 08:00 Nasal Cannula* 2 28 Total Intake and Output 12/23/24 12/23/24 12/24/24 15:00 23:00 07:00 Intake Total 200 ml 516 ml Output Total 110 ml 750 ml 435 ml Balance -110 ml -550 ml 81 ml medications Current Medications Medications Dose Ordered Sig/Carlos Route Start Time Stop Time Status Last Admin Dose Admin Acetaminophen 500 mg Q6HP PRN PO 12/12/24 13:15 12/20/24 13:17 500 MG Pantoprazole Sodium 40 mg DAILY IV 12/16/24 10:00 12/23/24 09:26 40 MG Vancomycin HCl 0 ml @ 0 mls/hr UD IV 12/15/24 15:15 Piperacillin Sod/ Tazobactam Sod 100 ml @ 25 mls/hr Q8H IV 12/16/24 21:00 12/24/24 06:32 25 MLS/HR Insulin Glargine 15 units QAM SC 12/17/24 07:00 12/24/24 06:39 15 UNITS Diagnostic Test (Pha) 1 strip IQ4HR 12/17/24 12:00 12/24/24 08:41 1 STRIP Insulin Human Regular IQ4HR SC 12/17/24 12:00 12/24/24 09:03 12 UNITS Dextrose 50 ml UD PRN IV 12/17/24 09:45 Amino Acids 0 ml @ 0 mls/hr PER PHARMACY IV 12/20/24 14:00 Ondansetron HCl 4 mg Q6HPRN PRN IV 12/20/24 16:45 12/23/24 20:07 4 MG Hydralazine HCl 10 mg Q6HP PRN IV 12/21/24 03:00 12/22/24 23:13 10 MG Labetalol HCl 20 mg Q2HPRN PRN IV 12/21/24 14:00 12/22/24 18:04 20 MG Hydromorphone HCl 1 mg Q4HPRN PRN IV 12/21/24 15:00 12/24/24 01:13 1 MG Clonidine HCl 0.1 mg Q7D TD 12/21/24 15:00 Fat Emulsion Intravenous 100 ml/Potassium Acetate 20 meq/ Potassium Phosphate 44 meq/ Magnesium Sulfate 8 meq/ Multivitamins 10 ml/Chromium/ Copper/Manganese/ Zinc 1 ml/Insulin Human Regular 22 units/Amino Acids/ Dextrose 1,033.22 ml @ 43 mls/hr Q24H2M IV 12/23/24 22:00 12/24/24 21:59 12/23/24 20:53 43 MLS/HR Fluconazole 100 ml @ 100 mls/hr 1900,2000 IV 12/23/24 19:00 12/23/24 20:04 100 MLS/HR Vancomycin HCl 100 ml @ 100 mls/hr Q14H IV 12/23/24 17:00 12/24/24 06:33 100 MLS/HR laboratory and microbiology Laboratory Tests 12/24/24 07:06 Test 12/24/24 07:06 Range/Units Serum Glucose 177 H 74-106 mg/dL Problem List/Assessment/Plan Problem List/Assessment/Plan 12/15/24 abdomen more distended, green drainage per colleen drains elev.WBC, abdomen very tender, will proceed with exploratory laparotomy as CT scan report is suspicious for bowel perforation and clinical findings corroborate the suspicion. 12/16/24 AFEBRILE, WOUND CLEAN AND WELL APPROXIMATED, DRAINS SEROSANGUINEOUS, ABDOMEN NON DISTENDED, SOFT, GOOD URINE OUTPUT. DISCUSSED WITH PRIMARY TEAM WEANING OFF VENTILATOR. 12/17/24 REMAINS INTUBATED SEDATED ON VENTILATOR, WOUND CLEAN AND WELL APPROXIMATED, COLLEEN DRAINAGE SERO SANGUINEOUS, LABS OK, 'surgically"stable 12/18/24 lightly sedated, still intubated, wound clean and well approximated , COLLEEN drainage serous, qabdeomen soft and not distended, labs:HyperNatremia, cbc OK. should bed able to be weaned off ventilator 12/20/24/ CPAP TRIAL IN PROGRESS, AROUSABLE, WOUND CLEAN AND WELL APPROXIMATED, DRAINAGE NON BILIOUS, NON PARTICULAR, ABDOMEN SOFT DOES NOT APPEAR TO BE TENDER OTHER THAN EXPECTED TENDERNESS 12/22/24 EXTUBATED,ALERT.ORIENTED,WOUND CLEAN AND WELL APPROXIMATED,ABDOMEN MINIMALLY TENDER, COLLEEN DRAINAGE CLEAR. HAVING NORMAL BOWEL ACTIVITY, EDOUARD START PO 12/24/24 less confused, passing flatus., abdomen soft and non distended, non tender, drainage serous will start po intake, must ambulate q 4 hours, will stop injectable pain Rx(confusion) Plan discussed with: Patient Dietary Evaluation Review Comments: 1. TPN per pharmacy if NPO>7 days 2. Supplement Amino acids 41ml/hr with TF-glucerna @20 ml/hr (29g pro, 576 kcal),if EN/GI accessible. the combo of these two supports pt's protein needs at 0.7g/kg ABW and energy needs at 11 kcal/kg ABW 3. If medically feasible, [facility] specific-60 g protein restriction and pt does not require dialysis, with a passing speech eval, Expected Outcomes/Goals: Gradual wt loss, improved protein nutrition status, NITO LANDA MD Dec 24, 2024 10:25
[2024-12-24] MEDS: ACETAMINOPHEN/CODEINE#3 (300/30mg) TAB PO PRN (11:49)
--- NOTE | 2024-12-24 12:27 | DVHPN2 ---
Reviewed: Care Plan, H&P, Labs, Medications, Previous Orders, Radiology Changes from previous H/P or p: No Changes General: Per HPI Objective Vitals Vital Signs Date Time Temp Pulse Resp B/P (MAP) Pulse Ox O2 Delivery O2 Flow Rate FiO2 12/24/24 08:00 98.2 64 19 126/40 (68) 100 98.2 12/24/24 08:00 Nasal Cannula* 2 28 Intake/Output Intake and Output 12/24/24 07:00 Intake Total 716 ml Output Total 1295 ml Balance -579 ml IV Total 716 ml Output Urine Total 1100 ml Drainage Total 195 ml # Bowel Movements 1 Medications Current Medications Medications Dose Ordered Sig/Carlos Route Start Time Stop Time Status Last Admin Dose Admin Acetaminophen 500 mg Q6HP PRN PO 12/12/24 13:15 12/20/24 13:17 500 MG Pantoprazole Sodium 40 mg DAILY IV 12/16/24 10:00 12/24/24 11:49 40 MG Vancomycin HCl 0 ml @ 0 mls/hr UD IV 12/15/24 15:15 Piperacillin Sod/ Tazobactam Sod 100 ml @ 25 mls/hr Q8H IV 12/16/24 21:00 12/24/24 06:32 25 MLS/HR Insulin Glargine 15 units QAM SC 12/17/24 07:00 12/24/24 06:39 15 UNITS Diagnostic Test (Pha) 1 strip IQ4HR 12/17/24 12:00 12/24/24 08:41 1 STRIP Insulin Human Regular IQ4HR SC 12/17/24 12:00 12/24/24 09:03 12 UNITS Dextrose 50 ml UD PRN IV 12/17/24 09:45 Amino Acids 0 ml @ 0 mls/hr PER PHARMACY IV 12/20/24 14:00 Ondansetron HCl 4 mg Q6HPRN PRN IV 12/20/24 16:45 12/23/24 20:07 4 MG Hydralazine HCl 10 mg Q6HP PRN IV 12/21/24 03:00 12/22/24 23:13 10 MG Labetalol HCl 20 mg Q2HPRN PRN IV 12/21/24 14:00 12/22/24 18:04 20 MG Clonidine HCl 0.1 mg Q7D TD 12/21/24 15:00 Fat Emulsion Intravenous 100 ml/Potassium Acetate 20 meq/ Potassium Phosphate 44 meq/ Magnesium Sulfate 8 meq/ Multivitamins 10 ml/Chromium/ Copper/Manganese/ Zinc 1 ml/Insulin Human Regular 22 units/Amino Acids/ Dextrose 1,033.22 ml @ 43 mls/hr Q24H2M IV 12/23/24 22:00 12/24/24 21:59 12/23/24 20:53 43 MLS/HR Fluconazole 100 ml @ 100 mls/hr 1900,2000 IV 12/23/24 19:00 12/23/24 20:04 100 MLS/HR Vancomycin HCl 100 ml @ 100 mls/hr Q14H IV 12/23/24 17:00 12/24/24 06:33 100 MLS/HR Acetaminophen/ Codeine Phosphate 1 tab Q4HP PRN PO 12/24/24 10:30 12/24/24 11:49 1 TAB Fat Emulsion Intravenous 100 ml/Potassium Acetate 20 meq/ Potassium Phosphate 22 meq/ Magnesium Sulfate 8 meq/ Multivitamins 10 ml/Chromium/ Copper/Manganese/ Zinc 1 ml/Insulin Human Regular 20 units/Amino Acids/ Dextrose/Purified Water 1,178.2 ml @ 49 mls/hr Q24H3M IV 12/24/24 22:00 12/25/24 21:59 Laboratory Results Laboratory Tests 12/24/24 07:06 Chemistry Test 12/24/24 07:06 Albumin 3.7 g/dL (3.2-4.8) Calcium Level 10.6 mg/dL (8.7-10.4) H Magnesium Level 2.2 mg/dL (1.6-2.6) Phosphorus Level 4.2 mg/dL (2.4-5.1) Total Protein 5.8 g/dL (5.7-8.2) LFT Test 12/24/24 07:06 Alanine Aminotransferase (ALT) 12 U/L (7-40) Alkaline Phosphatase 84 U/L (46-116) Aspartate Amino Transferase (AST) 11 U/L (13-40) L Total Bilirubin 0.4 mg/dL (0.2-1.0) Urinalysis Test 12/14/24 01:38 Urine Color Yellow (Yellow) Urine Clarity Turbid (Clear) H Urine pH 5.0 (5.0-9.0) Urine Specific [place] 1.019 (1.001-1.035) Urine Protein Trace (Negative) H Urine Ketones Negative (Negative) Urine Blood 2+ /uL (Negative) H Urine Nitrite Negative (Negative) Urine Bilirubin Negative (Negative) Urine Urobilinogen Normal mg/dL (Negative) Urine Leukocyte Esterase Trace /uL (Negative) Urine RBC 59 /hpf (0 - 4) Urine Microscopic WBC 7 /HPF (0-5) H Urine Squamous Epithelial Cells Few /hpf (<5) Urine Bacteria None seen /hpf (None Seen) Urine Hyaline Casts Few /lpf (0 - 2) Urine Mucus Few (None Seen) Urine Glucose 3+ mg/dL (Normal) H Microbiology Microbiology Date/Time Source Procedure Growth Status 12/20/24 17:32 Gastric Fluid Gram Stain - Final Resulted 12/20/24 17:32 Gastric Fluid Body Fluid Culture - Preliminary Resulted 12/16/24 00:00 Voided Urine Urine Culture - Final Complete 12/15/24 13:10 Nose MRSA Screen - Final Complete 12/15/24 11:59 Sputum Gram Stain - Final Complete 12/15/24 11:59 Sputum Respiratory Culture - Final Complete Labs and/or images reviewed: Labs reviewed by me, Image(s) reviewed by me Assessment/Plan Assessment/Plan Covering for resident physician Septic shock secondary to peritonitis Acute respiratory failure requiring intubation, extubated now Hypertensive urgency Acute peritonitis possibly secondary to perforation Small bowel perforation Adhesions of the small intestine JAKE versus CKD 3 Uterine prolapse status post Attempted diagnostic laparoscopy, abandoned for exploratory laparotomy, Desera I single incision urethral sling, cystocele repair by DR Candelario on 12/12/2024 Exploratory laparotomy, small bowel resection, enteroenterostomy, irrigation of the bowel, lysis of adhesions, insertion of drains by Dr. Riley on 12/15/2024 Vaginal mucosa lesion sent for biopsy Cystocele Stress incontinence Uncontrolled diabetes: Insulin sliding scale Nutrition: TPN DVT prophylaxis: Pantoprazole Condition Guarded Time spent 70 minutes Advanced care planning time 20 minutes Prognosis poor Patient is full code Plan discussed with: Patient Date of Service: Dec 24, 2024 Billing Provider: AUTUMN LUNA MD Common Visit Codes: [id number] CARE 30-74 MIN, [id number] CARE-EACH +30MIN AUTUMN LUNA MD Dec 24, 2024 12:27
[2024-12-24] MEDS: TPN PER PHARMACY IV NR (21:36)
[2024-12-25] VITALS (8 sets, daily range): BP systolic 128–162; BP diastolic 50–107; PULSE 72–95; RESP 17–20; TEMP 97.7–99; O2SAT 95–100
[2024-12-25] MEDS: DOCUSATE SOD 100 MG CAP PO ONE (06:34)
--- NOTE | 2024-12-25 11:05 | DVHPN2 ---
Progress Note Date Seen: Dec 25, 2024 Medical Necessity Reason Pt with a Central, PICC or Fol: Yes The following are medically ne: Central Line, Porter Catheter Reason for porter catheter: Bladder Retention/Obstruc, Dony. Abd Surgery, Strict I&O Objective vital signs Vital Sign Date Time Temp Pulse Resp B/P (MAP) Pulse Ox O2 Delivery O2 Flow Rate FiO2 12/25/24 09:00 98.6 77 20 146/57 (86) 96 98.6 12/25/24 08:15 Nasal Cannula* 2 28 Total Intake and Output 12/24/24 12/24/24 12/25/24 15:00 23:00 07:00 Intake Total 100 ml 2074.5 ml 500 ml Output Total 900 ml 2051 ml Balance 100 ml 1174.5 ml -1551 ml medications Current Medications Medications Dose Ordered Sig/Carlos Route Start Time Stop Time Status Last Admin Dose Admin Acetaminophen 500 mg Q6HP PRN PO 12/12/24 13:15 12/20/24 13:17 500 MG Pantoprazole Sodium 40 mg DAILY IV 12/16/24 10:00 12/24/24 11:49 40 MG Vancomycin HCl 0 ml @ 0 mls/hr UD IV 12/15/24 15:15 Piperacillin Sod/ Tazobactam Sod 100 ml @ 25 mls/hr Q8H IV 12/16/24 21:00 12/25/24 04:29 25 MLS/HR Insulin Glargine 15 units QAM SC 12/17/24 07:00 12/25/24 06:37 15 UNITS Diagnostic Test (Pha) 1 strip IQ4HR 12/17/24 12:00 12/25/24 08:45 1 STRIP Insulin Human Regular IQ4HR SC 12/17/24 12:00 12/25/24 08:48 12 UNITS Dextrose 50 ml UD PRN IV 12/17/24 09:45 Amino Acids 0 ml @ 0 mls/hr PER PHARMACY IV 12/20/24 14:00 Ondansetron HCl 4 mg Q6HPRN PRN IV 12/20/24 16:45 12/23/24 20:07 4 MG Hydralazine HCl 10 mg Q6HP PRN IV 12/21/24 03:00 12/25/24 05:30 10 MG Labetalol HCl 20 mg Q2HPRN PRN IV 12/21/24 14:00 12/22/24 18:04 20 MG Clonidine HCl 0.1 mg Q7D TD 12/21/24 15:00 Fluconazole 100 ml @ 100 mls/hr 1900,2000 IV 12/23/24 19:00 12/24/24 18:41 100 MLS/HR Vancomycin HCl 100 ml @ 100 mls/hr Q14H IV 12/23/24 17:00 12/24/24 21:37 100 MLS/HR Acetaminophen/ Codeine Phosphate 1 tab Q4HP PRN PO 12/24/24 10:30 12/25/24 08:45 1 TAB Fat Emulsion Intravenous 100 ml/Potassium Acetate 20 meq/ Magnesium Sulfate 4 meq/ Multivitamins 10 ml/Chromium/ Copper/Manganese/ Zinc 1 ml/Insulin Human Regular 20 units/Amino Acids/ Dextrose/Purified Water 1,172.2 ml @ 49 mls/hr [id number] IV 12/24/24 22:00 12/25/24 21:59 12/24/24 21:36 49 MLS/HR Docusate Sodium 100 mg BID PO 12/26/24 10:00 laboratory and microbiology Laboratory Tests 12/24/24 07:06 Test 12/24/24 07:06 Range/Units Serum Glucose 177 H 74-106 mg/dL Problem List/Assessment/Plan Problem List/Assessment/Plan 12/15/24 abdomen more distended, green drainage per colleen drains elev.WBC, abdomen very tender, will proceed with exploratory laparotomy as CT scan report is suspicious for bowel perforation and clinical findings corroborate the suspicion. 12/16/24 AFEBRILE, WOUND CLEAN AND WELL APPROXIMATED, DRAINS SEROSANGUINEOUS, ABDOMEN NON DISTENDED, SOFT, GOOD URINE OUTPUT. DISCUSSED WITH PRIMARY TEAM WEANING OFF VENTILATOR. 12/17/24 REMAINS INTUBATED SEDATED ON VENTILATOR, WOUND CLEAN AND WELL APPROXIMATED, COLLEEN DRAINAGE SERO SANGUINEOUS, LABS OK, 'surgically"stable 12/18/24 lightly sedated, still intubated, wound clean and well approximated , COLLEEN drainage serous, qabdeomen soft and not distended, labs:HyperNatremia, cbc OK. should bed able to be weaned off ventilator 12/20/24/ CPAP TRIAL IN PROGRESS, AROUSABLE, WOUND CLEAN AND WELL APPROXIMATED, DRAINAGE NON BILIOUS, NON PARTICULAR, ABDOMEN SOFT DOES NOT APPEAR TO BE TENDER OTHER THAN EXPECTED TENDERNESS 12/22/24 EXTUBATED,ALERT.ORIENTED,WOUND CLEAN AND WELL APPROXIMATED,ABDOMEN MINIMALLY TENDER, COLLEEN DRAINAGE CLEAR. HAVING NORMAL BOWEL ACTIVITY, EDOUARD START PO 12/24/24 less confused, passing flatus., abdomen soft and non distended, non tender, drainage serous will start po intake, must ambulate q 4 hours, will stop injectable pain Rx(confusion) 12/25/24 no confusion, adequate pain control, will get gastrografin SBFT, if no extravasation will irrigate drains, Plan discussed with: Patient Dietary Evaluation Review Comments: 1. TPN per pharmacy if NPO>7 days 2. Supplement Amino acids 41ml/hr with TF-glucerna @20 ml/hr (29g pro, 576 kcal),if EN/GI accessible. the combo of these two supports pt's protein needs at 0.7g/kg ABW and energy needs at 11 kcal/kg ABW 3. If medically feasible, [facility] Renal specific-60 g protein restriction and pt does not require dialysis, with a passing speech eval, Expected Outcomes/Goals: Gradual wt loss, improved protein nutrition status, NITO LANDA MD Dec 25, 2024 11:05
[2024-12-25 11:54] LABS: Alanine Aminotransferase 21 U/L (7-40); Albumin 3.2 g/dL (3.2-4.8); Alkaline Phosphatase 145 U/L (46-116); Anion Gap 10 (5-15); Aspartate Aminotransferase 30 U/L (13-40); BUN/Creatinine Ratio 17.2 (10.0-20.0); Bilirubin, Total 0.7 mg/dL (0.2-1.0); Blood Urea Nitrogen 20 mg/dL (9-23); Calcium 8.6 mg/dL (8.7-10.4); Carbon Dioxide 19 mmol/L (20-31); Chloride 108 mmol/L (98-107); Glucose 292 mg/dL (74-106); Magnesium 2.1 mg/dL (1.6-2.6); Potassium 4.6 mmol/L (3.5-5.1); Sodium 137 mmol/L (136-145)
[2024-12-25 12:01] LABS: Phosphorus 2.3 mg/dL (2.4-5.1); Total Protein 5.3 g/dL (5.7-8.2)
--- NOTE | 2024-12-25 12:43 | DVHPN2 ---
Reviewed: Care Plan, H&P, Labs, Medications, Previous Orders, Radiology Changes from previous H/P or p: No Changes General: Per HPI Objective Vitals Vital Signs Date Time Temp Pulse Resp B/P (MAP) Pulse Ox O2 Delivery O2 Flow Rate FiO2 12/25/24 09:00 98.6 77 20 146/57 (86) 96 98.6 12/25/24 08:15 Nasal Cannula* 2 28 Intake/Output Intake and Output 12/25/24 07:00 Intake Total 2674.5 ml Output Total 2951 ml Balance -276.5 ml Intake Oral 1980 ml IV Total 694.5 ml Output Urine Total 2800 ml Drainage Total 151 ml # Bowel Movements 3 Medications Current Medications Medications Dose Ordered Sig/Carlos Route Start Time Stop Time Status Last Admin Dose Admin Acetaminophen 500 mg Q6HP PRN PO 12/12/24 13:15 12/20/24 13:17 500 MG Pantoprazole Sodium 40 mg DAILY IV 12/16/24 10:00 12/25/24 11:15 40 MG Vancomycin HCl 0 ml @ 0 mls/hr UD IV 12/15/24 15:15 Piperacillin Sod/ Tazobactam Sod 100 ml @ 25 mls/hr Q8H IV 12/16/24 21:00 12/25/24 04:29 25 MLS/HR Insulin Glargine 15 units QAM SC 12/17/24 07:00 12/25/24 06:37 15 UNITS Diagnostic Test (Pha) 1 strip IQ4HR 12/17/24 12:00 12/25/24 08:45 1 STRIP Insulin Human Regular IQ4HR SC 12/17/24 12:00 12/25/24 08:48 12 UNITS Dextrose 50 ml UD PRN IV 12/17/24 09:45 Amino Acids 0 ml @ 0 mls/hr PER PHARMACY IV 12/20/24 14:00 Ondansetron HCl 4 mg Q6HPRN PRN IV 12/20/24 16:45 12/23/24 20:07 4 MG Hydralazine HCl 10 mg Q6HP PRN IV 12/21/24 03:00 12/25/24 05:30 10 MG Labetalol HCl 20 mg Q2HPRN PRN IV 12/21/24 14:00 12/22/24 18:04 20 MG Clonidine HCl 0.1 mg Q7D TD 12/21/24 15:00 Fluconazole 100 ml @ 100 mls/hr 1900,2000 IV 12/23/24 19:00 12/24/24 18:41 100 MLS/HR Vancomycin HCl 100 ml @ 100 mls/hr Q14H IV 12/23/24 17:00 12/25/24 11:16 100 MLS/HR Acetaminophen/ Codeine Phosphate 1 tab Q4HP PRN PO 12/24/24 10:30 12/25/24 08:45 1 TAB Fat Emulsion Intravenous 100 ml/Potassium Acetate 20 meq/ Magnesium Sulfate 4 meq/ Multivitamins 10 ml/Chromium/ Copper/Manganese/ Zinc 1 ml/Insulin Human Regular 20 units/Amino Acids/ Dextrose/Purified Water 1,172.2 ml @ 49 mls/hr [id number] IV 12/24/24 22:00 12/25/24 21:59 12/24/24 21:36 49 MLS/HR Docusate Sodium 100 mg BID PO 12/26/24 10:00 Fat Emulsion Intravenous 100 ml/Potassium Phosphate 22 meq/ Magnesium Sulfate 8 meq/ Multivitamins 10 ml/Chromium/ Copper/Manganese/ Zinc 1 ml/Insulin Human Regular 25 units/Amino Acids/ Dextrose/Purified Water 1,318.25 ml @ 55 mls/hr [id number] IV 12/25/24 22:00 12/26/24 21:59 Laboratory Results Laboratory Tests 12/24/24 07:06 12/25/24 11:11 Chemistry Test 12/25/24 11:11 Albumin 3.2 g/dL (3.2-4.8) Calcium Level 8.6 mg/dL (8.7-10.4) L Magnesium Level 2.1 mg/dL (1.6-2.6) Phosphorus Level 2.3 mg/dL (2.4-5.1) L Total Protein 5.3 g/dL (5.7-8.2) L LFT Test 12/25/24 11:11 Alanine Aminotransferase (ALT) 21 U/L (7-40) Alkaline Phosphatase 145 U/L (46-116) H Aspartate Amino Transferase (AST) 30 U/L (13-40) Total Bilirubin 0.7 mg/dL (0.2-1.0) Urinalysis Test 12/14/24 01:38 Urine Color Yellow (Yellow) Urine Clarity Turbid (Clear) H Urine pH 5.0 (5.0-9.0) Urine Specific [place] 1.019 (1.001-1.035) Urine Protein Trace (Negative) H Urine Ketones Negative (Negative) Urine Blood 2+ /uL (Negative) H Urine Nitrite Negative (Negative) Urine Bilirubin Negative (Negative) Urine Urobilinogen Normal mg/dL (Negative) Urine Leukocyte Esterase Trace /uL (Negative) Urine RBC 59 /hpf (0 - 4) Urine Microscopic WBC 7 /HPF (0-5) H Urine Squamous Epithelial Cells Few /hpf (<5) Urine Bacteria None seen /hpf (None Seen) Urine Hyaline Casts Few /lpf (0 - 2) Urine Mucus Few (None Seen) Urine Glucose 3+ mg/dL (Normal) H Microbiology Microbiology Date/Time Source Procedure Growth Status 12/20/24 17:32 Gastric Fluid Gram Stain - Final Complete 12/20/24 17:32 Body Fluid Culture - Final Yeast, not Serenity albicans Complete 12/16/24 00:00 Voided Urine Urine Culture - Final Complete 12/15/24 13:10 Nose MRSA Screen - Final Complete 12/15/24 11:59 Sputum Gram Stain - Final Complete 12/15/24 11:59 Sputum Respiratory Culture - Final Complete Labs and/or images reviewed: Labs reviewed by me, Image(s) reviewed by me Assessment/Plan Assessment/Plan Covering for resident physician Septic shock secondary to peritonitis Acute respiratory failure requiring intubation, extubated now Hypertensive urgency Acute peritonitis possibly secondary to perforation Small bowel perforation Adhesions of the small intestine JAKE versus CKD 3 Uterine prolapse status post Attempted diagnostic laparoscopy, abandoned for exploratory laparotomy, Desera I single incision urethral sling, cystocele repair by DR Candelario on 12/12/2024 Exploratory laparotomy, small bowel resection, enteroenterostomy, irrigation of the bowel, lysis of adhesions, insertion of drains by Dr. Riley on 12/15/2024 Vaginal mucosa lesion sent for biopsy Cystocele Stress incontinence Uncontrolled diabetes: Insulin sliding scale Nutrition: TPN DVT prophylaxis: Pantoprazole Condition Guarded Time spent 55 minutes Prognosis poor Patient is full code Plan discussed with: Patient Date of Service: Dec 25, 2024 Billing Provider: AUTUMN LUNA MD Common Visit Codes: [id number] INP/OBS CARE(HIGH) AUTUMN LUNA MD Dec 25, 2024 12:43
[2024-12-25] MEDS ORDERED: GASTROGRAFIN 120 ML SOL ONE (13:17)
[2024-12-25] MEDS: SODIUM PHOSPHATES 20 MEQ in SODIUM CHL 0.9% 100 ML IV ONE (15:25)
--- NOTE | 2024-12-25 17:47 | DVH ---
Procedure: XY SMALL BOWEL SERIES-W GASTROGRA Reason for study/Clinical History: r/o extravasation Comparison Study: None available at time of dictation. Technique: Single contrast small bowel series performed. FINDINGS/IMPRESSION: Initial recreation officer view of the abdomen and pelvis appears demonstrates no acute process. Contrast is identified within the colon by 2 hours. This represents a normal small bowel transit taty andres
[2024-12-25] MEDS: FAT EMULSION IV NR (21:24)
[2024-12-25] MEDS: [UNRECOGNIZED DRUG - OTHER] IV NR (21:24)
[2024-12-25] MEDS: POTASSIUM PHOSPHATE IV NR (21:24)
[2024-12-25] MEDS: MAGNESIUM SULF IV NR (21:24)
[2024-12-25] MEDS: PIPERACILLIN-TAZOB 3.375GM 100 ML IV SCH (23:05)
[2024-12-26] VITALS (8 sets, daily range): BP systolic 122–177; BP diastolic 55–82; PULSE 78–100; RESP 17–19; TEMP 97.5–98.7; O2SAT 95–100
[2024-12-26 08:12] LABS: Alanine Aminotransferase 16 U/L (7-40); Albumin 3.2 g/dL (3.2-4.8); Anion Gap 8 (5-15); BUN/Creatinine Ratio 14.1 (10.0-20.0); Blood Urea Nitrogen 14 mg/dL (9-23); Calcium 8.8 mg/dL (8.7-10.4); Carbon Dioxide 22 mmol/L (20-31); Magnesium 2.1 mg/dL (1.6-2.6); Potassium 3.6 mmol/L (3.5-5.1); Sodium 138 mmol/L (136-145); Triglycerides 119 mg/dL (< 150)
[2024-12-26 08:13] LABS: Bilirubin, Total 0.6 mg/dL (0.2-1.0); Phosphorus 2.7 mg/dL (2.4-5.1)
[2024-12-26 08:16] LABS: Alkaline Phosphatase 120 U/L (46-116); Chloride 108 mmol/L (98-107); Glucose 219 mg/dL (74-106); Total Protein 5.5 g/dL (5.7-8.2)
[2024-12-26 08:22] LABS: Aspartate Aminotransferase 22 U/L (13-40)
[2024-12-26 08:53] LABS: Basophils # (auto) 0.1 10 ^3/uL (0-0.2); Basophils % (auto) 0.5 % (0.0-2.0); Eosinophils # (auto) 0.3 10 ^3/uL (0-0.8); Hematocrit 32.7 % (36.0-46.0); Hemoglobin 10.5 g/dL (12.2-16.2); Lymphocytes # (auto) 1.8 10 ^3/uL (0.4-5.4); Mean Corpuscular Volume 84.6 fL (80.0-100.0); Monocytes # (auto) 1.7 10 ^3/uL (0-1.3); Monocytes % (auto) 12.6 % (0.0-12.0); Neutrophils # (auto) 9.8 10 ^3/uL (1.6-8.6); Neutrophils % (auto) 71.9 % (37.0-80.0); Nucleated Red Blood Cells % 0.2 %; Platelet Count (auto) 243 10^3/uL (140-450); Red Blood Cells 3.87 10^6/uL (4.0-5.20); Red Cell Distribution Width 17.9 % (11.8-14.3); White Blood Cell 13.6 10^3/uL (4.4-10.8)
[2024-12-26] MEDS: DOCUSATE SOD 100 MG CAP PO SCH (09:44)
--- NOTE | 2024-12-26 12:55 | DVHPN2 ---
Progress Note Date Seen: Dec 26, 2024 Medical Necessity Reason Pt with a Central, PICC or Fol: Yes The following are medically ne: Central Line, Porter Catheter Reason for porter catheter: Bladder Retention/Obstruc, Dony. Abd Surgery, Strict I&O Subjective Patient reports: No new complaints, Feels better Review of Systems: HEENT:Normal, CVS:Normal, RESPIRATORY:Normal, GI:Normal, :Normal, MSK:Normal, NEURO:Normal Objective vital signs Vital Sign Date Time Temp Pulse Resp B/P (MAP) Pulse Ox O2 Delivery O2 Flow Rate FiO2 12/26/24 09:16 159/62 12/26/24 09:00 98.2 95 19 97 98.2 12/26/24 08:00 Nasal Cannula* 2 28 Total Intake and Output 12/25/24 12/25/24 12/26/24 15:00 23:00 07:00 Intake Total 1040 ml 1580 ml 500 ml Output Total 1156 ml 700 ml Balance 1040 ml 424 ml -200 ml medications Current Medications Medications Dose Ordered Sig/Carlos Route Start Time Stop Time Status Last Admin Dose Admin Acetaminophen 500 mg Q6HP PRN PO 12/12/24 13:15 12/20/24 13:17 500 MG Pantoprazole Sodium 40 mg DAILY IV 12/16/24 10:00 12/26/24 09:16 40 MG Vancomycin HCl 0 ml @ 0 mls/hr UD IV 12/15/24 15:15 Insulin Glargine 15 units QAM SC 12/17/24 07:00 12/26/24 05:29 15 UNITS Diagnostic Test (Pha) 1 strip IQ4HR 12/17/24 12:00 12/26/24 12:00 1 STRIP Insulin Human Regular IQ4HR SC 12/17/24 12:00 12/26/24 12:39 8 UNITS Dextrose 50 ml UD PRN IV 12/17/24 09:45 Amino Acids 0 ml @ 0 mls/hr PER PHARMACY IV 12/20/24 14:00 Ondansetron HCl 4 mg Q6HPRN PRN IV 12/20/24 16:45 12/23/24 20:07 4 MG Hydralazine HCl 10 mg Q6HP PRN IV 12/21/24 03:00 12/26/24 09:16 10 MG Labetalol HCl 20 mg Q2HPRN PRN IV 12/21/24 14:00 12/22/24 18:04 20 MG Clonidine HCl 0.1 mg Q7D TD 12/21/24 15:00 Fluconazole 100 ml @ 100 mls/hr 1900,2000 IV 12/23/24 19:00 12/25/24 21:26 100 MLS/HR Vancomycin HCl 100 ml @ 100 mls/hr Q14H IV 12/23/24 17:00 12/26/24 01:12 100 MLS/HR Acetaminophen/ Codeine Phosphate 1 tab Q4HP PRN PO 12/24/24 10:30 12/26/24 09:16 1 TAB Docusate Sodium 100 mg BID PO 12/26/24 10:00 Fat Emulsion Intravenous 100 ml/Potassium Phosphate 22 meq/ Magnesium Sulfate 8 meq/ Multivitamins 10 ml/Chromium/ Copper/Manganese/ Zinc 1 ml/Insulin Human Regular 25 units/Amino Acids/ Dextrose/Purified Water 1,318.25 ml @ 55 mls/hr [id number] IV 12/25/24 22:00 12/26/24 21:59 12/25/24 21:24 55 MLS/HR Piperacillin Sod/ Tazobactam Sod 100 ml @ 25 mls/hr Q8H IV 12/25/24 23:00 12/26/24 05:30 25 MLS/HR Fat Emulsion Intravenous 100 ml/Sodium Acetate 60 meq/Sodium Phosphate 20 meq/ Potassium Acetate 60 meq/Magnesium Sulfate 8 meq/ Multivitamins 10 ml/Chromium/ Copper/Manganese/ Zinc 1 ml/Insulin Human Regular 30 units/Amino Acids/ Dextrose/Purified Water 1,378.3 ml @ 57 mls/hr [id number] IV 12/26/24 22:00 12/27/24 21:59 Examination: GENERAL:Normal, HEENT:Normal, NECK:Normal, LUNGS:Normal, CVS:Normal, ABDOMEN:Normal, MSK:Normal, SKIN:Normal, NEURO:Normal laboratory and microbiology Laboratory Tests 12/26/24 07:17 Test 12/26/24 07:17 Range/Units Serum Glucose 219 H 74-106 mg/dL Problem List/Assessment/Plan Problem List/Assessment/Plan 12/19/24 labs, notes , reviewed and discussed with Dr. Riley patient intubated , off sedation, abdomen soft, LIZA drain serous fluid, wound clean dry and intact, per nurse CPAP trial today 12/23/24 patient complains of abdominal pain , abdomen appropriately tender, LIZA 1 drain murky, NPO, patient to ambulate, will get a Gastrografin study tomorrow 12/26/24- no new complaints, abdomen soft, non distended, appropriately tender, one LIZA drain with 40cc fluid, other two drains minimal fluid, Irrigatte all three drains with 50cc normal saline in a sterile manner TID Plan discussed with: Patient, Other Dietary Evaluation Review Comments: 1. TPN per pharmacy if NPO>7 days 2. Supplement Amino acids 41ml/hr with TF-glucerna @20 ml/hr (29g pro, 576 kcal),if EN/GI accessible. the combo of these two supports pt's protein needs at 0.7g/kg ABW and energy needs at 11 kcal/kg ABW 3. If medically feasible, [facility] Renal specific-60 g protein restriction and pt does not require dialysis, with a passing speech eval, Expected Outcomes/Goals: Gradual wt loss, improved protein nutrition status, ANTHONY ONOFRE SECOND RIGGER Dec 26, 2024 12:54
--- NOTE | 2024-12-26 14:04 | DVHPNRES ---
Progress Note Date Seen: Dec 26, 2024 Resident Creating Document: FOREIGN BOSE RESIDENT Medical Necessity Reason Pt with a Central, PICC or Fol: Yes The following are medically ne: Central Line, Porter Catheter Reason for porter catheter: Bladder Retention/Obstruc, Dony. Abd Surgery, Strict I&O Subjective Review of Systems 68-year-old female patient with past medical history of hypertension, type 2 diabetes, dementia who was admitted for surgery of pelvic prolapse and cystocele, surgery was done on 12/12/2024, after which the patient developed peritonitis and small-bowel perforation which was evident on CT abdomen. Patient underwent exploratory laparotomy on 12/15/2024 after which she was intubated and transferred to ICU. Patient was placed on mechanical ventilation and started on Levophed on 12/15, patient was started on Zosyn vanco and Flagyl. Patient was extubated on 12/20/2024 and transferred to telemetry. Based on the suspicions of small-bowel obstruction patient underwent a Gastrografin study that was unremarkable. He was closely monitored by surgical team that decided to irrigate the drains as the Gastrografin study was unremarkable. Patient was examined at bedside, she had 3 drains in the abdomen 1 in the upper abdomen (1st drain) that was draining 65 cc, dark green discoloration, thick. The other 2 paraumbilical drains 5 cc serosanguineous fluid. Vital signs were stable except for blood pressure , most recent is 159/62. Laboratory showed white cell count elevation, previously on 12/24/2024 white blood cell count were on 10.7, today 12/26/2024 while cell count is 13.6. Patient was asking for [place] 5 for leg pain instead of acetaminophen. Continue antibiotics Triple-lumen catheter removal, midline catheter placement was ordered. KUB tomorrow morning. DC TPN ROS: Constitutional: Yes: Weakness, malaise No: Fever, Chills, Sweats Eyes: No: Pain, Vision change, Conjunctivae inflammation, Eyelid inflammation, Other, Redness ENT: No: Ear pain, Ear discharge, Nose pain, Nose discharge, Nose congestion, Mouth pain, Mouth swelling, Throat pain, Throat swelling, Other Respiratory: Cough present, Shortness of breath, improving No Wheezing, Hemoptysis, Pleuritic Pain, Sputum, Wheezing, Other Cardiovascular: No: Chest Pain, Palpitations, Orthopnea, Paroxysmal Noc. Dyspnea, Edema, Lt Headedness, Other Gastrointestinal: Yes: Moderate/severe abdominal pain around the surgical scar without signs of inflammation Musculoskeletal: Yes: Chronic Back pain No: other, neck pain, shoulder pain, arm pain, hand pain, leg pain, foot pain Neurological:; yes: Weakness no: Numbness, Incoordination, Change in speech, Confusion, Seizures Patient reports: No new complaints Changes from previous H/P or p: No Changes Objective vital signs Vital Sign Date Time Temp Pulse Resp B/P (MAP) Pulse Ox O2 Delivery O2 Flow Rate FiO2 12/26/24 09:16 159/62 12/26/24 09:00 98.2 95 19 97 98.2 12/26/24 08:00 Nasal Cannula* 2 28 Total Intake and Output 12/25/24 12/25/24 12/26/24 15:00 23:00 07:00 Intake Total 1040 ml 1580 ml 500 ml Output Total 1156 ml 700 ml Balance 1040 ml 424 ml -200 ml medications Current Medications Medications Dose Ordered Sig/Carlos Route Start Time Stop Time Status Last Admin Dose Admin Acetaminophen 500 mg Q6HP PRN PO 12/12/24 13:15 12/20/24 13:17 500 MG Pantoprazole Sodium 40 mg DAILY IV 12/16/24 10:00 12/26/24 09:16 40 MG Vancomycin HCl 0 ml @ 0 mls/hr UD IV 12/15/24 15:15 Insulin Glargine 15 units QAM SC 12/17/24 07:00 12/26/24 05:29 15 UNITS Diagnostic Test (Pha) 1 strip IQ4HR 12/17/24 12:00 12/26/24 12:00 1 STRIP Insulin Human Regular IQ4HR SC 12/17/24 12:00 12/26/24 12:39 8 UNITS Dextrose 50 ml UD PRN IV 12/17/24 09:45 Amino Acids 0 ml @ 0 mls/hr PER PHARMACY IV 12/20/24 14:00 Ondansetron HCl 4 mg Q6HPRN PRN IV 12/20/24 16:45 12/23/24 20:07 4 MG Hydralazine HCl 10 mg Q6HP PRN IV 12/21/24 03:00 12/26/24 09:16 10 MG Labetalol HCl 20 mg Q2HPRN PRN IV 12/21/24 14:00 12/22/24 18:04 20 MG Clonidine HCl 0.1 mg Q7D TD 12/21/24 15:00 Fluconazole 100 ml @ 100 mls/hr 1900,2000 IV 12/23/24 19:00 12/25/24 21:26 100 MLS/HR Vancomycin HCl 100 ml @ 100 mls/hr Q14H IV 12/23/24 17:00 12/26/24 01:12 100 MLS/HR Acetaminophen/ Codeine Phosphate 1 tab Q4HP PRN PO 12/24/24 10:30 12/26/24 09:16 1 TAB Docusate Sodium 100 mg BID PO 12/26/24 10:00 Fat Emulsion Intravenous 100 ml/Potassium Phosphate 22 meq/ Magnesium Sulfate 8 meq/ Multivitamins 10 ml/Chromium/ Copper/Manganese/ Zinc 1 ml/Insulin Human Regular 25 units/Amino Acids/ Dextrose/Purified Water 1,318.25 ml @ 55 mls/hr [id number] IV 12/25/24 22:00 12/26/24 21:59 12/25/24 21:24 55 MLS/HR Piperacillin Sod/ Tazobactam Sod 100 ml @ 25 mls/hr Q8H IV 12/25/24 23:00 12/26/24 05:30 25 MLS/HR Fat Emulsion Intravenous 100 ml/Sodium Acetate 60 meq/Sodium Phosphate 20 meq/ Potassium Acetate 60 meq/Magnesium Sulfate 8 meq/ Multivitamins 10 ml/Chromium/ Copper/Manganese/ Zinc 1 ml/Insulin Human Regular 30 units/Amino Acids/ Dextrose/Purified Water 1,378.3 ml @ 57 mls/hr [id number] IV 12/26/24 22:00 12/27/24 21:59 Examination Examination General Appearance: Alert, Oriented X3, Cooperative, moderate acute distress HEENT: EOMI Respiratory: Bilateral lower and middle lobe crackles, rhonchi Cardiovascular: Regular rate, Normal S1, Normal S2 Abdominal: Normal bowel sounds Extremities: No cyanosis, extremity edema 1+, Normal pulses, No tenderness/swelling Skin: No rashes, No breakdown surgical scar without inflammatory changes in the abdomen Neuro: Normal speech, Strength at 3/5 X4 ext, Normal tone, Sensation intact laboratory and microbiology Laboratory Tests 12/26/24 07:17 Test 12/26/24 07:17 Range/Units Serum Glucose 219 H 74-106 mg/dL Microbiology Date/Time Source Procedure Growth Status 12/20/24 17:32 Gastric Fluid Gram Stain - Final Complete 12/20/24 17:32 Body Fluid Culture - Final Yeast, not Serenity albicans Complete 12/16/24 00:00 Voided Urine Urine Culture - Final Complete 12/15/24 13:10 Nose MRSA Screen - Final Complete 12/15/24 11:59 Sputum Gram Stain - Final Complete 12/15/24 11:59 Sputum Respiratory Culture - Final Complete Problem List/Assessment/Plan Problem List/Assessment/Plan Neurology Cardiology # HTN urgency # Septic Shock likely due to sepsis from peritonitis-improving - Extubated 12/20 a.m. - currently receiving Zosyn and vancomycin IV - ordered pancultures, Actinomyces norwegian - monitor lab -clonidine patch for hypertension Respiratory # acute hypoxic respiratory failure likely due to sepsis -resolving - Extubated 12/20 a.m. - currently receiving Zosyn, vancomycin - Monitor GI/Liver/ Abdomen # Morbid Obesity - Nutrional councelling # Peritonitis due to ? perforation-improved # Septic shock due to above # ? small bowel perforation # Bowel Adhesions - Evident on CT - status post exploratory laparotomy, small-bowel resection, enteroenterostomy, adhesiolysis, patient tolerated to the procedure - currently monitoring - currently receiving Zosyn, vancomycin - Ordered new CT with the contrast which showed no significant interval changes. -started fluconazole due to body fluid culture showed possible yeast -blood culture /Kidney/Reproductive # JAKE likely vasomotor on CKD stage 3 - monitor lab - avoid nephrotoxic agents # Uterine/Pelvic prolapse # cystocele # stress incontinence # ? vaginal lesion - KUB tomorrow morning - postoperative day 4 status post desera I single incision urethral sling, cystocele repair - vaginal mucosa lesion sent for biopsy [facility] Endocrine/Meatbolic # uncontrolled type 2 DM HbA1c 8.2 - Accu-Cheks and ISS # hypernatremia -monitor lab for now -D5W # hyperkalemia - monitor lab # Skin -surgical scar without inflammatory changes -DC triple lumen catheter -midline catheter placement was ordered ID # Peritonitis due to ? perforation # Septic shock due to above - currently receiving Zosyn, vancomycin - ordered pancultures, Actinomyces norwegian Lines Intubated 12/15 Extubated 2/4 a.m. Right IJ CVC 12/15 Porter Dips Fentanyl , Versed,Diprivan off 01/16 Levophed off 12/19 Precedex /3 PUD PPX : Protonix VTE PPX : SCDs Diet: Clear liquid diet Goals of care discussed with the family for more than 26 minutes: Full code status Plan of care updated to daughter on phone. Case discussed with . Plan discussed with: Patient Dietary Evaluation Review Comments: 1. TPN per pharmacy if NPO>7 days 2. Supplement Amino acids 41ml/hr with TF-glucerna @20 ml/hr (29g pro, 576 kcal),if EN/GI accessible. the combo of these two supports pt's protein needs at 0.7g/kg ABW and energy needs at 11 kcal/kg ABW 3. If medically feasible, [facility] Renal specific-60 g protein restriction and pt does not require dialysis, with a passing speech eval, Expected Outcomes/Goals: Gradual wt loss, improved protein nutrition status, Date of Service: Dec 26, 2024 Billing Provider: MJ PERERA MD Common Visit Codes: [id number] INP/OBS CARE(HIGH) Secondary Visit Codes: [id number] CARE PLAN 30 MINUTES FOREIGN BOSE RESIDENT Dec 26, 2024 14:04 MJ PERERA MD Dec 27, 2024 16:30
[2024-12-26] MEDS ORDERED: LABETALOL HCL 20 MG/4 ML VL IV PRN (17:30)
[2024-12-26] MEDS ORDERED: DEXTROSE (50%) 50ML SYRG IV PRN (17:30)
[2024-12-26] MEDS: InsuLIN REG 1unit/0.01ml Soln (100units/ml) SC SCH (18:23)
[2024-12-26] MEDS: ACCU-CHEK COMFORT CURVE STRIP VI SCH (18:27)
[2024-12-26] MEDS: HYDROcodone-ACET 5/325MG TAB PO PRN (19:08)
[2024-12-26] MEDS: CARVEDILOL 12.5 MG TAB PO SCH (21:31)
[2024-12-26] MEDS ORDERED: TPN PER PHARMACY IV NR (22:00)
[2024-12-27] VITALS (9 sets, daily range): BP systolic 114–146; BP diastolic 42–78; PULSE 64–79; RESP 16–19; TEMP 98.1–99.1; O2SAT 94–97
--- NOTE | 2024-12-27 07:24 | DVH ---
EXAM: XR Abdomen, 1 View CLINICAL INDICATION: ABD PAIN TECHNIQUE: Frontal supine view of the abdomen/pelvis. COMPARISON: None FINDINGS: GASTROINTESTINAL TRACT: Fecal retention in the colon consistent with constipation. No dilation. BONES/JOINTS: Unremarkable. No acute fracture. OTHER FINDINGS: . None. . . .. IMPRESSION: Fecal retention in the colon consistent with constipation.
[2024-12-27 08:28] LABS: Basophils # (auto) 0.1 10 ^3/uL (0-0.2); Basophils % (auto) 0.6 % (0.0-2.0); Eosinophils # (auto) 0.2 10 ^3/uL (0-0.8); Hematocrit 31.6 % (36.0-46.0); Hemoglobin 10.5 g/dL (12.2-16.2); Lymphocytes # (auto) 1.3 10 ^3/uL (0.4-5.4); Lymphocytes % (auto) 11.6 % (10.0-50.0); Mean Corpuscular Hemoglobin 27.8 pg (28.0-32.0); Mean Corpuscular Hgb Conc. 33.1 g/dL (32.0-36.0); Monocytes # (auto) 1.4 10 ^3/uL (0-1.3); Monocytes % (auto) 13.2 % (0.0-12.0); Neutrophils # (auto) 7.9 10 ^3/uL (1.6-8.6); Neutrophils % (auto) 72.6 % (37.0-80.0); Nucleated Red Blood Cells % 0.1 %; Platelet Count (auto) 241 10^3/uL (140-450); Red Blood Cells 3.76 10^6/uL (4.0-5.20); Red Cell Distribution Width 17.8 % (11.8-14.3); White Blood Cell 10.9 10^3/uL (4.4-10.8)
[2024-12-27] MEDS: LOSARTAN POTASSIUM 25 MG TAB PO SCH (08:48)
--- NOTE | 2024-12-27 10:02 | DVHPN2 ---
Progress Note Date Seen: Dec 27, 2024 Medical Necessity Reason Pt with a Central, PICC or Fol: Yes The following are medically ne: Central Line, Porter Catheter Reason for porter catheter: Bladder Retention/Obstruc, Dony. Abd Surgery, Strict I&O Objective vital signs Vital Sign Date Time Temp Pulse Resp B/P (MAP) Pulse Ox O2 Delivery O2 Flow Rate FiO2 12/27/24 09:00 98.9 73 19 116/42 (66) 94 98.9 12/27/24 07:59 Nasal Cannula* 2 28 Total Intake and Output 12/26/24 12/26/24 12/27/24 15:00 23:00 07:00 Intake Total 100 ml 700 ml 440 ml Output Total 1000 ml 750 ml Balance 100 ml -300 ml -310 ml medications Current Medications Medications Dose Ordered Sig/Carlos Route Start Time Stop Time Status Last Admin Dose Admin Acetaminophen 500 mg Q6HP PRN PO 12/12/24 13:15 12/20/24 13:17 500 MG Pantoprazole Sodium 40 mg DAILY IV 12/16/24 10:00 12/27/24 08:48 40 MG Vancomycin HCl 0 ml @ 0 mls/hr UD IV 12/15/24 15:15 Insulin Glargine 15 units QAM SC 12/17/24 07:00 12/27/24 06:18 15 UNITS Ondansetron HCl 4 mg Q6HPRN PRN IV 12/20/24 16:45 12/23/24 20:07 4 MG Hydralazine HCl 10 mg Q6HP PRN IV 12/21/24 03:00 12/26/24 09:16 10 MG Fluconazole 100 ml @ 100 mls/hr 1900,2000 IV 12/23/24 19:00 12/26/24 20:20 100 MLS/HR Vancomycin HCl 100 ml @ 100 mls/hr Q14H IV 12/23/24 17:00 12/27/24 05:10 100 MLS/HR Docusate Sodium 100 mg BID PO 12/26/24 10:00 12/26/24 21:35 100 MG Piperacillin Sod/ Tazobactam Sod 100 ml @ 25 mls/hr Q8H IV 12/25/24 23:00 12/27/24 06:19 25 MLS/HR Diagnostic Test (Pha) 1 strip Q6HR 12/26/24 18:00 12/27/24 06:23 1 STRIP Insulin Human Regular Q6HR SC 12/26/24 18:00 12/27/24 06:14 3 UNITS Dextrose 50 ml UD PRN IV 12/26/24 17:30 Acetaminophen/ Hydrocodone Bitart 1 tab Q6HPRN PRN PO 12/26/24 17:30 12/27/24 06:59 1 TAB Labetalol HCl 20 mg Q4HPRN PRN IV 12/26/24 17:30 Losartan Potassium 25 mg DAILY PO 12/27/24 10:00 12/27/24 08:48 25 MG Carvedilol 12.5 mg Q12HR PO 12/26/24 22:00 12/27/24 08:47 12.5 MG laboratory and microbiology Laboratory Tests 12/27/24 07:45 Test 12/27/24 07:45 Range/Units Serum Glucose Pending Problem List/Assessment/Plan Problem List/Assessment/Plan 12/15/24 abdomen more distended, green drainage per colleen drains elev.WBC, abdomen very tender, will proceed with exploratory laparotomy as CT scan report is suspicious for bowel perforation and clinical findings corroborate the suspicion. 12/16/24 AFEBRILE, WOUND CLEAN AND WELL APPROXIMATED, DRAINS SEROSANGUINEOUS, ABDOMEN NON DISTENDED, SOFT, GOOD URINE OUTPUT. DISCUSSED WITH PRIMARY TEAM WEANING OFF VENTILATOR. 12/17/24 REMAINS INTUBATED SEDATED ON VENTILATOR, WOUND CLEAN AND WELL APPROXIMATED, COLLEEN DRAINAGE SERO SANGUINEOUS, LABS OK, 'surgically"stable 12/18/24 lightly sedated, still intubated, wound clean and well approximated , COLLEEN drainage serous, qabdeomen soft and not distended, labs:HyperNatremia, cbc OK. should bed able to be weaned off ventilator 12/20/24/ CPAP TRIAL IN PROGRESS, AROUSABLE, WOUND CLEAN AND WELL APPROXIMATED, DRAINAGE NON BILIOUS, NON PARTICULAR, ABDOMEN SOFT DOES NOT APPEAR TO BE TENDER OTHER THAN EXPECTED TENDERNESS 12/22/24 EXTUBATED,ALERT.ORIENTED,WOUND CLEAN AND WELL APPROXIMATED,ABDOMEN MINIMALLY TENDER, COLLEEN DRAINAGE CLEAR. HAVING NORMAL BOWEL ACTIVITY, EDOUARD START PO 12/24/24 less confused, passing flatus., abdomen soft and non distended, non tender, drainage serous will start po intake, must ambulate q 4 hours, will stop injectable pain Rx(confusion) 12/25/24 no confusion, adequate pain control, will get gastrografin SBFT, if no extravasation will irrigate drains, 12/27/24 feels well ,wound clean and well approximated, COLLEEN being irrigated, abdomen nontender, will advance diet, her Jugular IV can be removed, will dc porter, possibly discharge tomorrow Plan discussed with: Patient Dietary Evaluation Review Comments: 1. TPN per pharmacy if NPO>7 days 2. Supplement Amino acids 41ml/hr with TF-glucerna @20 ml/hr (29g pro, 576 kcal),if EN/GI accessible. the combo of these two supports pt's protein needs at 0.7g/kg ABW and energy needs at 11 kcal/kg ABW 3. If medically feasible, advance diet to CCHO-60 Renal specific-60 g protein restriction and pt does not require dialysis, with a passing speech eval, Expected Outcomes/Goals: Gradual wt loss, improved protein nutrition status, NITO LANDA MD Dec 27, 2024 10:01
[2024-12-27 11:56] LABS: Anion Gap 11 (5-15); Potassium 3.9 mmol/L (3.5-5.1); Sodium 138 mmol/L (136-145)
[2024-12-27 12:02] LABS: BUN/Creatinine Ratio 13.6 (10.0-20.0); Blood Urea Nitrogen 11 mg/dL (9-23)
[2024-12-27 12:04] LABS: Calcium 8.5 mg/dL (8.7-10.4); Carbon Dioxide 19 mmol/L (20-31); Chloride 108 mmol/L (98-107); Glucose 193 mg/dL (74-106)
--- NOTE | 2024-12-27 17:15 | DVHPNRES ---
Progress Note Date Seen: Dec 27, 2024 Resident Creating Document: FOREIGN BOSE RESIDENT Medical Necessity Reason Pt with a Central, PICC or Fol: Yes Reason for porter catheter: Dony. Abd Surgery, Strict I&O Subjective Review of Systems 68-year-old female patient with past medical history of hypertension, type 2 diabetes, dementia who was admitted for surgery of pelvic prolapse and cystocele, surgery was done on 12/12/2024, after which the patient developed peritonitis and small-bowel perforation which was evident on CT abdomen. Patient underwent exploratory laparotomy on 12/15/2024 after which she was intubated and transferred to ICU. Patient was placed on mechanical ventilation and started on Levophed on 12/15, patient was started on Zosyn vanco and Flagyl. Patient was extubated on 12/20/2024 and transferred to telemetry. Based on the suspicions of small-bowel obstruction patient underwent a Gastrografin study that was unremarkable. He was closely monitored by surgical team that decided to irrigate the drains as the Gastrografin study was unremarkable. Patient was examined at bedside, she had 3 drains in the abdomen 1 in the upper abdomen (1st drain) that was draining 50 cc, dark green discoloration, thick. The other 2 paraumbilical drains 2 cc serosanguineous fluid. Patient was started on [place] 5 Continue antibiotics , augmentin 500 po q8h KUB was performed , it showed constipation. Patient pass BM afterwards. Currently on docusate diet: Full liquid, advance to mechanical soft tomorrow am. home health/physical therapy after dc ROS: Constitutional: Yes: Weakness, malaise No: Fever, Chills, Sweats Eyes: No: Pain, Vision change, Conjunctivae inflammation, Eyelid inflammation, Other, Redness ENT: No: Ear pain, Ear discharge, Nose pain, Nose discharge, Nose congestion, Mouth pain, Mouth swelling, Throat pain, Throat swelling, Other Respiratory: yelowish productive Cough present, Shortness of breath, improving No Wheezing, Hemoptysis, Pleuritic Pain, Sputum, Wheezing, Other Cardiovascular: No: Chest Pain, Palpitations, Orthopnea, Paroxysmal Noc. Dyspnea, Edema, Lt Headedness, Other Gastrointestinal: Yes: mild abdominal pain around the surgical scar without signs of inflammation Musculoskeletal: Yes: Chronic Back pain No: other, neck pain, shoulder pain, arm pain, hand pain, leg pain, foot pain Neurological:; yes: Weakness no: Numbness, Incoordination, Change in speech, Confusion, Seizures Patient reports: Feels better Changes from previous H/P or p: Changes Objective vital signs Vital Sign Date Time Temp Pulse Resp B/P (MAP) Pulse Ox O2 Delivery O2 Flow Rate FiO2 12/27/24 13:00 98.3 64 19 129/78 (95) 96 98.3 12/27/24 07:59 Nasal Cannula* 2 28 Total Intake and Output 12/26/24 12/26/24 12/27/24 15:00 23:00 07:00 Intake Total 100 ml 700 ml 440 ml Output Total 1000 ml 750 ml Balance 100 ml -300 ml -310 ml medications Current Medications Medications Dose Ordered Sig/Carlos Route Start Time Stop Time Status Last Admin Dose Admin Acetaminophen 500 mg Q6HP PRN PO 12/12/24 13:15 12/20/24 13:17 500 MG Pantoprazole Sodium 40 mg DAILY IV 12/16/24 10:00 12/27/24 08:48 40 MG Insulin Glargine 15 units QAM SC 12/17/24 07:00 12/27/24 06:18 15 UNITS Ondansetron HCl 4 mg Q6HPRN PRN IV 12/20/24 16:45 12/23/24 20:07 4 MG Hydralazine HCl 10 mg Q6HP PRN IV 12/21/24 03:00 12/26/24 09:16 10 MG Fluconazole 100 ml @ 100 mls/hr 1900,2000 IV 12/23/24 19:00 12/26/24 20:20 100 MLS/HR Docusate Sodium 100 mg BID PO 12/26/24 10:00 12/27/24 09:57 100 MG Diagnostic Test (Pha) 1 strip Q6HR 12/26/24 18:00 12/27/24 11:34 1 STRIP Insulin Human Regular Q6HR SC 12/26/24 18:00 12/27/24 11:34 6 UNITS Dextrose 50 ml UD PRN IV 12/26/24 17:30 Acetaminophen/ Hydrocodone Bitart 1 tab Q6HPRN PRN PO 12/26/24 17:30 12/27/24 16:26 1 TAB Labetalol HCl 20 mg Q4HPRN PRN IV 12/26/24 17:30 Losartan Potassium 25 mg DAILY PO 12/27/24 10:00 12/27/24 08:48 25 MG Carvedilol 12.5 mg Q12HR PO 12/26/24 22:00 12/27/24 08:47 12.5 MG Amoxicillin/ Clavulanate Potassium 500 mg Q8HR PO 12/27/24 22:00 Examination General Appearance: Alert, Oriented X3, Cooperative, moderate acute distress HEENT: EOMI Respiratory: Bilateral lower and middle lobe crackles, rhonchi Cardiovascular: Regular rate, Normal S1, Normal S2 Abdominal: Normal bowel sounds Extremities: No cyanosis, extremity edema 1+, Normal pulses, No tenderness/swelling Skin: No rashes, No breakdown surgical scar without inflammatory changes in the abdomen Neuro: Normal speech, Strength at 3/5 X4 ext, Normal tone, Sensation intact laboratory and microbiology Laboratory Tests 12/27/24 07:45 Test 12/27/24 07:45 Range/Units Serum Glucose 193 H 74-106 mg/dL Microbiology Date/Time Source Procedure Growth Status 12/20/24 17:32 Gastric Fluid Gram Stain - Final Complete 12/20/24 17:32 Body Fluid Culture - Final Yeast, not Serenity albicans Complete 12/16/24 00:00 Voided Urine Urine Culture - Final Complete 12/15/24 13:10 Nose MRSA Screen - Final Complete 12/15/24 11:59 Sputum Gram Stain - Final Complete 12/15/24 11:59 Sputum Respiratory Culture - Final Complete Problem List/Assessment/Plan Problem List/Assessment/Plan Neurology Cardiology # HTN urgency # Septic Shock likely due to sepsis from peritonitis-improving - Extubated 2 a.m. - Patient was started on augmentin 500 mg q8h po - ordered pancultures, Actinomyces lithuanian - monitor lab - Hydralazone PRN - Losartan 25 mg daily PO Respiratory # acute hypoxic respiratory failure likely due to sepsis -resolving - Extubated 2/4 a.m. - augmentin 500 mg po q8h - Monitor GI/Liver/ Abdomen # Morbid Obesity - Nutrional councelling # Peritonitis due to ? perforation-improved # Septic shock due to above # ? small bowel perforation # Bowel Adhesions - Evident on CT - status post exploratory laparotomy, small-bowel resection, enteroenterostomy, adhesiolysis, patient tolerated to the procedure - currently monitoring - stared on Augmentin 500 po q8h - Ordered new CT with the contrast which showed no significant interval changes. -started fluconazole due to body fluid culture showed possible yeast /Kidney/Reproductive # JAKE likely vasomotor on CKD stage 3 - monitor lab - avoid nephrotoxic agents # Uterine/Pelvic prolapse # cystocele # stress incontinence # ? vaginal lesion - KUB, showed constipation - continue docusate prn - postoperative day 15 status post desera I single incision urethral sling, cystocele repair - vaginal mucosa lesion sent for biopsy [facility] Endocrine/Meatbolic # uncontrolled type 2 DM HbA1c 8.2 - Accu-Cheks and ISS # hypernatremia -monitor lab for now -D5W # hyperkalemia - monitor lab SKIN -surgical scar without inflammatory changes -DC triple lumen catheter -midline catheter placed ID # Peritonitis due to ? perforation # Septic shock due to above - currently receiving augmentin 500 mg po q8h - ordered pancultures, Actinomyces lithuanian LINES Intubated 12/15 Extubated 2/4 a.m. Right IJ CVC 12/15 Porter DC 12/27 Midline 12/26 DRIPS Fentanyl , Versed,Diprivan off 01/16 Levophed off 12/19 Precedex 12/19 PUD PPX : Protonix VTE PPX : SCDs Diet: full liquid diet,advance as tolerated Goals of care discussed with the family for more than 24 minutes: Full code status Plan of care updated to daughter on phone. Case discussed with . Plan discussed with: Patient Dietary Evaluation Review Comments: 1. TPN per pharmacy if NPO>7 days 2. Supplement Amino acids 41ml/hr with TF-glucerna @20 ml/hr (29g pro, 576 kcal),if EN/GI accessible. the combo of these two supports pt's protein needs at 0.7g/kg ABW and energy needs at 11 kcal/kg ABW 3. If medically feasible, advance diet to CCHO-60 Renal specific-60 g protein restriction and pt does not require dialysis, with a passing speech eval, Expected Outcomes/Goals: Gradual wt loss, improved protein nutrition status, Date of Service: Dec 27, 2024 Billing Provider: MJ PERERA MD Common Visit Codes: [id number] INP/OBS CARE(HIGH) Secondary Visit Codes: [id number] CARE PLAN 30 MINUTES FOREIGN BOSE RESIDENT Dec 27, 2024 17:15 MJ PERERA MD Dec 28, 2024 15:10
--- NOTE | 2024-12-27 19:10 | DVHPN2 ---
Chief Complaints Patient reports: Feels better, Other (I had long discussion with the patient with regards to her postop complications and necessary due returned her to surgery she feels tremendous today.) Nursing reports: No new complaints Objective Vitals Vital Signs Date Time Temp Pulse Resp B/P (MAP) Pulse Ox O2 Delivery O2 Flow Rate FiO2 12/27/24 17:00 98.1 71 19 132/48 (76) 95 98.1 12/27/24 07:59 Nasal Cannula* 2 28 Medications Current Medications Medications (Trade) Dose Ordered Sig/Carlos Route PRN Reason Start Time Stop Time Status Last Admin Amoxicillin/ Clavulanate Potassium (Augmentin Tablet) 500 mg Q8HR PO 12/27/24 22:00 Carvedilol (Coreg Tablet) 12.5 mg Q12HR PO 12/26/24 22:00 12/27/24 08:47 Losartan Potassium (Cozaar Tablet) 25 mg DAILY PO 12/27/24 10:00 12/27/24 08:48 General: Normal, Other (Resting comfortably intubated sedated) Head/Eyes: Normal ENT: Normal Neck: Normal Lungs: Normal Cardiovascular: Normal, Other (Tachy okay Tammi probably Thursday RUL found Mondays or known Thursday or Thursday 2 days or nightmares feeding get in a Thursday evening or afternoon given your be in and out quick) Abdominal: Normal (+BS David drain serosang), Other (Three drains all straw- colored clear fluid reassuring. Wounds clean dry and intact) Musculoskeletal: Normal Extremities: Normal, Other (Generalized edema) Skin: Normal Neurological: Normal Studies Laboratory Tests 12/27/24 07:45 Test 12/27/24 07:45 Range/Units Serum Glucose 193 H 74-106 mg/dL Ass/Plan Assessment S / P cystocele repair urethral sling attempted laparoscopy mini-laparotomy. Second surgery Exp lap bowel repair General Surgery. Patient is stable for discharge with regards to her bladder sling in cystocele repair. Alvarez removed today. I will defer to the medicine team as well as Dr. Riley general surgery do decide when her discharge to home would be appropriate given her sepsis and second surgery. She will need to follow up with myself [employer] [facility] 1 week or p.r.n.: All questions answered patient content with all of her questions answered and excited about possible discharge soon. CALVIN KINGSTON DO Dec 27, 2024 19:10
[2024-12-27] MEDS: AMOXICILLIN/CLAVULAN 500 MG TAB PO SCH (22:39)
[2024-12-28 00:59] VITALS: BP 152/50; PULSE 17; TEMP 99; O2SAT 100
[2024-12-28 05:00] VITALS: BP_SYST 101; BP_SYST 137; BP_DIAS 56; PULSE 71; PULSE 75; RESP 16; RESP 18; TEMP 97.7; TEMP 99; O2SAT 95; O2SAT 97
[2024-12-28 06:38] LABS: Basophils # (auto) 0 10 ^3/uL (0-0.2); Basophils % (auto) 0.6 % (0.0-2.0); Eosinophils # (auto) 0.2 10 ^3/uL (0-0.8); Eosinophils % (auto) 2.2 % (0.0-7.0); Hematocrit 28.3 % (36.0-46.0); Hemoglobin 9.2 g/dL (12.2-16.2); Lymphocytes # (auto) 1.1 10 ^3/uL (0.4-5.4); Lymphocytes % (auto) 12.3 % (10.0-50.0); Mean Corpuscular Hemoglobin 27.2 pg (28.0-32.0); Mean Corpuscular Hgb Conc. 32.5 g/dL (32.0-36.0); Mean Corpuscular Volume 83.6 fL (80.0-100.0); Monocytes # (auto) 1.4 10 ^3/uL (0-1.3); Monocytes % (auto) 15.8 % (0.0-12.0); Neutrophils # (auto) 6.1 10 ^3/uL (1.6-8.6); Neutrophils % (auto) 69.1 % (37.0-80.0); Nucleated Red Blood Cells % 0.1 %; Platelet Count (auto) 245 10^3/uL (140-450); Red Blood Cells 3.38 10^6/uL (4.0-5.20); Red Cell Distribution Width 17.9 % (11.8-14.3); White Blood Cell 8.8 10^3/uL (4.4-10.8)
[2024-12-28 07:12] LABS: Anion Gap 10 (5-15); Carbon Dioxide 21 mmol/L (20-31); Potassium 3.7 mmol/L (3.5-5.1); Sodium 138 mmol/L (136-145)
[2024-12-28 07:18] LABS: BUN/Creatinine Ratio 10.3 (10.0-20.0); Blood Urea Nitrogen 10 mg/dL (9-23)
[2024-12-28 07:26] LABS: Chloride 107 mmol/L (98-107)
[2024-12-28 07:27] LABS: Calcium 8.4 mg/dL (8.7-10.4); Glucose 186 mg/dL (74-106)
[2024-12-28 08:00] VITALS: PULSE 74; O2SAT 97
[2024-12-28 09:23] VITALS: BP 129/81; PULSE 65; RESP 18; TEMP 97.9; O2SAT 100
[2024-12-28 13:00] VITALS: BP 133/48; PULSE 59; RESP 19; TEMP 98.1; O2SAT 100
[2024-12-28] MEDS ORDERED: FLUC200T50 PO (15:24)
[2024-12-28] MEDS ORDERED: HYDR1TAB97 PO (15:24)
[2024-12-28] MEDS ORDERED: AUG875T PO (15:24)
[2024-12-28 17:20] VITALS: BP 142/66; PULSE 98; RESP 16; TEMP 97.6; O2SAT 100
--- NOTE | 2024-12-28 20:14 | DVHDSRES ---
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 Dec 12, 2024 at 13:06 Date of Discharge: Dec 28, 2024 Admitting Diagnosis Pelvic prolapse Labs/Diagnostic Data: Laboratory Results Test 12/28/24 11:31 12/28/24 05:02 12/26/24 07:17 12/25/24 11:11 POC Glucose 260 mg/dl (70-106) White Blood Count 8.8 10^3/uL (4.4-10.8) Red Blood Count 3.38 10^6/uL (4.0-5.20) Hemoglobin 9.2 g/dL (12.2-16.2) Hematocrit 28.3 % (36.0-46.0) Mean Corpuscular Volume 83.6 fL (80.0-100.0) Mean Corpuscular Hemoglobin 27.2 pg (28.0-32.0) Mean Corpuscular Hemoglobin Concent 32.5 g/dL (32.0-36.0) Red Cell Distribution Width 17.9 % (11.8-14.3) Platelet Count 245 10^3/uL (140-450) Mean Platelet Volume 10.5 fL (6.9-10.8) Neutrophils (%) (Auto) 69.1 % (37.0-80.0) Lymphocytes (%) (Auto) 12.3 % (10.0-50.0) Monocytes (%) (Auto) 15.8 % (0.0-12.0) Eosinophils (%) (Auto) 2.2 % (0.0-7.0) Basophils (%) (Auto) 0.6 % (0.0-2.0) Neutrophils # (Auto) 6.1 10 ^3/uL (1.6-8.6) Lymphocytes # (Auto) 1.1 10 ^3/uL (0.4-5.4) Monocytes # (Auto) 1.4 10 ^3/uL (0-1.3) Eosinophils # (Auto) 0.2 10 ^3/uL (0-0.8) Basophils # (Auto) 0 10 ^3/uL (0-0.2) Nucleated Red Blood Cells 0.1 % Sodium Level 138 mmol/L (136-145) Potassium Level 3.7 mmol/L (3.5-5.1) Chloride Level 107 mmol/L (98-107) Carbon Dioxide Level 21 mmol/L (20-31) Anion Gap 10 (5-15) Blood Urea Nitrogen 10 mg/dL (9-23) Creatinine 0.97 mg/dL (0.550-1.02) Glomerular Filtration Rate Calc 62 mL/min (>90) BUN/Creatinine Ratio 10.3 (10.0-20.0) Serum Glucose 186 mg/dL (74-106) Calcium Level 8.4 mg/dL (8.7-10.4) Phosphorus Level 2.7 mg/dL (2.4-5.1) Magnesium Level 2.1 mg/dL (1.6-2.6) Total Bilirubin 0.6 mg/dL (0.2-1.0) Aspartate Amino Transferase (AST) 22 U/L (13-40) Alanine Aminotransferase (ALT) 16 U/L (7-40) Alkaline Phosphatase 120 U/L (46-116) Total Protein 5.5 g/dL (5.7-8.2) Albumin 3.2 g/dL (3.2-4.8) Triglycerides Level 119 mg/dL (< 150) Vancomycin Level Trough 10.7 ug/mL (5-10) Test 12/23/24 14:57 12/22/24 16:11 12/21/24 03:24 12/20/24 17:35 Miscellaneous Referred Test (Rm Tmp [facility] to [facility] Blood Gas Specimen Type Arterial Blood Gas Sample Site Left radial Blood Gas Patient Temperature 37.0 Arterial Blood Date Drawn [id number] Arterial Blood pH 7.409 (7.350-7.450) Arterial Blood Partial Pressure CO2 36.3 mmHg (32.0-45.0) Arterial Blood Partial Pressure O2 89.9 mmHg (83.0-108.0) Arterial Blood HCO3 22.4 mmol/L (21.0-28.0) Arterial Blood Oxygen Saturation 97.1 % (94.0-98.0) Arterial Blood Base Excess -1.7 mmol/L (-2.0-3.0) Arterial Blood Oxyhemoglobin 95.8 % (94.0-98.0) Arterial Blood Carboxyhemoglobin 0.8 % (0.5-1.5) Arterial Blood Methemoglobin 0.5 % (0.0-1.5) Leandro Test Yes Blood Gas Total Hemoglobin 12.70 g/dL (12.0-16.0) Blood Gas Liter Flow 3.00 Blood Gas Modality Nasal cannula FiO2 % 32.0 Prothrombin Time 11.8 sec (9.3-11.8) Prothrombin Time INR 1.13 (0.9-1.15) Activated Partial Thromboplast Time 26.8 SEC (24.5-34.5) Influenza Type A Antigen Negative (Negative) Influenza Type B Antigen Negative (Negative) SARS-CoV-2 Antigen (Rapid) Negative (NEGATIVE) Test 12/20/24 10:18 12/20/24 07:09 12/19/24 03:25 12/18/24 03:05 Blood Gas Pressure Support 8 Blood Gas PEEP or CPAP 5.0 Blood Gas Set Respiration Rate 14.0 Blood Gas Tidal Volume 500.0 Differential Total Cells Counted 100.0 (100) Neutrophils % (Manual) 73 (37.0-80.0) Band Neutrophils % (Manual) 1 Lymphocytes % (Manual) 14 (10.0-50.0) Monocytes % (Manual) 10 (0-12) Eosinophils % (Manual) 2 (0-7) Basophils % (Manual) 0 (0.0-2.0) Metamyelocytes % (manual) 0 Myelocytes % (Manual) 0 Promyelocytes % (Manual) 0 Blast Cells % (Manual) 0 Reactive Lymphocytes 0 Platelet Estimate Adequate Large Platelets Few Anisocytosis (manual) Slight Target Cells Few Stomatocytes Few Random Vancomycin Level 11.0 ug/mL (5-10) Test 12/17/24 15:40 12/17/24 07:50 12/17/24 03:25 12/14/24 01:38 Lactic Acid Level 1.8 mmol/L (0.4-2.0) Free Thyroxine (T4) Calculated 0.73 ng/dL (0.89-1.76) Free Triiodothyronine (T3) pg/mL 1.14 pg/mL (2.3-4.2) Blood Gas Critical Value Read Back Yes Thyroid Stimulating Hormone (TSH) 0.39 uIU/mL (0.55-4.78) Urine Color Yellow (Yellow) Urine Clarity Turbid (Clear) Urine pH 5.0 (5.0-9.0) Urine Specific Kathleen 1.019 (1.001-1.035) Urine Protein Trace (Negative) Urine Ketones Negative (Negative) Urine Blood 2+ /uL (Negative) Urine Nitrite Negative (Negative) Urine Bilirubin Negative (Negative) Urine Urobilinogen Normal mg/dL (Negative) Urine Leukocyte Esterase Trace /uL (Negative) Urine RBC 59 /hpf (0 - 4) Urine Microscopic WBC 7 /HPF (0-5) Urine Squamous Epithelial Cells Few /hpf (<5) Urine Bacteria None seen /hpf (None Seen) Urine Hyaline Casts Few /lpf (0 - 2) Urine Mucus Few (None Seen) Urine Glucose 3+ mg/dL (Normal) Test 12/13/24 05:05 Hemoglobin A1c 8.2 % A1C (<5.7) Other Laboratory Tests 12/28/24 05:02 Brief Hx & Hospital Course: Hospital Course The patient was admitted for planned surgical repair of pelvic prolapse and cystocele on 12/12/2024. Postoperatively, she developed peritonitis and small bowel perforation, confirmed on CT abdomen, requiring exploratory laparotomy on 12/15/2024. Following surgery, she was intubated and transferred to the ICU, where she was placed on mechanical ventilation and started on broad-spectrum antibiotics (Zosyn, Vancomycin, and Flagyl). The patient was later extubated on 12/20/2024 and transferred to telemetry. Gastrographin study ruled out small bowel obstruction. Surgical team irrigated the drains, noting three drains in the abdomen with dark green discharge from one and serosanguineous output from two. KUB confirmed constipation, for which she was started on docusate. During hospitalization, she was monitored closely, abdominal pain improved , CBC and CMP normalized , and vital signs remained stable, patient's pain was controlled with norco, she was started on augmentin and fluconazol for bacterial and fungal infection management after discharge. She tolerated oral intake well, and bowel function improved. Discharge Condition The patient is clinically stable with improving gastrointestinal function. She is tolerating a mechanical soft diet and reports feeling better. Pain is controlled on [place] as needed. Discharge Medications 1. Fluconazole [dose & frequency] continue to prevent fungal infections 2. Augmentin 500 mg q8h continue for infection management 3. [place] (Hydrocodone/Acetaminophen) as prescribed for pain control 4. Docusate for bowel regulation Follow-Up Plan & Recommendations Surgical Follow-Up: Patient must follow up with surgery in one week for drain evaluation and wound monitoring. Diet: Continue on a mechanical soft diet, advance as tolerated. Wound Care: Continue monitoring for any signs of infection at drain sites (redness, swelling, increased pain, or purulent discharge). Pain Management: Continue [place] as prescribed, switch to acetaminophen if pain decreases. Infection Control: Complete the prescribed course of Augmentin and Fluconazole to prevent secondary infections. Activity: Encourage ambulation, avoid strenuous activities until cleared by surgery. Home Health/Physical Therapy: Patient to continue home-based physical therapy as planned. Case discussed with Discharge planning discussed with the patient and caregiver for 43 minutes Operations or Procedures [place] [address] Ph: [phone] DIAGNOSTIC IMAGING Diagnostic Imaging Report : [id number] Signed PATIENT: ANEESH QUINTANILLA AACCT: [id number] UNIT: [id number] : 1955 LOC: [facility] ROOM / BED: [address] [place] [address] AGE / SEX: 69 / F ADM STATUS: ADM IN SERVICE 06 ORDERING PHYSICIAN: MJ PERERA MD PROCEDURE(s): KUB - KUB ABDOMEN SINGLE VIEW REASON: ABD PAIN ORDER NUMBER(s): [id number], ACCESSION NUMBER(s): [id number] EXAM: XR Abdomen, 1 View CLINICAL INDICATION: ABD PAIN TECHNIQUE: Frontal supine view of the abdomen/pelvis. COMPARISON: None FINDINGS: GASTROINTESTINAL TRACT: Fecal retention in the colon consistent with constipation. No dilation. BONES/JOINTS: Unremarkable. No acute fracture. OTHER FINDINGS: . None. . . .. IMPRESSION: Fecal retention in the colon consistent with constipation. ATED BY: ALEX STOVER MD DICTATED DATE/TIME: 12/27/24720 SIGNED BY: ALEX STOVER MD SIGNED DATE/TIME: 12/27/24720 CC: [place] [address] Ph: [phone] DIAGNOSTIC IMAGING Diagnostic Imaging Report : [id number] Signed PATIENT: ANEESH QUINTANILLA AACCT: [id number] UNIT: [id number] : 1955 [facility] AGE / SEX: 69 / F ADM STATUS: ADM IN SERVICE 1105 ORDERING PHYSICIAN: NITO RILEY MD PROCEDURE(s): SMBG - SMALL BOWEL SERIES-W GASTROGRA REASON: r/o extravasation ORDER NUMBER(s): [id number], ACCESSION NUMBER(s): [id number] Procedure: XY SMALL BOWEL SERIES-W GASTROGRA Reason for study/Clinical History: r/o extravasation Comparison Study: None available at time of dictation. Technique: Single contrast small bowel series performed. FINDINGS/IMPRESSION: Initial emergency medical technician/driver view of the abdomen and pelvis appears demonstrates no acute process. Contrast is identified within the colon by 2 hours. This represents a normal small bowel transit time. ATED BY: KERRI DE PAZ Jr., DO DICTATED DATE/TIME: 12/25/241744 SIGNED BY: KERRI DE PAZ Jr., SIGNED DATE/TIME: 12/25/241744 CC: [place] [address] Ph: [phone] DIAGNOSTIC IMAGING Diagnostic Imaging Report : [id number] Signed PATIENT: ANEESH QUINTANILLA AACCT: [id number] UNIT: [id number] : 1955 [facility]GE / SEX[facility] 69 / F ADM STATUS: ADM IN SERVICE 0400 ORDERING PHYSICIAN: SAMARA MARKS PROCEDURE(s): CXR1 - CHEST XRAY 1 VIEW REASON: pna ORDER NUMBER(s): [id number], ACCESSION NUMBER(s): [id number] EXAM: XR Chest, 1 View CLINICAL INDICATION: pna TECHNIQUE: Frontal view of the chest. COMPARISON: XY CHEST PORTABLE on DOS: 12/23/24, XY CHEST XRAY 1 VIEW on DOS: 12/22/24, XY CHEST XRAY 1 VIEW on DOS: 12/21/24, XY CHEST XRAY 1 VIEW on DOS: 12/20/24, XY CHEST PORTABLE on DOS: 12/19/24 FINDINGS: LUNGS AND PLEURAL SPACES: Unremarkable. No consolidation. No pneumothorax. HEART: Unremarkable. No cardiomegaly. MEDIASTINUM: Unremarkable. Normal mediastinal contour. BONES/JOINTS: Unremarkable. No acute fracture. OTHER FINDINGS: . Right IJ venous catheter with distal tip in SVC. IMPRESSION: No acute cardiopulmonary process. ATED BY: ALEX STOVER MD DICTATED DATE/TIME: 12/24/24828 SIGNED BY: ALEX STOVER MD SIGNED DATE/TIME: 12/24/24828 CC: [place] [address] Ph: [phone] DIAGNOSTIC IMAGING Diagnostic Imaging Report : [id number] Signed PATIENT: ANEESH QUINTANILLA AACCT: [id number] UNIT: [id number] : 1955 LOC: [facility] ROOM / BED: [address] [place] [address] AGE / SEX: 69 / F ADM STATUS: ADM IN SERVICE 47 ORDERING PHYSICIAN: MJ PERERA MD PROCEDURE(s): ABPLIV - CT AB PEL WITH IV CON ONLY REASON: ? ABDOMINAL ABSCESS ORDER NUMBER(s): [id number], ACCESSION NUMBER(s): [id number] Exam: CT CT AB PEL WITH IV CON ONLY History: ABDOMINAL ABSCESS Comparison Study: 12/14/2024 TECHNIQUE: Multidetector CT of the abdomen and pelvis with contrast. Axial, coronal and sagittal multiplanar reformats were obtained from the axial data set by the technologist. Radiation Dose Information: CT Dose: CTDI volume is 27.17 mGy. Dose-length product is 1412.48 mGy*cm FINDINGS: Bibasilar atelectasis. Partially visualized heart is unremarkable. Status post cholecystectomy. Micronodular contour of the liver. No focal hepatic lesion. Otherwise, liver, spleen, pancreas and adrenal glands unremarkable. The common bile duct measures up to 1.2 cm of the pancreatic head with the appearance of debris /artifact within the common bile duct. Mild bilateral perinephric fat stranding. Punctate nonobstructing left renal calculi. 3.4 cm right renal upper pole cyst. Ureters are unremarkable. Urinary bladder is decompressed with Alvarez catheter in place. Multiple calcifications within the uterus which may represent calcified fibroids. Enteric tube terminates within the stomach. Mild gastric wall thickening which may be from inadequate distension. There appears to be postsurgical changes possible small bowel segment over the right lower abdominal quadrant which is not definitely appreciated on the prior study. Otherwise, Small bowel loops are unremarkable. Appendix is not definitely visualized. Contrast is noted within the ascending colon, transverse and descending colons with small to moderate amount of fecal material within the colon. There is a rectal wire looped within the rectum. There are 2 ventral lower abdominal approach drainage catheters terminating over the right anterior lower abdomen on the right and left anterior mid abdomen on the left. There is interval improvement in the mild ascites and fluid collection over the ventral abdomen and associated free air with minimal residual. No large pocket of fluid collection is noted. There is interval improvement in the extensive subcutaneous emphysema with small to moderate residual most prominent of the ventral lower abdomen. There is left abdominal wall hematoma underlying the previously noted areas of significant subcutaneous emphysema with mild edema of the right lateral abdominal and pelvic wall Postsurgical changes of midline ventral abdomen. No destructive osseous lesions are noted. IMPRESSION: Intraperitoneal drainage catheters are noted with interval significant improvement in the ascites , fluid collection and foci of free air within the abdomen. Small residual is noted. No large loculated fluid collection is noted. Interval improvement in the subcutaneous emphysema of the left abdominal and chest wall with small to moderate residual . Left abdominal wall hematoma of the previous area of large subcutaneous emphysema. There appears to be postsurgical changes possible small bowel segment over the right lower abdominal quadrant which is not definitely appreciated on the prior study. Recommend clinical correlation. Additional findings as above. ATED BY: MERCY CHÁVEZ DO DICTATED DATE/TIME: 12/21/241809 SIGNED BY: MERCY CHÁVEZ DO SIGNED DATE/TIME: 12/21/241809 CC: [place] [address] Ph: [phone] DIAGNOSTIC IMAGING Diagnostic Imaging Report : [id number] Signed PATIENT: ANEESH QUINTANILLA AACCT: [id number] UNIT: [id number] : 1955 LOC: [facility] / BED: [facility] / A AGE / SEX: 68 / F ADM STATUS: ADM IN SERVICE 0600 ORDERING PHYSICIAN: MJ PERERA MD PROCEDURE(s): CXRP - CHEST PORTABLE REASON: resp failure ORDER NUMBER(s): [id number], ACCESSION NUMBER(s): [id number] CHEST RADIOGRAPH Indication: resp failure Technique: Single frontal view of the chest was obtained COMPARISON: XY CHEST PORTABLE on DOS: 12/15/24, XY CHEST XRAY 1 VIEW on DOS: 12/14/24, XY CHEST PORTABLE on DOS: 12/13/24 FINDINGS: Lines and Tubes: Endotracheal tube is 0.8 cm above the level of the clare. Enteric catheter and right central venous catheter in satisfactory position. Lungs: Diffuse congestion Pleura: No effusion. No pneumothorax. Cardiomediastinal contours: Unremarkable Bones: Unremarkable IMPRESSION: Recommend retraction of endotracheal tube by 1 cm. ATED BY: MARTIN GAINES MD DICTATED DATE/TIME: 12/16/24518 SIGNED BY: MARTIN GAINES MD SIGNED DATE/TIME: 12/16/24518 CC: [place] [address] Ph: [phone] DIAGNOSTIC IMAGING Diagnostic Imaging Report : [id number] Signed PATIENT: ANEESH QUINTANILLA AACCT: [id number] UNIT: [id number] : 1955 LOC: [facility] ROOM / BED: [address] [place] [address] AGE / SEX: 68 / F ADM STATUS: ADM IN SERVICE 1143 ORDERING PHYSICIAN: NITO RILEY MD PROCEDURE(s): CXRP - CHEST PORTABLE REASON: post intubation in the OR ORDER NUMBER(s): [id number], ACCESSION NUMBER(s): [id number] EXAM: XY CHEST PORTABLE Indication: post intubation in the OR Technique: Single frontal view of the chest was obtained Comparison: XY CHEST XRAY 1 VIEW on DOS: 12/14/24, XY CHEST PORTABLE on DOS: 12/13/24 FINDINGS: Lines and Tubes: Endotracheal tube projects 2 cm above the clare. Right internal jugular central venous catheter tip projects over the cavoatrial junction. Enteric tube projects in appropriate position. Lungs: Low lung volumes. Left chest wall subcutaneous emphysema is again visualized. Pleura: No effusion. No pneumothorax. Cardiomediastinal contours: Unchanged. Bones: No acute osseous abnormality. IMPRESSION: Endotracheal tube is in appropriate position. ATED BY: TREVON MOLINA MD DICTATED DATE/TIME: 12/15/24 1246 SIGNED BY: TREVON MOLINA MD SIGNED DATE/TIME: 12/15/24 1246 CC: [place] [address] Ph: [phone] DIAGNOSTIC IMAGING Diagnostic Imaging Report : [id number] Signed PATIENT: ANEESH QUINTANILLA AACCT: [id number] UNIT: [id number] : 1955 LOC: [facility] ROOM / BED: [facility] / B AGE / SEX: 68 / F ADM STATUS: ADM IN SERVICE 08 ORDERING PHYSICIAN: MJ PERERA MD PROCEDURE(s): KUB - KUB ABDOMEN SINGLE VIEW REASON: R/O EXTRAVASATION ORDER NUMBER(s): [id number], ACCESSION NUMBER(s): [id number] Exam: XY KUB ABDOMEN SINGLE VIEW Indication: R/O EXTRAVASATION Comparison: None Technique: 1 radiographic views of the abdomen. Findings: Nonspecific bowel-gas pattern. Surgical drain in the midabdomen. There is no definite evidence for pneumoperitoneum. No abnormal calcifications noted. Impression: Nonspecific bowel-gas pattern. ATED BY: MARTIN GAINES MD DICTATED DATE/TIME: 12/15/24 1010 SIGNED BY: MARTIN GAINES MD SIGNED DATE/TIME: 12/15/24 1010 CC: [place] [address] Ph: [phone] DIAGNOSTIC IMAGING Diagnostic Imaging Report : [id number] Signed PATIENT: ANEESH QUINTANILLA AACCT: [id number] UNIT: [id number] : 1955 LOC: [facility] ROOM / BED: [facility]T / B AGE / SEX: 68 / F ADM STATUS: ADM IN SERVICE 1246 ORDERING PHYSICIAN: MJ PERERA MD PROCEDURE(s): CXR1 - CHEST XRAY 1 VIEW REASON: NG TUBE PLACEMENT ORDER NUMBER(s): [id number], ACCESSION NUMBER(s): [id number] XY CHEST XRAY 1 VIEW, HISTORY: NG TUBE PLACEMENT COMPARISON: XY CHEST PORTABLE on DOS: 12/13/24 XY CHEST PORTABLE on DOS: 12/13/24 TECHNICAL DATA: 1 view of the chest was obtained. FINDINGS: Lines and tubes: NG in the stomach. Cardiomediastinal silhouette: normal Pulmonary vasculature: normal Lung expansion: normal Lung airspace: normal Lung interstitium: normal Pleura: normal Pneumothorax: no Bones: Unremarkable Other: Left chest wall subcutaneous emphysema is seen. IMPRESSION: No acute intrathoracic abnormality. Left chest wall subcutaneous emphysema is seen. ATED BY: JAIRO ESQUEDA MD DICTATED DATE/TIME: 12/14/241324 SIGNED BY: JAIRO ESQUEDA MD SIGNED DATE/TIME: 12/14/241324 CC: [place] [address] Ph: [phone] DIAGNOSTIC IMAGING Diagnostic Imaging Report : [id number] Signed PATIENT: ANEESH QUINTANILLA AACCT: [id number] UNIT: [id number] : 1955 [facility]GE / SEX: 68 / F ADM STATUS: ADM IN SERVICE 1217 ORDERING PHYSICIAN: NITO RILEY MD PROCEDURE(s): SMBG - SMALL BOWEL SERIES-W GASTROGRA REASON: r/o extravasation ORDER NUMBER(s): [id number], ACCESSION NUMBER(s): [id number] Procedure: XY SMALL BOWEL SERIES-W GASTROGRA Reason for study/Clinical History: r/o extravasation Comparison Study: CT abdomen pelvis from earlier today Technique: Single contrast small bowel series performed. FINDINGS/IMPRESSION: Gas distention of central small bowel loops. Skin attila in the midline abdomen and in the bilateral abdomen. A surgical drain projects over the lower abdomen and pelvis. Alvarez catheter projects over the pelvis. Soft tissue emphysema projects over the left abdomen known to be in the body wall on same-day CT. Gastric tube with tip projecting over the body of the stomach Contrast opacifies the stomach and duodenum. No significant contrast is otherwise seen in the bowel. No definite extraluminal contrast is visualized at 7 hours ATED BY: KRISS HERNANDEZ MD DICTATED DATE/TIME: 12/14/242202 SIGNED BY: KRISS HERNANDEZ MD SIGNED DATE/TIME: 12/14/242202 CC: [place] [address] Ph: [phone] DIAGNOSTIC IMAGING Diagnostic Imaging Report : [id number] Signed PATIENT: ANEESH QUINTANILLA AACCT: [id number] UNIT: [id number] : 1955 LOC: [facility] ROOM / BED: [address] [place] [address] AGE / SEX: 68 / F ADM STATUS: ADM IN SERVICE 0 ORDERING PHYSICIAN: CALVIN KINGSTON DO PROCEDURE(s): ABPL - CT AB PEL WO CON-NO ORAL OR IV REASON: possible bowel injury ORDER NUMBER(s): [id number], ACCESSION NUMBER(s): [id number] CLINICAL INFORMATION: 68 years old, Female; possible bowel injury. TECHNIQUE: Axial CT images of the abdomen and pelvis were obtained without IV contrast. Coronal and sagittal reformatted images were obtained, reviewed, and stored. Evaluation of the parenchymal organs is limited without IV contrast. Evaluation of the bowel and mesentery is limited without oral contrast. All CT scans at this medical facility are performed using dose modulation techniques as appropriate to a performed exam including the following: Automated exposure control was utilized; adjustment of the MA and/or KV according to patient size; and use of iterative reconstruction technique. CTDIvol = 21.5 mGy DLP = 1229.7 mGy-cm COMPARISON: None FINDINGS: Lung bases: Trace bilateral pleural effusions with overlying atelectasis. Liver: Grossly unremarkable in its noncontrast enhanced appearance. No abnormal density or focal lesion identified. Biliary: Cholecystectomy. Spleen: Unremarkable. Pancreas: Grossly unremarkable in its noncontrast enhanced appearance. Adrenal glands: Unremarkable. No mass. Kidneys: No hydronephrosis. Cyst in the upper pole of the right kidney measures up to 2.9 cm. Small nonobstructing left renal calculi. No obstructing calculus. Aorta/Vascular: Scattered atherosclerotic calcification. No abdominal aortic aneurysm. Retroperitoneum: No mass or lymphadenopathy. Bowel/mesentery: There is a small volume pneumoperitoneum, may be partly due to recent postsurgical changes. A surgical drain extends adjacent to a fluid collection in the anterior aspect of the ventral abdomen adjacent to small bowel loops. The fluid and gas collection measures up to 7 cm in AP dimension, 5.5 cm in transverse dimension, and approximately 7.4 cm in craniocaudal dimension. Additional small foci of free air near this location. There is also stranding in the anterior abdomen and right hemiabdomen adjacent to large and small bowel loops. There are nonspecific Mildly distended small bowel loops, some are fluid- filled. There is mild distention of the stomach with fluid. Appendix is not visualized. Pelvic organs: Heterogeneous fibroid uterus with associated calcifications. Bladder: Bladder is partially collapsed around a Alvarez catheter balloon. Abdominal wall: There is marked subcutaneous emphysema in the ventral abdominal wall and left lateral abdominal wall. Cutaneous attila are seen overlying the midline of the ventral abdominal wall. Bones: No acute fracture or suspicious intraosseous lesion. IMPRESSION: 1. Pneumoperitoneum, may be partly due to recent postsurgical changes. 2. There is a surgical drain in the ventral aspect of the abdomen adjacent to small bowel loops, with a focal collection adjacent to the drainage catheter containing fluid and gas measuring up to 7.4 cm in greatest dimension. Given the proximity to the small bowel, may be due to small bowel perforation, although there is also abnormal appearing transverse colon near this location. 3. There is also stranding in the anterior and right lateral aspects of the abdomen adjacent to large and small bowel loops. 4. Distended small bowel loops gastric distension, may be due to ileus associated with the process involving the small bowel and colon in the anterior abdomen. 5. Marked subcutaneous emphysema in the abdominal wall as described above. Cutaneous attila overlying the ventral abdominal wall from recent postsurgical changes. Critical findings Critical Result: Gas and fluid collection in the anterior aspect of the abdomen adjacent to small bowel loops and in close proximity to the transverse colon. Can not exclude bowel perforation or bowel injury. Findings discussed with OUMAR MCWILLIAMS by Dr. New by phone at 12/14/2024 11:44 AM, and acknowledged receipt and understanding of the findings. .. ATED BY: MCKINLEY NEW DO DICTATED DATE/TIME: 12/14/24947 SIGNED BY: MCKINLEY NEW DO SIGNED DATE/TIME: 12/14/24947 CC: [place] [id number] Ph: [phone] DIAGNOSTIC IMAGING Diagnostic Imaging Report : [id number] Signed PATIENT: ANEESH QUINTANILLA AACCT: [id number] UNIT: [id number] : 1955 LOC: [facility] ROOM / BED: [address] [place] [address] AGE / SEX: 68 / F ADM STATUS: ADM IN SERVICE 9 ORDERING PHYSICIAN: MJ PERERA MD PROCEDURE(s): CXRP - CHEST PORTABLE REASON: HTN ORDER NUMBER(s): [id number], ACCESSION NUMBER(s): [id number] CHEST RADIOGRAPH Indication: HTN Technique: Single frontal view of the chest was obtained Comparison: None FINDINGS: Lines and Tubes: None Lungs: No focal consolidation. Pleura: No effusion. No pneumothorax. Cardiomediastinal contours: Unremarkable Bones: No acute osseous abnormality. IMPRESSION: No acute cardiopulmonary disease. ATED BY: JESSICA IVORY MD DICTATED DATE/TIME: 12/13/24823 SIGNED BY: JESSICA IVORY MD SIGNED DATE/TIME: 12/13/24823 CC: Condition at Discharge: Good Final Diagnosis/Problems List #septic shock due to small bowel perforation status post laparotomy # HTN urgency # acute hypoxic respiratory failure likely due to sepsis s/p mechanical ventilation # Morbid Obesity # Septic shock due to small bowel perforation # Bowel Adhesions # JAKE likely vasomotor on CKD stage 3 # Uterine/Pelvic prolapse # cystocele # stress incontinence # vaginal lesions/p biopsy # uncontrolled type 2 DM HbA1c 8.2 # hypernatremia # hyperkalemia #yeast infection on gastric fluid #actinomyces maltese infection on peritoneal fluid Discharge Disposition: Home with Health Services SNF Discharge Will this Physician continue t: No Discharge Instruct/Medications Diet: Consistent carbohydrate Activity: Light activity Follow Up/Referral: Follow-up with PCP within 1-2 weeks schedule appt with dr Riley in 1 wk Medications: Script to pharmacy resume home meds Discharge Statement: "Patient was advised to return to the ER or call 911 if any headaches, dizziness, shortness of breath, chest pain, abdominal pain, bleeding, fevers, or worsening of medical condition. Patient was counseled about treatment plan, medications, possible side effects, patientverbalized understanding. All questions were answered to the best of my ability. 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
== END 2024-12-28 20:22 | disposition home health service (06) | DRG 853 ==
LOC: SUR 11:35 → TELE 13:06 → TELE-WESTW 17:26 → ICU WEST 12-15 13:00 → DOU IN ICU 12-22 00:30 → TELE-WESTW 12-22 14:50 → OVERFLOW 12-27 15:36 → WEST WING 12-27 15:52 → OVERFLOW 12-28 13:20 → TELE-WESTW 12-28 13:35
PROVIDERS: ADMIT Internal Medicine; ATTEND Emergency Medicine
PROC: 0TSD0ZZ Reposition Urethra, Open Approach (ICD-10-PCS; 2024-12-12)
PROC: 0DJD4ZZ Inspection of Lower Intestinal Tract, Percutaneous Endoscopic Approach (ICD-10-PCS; 2024-12-12)
PROC: 0JUC0JZ Supplement of Pelvic Region Subcutaneous Tissue and Fascia with Synthetic Substitute, Open Approach (ICD-10-PCS; principal; 2024-12-12 13:00)
PROC: 0DNL0ZZ Release Transverse Colon, Open Approach (ICD-10-PCS; 2024-12-15)
PROC: 0D9W00Z Drainage of Peritoneum with Drainage Device, Open Approach (ICD-10-PCS; 2024-12-15)
PROC: 0DB80ZZ Excision of Small Intestine, Open Approach (ICD-10-PCS; 2024-12-15)
PROC: 5A1955Z Respiratory Ventilation, Greater than 96 Consecutive Hours (ICD-10-PCS; 2024-12-15)
PROC: 0BH18EZ Insertion of Endotracheal Airway into Trachea, Via Natural or Artificial Opening Endoscopic (ICD-10-PCS; 2024-12-15)
PROC: 0DN80ZZ Release Small Intestine, Open Approach (ICD-10-PCS; 2024-12-15)
PROC: 0D180Z8 Bypass Small Intestine to Small Intestine, Open Approach (ICD-10-PCS; 2024-12-15)
DX: A41.9 Sepsis, unspecified organism (principal); J96.01 Acute respiratory failure with hypoxia; K63.1 Perforation of intestine (nontraumatic); R65.21 Severe sepsis with septic shock; N17.0 Acute kidney failure with tubular necrosis; K65.0 Generalized (acute) peritonitis; E87.0 Hyperosmolality and hypernatremia; N81.4 Uterovaginal prolapse, unspecified; E11.22 Type 2 diabetes mellitus with diabetic chronic kidney disease; E78.5 Hyperlipidemia, unspecified; F03.90 Unspecified dementia, unspecified severity, without behavioral disturbance, psychotic disturbance, mood disturbance, and anxiety; I12.9 Hypertensive chronic kidney disease with stage 1 through stage 4 chronic kidney disease, or unspecified chronic kidney disease; N18.32 Chronic kidney disease, stage 3b; R00.1 Bradycardia, unspecified; N39.3 Stress incontinence (female) (male); K66.0 Peritoneal adhesions (postprocedural) (postinfection); Z20.822 Contact with and (suspected) exposure to COVID-19; E66.01 Morbid (severe) obesity due to excess calories; I16.0 Hypertensive urgency; E11.65 Type 2 diabetes mellitus with hyperglycemia; N89.8 Other specified noninflammatory disorders of vagina; E87.5 Hyperkalemia; Z82.49 Family history of ischemic heart disease and other diseases of the circulatory system; Z82.0 Family history of epilepsy and other diseases of the nervous system; Z83.3 Family history of diabetes mellitus; Z79.82 Long term (current) use of aspirin; Z79.899 Other long term (current) drug therapy; Z68.37 Body mass index [BMI] 37.0-37.9, adult
CPT/HCPCS: 36415; 36600; 71045; 74018; 74176; 74177; 74250; 80048; 80053; 80202; 81001; 82565; 82805; 82962; 83036; 83605; 83735; 84100; 84132; 84439; 84443; 84478; 84481; 85007; 85025; 85027; 85610; 85730; 86850; 86900; 86901; 87070; 87075; 87077; 87081; 87086; 87205; 87426; 87804; 93005; 93306; 94002; 94003; 94640; 97110; 97116; 97163; 97530; C1771; G0378; J0131; J0171; J1100; J1450; J1815; J1885; J2003; J2250; J2405; J2470; J2543; J2704; J3480; J3490; J7060

== ENCOUNTER → 2025-01-26 | Outpatient (CLI) | payer OTHER, MEDICAID ==
[~2025-01-26] MED LIST changes: +ACET300T58 PO; +AUG875T PO; +BRIM0.159 OP; +CHOL500014 PO; +DONE5TAB80 PO; +DORZ2SOL18 EACHEYE; +DULO1CAP6 PO; +FLUC200T50 PO; +FURO20TA3 PO; +GLIP5TAB21 PO; +HYDR1TAB97 PO; +INSU100I28 IJ; +MELO15TA29 PO; +SEMA2INJ3 SC; +TIMO0.5S28 EACHEYE
== END | disposition home or self-care (01) ==
LOC: LAB 09:55
PROVIDERS: ATTEND Surgery
DX: Z48.89 Encounter for other specified surgical aftercare (principal); Z98.890 Other specified postprocedural states
CPT/HCPCS: 87205

== ENCOUNTER 2025-02-06 06:07 | Day surgery (SDC) | payer OTHER, MEDICAID ==
[2025-02-03 11:14] LABS: Urine Bacteria None Seen /hpf (None Seen)
[2025-02-03 11:28] LABS: Basophils # (auto) 0 10 ^3/uL (0-0.2); Monocytes # (auto) 0.7 10 ^3/uL (0-1.3); Neutrophils # (auto) 3.5 10 ^3/uL (1.6-8.6); Nucleated Red Blood Cells % 0.1 %
[2025-02-03 11:30] LABS: Basophils % (auto) 0.6 % (0.0-2.0); Eosinophils # (auto) 0.1 10 ^3/uL (0-0.8); Eosinophils % (auto) 2.4 % (0.0-7.0); Hematocrit 31.8 % (36.0-46.0); Hemoglobin 10.1 g/dL (12.2-16.2); Lymphocytes # (auto) 1.7 10 ^3/uL (0.4-5.4); Lymphocytes % (auto) 27.9 % (10.0-50.0); Mean Corpuscular Hemoglobin 25.4 pg (28.0-32.0); Mean Corpuscular Hgb Conc. 31.8 g/dL (32.0-36.0); Mean Corpuscular Volume 79.7 fL (80.0-100.0); Monocytes % (auto) 11.7 % (0.0-12.0); Neutrophils % (auto) 57.4 % (37.0-80.0); Platelet Count (auto) 298 10^3/uL (140-450); Red Blood Cells 3.99 10^6/uL (4.0-5.20); Red Cell Distribution Width 18.1 % (11.8-14.3); White Blood Cell 6.1 10^3/uL (4.4-10.8)
[2025-02-03 11:42] LABS: Urine Blood Negative /uL (Negative); Urine Clarity Clear (Clear); Urine Color Light-Yellow (Yellow); Urine Protein, UAD Negative (Negative); Urine Squamous Epithelial Cell FEW /hpf (<5); Urine Urobilinogen Normal (Negative); Urine pH 5.5 (5.0-9.0)
[2025-02-03 11:51] LABS: INR 1.14 (0.9-1.15); Partial Thromboplastin Time 27.6 SEC (24.5-34.5); Prothrombin Time 11.9 sec (9.3-11.8)
[2025-02-03 11:56] LABS: Alkaline Phosphatase 70 U/L (46-116); Anion Gap 8 (5-15); BUN/Creatinine Ratio 14.6 (10.0-20.0); Bilirubin, Total 0.4 mg/dL (0.2-1.0); Blood Urea Nitrogen 15 mg/dL (9-23); Calcium 9.6 mg/dL (8.7-10.4); Carbon Dioxide 23 mmol/L (20-31); Sodium 138 mmol/L (136-145); Total Protein 6.9 g/dL (5.7-8.2)
[2025-02-03 12:00] LABS: Alanine Aminotransferase < 9 U/L (7-40); Aspartate Aminotransferase 12 U/L (13-40); Chloride 107 mmol/L (98-107); Glucose 260 mg/dL (74-106)
[~2025-02-06] VITALS: Ht 167.6 cm; Wt 93.4 kg
[~2025-02-06 06:07] MED LIST changes: -ALPR0.254 PO; -AUG875T PO; -CHOL20007 PO; -DONE1TAB88 PO; -ESTR1TAB6 PO; -FLUC200T50 PO; -HYDR-4798 PO; -HYDR1TAB97 PO; -NIFE90TA75 PO; -PROG200C21 PO; -TIRZ5INJ SC
[2025-02-06] MEDS ORDERED: ceFAZolin 2 GM/D5W100ml 100 ML IV ONE (06:35)
[2025-02-06] MEDS ORDERED: ROCURONIUM 10MG/ML 10ML VIAL IV ONE (06:59)
[2025-02-06] MEDS ORDERED: SUCCINYLCHOLINE CHLORIDE 20 MG/ML 10ML VIAL IV ONE (06:59)
[2025-02-06] MEDS ORDERED: fentaNYL CITRATE 100 MCG/2 ML VL ONE (07:02)
[2025-02-06] MEDS ORDERED: HYDROmorphone HCL 2 MG/ML VL/or syr ONE (07:02)
[2025-02-06] MEDS ORDERED: KETAMINE 50mg/ML 1ml syringe ONE (07:02)
[2025-02-06] MEDS ORDERED: MIDAZOLAM HCL 2MG/2ML 2ml VIAL (1mg/ml) ONE (07:02)
[2025-02-06] MEDS ORDERED: fentaNYL CITRATE 5 ML ONE (07:02)
[2025-02-06] MEDS ORDERED: LIDOCAINE HCL 2% TOP JELLY 5ML TOP ONE (07:03)
[2025-02-06] MEDS ORDERED: DexAMETHasone SOD PHOS 10MG/1ML VIAL INJ ONE (07:03)
[2025-02-06] MEDS ORDERED: LIDOCAINE 1% INJ PF 5ML AMP ONE (07:03)
[2025-02-06] MEDS ORDERED: SODIUM CHLORIDE LOCK 50 ML ONE (07:03)
[2025-02-06] MEDS ORDERED: ONDANSETRON HCL 4 MG/2 ML VIAL ONE (07:03)
[2025-02-06] MEDS ORDERED: ceFAZolin 1GM VL ONE (07:44)
[2025-02-06] MEDS: BUPIVACAINE 0.5% P/F INJ 10 ML VIAL ONE (07:51)
[2025-02-06] MEDS: LIDOCAINE W/ EPINEPHRINE 1% 20ML VIAL ONE (07:53)
[2025-02-06 08:04] VITALS: PULSE 60; RESP 16; O2SAT 94
--- NOTE | 2025-02-06 08:16 | DVHOP2 ---
Operative Report - 2 Report Details Date: 02/06/25 Preop Diagnosis: NON HEALING ABDOMINAL WOUND Postop Diagnosis: noN HEALING ABDOMINAL WOUND Surgeon: Dr. Hill Riley Inspector Repairer: Anthony Andino NP Anesthesiologist: Dr. Arshad Anesthesia: Mac Consent: The patient was informed of the risks and benefits of the procedure. These include but are not limited to complications of anesthesia, postoperative infection, incomplete relief of symptoms, recurrence of symptoms, damage to blood vessels, nerves and tendons, deep venous thrombosis, pulmonary embolism and possible need for repeat surgery in the future. Indications for Surgery: non healing wound with drainage Name of Procedure Performed incision and drainage of abdominal wound with wound vac placement Procedure Details Procedure Details: Under the supervision of Dr. Riley the patient was brought into the OR and placed in a supines position. The patient was prepped and draped in a sterile fashion. Under adequate anesthesia and infiltration of 1:1 1% lidocaine with epi and 0.25% Marcaine an incision was made over the wound in the length about 10cm , no purulent material was noted and a wound culture was obtained. Suture granuloma was noted, and the suture was removed, The wound was than irrigated with normal saline and Ancef. A wound vac placed and all sponge, blade and needle counts were correct. Patient transferred to recovery with out incident. Specimen: wound culture Condition Good Disposition Home ANTHONY ANDINO DNP Feb 06, 2025 08:16
[2025-02-06 08:49] VITALS: BP 135/66; PULSE 64; RESP 14; O2SAT 94
== END 2025-02-06 09:05 | disposition home or self-care (01) ==
LOC: SUR 06:07
PROVIDERS: ATTEND Surgery
DX: T81.89XA Other complications of procedures, not elsewhere classified, initial encounter (principal); K65.1 Peritoneal abscess; I11.0 Hypertensive heart disease with heart failure; I50.9 Heart failure, unspecified; E11.9 Type 2 diabetes mellitus without complications; F03.94 Unspecified dementia, unspecified severity, with anxiety; Z79.82 Long term (current) use of aspirin; Z79.899 Other long term (current) drug therapy; Z90.710 Acquired absence of both cervix and uterus; Z98.890 Other specified postprocedural states; Y82.8 Other medical devices associated with adverse incidents
CPT/HCPCS: 10180; 36415; 80053; 81001; 82962; 85025; 85610; 85730; 87070; 87075; 87205; J0330; J0690; J1100; J2250; J2405; J3010; J3490; J7030

== ENCOUNTER 2025-04-28 08:42 | Inpatient (IN) | payer OTHER, MEDICAID ==
[~2025-04-28] VITALS: Ht 167.6 cm; Wt 90.8 kg
--- NOTE | 2025-04-28 09:07 | ED.PDOC ---
History of Present Illness HPI Comments 69-year-old female with PMHx DM, HTN, HLD presents with a chief complaint of abdominal pain with associated nausea/vomiting/diarrhea. Patient states that her pain has been present since November 2024 after having surgery with Dr. Zapien. Patient mentions that her pain is localized to her periumbilical region, nonradiating, and rate her pain a 8/10 at this time. Chief Complaint: Abdominal Pain Time Seen by MD: 08:48 Primary Care Provider: July HINKLE Reviewed Notes: Medications, Allergies Allergies: Coded Allergies: NO KNOWN ALLERGIES (Unverified , 01/10/15) Home Meds Reported Medications Acetaminophen W/ Codeine (Tylenol #4 W/Codeine) 1 Tab Tb, 1 TAB PO PRN, TAB 02/03/25 Semaglutide (Ozempic) 2 Mg/3 Ml Inj, 3 MG SC QWEEKLY, INJ 02/03/25 Glipizide (Glipizide) 5 Mg Tab, 5 MG PO DAILY, TAB 02/03/25 Furosemide (Furosemide) 20 Mg Tab, 20 MG PO DAILY, TAB 02/03/25 Insulin Aspart (Novolog) 100 Unit/Ml Inj, 20 UNIT IJ TID, INJ 02/03/25 Cholecalciferol (D3 ULTRA STRENGTH) 5,000 Unit Cap, 5000 UNIT PO DAILY, CAP 02/03/25 Meloxicam (Meloxicam) 15 Mg Tab, 15 MG PO DAILY, TAB 02/03/25 Duloxetine HCl (Duloxetine HCl) 60 Mg Cap, 2 CAP PO DAILY, CAP 02/03/25 Donepezil Hydrochloride (DONEPEZIL HCL) 5 Mg Tab, 5 MG PO DAILY, TAB 02/03/25 Dorzolamide-Timolol (Dorzolamide Hcl/Timolol M) 1 Ml Elsy, 1 DROP EACHEYE BID, #10 ML 6 Refills 12/13/24 Timolol Maleate (Timolol Maleate Ophthalmi) 0.5 % Elsy, 1 DROP EACHEYE QAM, #5 ML 5 Refills 12/13/24 Brimonidine Tartrate (Brimonidine Tartrate) 0.15 % Esly, 1 DROP OP TID, DROP 12/13/24 Losartan Potassium (Losartan Potassium) 25 Mg Tab, 12.5 MG PO DAILY for 30 Days, MG 12/09/24 Loratadine (Loratadine) 10 Mg Cap, 10 MG PO, CAP 12/09/24 Docusate Sodium (Gnp Stool Softener) 100 Mg Cap, 100 MG PO BID, CAP 12/09/24 Carvedilol (Carvedilol) 25 Mg Tab, 1.5 TAB PO BID for 30 Days, MG 12/09/24 Atorvastatin Calcium (ATORVASTATIN CALCIUM) 20 Mg Tab, 1 TAB PO DAILY, #30 TAB 5 Refills 12/09/24 Aspirin (Aspir-Low) 81 Mg Tab, 81 MG PO DAILY for 30 Days, MG 12/09/24 Information Source: Patient Mode of Arrival: Ambulatory Severity: Moderate Timing: Months Duration: Since onset Prehospital treatment: None Past Medical History PAST MEDICAL HISTORY: DM, HTN, Liver Surgical History: Cholecystectomy HUNTER TRAPPER History: No Pertinent HUNTER TRAPPER History Family History Family History: No family hx of DM, No family hx of HTN Social History Smoker: Non-Smoker Alcohol: Denies ETOH Use Drugs: Denies Drug Use Lives In: Home Constitutional: denies: chills, diaphoresis, fatigue, fever, malaise, sweats, weakness, others EENTM: denies: blurred vision, double vision, ear bleeding, ear discharge, ear drainage, ear pain, ear ringing, eye pain, eye redness, hearing loss, mouth pain, mouth swelling, nasal discharge, nose bleeding, nose congestion, nose pain, photophobia, tearing, throat pain, throat swelling, voice changes, others Respiratory: denies: cough, hemoptysis, orthopnea, SOB at rest, shortness of breath, SOB with excertion, stridor, wheezing, others Cardiovascular: denies: chest pain, dizzy spells, diaphoresis, Dyspnea on exertion, edema, irregular heart beat, left arm pain, lightheadedness, palpitations, PND, syncope, others Gastrointestinal: reports: abdominal pain, diarrhea, nausea, vomiting; denies: abdomen distended, blood streaked bowels, constipated, dysphagia, difficulty swallowing, hematemesis, melena, poor appetite, poor fluid intake, rectal bleeding, rectal pain, others Genitourinary: denies: abnormal vagina bleeding, burning, dyspareunia, dysuria, flank pain, frequency, hematuria, incontinence, pain, , vagina discharge, urgency, others Neurological: denies: dizziness, fainting, headache, left sided numbness, left sided weakness, numbness, paresthesia, pre-existing deficit, right sided numbness, right sided weakness, seizure, speech problems, tingling, tremors, weakness, others Musculoskeletal: denies: back pain, gout, joint pain, joint swelling, muscle pain, muscle stiffness, neck pain, others Integumetry: denies: bruises, change in color, change in hair/nails, dryness, laceration, lesions, lumps, rash, wounds, others Allergic/Immunocompromised: denies: Difficulty Healing, Frequent Infections, Hives, Itching, others Hematologic/Lymphatic: denies: anemia, blood clots, easy bleeding, easy bruising, swollen glands, others Endocrine: denies: excessive hunger, excessive sweating, excessive thirst, excessive urination, flushing, intolerance to cold, intolerance to heat, unexplained weight gain, unexplained weight loss, others Psychiatric: denies: anxiety, bipolar disorder, depression, hopeless, panic disorder, schizophrenia, sleepless, suicidal, others All Other Systems: Reviewed and Negative Physical Exam General Appearance: No Apparent Distress, Normal HEENT: Normal ENT Inspection, Pharynx Normal, TMs Normal Neck: Full Range of Motion, Non-Tender, Normal, Normal Inspection Respiratory: Chest Non-Tender, Lungs Clear, No Accessory Muscle Use, No Respiratory Distress, Normal Breath Sounds Cardiovascular: No Edema, No JVD, No Murmur, No Gallop, Normal Peripheral Pulses, Regular Rate/Rhythm Breast Exam: Deferred Gastrointestinal: No Organomegaly, Non Tender, No Pulsatile Mass, Normal Bowel Sounds, Soft Genitalia: Deferred Pelvic: Deferred Rectal: Deferred Extremities: No calf tenderness, Normal capillary refill, Normal inspection, Normal range of motion, Non-tender, No pedal edema Musculoskeletal : Apperance: Normal Neurologic: Alert, display decorator II-XII nml as Tested, No Motor Deficits, Normal Affect, Normal Mood, No Sensory Deficits Cerebellar Function: Normal Reflexes: Normal Skin: Dry, Normal Color, Warm Lymphatic: No Adenopathy Was a procedure done? Was a procedure done?: No Differential Dx Considerations may include: sbo, ileus, colitis, abscess, other postop complications X-Ray, Labs, Meds, VS Vital Signs Date Time Temp Pulse Resp B/P (MAP) Pulse Ox O2 Delivery O2 Flow Rate FiO2 04/28/25 09:27 75 16 98 Room Air* 0 21 04/28/25 09:27 98.3 75 12 153/69 (97) 98 98.3 04/28/25 08:53 97.7 66 18 174/78 (110) 98 97.7 Lab Test 04/28/25 09:34 04/28/25 08:52 04/28/25 08:51 Range/Units White Blood Count Pending Red Blood Count Pending Hemoglobin Pending Hematocrit Pending Mean Corpuscular Volume Pending Mean Corpuscular Hemoglobin Pending Mean Corpuscular Hemoglobin Concent Pending Red Cell Distribution Width Pending Platelet Count Pending Mean Platelet Volume Pending Neutrophils (%) (Auto) Pending Lymphocytes (%) (Auto) Pending Monocytes (%) (Auto) Pending Basophils (%) (Auto) Pending Neutrophils # (Auto) Pending Lymphocytes # (Auto) Pending Monocytes # (Auto) Pending Sodium Level 138 136-145 mmol/L Potassium Level 5.4 H 3.5-5.1 mmol/L Chloride Level 109 H 98-107 mmol/L Carbon Dioxide Level 12 L 20-31 mmol/L Anion Gap 17 H 5-15 Blood Urea Nitrogen 26 H 9-23 mg/dL Creatinine 1.46 H 0.550-1.02 mg/dL Glomerular Filtration Rate Calc 38 >90 mL/min BUN/Creatinine Ratio 17.8 10.0-20.0 Serum Glucose 142 H 74-106 mg/dL Calcium Level 7.1 L 8.7-10.4 mg/dL Total Bilirubin 0.3 0.2-1.0 mg/dL Aspartate Amino Transferase (AST) 15 <34 U/L Alanine Aminotransferase (ALT) 10 7-40 U/L Alkaline Phosphatase 91 46-116 U/L Total Protein 5.4 L 5.7-8.2 g/dL Albumin 3.3 3.2-4.8 g/dL Urine Color Light-yellow Yellow Urine Clarity Clear Clear Urine pH 6.0 5.0-9.0 Urine Specific [place] 1.010 1.001-1.035 Urine Protein Negative Negative Urine Ketones Negative Negative Urine Blood Negative Negative /uL Urine Nitrite Negative Negative Urine Bilirubin Negative Negative Urine Urobilinogen Normal Negative mg/dL Urine Leukocyte Esterase Trace Negative /uL Urine RBC 1 0 - 4 /hpf Urine Microscopic WBC 4 0-5 /HPF Urine Squamous Epithelial Cells Few <5 /hpf Urine Bacteria Mod H None Seen /hpf Urine Glucose 4+ H Normal mg/dL POC Glucose 274 H 70-106 mg/dl Time of 1ST Reevaluation: 09:18 Reevaluation 1ST: Unchanged Patient Education/Counseling: Diagnosis, Treatment, Prognosis, Need For Follow Up Family Education/Counseling: No Family Present Comments pt has been in pain since nov. ct now shows a fluid collection,. an infection cannot be ruled out, pt will be admitted for further evaluation and treatments Departure 1 Departure Time of Disposition: 10:48 Impression: Primary Impression: Postoperative abdominal pain Additional Impression: Postoperative abscess Disposition: ADMITTED INPATIENT Admit to: Med Surg Condition: Stable Discharged With: Self, Relative (Mother) Critical Care Note Critical Care Time?: Yes (55 min-critical care time only) Critical care comment: due to concerns for deterioration of patient's condition, the care required my highest level of attention and readiness. i assessed the patient's condition, reviewed relevant documents, communicated with medical personnel, ordered the proper tests and treatments, reassessed for results and response to treatments, spoke to family and consultants and formulated a plan of care Stability Stability form required: No Heart Score Heart Score: Heart Score Response (Comments) Value History N/A 0 EKG N/A 0 Age N/A 0 Risk Factors N/A 0 Troponin N/A 0 Total 0 I personally scribed for MARGIE ISBELL MD ([email or web address]) on 04/28/25 at 09:07. Valentina ctronically submitted by Hany Gandhi ([email or web address]). MARGIE ISBELL MD Apr 28, 2025 09:07
[2025-04-28 09:27] VITALS: PULSE 75; RESP 16; O2SAT 98
[2025-04-28 09:35] LABS: Urine Bacteria MOD /hpf (None Seen); Urine Blood Negative /uL (Negative); Urine Clarity Clear (Clear); Urine Protein, UAD Negative (Negative); Urine Squamous Epithelial Cell FEW /hpf (<5); Urine Urobilinogen Normal (Negative); Urine WBC 4 /HPF (0-5)
[2025-04-28 09:38] LABS: Urine Color Light-Yellow (Yellow)
[2025-04-28 10:06] LABS: Alanine Aminotransferase 10 U/L (7-40); Albumin 3.3 g/dL (3.2-4.8); Alkaline Phosphatase 91 U/L (46-116); Anion Gap 17 (5-15); Aspartate Aminotransferase 15 U/L (<34); BUN/Creatinine Ratio 17.8 (10.0-20.0); Sodium 138 mmol/L (136-145)
--- NOTE | 2025-04-28 10:06 | DVH ---
Exam: CT CT AB PEL WO CON-NO ORAL OR IV History: abdominal pain Comparison Study: CT CT AB PEL WO CON-NO ORAL OR IV on DOS: 12/21/24 Technique: Multidetector spiral CT of the abdomen and pelvis was performed from lung bases to pubic s ymphysis. Imaging was performed without intravenous contrast. Coronal and sagittal multiplanar reform ats were obtained from the axial data set by the technologist. Radiation Dose : 1. Abdomen/Pelvis: CTDIvol 16.16 mGy, DLP 761.8 mGy*cm. Findings: Evaluation of vasculature and solid organs is limited due to lack of intravenous contrast use. Lung Bases: Lung bases are clear. Visualized portions of the heart and pericardium are unremarkable. Liver: The liver is normal in size. No focal lesions. Gallbladder and Biliary Tree: The gallbladder is surgically absent. No intrahepatic biliary ductal di latation. The common bile duct is dilated measuring 1.9 cm. Spleen: Unremarkable Pancreas: The pancreas is grossly unremarkable. Adrenal Glands: Unremarkable Kidneys: Kidneys are unremarkable without calculi or hydronephrosis. 3.3 cm right renal cyst. Left re nal atrophy. Punctate nonobstructive left intrarenal calculi measuring 2 mm. GI tract: The stomach is grossly normal in appearance. There are surgical anastomoses in small-bowel loops in the right hemiabdomen. Scattered stool throughout the colon. No evidence of bowel obstructi on. The appendix is not visualized, however no inflammatory changes in the right lower quadrant to s uggest acute appendicitis. Peritoneum/mesentery/retroperitoneum. No evidence of free intraperitoneal air. No ascites. No evidenc e of suspicious lymphadenopathy. Abdominal Wall: Soft tissue thickening and stranding in the midline ventral abdominal wall. There is an ill-defined fluid collection which measures 3.5 x 3.6 cm. Vasculature: The visualized abdominal aorta is normal in size and caliber. Evaluation of abdominal a nd pelvic vessels is limited due to lack of intravenous contrast. Urinary Bladder: Grossly unremarkable for degree of distention. Pelvic Organs: Calcified masses in the uterus consistent with granulomas. Musculoskeletal: No aggressive focal bony lesions, acute fractures or dislocation. Serpiginous radiod ensities in the bilateral femoral heads consistent with avascular necrosis. There is an intramedullar y nail in the left femur. IMPRESSION: 1. 3.6 cm collection in the ventral abdominal wall deep subcutaneous tissues with mild adjacent fat s tranding which may reflect postoperative seroma and scarring. Infected collection is not excluded in the absence of intravenous contrast and should be correlated with patient's symptoms. 2. Cholecystectomy. 3. Postsurgical changes in the small bowel. No bowel obstruction. 4. Multiple uterine fibroids. 5. 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
[2025-04-28 10:07] LABS: Bilirubin, Total 0.3 mg/dL (0.2-1.0); Blood Urea Nitrogen 26 mg/dL (9-23); Calcium 7.1 mg/dL (8.7-10.4); Carbon Dioxide 12 mmol/L (20-31); Chloride 109 mmol/L (98-107); Glucose 142 mg/dL (74-106); Potassium 5.4 mmol/L (3.5-5.1); Total Protein 5.4 g/dL (5.7-8.2)
[2025-04-28] MEDS: cefTRIAXone 1GM/50ML D5W 50 ML IV ONE (11:42)
[2025-04-28 12:29] LABS: Basophils # (auto) 0 10 ^3/uL (0-0.2); Basophils % (auto) 0.3 % (0.0-2.0); Eosinophils # (auto) 0.1 10 ^3/uL (0-0.8); Eosinophils % (auto) 1.1 % (0.0-7.0); Hematocrit 42.1 % (36.0-46.0); Hemoglobin 13.3 g/dL (12.2-16.2); Lymphocytes # (auto) 3.2 10 ^3/uL (0.4-5.4); Lymphocytes % (auto) 36.5 % (10.0-50.0); Mean Corpuscular Hemoglobin 22.2 pg (28.0-32.0); Mean Corpuscular Hgb Conc. 31.6 g/dL (32.0-36.0); Mean Corpuscular Volume 70.2 fL (80.0-100.0); Monocytes % (auto) 11.6 % (0.0-12.0); Neutrophils # (auto) 4.4 10 ^3/uL (1.6-8.6); Neutrophils % (auto) 50.5 % (37.0-80.0); Nucleated Red Blood Cells % 0.1 %; Platelet Count (auto) 231 10^3/uL (140-450); Red Blood Cells 5.99 10^6/uL (4.0-5.20); Red Cell Distribution Width 20.9 % (11.8-14.3); White Blood Cell 8.6 10^3/uL (4.4-10.8)
--- NOTE | 2025-04-28 14:04 | DVHHPRES ---
History of Present Illness Resident Creating Document: LATRICIA FRANCO RESIDENT History of Present Illness This is a 69-year-old female with past medical history of hypertension, type 2 diabetes mellitus, hyperlipidemia, bronchial asthma, status post laparotomy, presented to the ED with a chief complaint of intermittent abdominal pain, nausea and vomiting since November 2024 prior to this admission. The patient states that she had a laparotomy for total abdominal hysterectomy with pelvic floor repair and after that she had intermittent abdominal pain which was diffuse, radiates to the back, associated with low-grade fever, chills ,sweating, nausea, vomiting and altered bowel habit getting worse that prompted this visit. She also mentioned that after surgery she was following up with Dr. Riley as an outpatient follow up and she has an upcoming scheduled appointment but abdominal pain pain getting worse that prompted her to come to the hospital. She denied cough, chest pain, shortness of breath, high fever, dysuria, hematuria, positive sick contact or any recent traveling . Patient was seen and examined on the bedside. He is alert oriented x3. Complaint of diffuse abdominal pain mostly in the right periumbilical region, nausea and constipation. Past Medical History Hypertension, type 2 diabetes mellitus, hyperlipidemia, bronchial asthma, Past Surgical History Hernia repair, status post exploratory laparotomy Family History No significant family history Past Social History Lives alone and has caregiver Remote history of smoking, nonalcoholic and never tried any drugs Review of Systems Constitutional: Yes: Fever, Chills; No: Sweats, Weakness, Malaise, Other Eyes: No: Pain, Vision change, Conjunctivae inflammation, Eyelid inflammation, Other, Redness ENT: No: Ear pain, Ear discharge, Nose pain, Nose discharge, Nose congestion, Mouth pain, Mouth swelling, Throat pain, Throat swelling, Other Respiratory: No: Cough, Dry, Shortness of breath, SOB with excertion, Wheezing, Hemoptysis, Pleuritic Pain, Sputum, Wheezing, Other Cardiovascular: No: Chest Pain, Palpitations, Orthopnea, Paroxysmal Noc. Dyspnea, Edema, Lt Headedness, Other Gastrointestinal: Nausea, Vomiting, Abdominal Pain, Constipation; No: Diarrhea, Melena, Hematochezia, Other Genitourinary: No Dysuria, No Frequency, No Incontinence, No Hematuria, No Retention, No Other Musculoskeletal: No: other, neck pain, shoulder pain, arm pain, back pain, hand pain, leg pain, foot pain Skin: No: Rash, Lesions, Jaundice, Bruising, Other Neurological: No: Weakness, Numbness, Incoordination, Change in speech, Confusion, Seizures, Other Allergies: Coded Allergies: NO KNOWN ALLERGIES (Unverified , 01/10/15) Exam Vital Signs Vital Signs Date Time Temp Pulse Resp B/P (MAP) Pulse Ox O2 Delivery O2 Flow Rate FiO2 04/28/25 11:50 98.0 62 17 151/68 (95) 97 98.0 04/28/25 09:27 Room Air* 0 21 Exam Physical examination: General Appearance: Alert, Oriented X3, Cooperative, mild distress HEENT: Atraumatic, PERRLA, EOMI, Mucous membrane moist/pink Respiratory: Clear to auscultation, Normal air movement Cardiovascular: Regular rate, Normal S1, Normal S2, No murmurs, no chest wall tenderness Abdominal: Normal bowel sounds, tenderness and mass in the Rt periumbilical region, No hepatospenomegaly. Extremities: No clubbing, No cyanosis, No edema, Normal pulses, No tenderness/swelling Skin: No rashes, No breakdown, No significant lesion Neuro: Normal speech, Strength at 5/5 X4 ext, Normal tone, Sensation intact, grossly intact cranial nerves. Psych/Mental Status: Mental status NL, Mood NL Labs/Xrays Labs Test 04/28/25 11:45 04/28/25 09:34 04/28/25 08:52 04/28/25 08:51 Range/Units White Blood Count 8.6 4.4-10.8 10^3/uL Red Blood Count 5.99 H 4.0-5.20 10^6/uL Hemoglobin 13.3 12.2-16.2 g/dL Hematocrit 42.1 36.0-46.0 % Mean Corpuscular Volume 70.2 L 80.0-100.0 fL Mean Corpuscular Hemoglobin 22.2 L 28.0-32.0 pg Mean Corpuscular Hemoglobin Concent 31.6 L 32.0-36.0 g/dL Red Cell Distribution Width 20.9 H 11.8-14.3 % Platelet Count 231 140-450 10^3/uL Mean Platelet Volume 9.0 6.9-10.8 fL Neutrophils (%) (Auto) 50.5 37.0-80.0 % Lymphocytes (%) (Auto) 36.5 10.0-50.0 % Monocytes (%) (Auto) 11.6 0.0-12.0 % Eosinophils (%) (Auto) 1.1 0.0-7.0 % Basophils (%) (Auto) 0.3 0.0-2.0 % Neutrophils # (Auto) 4.4 1.6-8.6 10 ^3/uL Lymphocytes # (Auto) 3.2 0.4-5.4 10 ^3/uL Monocytes # (Auto) 1.0 0-1.3 10 ^3/uL Eosinophils # (Auto) 0.1 0-0.8 10 ^3/uL Basophils # (Auto) 0 0-0.2 10 ^3/uL Nucleated Red Blood Cells 0.1 % Sodium Level 138 136-145 mmol/L Potassium Level 5.4 H 3.5-5.1 mmol/L Chloride Level 109 H 98-107 mmol/L Carbon Dioxide Level 12 L 20-31 mmol/L Anion Gap 17 H 5-15 Blood Urea Nitrogen 26 H 9-23 mg/dL Creatinine 1.46 H 0.550-1.02 mg/dL Glomerular Filtration Rate Calc 38 >90 mL/min BUN/Creatinine Ratio 17.8 10.0-20.0 Serum Glucose 142 H 74-106 mg/dL Calcium Level 7.1 L 8.7-10.4 mg/dL Total Bilirubin 0.3 0.2-1.0 mg/dL Aspartate Amino Transferase (AST) 15 <34 U/L Alanine Aminotransferase (ALT) 10 7-40 U/L Alkaline Phosphatase 91 46-116 U/L Total Protein 5.4 L 5.7-8.2 g/dL Albumin 3.3 3.2-4.8 g/dL Urine Color Light-yellow Yellow Urine Clarity Clear Clear Urine pH 6.0 5.0-9.0 Urine Specific [place] 1.010 1.001-1.035 Urine Protein Negative Negative Urine Ketones Negative Negative Urine Blood Negative Negative /uL Urine Nitrite Negative Negative Urine Bilirubin Negative Negative Urine Urobilinogen Normal Negative mg/dL Urine Leukocyte Esterase Trace Negative /uL Urine RBC 1 0 - 4 /hpf Urine Microscopic WBC 4 0-5 /HPF Urine Squamous Epithelial Cells Few <5 /hpf Urine Bacteria Mod H None Seen /hpf Urine Glucose 4+ H Normal mg/dL POC Glucose 274 H 70-106 mg/dl Assessment/Plan Assessment/Plan Assessment and plan: # Intractable abdominal pain likely due to abdominal wall abscess, status post exploratory laparotomy # Possible SBO - CT abdomen pelvis showed 3.6 cm collection in the ventral abdominal wall deep subcutaneous tissues with mild adjacent fat stranding which may reflect postoperative seroma and scarring. - Clear liquid diet - IV N/S @ 7m ml/hr once. - IV ceftriaxone 1 gm once - IV morphine 2 mg q.6 p.r.n. - IV ondansetron 4 mg Q 8 p.r.n. - Consulted surgery. 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 Mild diastolic dysfunction. - Continue aspirin 81 mg daily, atorvastatin 20 mg at HS, losartan 12.5 mg daily, carvedilol 6.25 mg b.i.d. and Lasix 20 mg daily. # Type 2 diabetes mellitus, HbA1c was 8.2 on 12/10 - Moderate sliding scale of insulin # PUD prophylaxis - Protonix 40 mg p.o. daily # DVT prophylaxis - Lovenox 40 mg sc daily Goal of care discussed with the patient for more than 20 minutes full code Plan discussed with Dr. Brice Plan discussed with: Patient, Other (caregiver) My Orders Orders - LATRICIA FRANCO RESIDENT Procedure Category Date Status Time Admit ADMIT 04/28/25 Verified 14:02 Nitroglycerin PHA 04/28/25 Verified Sublingual (Ntrostat 14:15 Morphine Sulfate PHA 04/28/25 Verified Injection 14:15 Oxygen By Nasal RT 04/28/25 Verified Cannula 14:02 Stat Ekg For Chest [facility] 04/28/25 Verified Pain 14:02 Notify Of Changes [facility] 04/28/25 Verified From Base 14:02 Manufacturing Project Engineer For [facility] 04/28/25 Verified 24 Hours 14:02 Emergency Dysrhythmia [facility] 04/28/25 Verified Protocol 14:02 Rhythm Strips Once [facility] 04/28/25 Verified Every Shift 14:02 Code Status CODE 04/28/25 Verified 14:02 Clear Liq Diet DIET 04/28/25 Verified Dinner Date of Service: Apr 28, 2025 Billing Provider: ÁNGEL BRICE MD Common Visit Codes: [id number] INP/OBS CARE (MOD) LATRICIA FRANCO RESIDENT Apr 28, 2025 14:04 ÁNGEL BRICE MD May 01, 2025 13:43
[2025-04-28] MEDS ORDERED: MORPHINE SULFATE INJ 2 MG/ml SYRG IV PRN (14:15)
[2025-04-28] MEDS ORDERED: ONDANSETRON HCL 4 MG/2 ML VIAL IV PRN (14:15)
[2025-04-28] MEDS ORDERED: NITROGLYCERIN 0.4 MG SL TAB SL PRN (14:15)
[2025-04-28] MEDS ORDERED: DEXTROSE (50%) 50ML SYRG IV PRN (14:15)
--- NOTE | 2025-04-28 14:27 | DVH ---
CHEST RADIOGRAPH Indication: chest pain Technique: Single frontal view of the chest was obtained COMPARISON: XY CHEST XRAY 1 VIEW on DOS: 12/24/24, XY CHEST PORTABLE on DOS: 12/23/24, XY CHEST XRAY 1 EW on DOS: 12/22/24, XY CHEST XRAY 1 VIEW on DOS: 12/21/24, XY CHEST XRAY 1 VIEW on DOS: 12/20/24 FINDINGS: Lines and Tubes: None Lungs: Clear Pleura: No effusion. No pneumothorax. Cardiomediastinal contours: Unremarkable Bones: Unremarkable IMPRESSION: No acute disease.
[2025-04-28] MEDS: SODIUM BICARB 8.4% 50Meq/50ml SYR INJ IV ONE (14:40)
[2025-04-28] MEDS: SODIUM ZIRCONIUM CYCL 10 GM PAK PO ONE (14:40)
[2025-04-28] MEDS: DEXTROSE (50%) 50ML SYRG IV ONE (14:40)
[2025-04-28] MEDS: FUROSEMIDE 20 MG/2 ML VIAL IV ONE (14:41)
[2025-04-28] MEDS: InsuLIN REG 1unit/0.01ml Soln (100units/ml) IV ONE (14:42)
[2025-04-28] MEDS: SODIUM CHLORIDE 0.9% 1,000 ML IV ONE (14:42)
[2025-04-28] MEDS: ALBUTEROL SULF 2.5 MG/0.5ML(0.5%) NEB SOLN NEB ONE (14:52)
[2025-04-28] MEDS: SODIUM CHLORIDE 0.9% 1,000 ML IV SCH (15:15)
[2025-04-28] MEDS: CARVEDILOL 3.125 MG TAB PO ONE (15:27)
[2025-04-28 15:50] LABS: Creatinine, Urine 30.63 mg/dL (30.0-125.0)
[2025-04-28 16:36] LABS: Base Excess -1.9 mmol/L (-2.0-3.0)
[2025-04-28] MEDS: InsuLIN REG 1unit/0.01ml Soln (100units/ml) SC SCH (16:36)
[2025-04-28] MEDS: ACCU-CHEK COMFORT CURVE STRIP VI SCH (16:37)
[2025-04-28 16:40] LABS: INR 1.11 (0.9-1.15); Partial Thromboplastin Time 28.5 SEC (24.5-34.5); Prothrombin Time 11.6 sec (9.3-11.8)
[2025-04-28 16:45] LABS: Lactic Acid w/Reflex 2.3 mmol/L (0.4-2.0)
[2025-04-28 17:00] VITALS: BP 164/92; PULSE 84; RESP 16; TEMP 98.2; O2SAT 99
[2025-04-28] MEDS ORDERED: LOSARTAN POTASSIUM 25 MG TAB PO ONE (17:30)
[2025-04-28] MEDS: NIFEdipine ER 30 MG TAB PO ONE (18:39)
[2025-04-28] MEDS: MORPHINE SULFATE INJ 2 MG/ml SYRG IV PRN ×2 (18:40→23:09)
[2025-04-28 21:00] VITALS: BP 155/61; PULSE 67; RESP 18; TEMP 98.2; O2SAT 97
[2025-04-28] MEDS: CARVEDILOL 3.125 MG TAB PO SCH (21:07)
[2025-04-28] MEDS: DOCUSATE SOD 100 MG CAP PO SCH (21:07)
[2025-04-28 22:05] VITALS: BP 150/60; PULSE 65; RESP 18; TEMP 97.9; O2SAT 96
[2025-04-28 23:52] VITALS: PULSE 65; RESP 18; O2SAT 96
[2025-04-29] VITALS (8 sets, daily range): BP systolic 141–173; BP diastolic 55–87; PULSE 60–71; RESP 16–18; TEMP 97.5–98.6; O2SAT 93–100
[2025-04-29] MEDS ORDERED: LOSARTAN POTASSIUM 25 MG TAB PO SCH (10:00)
[2025-04-29] MEDS: PANTOPRAZOLE 40 MG TAB PO SCH (11:08)
[2025-04-29] MEDS: ASPirin-EC 81 mg tab PO SCH (11:09)
[2025-04-29] MEDS: ENOXAPARIN SOD 40 MG/0.4 ML SYRINGE SC SCH (11:10)
[2025-04-29] MEDS: FUROSEMIDE 20 MG TAB PO SCH (11:10)
--- NOTE | 2025-04-29 12:33 | DVHINCON2 ---
Date of service: Apr 29, 2025 History of Present Illness 69-year-old female with a history of multiple medical problems including diabetes with a history of expiratory laparotomy earlier this year for perforate d bowel with a subsequent wound infection requiring a wound VAC now admitted secondary to abdominal pain. Patient reports that wound VAC was removed in February. However she has been having abdominal pain ever since the surgery. Denies any fevers, chills, nausea or vomiting. Past Medical History Hypertension. Diabetes. Asthma. Hyperlipidemia. Past Surgical History Laparoscopic bladder sling surgery converted to an open surgery. Expiratory laparotomy with bowel resection. Cholecystectomy. Family History: Cancer G8 SISTER FHx: epilepsy G8 BROTHER Family history: Diabetes mellitus G8 FATHER G8 SISTER Family history: Hypertension G8 MOTHER G8 SISTER G8 SISTER Seizure disorder (situation) G8 BROTHER Family History Noncontributory Social History No alcohol, tobacco, IV drug use Allergies: Coded Allergies: NO KNOWN ALLERGIES (Unverified , 01/10/15) Home Meds Reported Medications Acetaminophen W/ Codeine (Tylenol #4 W/Codeine) 1 Tab Tb, 1 TAB PO PRN, TAB 02/03/25 Semaglutide (Ozempic) 2 Mg/3 Ml Inj, 3 MG SC QWEEKLY, INJ 02/03/25 Glipizide (Glipizide) 5 Mg Tab, 5 MG PO DAILY, TAB 02/03/25 Furosemide (Furosemide) 20 Mg Tab, 20 MG PO DAILY, TAB 02/03/25 Insulin Aspart (Novolog) 100 Unit/Ml Inj, 20 UNIT IJ TID, INJ 02/03/25 Cholecalciferol (D3 ULTRA STRENGTH) 5,000 Unit Cap, 5000 UNIT PO DAILY, CAP 02/03/25 Meloxicam (Meloxicam) 15 Mg Tab, 15 MG PO DAILY, TAB 02/03/25 Duloxetine HCl (Duloxetine HCl) 60 Mg Cap, 2 CAP PO DAILY, CAP 02/03/25 Donepezil Hydrochloride (DONEPEZIL HCL) 5 Mg Tab, 5 MG PO DAILY, TAB 02/03/25 Dorzolamide-Timolol (Dorzolamide Hcl/Timolol M) 1 Ml Elsy, 1 DROP EACHEYE BID, #10 ML 6 Refills 12/13/24 Timolol Maleate (Timolol Maleate Ophthalmi) 0.5 % Elsy, 1 DROP EACHEYE QAM, #5 ML 5 Refills 12/13/24 Brimonidine Tartrate (Brimonidine Tartrate) 0.15 % Elsy, 1 DROP OP TID, DROP 12/13/24 Losartan Potassium (Losartan Potassium) 25 Mg Tab, 12.5 MG PO DAILY for 30 Days, MG 12/09/24 Loratadine (Loratadine) 10 Mg Cap, 10 MG PO, CAP 12/09/24 Docusate Sodium (Gnp Stool Softener) 100 Mg Cap, 100 MG PO BID, CAP 12/09/24 Carvedilol (Carvedilol) 25 Mg Tab, 1.5 TAB PO BID for 30 Days, MG 12/09/24 Atorvastatin Calcium (ATORVASTATIN CALCIUM) 20 Mg Tab, 1 TAB PO DAILY, #30 TAB 5 Refills 12/09/24 Aspirin (Aspir-Low) 81 Mg Tab, 81 MG PO DAILY for 30 Days, MG 12/09/24 Current Medications Current Medications Medications (Trade) Dose Ordered Sig/Carlos Route PRN Reason Start Time Stop Time Status Last Admin Nitroglycerin (Ntrostat Sublingual) 0.4 mg Q5MINP PRN SL FOR CHEST PAIN 04/28/25 14:15 Morphine Sulfate 2 mg Q30M PRN IV FOR CHEST PAIN 04/28/25 14:15 Aspirin (Ecotrin Enteric Coated Tablet) 81 mg DAILY PO 04/29/25 10:00 04/29/25 11:09 Atorvastatin Calcium (Lipitor) 40 mg HS PO 04/29/25 22:00 Docusate Sodium (Colace Capsule) 100 mg BID PO 04/28/25 22:00 04/29/25 11:08 Donepezil HCl (Aricept Tablet) 10 mg HS PO 04/29/25 22:00 Furosemide (Lasix Tablet) 20 mg DAILY PO 04/29/25 10:00 04/29/25 11:10 Losartan Potassium (Cozaar Tablet) 12.5 mg DAILY PO 04/29/25 10:00 04/28/25 17:38 DC Carvedilol (Coreg Tablet) 6.25 mg BID PO 04/28/25 22:00 04/29/25 11:08 Diagnostic Test (Pha) (Accu-Chek Comfort Curve T) 1 strip ACHS 04/28/25 17:00 04/29/25 06:16 Insulin Human Regular (InsuLIN R) AC SC 04/28/25 17:00 04/29/25 06:23 Dextrose 50 ml UD PRN IV Blood Sugar LESS THAN 60 04/28/25 14:15 Ondansetron HCl (Zofran) 4 mg Q8HPRN PRN IV NAUSEA / VOMITING 04/28/25 14:15 04/28/25 22:35 DC Pantoprazole Sodium (Protonix Tablet) 40 mg DAILY PO 04/29/25 10:00 04/29/25 11:08 Enoxaparin Sodium (Lovenox) 40 mg DAILY SC 04/29/25 10:00 04/29/25 11:10 Morphine Sulfate 2 mg Q6HP PRN IV PAIN SCALE 1 THRU 6 04/28/25 14:15 04/28/25 22:33 DC 04/28/25 18:40 Sodium Chloride 1,000 ml @ 75 mls/hr [id number] IV 04/28/25 15:15 04/28/25 15:15 Morphine Sulfate 4 mg Q4HP PRN IV PAIN SCALE 1 THRU 6 04/28/25 22:45 04/29/25 05:06 Ondansetron HCl (Zofran) 4 mg Q6HP PRN IV NAUSEA / VOMITING 04/28/25 22:45 Vital Signs Vital Signs Date Time Temp Pulse Resp B/P (MAP) Pulse Ox O2 Delivery O2 Flow Rate FiO2 04/29/25 11:10 144/59 04/29/25 11:08 65 04/29/25 08:45 97.5 16 98 97.5 04/29/25 08:00 Room Air* 0 21 Physical Exam GEN: Age-appropriate obese female in no acute distress. Alert. HEENT: Normocephalic atraumatic. Moist mucous membranes. Anicteric sclerae. CV: RRR Respiratory: CTAB ABD: Obese abdomen with a midline incisional scar that is healed well. Very minimal midline tenderness to palpation over the incisional scar in the supraumbilical region without guarding or rebound. CT of the abdomen and pelvis: 3.6 cm collection in the ventral abdominal wall deep subcutaneous tissues with mild adjacent fat stranding which may reflect postoperative seroma but infected collection can not be excluded. Labs/Diagnostic Data Labs Test 04/29/25 11:14 04/28/25 18:23 04/28/25 16:31 04/28/25 15:55 Range/Units POC Glucose 187 H 70-106 mg/dl Lactic Acid Level 1.5 0.4-2.0 mmol/L Blood Gas Specimen Type Arterial Blood Gas Sample Site Left radial Blood Gas Patient Temperature 37.0 Arterial Blood Date Drawn [id number] Arterial Blood pH 7.439 7.350-7.450 Arterial Blood Partial Pressure CO2 32.0 32.0-45.0 mmHg Arterial Blood Partial Pressure O2 81.0 L 83.0-108.0 mmHg Arterial Blood HCO3 21.2 21.0-28.0 mmol/L Arterial Blood Oxygen Saturation 95.1 94.0-98.0 % Arterial Blood Base Excess -1.9 -2.0-3.0 mmol/L Arterial Blood Oxyhemoglobin 93.7 L 94.0-98.0 % Arterial Blood Carboxyhemoglobin 1.1 0.5-1.5 % Arterial Blood Methemoglobin 0.4 0.0-1.5 % Leandro Test Yes Blood Gas Total Hemoglobin 15.10 12.0-16.0 g/dL Blood Gas Modality Room air FiO2 % 21.0 Prothrombin Time 11.6 9.3-11.8 sec Prothrombin Time INR 1.11 0.9-1.15 Activated Partial Thromboplast Time 28.5 24.5-34.5 SEC Vitamin B12 Level 473 211-911 pg/mL Vitamin D 25-Hydroxy 64.8 30.0-100 ng/mL Test 04/28/25 11:45 04/28/25 09:34 04/28/25 08:52 Range/Units White Blood Count 8.6 4.4-10.8 10^3/uL Red Blood Count 5.99 H 4.0-5.20 10^6/uL Hemoglobin 13.3 12.2-16.2 g/dL Hematocrit 42.1 36.0-46.0 % Mean Corpuscular Volume 70.2 L 80.0-100.0 fL Mean Corpuscular Hemoglobin 22.2 L 28.0-32.0 pg Mean Corpuscular Hemoglobin Concent 31.6 L 32.0-36.0 g/dL Red Cell Distribution Width 20.9 H 11.8-14.3 % Platelet Count 231 140-450 10^3/uL Mean Platelet Volume 9.0 6.9-10.8 fL Neutrophils (%) (Auto) 50.5 37.0-80.0 % Lymphocytes (%) (Auto) 36.5 10.0-50.0 % Monocytes (%) (Auto) 11.6 0.0-12.0 % Eosinophils (%) (Auto) 1.1 0.0-7.0 % Basophils (%) (Auto) 0.3 0.0-2.0 % Neutrophils # (Auto) 4.4 1.6-8.6 10 ^3/uL Lymphocytes # (Auto) 3.2 0.4-5.4 10 ^3/uL Monocytes # (Auto) 1.0 0-1.3 10 ^3/uL Eosinophils # (Auto) 0.1 0-0.8 10 ^3/uL Basophils # (Auto) 0 0-0.2 10 ^3/uL Nucleated Red Blood Cells 0.1 % Hemoglobin A1c 8.7 H <5.7 % A1C B-Type Natriuretic Peptide 35.40 0-100 pg/mL Sodium Level 138 136-145 mmol/L Potassium Level 5.4 H 3.5-5.1 mmol/L Chloride Level 109 H 98-107 mmol/L Carbon Dioxide Level 12 L 20-31 mmol/L Anion Gap 17 H 5-15 Blood Urea Nitrogen 26 H 9-23 mg/dL Creatinine 1.46 H 0.550-1.02 mg/dL Glomerular Filtration Rate Calc 38 >90 mL/min BUN/Creatinine Ratio 17.8 10.0-20.0 Serum Glucose 142 H 74-106 mg/dL Calcium Level 7.1 L 8.7-10.4 mg/dL Total Bilirubin 0.3 0.2-1.0 mg/dL Aspartate Amino Transferase (AST) 15 <34 U/L Alanine Aminotransferase (ALT) 10 7-40 U/L Alkaline Phosphatase 91 46-116 U/L Total Protein 5.4 L 5.7-8.2 g/dL Albumin 3.3 3.2-4.8 g/dL Lipase 46 12-53 U/L Thyroid Stimulating Hormone (TSH) 1.01 0.55-4.78 uIU/mL Urine Color Light-yellow Yellow Urine Clarity Clear Clear Urine pH 6.0 5.0-9.0 Urine Specific [place] 1.010 1.001-1.035 Urine Protein Negative Negative Urine Ketones Negative Negative Urine Blood Negative Negative /uL Urine Nitrite Negative Negative Urine Bilirubin Negative Negative Urine Urobilinogen Normal Negative mg/dL Urine Leukocyte Esterase Trace Negative /uL Urine RBC 1 0 - 4 /hpf Urine Microscopic WBC 4 0-5 /HPF Urine Squamous Epithelial Cells Few <5 /hpf Urine Bacteria Mod H None Seen /hpf Urine Creatinine 30.63 30.0-125.0 mg/dL Urine Sodium 91 40-220 mmol/L Urine Glucose 4+ H Normal mg/dL Assessment 1. Abdominal wall fluid collection which may be possible infected seroma Plan/Recommendation 1. Radiology consultation for possible percutaneous drainage of abdominal wall fluid collection. Plan discussed with: Patient IRLANDA PRESSLEY MD Apr 29, 2025 12:33
--- NOTE | 2025-04-29 16:03 | DVHPN2 ---
Assessment/Plan Assessment/Plan progress note 69 F with DM, HTN, HLD, asthma, s/p KAREEM and pelvic floor repair admitted for abd pain. seen today, pain improved, seen by surgery, for IR drainage Physical exam aox4 PERRLA MMM s1 s2 rrr CTAB abd soft nontender Labs ekg imaging reviewed Assessment and plan interactable abd pain 2/2 abscess SBO ruled out JAKE likely hemodynamic mediated HyperK HAGMA lactic acidosis asthma not on exacerbation avasc necrosis of b/l femoral head HTN DM IR for drainage c/w insulin escalate diet trend cr diet cc dvt ppx lovenox Plan discussed with: Patient Date of Service: Apr 29, 2025 Billing Provider: MARTIN LIMON MD Common Visit Codes: [id number] INP/OBS CARE(HIGH) MARTIN LIMON MD Apr 29, 2025 16:03
[2025-04-29] MEDS: ATORVASTATIN 20 MG TAB PO SCH (21:50)
[2025-04-29] MEDS: DONEPEZIL HYDROCHLORIDE 5 MG TAB PO SCH (21:50)
[2025-04-30] VITALS (7 sets, daily range): BP systolic 155–185; BP diastolic 57–81; PULSE 70–94; RESP 15–18; TEMP 96.8–98.3; O2SAT 96–98
[2025-04-30] MEDS: hydrALAZINE HCL 20 MG/ML VL IV PRN (02:15)
[2025-04-30 05:54] LABS: Basophils # (auto) 0 10 ^3/uL (0-0.2); Eosinophils # (auto) 0.1 10 ^3/uL (0-0.8); Lymphocytes # (auto) 1.9 10 ^3/uL (0.4-5.4); Mean Corpuscular Volume 70.3 fL (80.0-100.0)
[2025-04-30 05:57] LABS: Basophils % (auto) 0.4 % (0.0-2.0); Eosinophils % (auto) 1.4 % (0.0-7.0); Hematocrit 44.4 % (36.0-46.0); Hemoglobin 14.2 g/dL (12.2-16.2); Lymphocytes % (auto) 26.6 % (10.0-50.0); Mean Corpuscular Hemoglobin 22.5 pg (28.0-32.0); Mean Corpuscular Hgb Conc. 31.9 g/dL (32.0-36.0); Monocytes # (auto) 0.7 10 ^3/uL (0-1.3); Neutrophils # (auto) 4.3 10 ^3/uL (1.6-8.6); Neutrophils % (auto) 61.6 % (37.0-80.0); Nucleated Red Blood Cells % 0.2 %; Platelet Count (auto) 241 10^3/uL (140-450); Red Blood Cells 6.31 10^6/uL (4.0-5.20); Red Cell Distribution Width 21.1 % (11.8-14.3); White Blood Cell 7.1 10^3/uL (4.4-10.8)
[2025-04-30] MEDS: ONDANSETRON HCL 4 MG/2 ML VIAL IV PRN (05:58)
[2025-04-30 06:10] LABS: Chloride 104 mmol/L (98-107); Potassium 4.6 mmol/L (3.5-5.1)
[2025-04-30 06:11] LABS: Anion Gap 13 (5-15)
[2025-04-30 06:12] LABS: Calcium 9.8 mg/dL (8.7-10.4)
[2025-04-30 06:17] LABS: BUN/Creatinine Ratio 11.1 (10.0-20.0); Blood Urea Nitrogen 19 mg/dL (9-23); Carbon Dioxide 18 mmol/L (20-31); Glucose 197 mg/dL (74-106); Sodium 135 mmol/L (136-145)
[2025-04-30] MEDS: ACETAMINOPHEN 325 MG TAB PO PRN (11:16)
--- NOTE | 2025-04-30 12:39 | DVHPN2 ---
Assessment/Plan Assessment/Plan progress note 69 F with DM, HTN, HLD, asthma, s/p KAREEM and pelvic floor repair admitted for abd pain. seen today,plan for IR drainage. worsening JAKE, dc fluid, increase lasix. htn, increase coreg, avoid hypotension. Physical exam aox4 PERRLA MMM s1 s2 rrr CTAB abd soft nontender Labs ekg imaging reviewed Assessment and plan interactable abd pain 2/2 abscess SBO ruled out JAKE likely hemodynamic mediated HyperK HAGMA lactic acidosis asthma not on exacerbation avasc necrosis of b/l femoral head HTN DM IR for drainage c/w insulin escalate diet trend cr increase coreg increase lasix hold lovenox prior to surg diet cc dvt ppx lovenox Plan discussed with: Patient My Orders Orders - MARTIN LIMON MD Procedure Category Date Status Time Acetaminophen Tablet PHA 04/30/25 In Process (Tylenol Tablet) 11:00 Carvedilol Tablet PHA 04/30/25 Logged (Coreg Tablet) 22:00 Furosemide Tablet PHA 04/30/25 Logged (Lasix Tablet) 12:45 PTPTT LAB 05/01/25 Verified 04:00 Basic Metabolic Panel LAB 05/01/25 Verified 04:00 Complete Blood Count LAB 05/01/25 Verified 04:00 Date of Service: Apr 30, 2025 Billing Provider: MARTIN LIMON MD Common Visit Codes: [id number] INP/OBS CARE(HIGH) MARTIN LIMON MD Apr 30, 2025 12:39
[2025-04-30] MEDS: FUROSEMIDE 20 MG TAB PO SCH (12:45)
[2025-04-30] MEDS: CARVEDILOL 12.5 MG TAB PO SCH (22:28)
[2025-05-01] VITALS (7 sets, daily range): BP systolic 128–172; BP diastolic 57–70; PULSE 64–84; RESP 16–18; TEMP 97.3–98.1; O2SAT 95–99
[2025-05-01 08:15] LABS: Basophils # (auto) 0 10 ^3/uL (0-0.2); Basophils % (auto) 0.6 % (0.0-2.0); Eosinophils # (auto) 0.1 10 ^3/uL (0-0.8); Eosinophils % (auto) 1.3 % (0.0-7.0); Hematocrit 42.3 % (36.0-46.0); Hemoglobin 13.6 g/dL (12.2-16.2); Lymphocytes # (auto) 2.6 10 ^3/uL (0.4-5.4); Lymphocytes % (auto) 34.2 % (10.0-50.0); Mean Corpuscular Hemoglobin 22.6 pg (28.0-32.0); Mean Corpuscular Volume 70.5 fL (80.0-100.0); Monocytes # (auto) 1.1 10 ^3/uL (0-1.3); Neutrophils # (auto) 3.8 10 ^3/uL (1.6-8.6); Neutrophils % (auto) 49.9 % (37.0-80.0); Nucleated Red Blood Cells % 0.1 %; Platelet Count (auto) 224 10^3/uL (140-450); White Blood Cell 7.6 10^3/uL (4.4-10.8)
[2025-05-01 08:19] LABS: Chloride 105 mmol/L (98-107); Potassium 5.1 mmol/L (3.5-5.1); Sodium 136 mmol/L (136-145)
[2025-05-01 08:20] LABS: Anion Gap 11 (5-15)
[2025-05-01 08:24] LABS: Carbon Dioxide 20 mmol/L (20-31)
[2025-05-01 08:25] LABS: BUN/Creatinine Ratio 10.8 (10.0-20.0); Blood Urea Nitrogen 20 mg/dL (9-23)
[2025-05-01 08:31] LABS: Glucose 153 mg/dL (74-106)
[2025-05-01 09:17] LABS: INR 1.09 (0.9-1.15); Partial Thromboplastin Time 29.5 SEC (24.5-34.5); Prothrombin Time 11.5 sec (9.3-11.8)
--- NOTE | 2025-05-01 10:17 | DVH ---
US ABDOMEN LIMITED, HISTORY: EVALUATION OF SUPERFICIAL ABDOMINAL ABSCESS TECHNICAL DATA: Transverse and longitudinal sonographic images were obtained of the midline abdomen. COMPARISON: None FINDINGS: IMPRESSION: Small midline abdominal wall fluid collection measures 2.0 x 0.6 x 2.1 cm.
--- NOTE | 2025-05-01 11:45 | DVH ---
US US GUIDANCE FOR NEEDLE PLACEME, HISTORY: ABD FLUID COLLECTION PROCEDURE: An informed consent was obtained. The patient was placed supine on the bed. The suspiciou s fluid collection was localized with ultrasound and the overlying skin prepped with chlorhexidine wh ich was allowed to dry and draped in the usual sterile fashion. Time out was performed and infiltrate d with 1% Xylocaine. With US guidance, 19-gauge centesis needle catheter was advanced into the fluid collection. Small amount was aspirated for appropriate microbiology/cytology/microbiology and cytolog y analysis. Approximately 5 cc of dark serous fluid was aspirated. No immediate complication was i dentified. FINDINGS: Limited US scan of through the abdomen demonstrates a fluid collection in the abdominal wal l. Collection appears simple. . IMPRESSION: US guided midline abdominal wall fluid collection aspiration with 5 mL removed.
--- NOTE | 2025-05-01 11:50 | DVHPN2 ---
Progress Note - Dictate Date Seen: May 01, 2025 Medical Necessity Reason Pt with a Central, PICC or Fol: No Subjective E: IR aspiration of abdominal wall fluid done this am. no complaints. vital signs Vital Sign Date Time Temp Pulse Resp B/P (MAP) Pulse Ox O2 Delivery O2 Flow Rate FiO2 05/01/25 10:11 172/67 05/01/25 10:10 73 05/01/25 09:06 97.3 16 97 97.3 04/30/25 20:00 Room Air* 0 21 Total Intake and Output 04/30/25 04/30/25 05/01/25 15:00 23:00 07:00 Intake Total 1600 ml 200 ml Balance 1600 ml 200 ml medications Current Medications Medications Dose Ordered Sig/Carlos Route Start Time Stop Time Status Last Admin Dose Admin Aspirin 81 mg DAILY PO 04/29/25 10:00 05/01/25 10:08 81 MG Atorvastatin Calcium 40 mg HS PO 04/29/25 22:00 04/30/25 22:26 40 MG Donepezil HCl 10 mg HS PO 04/29/25 22:00 04/30/25 22:26 10 MG Diagnostic Test (Pha) 1 strip ACHS 04/28/25 17:00 05/01/25 06:17 1 STRIP Insulin Human Regular AC SC 04/28/25 17:00 04/30/25 17:00 3 UNITS Dextrose 50 ml UD PRN IV 04/28/25 14:15 Pantoprazole Sodium 40 mg DAILY PO 04/29/25 10:00 05/01/25 10:08 40 MG Enoxaparin Sodium 40 mg DAILY SC 04/29/25 10:00 05/01/25 10:11 40 MG Morphine Sulfate 4 mg Q4HP PRN IV 04/28/25 22:45 04/30/25 16:30 4 MG Ondansetron HCl 4 mg Q6HP PRN IV 04/28/25 22:45 04/30/25 05:58 4 MG Acetaminophen 650 mg Q6HP PRN PO 04/30/25 11:00 04/30/25 11:16 650 MG Carvedilol 12.5 mg BID PO 04/30/25 22:00 05/01/25 10:10 12.5 MG Furosemide 40 mg DAILY PO 04/30/25 12:45 6/16/25 10:11 40 MG objective GEN: NAD ABD: soft. NT/ND. laboratory and microbiology Laboratory Tests 05/01/25 04:22 Test 05/01/25 04:22 Range/Units Serum Glucose 153 H 74-106 mg/dL Assessment/Plan A: 1. Abdominal wall fluid collection s/p drainage clinically stable. P: 1. stable from surgery POV. DC home per hospitalist Dietary Evaluation Review Recommendations by RD: Dietary education by RD Comments: 1) Initiate MVI @ 1 tb qd 2) Advance to 60g CCHO cardiac diet when medically feasible 3) Encourage optimal PO intake 4) Refer to outpatient RD/CDCES for diabetes education and weight management 5) Continue to monitor I&O, labs, and skin integrity Expected Outcomes/Goals: 1) appetite and labs to improve 2) diet to advance 3) f/u in 3-5 days Plan discussed with: Patient IRLANDA PRESSLEY MD May 01, 2025 11:50
--- NOTE | 2025-05-01 14:26 | DVHPN2 ---
Assessment/Plan Assessment/Plan progress note 69 F with DM, HTN, HLD, asthma, s/p KAREEM and pelvic floor repair admitted for abd pain. seen today, s/p IR drainage. JAKE still lingers, will review urine and kidney us Physical exam aox4 PERRLA MMM s1 s2 rrr CTAB abd soft nontender Labs ekg imaging reviewed Assessment and plan interactable abd pain 2/2 abscess SBO ruled out JAKE likely hemodynamic mediated HyperK HAGMA lactic acidosis asthma not on exacerbation avasc necrosis of b/l femoral head HTN DM IR for drainage c/w insulin escalate diet trend cr increase coreg increase lasix hold lovenox prior to surg diet cc dvt ppx lovenox Plan discussed with: Patient My Orders Orders - MARTIN LIMON MD Procedure Category Date Status Time Consistent DIET 04/30/25 Transmitted Carb(Ccho)Diabetes Dinner Date of Service: May 01, 2025 Billing Provider: MARTIN LIMON MD Common Visit Codes: [id number] INP/OBS CARE(HIGH) MARTIN LIMON MD May 01, 2025 14:26
[2025-05-02 01:00] VITALS: BP 151/63; PULSE 63; RESP 18; TEMP 98; O2SAT 98
[2025-05-02 05:00] VITALS: BP 142/77; PULSE 76; RESP 18; TEMP 98.5; O2SAT 94
[2025-05-02 06:00] VITALS: BP 129/78; PULSE 104; RESP 18; TEMP 97.7; O2SAT 96
[2025-05-02 07:31] LABS: Anion Gap 14 (5-15); Chloride 102 mmol/L (98-107)
[2025-05-02 07:34] LABS: Carbon Dioxide 19 mmol/L (20-31); Sodium 135 mmol/L (136-145)
[2025-05-02 07:37] LABS: BUN/Creatinine Ratio 13.7 (10.0-20.0)
[2025-05-02 07:40] LABS: Blood Urea Nitrogen 25 mg/dL (9-23); Glucose 254 mg/dL (74-106)
[2025-05-02 08:00] VITALS: PULSE 104; RESP 18; O2SAT 96
[2025-05-02 09:00] VITALS: BP 129/78; PULSE 104; RESP 18; TEMP 97.7; O2SAT 96
[2025-05-02] MEDS ORDERED: CEPH250C PO (10:57)
[2025-05-02 13:00] VITALS: BP_SYST 142; BP_SYST 186; BP_DIAS 53; BP_DIAS 59; PULSE 63; PULSE 78; RESP 18; RESP 19; TEMP 97.7; TEMP 97.9; O2SAT 97; O2SAT 98
[2025-05-02] MEDS ORDERED: CARV-217 PO (13:51)
--- NOTE | 2025-05-02 13:52 | DVHDS2 ---
Discharge Summary Date of Admission Apr 28, 2025 at 14:02 Date of Discharge: May 02, 2025 Labs/Diagnostic Data: Laboratory Results Test 05/02/25 12:01 05/02/25 06:32 05/01/25 10:05 05/01/25 04:22 POC Glucose 233 mg/dl (70-106) Sodium Level 135 mmol/L (136-145) Potassium Level 5.0 mmol/L (3.5-5.1) Chloride Level 102 mmol/L (98-107) Carbon Dioxide Level 19 mmol/L (20-31) Anion Gap 14 (5-15) Blood Urea Nitrogen 25 mg/dL (9-23) Creatinine 1.82 mg/dL (0.550-1.02) Glomerular Filtration Rate Calc 29 mL/min (>90) BUN/Creatinine Ratio 13.7 (10.0-20.0) Serum Glucose 254 mg/dL (74-106) Calcium Level 10.0 mg/dL (8.7-10.4) Body Fluid Glucose 181 mg/dL (.) White Blood Count 7.6 10^3/uL (4.4-10.8) Red Blood Count 6.00 10^6/uL (4.0-5.20) Hemoglobin 13.6 g/dL (12.2-16.2) Hematocrit 42.3 % (36.0-46.0) Mean Corpuscular Volume 70.5 fL (80.0-100.0) Mean Corpuscular Hemoglobin 22.6 pg (28.0-32.0) Mean Corpuscular Hemoglobin Concent 32.0 g/dL (32.0-36.0) Red Cell Distribution Width 21.0 % (11.8-14.3) Platelet Count 224 10^3/uL (140-450) Mean Platelet Volume 10.0 fL (6.9-10.8) Neutrophils (%) (Auto) 49.9 % (37.0-80.0) Lymphocytes (%) (Auto) 34.2 % (10.0-50.0) Monocytes (%) (Auto) 14.0 % (0.0-12.0) Eosinophils (%) (Auto) 1.3 % (0.0-7.0) Basophils (%) (Auto) 0.6 % (0.0-2.0) Neutrophils # (Auto) 3.8 10 ^3/uL (1.6-8.6) Lymphocytes # (Auto) 2.6 10 ^3/uL (0.4-5.4) Monocytes # (Auto) 1.1 10 ^3/uL (0-1.3) Eosinophils # (Auto) 0.1 10 ^3/uL (0-0.8) Basophils # (Auto) 0 10 ^3/uL (0-0.2) Nucleated Red Blood Cells 0.1 % Prothrombin Time 11.5 sec (9.3-11.8) Prothrombin Time INR 1.09 (0.9-1.15) Activated Partial Thromboplast Time 29.5 SEC (24.5-34.5) Test 04/28/25 18:23 04/28/25 16:31 04/28/25 15:55 04/28/25 11:45 Lactic Acid Level 1.5 mmol/L (0.4-2.0) Blood Gas Specimen Type Arterial Blood Gas Sample Site Left radial Blood Gas Patient Temperature 37.0 Arterial Blood Date Drawn [id number] Arterial Blood pH 7.439 (7.350-7.450) Arterial Blood Partial Pressure CO2 32.0 mmHg (32.0-45.0) Arterial Blood Partial Pressure O2 81.0 mmHg (83.0-108.0) Arterial Blood HCO3 21.2 mmol/L (21.0-28.0) Arterial Blood Oxygen Saturation 95.1 % (94.0-98.0) Arterial Blood Base Excess -1.9 mmol/L (-2.0-3.0) Arterial Blood Oxyhemoglobin 93.7 % (94.0-98.0) Arterial Blood Carboxyhemoglobin 1.1 % (0.5-1.5) Arterial Blood Methemoglobin 0.4 % (0.0-1.5) Leandro Test Yes Blood Gas Total Hemoglobin 15.10 g/dL (12.0-16.0) Blood Gas Modality Room air FiO2 % 21.0 Vitamin B12 Level 473 pg/mL (211-911) Vitamin D 25-Hydroxy 64.8 ng/mL (30.0-100) Hemoglobin A1c 8.7 % A1C (<5.7) B-Type Natriuretic Peptide 35.40 pg/mL (0-100) Test 6/13/25 09:34 04/28/25 08:52 Total Bilirubin 0.3 mg/dL (0.2-1.0) Aspartate Amino Transferase (AST) 15 U/L (<34) Alanine Aminotransferase (ALT) 10 U/L (7-40) Alkaline Phosphatase 91 U/L (46-116) Total Protein 5.4 g/dL (5.7-8.2) Albumin 3.3 g/dL (3.2-4.8) Lipase 46 U/L (12-53) Thyroid Stimulating Hormone (TSH) 1.01 uIU/mL (0.55-4.78) Urine Color Light-yellow (Yellow) Urine Clarity Clear (Clear) Urine pH 6.0 (5.0-9.0) Urine Specific [place] 1.010 (1.001-1.035) Urine Protein Negative (Negative) Urine Ketones Negative (Negative) Urine Blood Negative /uL (Negative) Urine Nitrite Negative (Negative) Urine Bilirubin Negative (Negative) Urine Urobilinogen Normal mg/dL (Negative) Urine Leukocyte Esterase Trace /uL (Negative) Urine RBC 1 /hpf (0 - 4) Urine Microscopic WBC 4 /HPF (0-5) Urine Squamous Epithelial Cells Few /hpf (<5) Urine Bacteria Mod /hpf (None Seen) Urine Creatinine 30.63 mg/dL (30.0-125.0) Urine Sodium 91 mmol/L (40-220) Urine Glucose 4+ mg/dL (Normal) Other Laboratory Tests 05/02/25 06:32 05/01/25 04:22 Brief Hx & Hospital Course: 69 F with DM, HTN, HLD, asthma, s/p KAREEM and pelvic floor repair admitted for abd pain. s/p IR drainage. JAKE still lingers, although improving. urine lytes and kidney us reviewed. follow up with dc clinic. Condition at Discharge: Good Final Diagnosis/Problems List interactable abd pain 2/2 abscess vs seroma SBO ruled out JAKE likely hemodynamic mediated HyperK HAGMA lactic acidosis asthma not on exacerbation avasc necrosis of b/l femoral head HTN DM Discharge Disposition: Home Discharge Instruct/Medications Diet: Consistent carbohydrate, Cardiac 2g Na,low cholest Activity: No Restrictions, As Tolerated Follow Up/Referral: PCP dc clinic Medications: coreg keflex Discharge Statement: "Patient was advised to return to the ER or call 911 if any headaches, dizziness, shortness of breath, chest pain, abdominal pain, bleeding, fevers, or worsening of medical condition. Patient was counseled about treatment plan, medications, possible side effects, patientverbalized understanding. All questions were answered to the best of my ability. This discharge took greater then 30 minutes in planning, reviewing documentation, counseling the patient, and discussing with other team members." ASSESSMENT ASSESSMENT Assessment intraabd seroma HTN Date of Service: May 02, 2025 Billing Provider: MARTIN LIMON MD Common Visit Codes: 34662-VDI/OBS DISCH DAY >30min MARTIN LIMON MD May 02, 2025 13:52
== END 2025-05-02 16:25 | disposition home or self-care (01) | DRG 856 ==
LOC: ER 08:42 → OVERFLOW 14:02 → WEST WING 22:05
PROVIDERS: ADMIT Student in an Organized Health Care Education/Training Program; ATTEND Student in an Organized Health Care Education/Training Program
PROC: 0W9F3ZX Drainage of Abdominal Wall, Percutaneous Approach, Diagnostic (ICD-10-PCS; principal; 2025-05-01)
DX: T81.41XA Infection following a procedure, superficial incisional surgical site, initial encounter (principal); N17.0 Acute kidney failure with tubular necrosis; E87.20 Acidosis, unspecified; K91.873 Postprocedural seroma of a digestive system organ or structure following other procedure; E87.5 Hyperkalemia; I10 Essential (primary) hypertension; E11.9 Type 2 diabetes mellitus without complications; J45.909 Unspecified asthma, uncomplicated; E78.5 Hyperlipidemia, unspecified; Y83.8 Other surgical procedures as the cause of abnormal reaction of the patient, or of later complication, without mention of misadventure at the time of the procedure; Y82.8 Other medical devices associated with adverse incidents; Z79.1 Long term (current) use of non-steroidal anti-inflammatories (NSAID); Z79.4 Long term (current) use of insulin; Z79.82 Long term (current) use of aspirin; Z79.899 Other long term (current) drug therapy; Z90.49 Acquired absence of other specified parts of digestive tract; Z82.0 Family history of epilepsy and other diseases of the nervous system; Z82.49 Family history of ischemic heart disease and other diseases of the circulatory system; Z83.3 Family history of diabetes mellitus; Y92.89 Other specified places as the place of occurrence of the external cause
CPT/HCPCS: 10005; 36415; 36600; 71045; 74176; 76705; 76942; 80048; 80053; 81001; 82306; 82570; 82607; 82805; 82962; 83036; 83605; 83690; 83880; 84300; 84443; 85025; 85610; 85730; 86850; 86900; 86901; 87205; 94640; 96374; 96375; 99291; C1729; G0378; J1815; J2405

== ENCOUNTER 2025-06-27 15:18 | Emergency (ER) | payer OTHER, MEDICAID ==
[~2025-06-27] VITALS: Ht 167.6 cm; Wt 99.0 kg
[~2025-06-27 15:18] MED LIST changes: +CARV-217 PO; -CARV25TA55 PO; +CEPH250C PO; -DOCU-268 PO; -LOSA-533 PO; -MELO15TA29 PO
--- NOTE | 2025-06-27 17:03 | ED.PDOC ---
General HPI Comments 69 y/o F, with PMHx of DM and HTN presents to the ED for CC of flank pain. Patient states, she has been experiencing right sided flank pain that radiates to her back x3days. Patient relays, associated symptoms of burning with urination and diarrhea. Patient denies fever, chills, vaginal discharge, or urinary frequency. No other symptoms or modifying factors present at this time. Chief Complaint: Flank Pain Time Seen by MD: 16:50 Primary Care Provider: July HINKLE Reviewed notes: Nurses Notes, Medications, Allergies Allergies: Coded Allergies: Penicillins (Verified Allergy, Unknown, 06/27/25) Home Meds Active Scripts Carvedilol (Coreg) 25 Mg Tab, 1 TAB PO BID, #60 TAB 5 Refills Prov:MARTIN LIMON MD 05/02/25 Cephalexin (KEFLEX CAPSULE) 250 Mg Cp, 1 CAP PO QID for 7 Days, #28 CAP Prov:MARTIN LIMON MD 05/02/25 Reported Medications Acetaminophen W/ Codeine (Tylenol #4 W/Codeine) 1 Tab Tb, 1 TAB PO PRN, TAB 02/03/25 Semaglutide (Ozempic) 2 Mg/3 Ml Inj, 3 MG SC QWEEKLY, INJ 02/03/25 Glipizide (Glipizide) 5 Mg Tab, 5 MG PO DAILY, TAB 02/03/25 Furosemide (Furosemide) 20 Mg Tab, 20 MG PO DAILY, TAB 02/03/25 Insulin Aspart (Novolog) 100 Unit/Ml Inj, 20 UNIT IJ TID, INJ 02/03/25 Cholecalciferol (D3 ULTRA STRENGTH) 5,000 Unit Cap, 5000 UNIT PO DAILY, CAP 02/03/25 Duloxetine HCl (Duloxetine HCl) 60 Mg Cap, 2 CAP PO DAILY, CAP 02/03/25 Donepezil Hydrochloride (DONEPEZIL HCL) 5 Mg Tab, 5 MG PO DAILY, TAB 02/03/25 Dorzolamide-Timolol (Dorzolamide Hcl/Timolol M) 1 Ml Elsy, 1 DROP EACHEYE BID, #10 ML 6 Refills 12/13/24 Timolol Maleate (Timolol Maleate Ophthalmi) 0.5 % Elsy, 1 DROP EACHEYE QAM, #5 ML 5 Refills 12/13/24 Brimonidine Tartrate (Brimonidine Tartrate) 0.15 % Elsy, 1 DROP OP TID, DROP 12/13/24 Loratadine (Loratadine) 10 Mg Cap, 10 MG PO, CAP 12/09/24 Atorvastatin Calcium (ATORVASTATIN CALCIUM) 20 Mg Tab, 1 TAB PO DAILY, #30 TAB 5 Refills 12/09/24 Aspirin (Aspir-Low) 81 Mg Tab, 81 MG PO DAILY for 30 Days, MG 12/09/24 Information Source: Patient Mode of Arrival: Ambulatory Severity: Moderate Timing: Days Duration: Since onset Prehospital treatment: None Onset: Spontaneous History of: None Location: (R) Flank Modifying factors: None associated signs and symptoms: Flank Pain Past Medical History PAST MEDICAL HISTORY: DM, HTN, Liver Surgical History: Cholecystectomy COUPLES THERAPIST History: No Pertinent COUPLES THERAPIST History Family History Family History: No family hx of DM, No family hx of HTN Social History Smoker: Non-Smoker Alcohol: Denies ETOH Use Drugs: Denies Drug Use Lives In: Home Constitutional: denies: chills, diaphoresis, fatigue, fever, malaise, sweats, weakness, others EENTM: denies: blurred vision, double vision, ear bleeding, ear discharge, ear drainage, ear pain, ear ringing, eye pain, eye redness, hearing loss, mouth pain, mouth swelling, nasal discharge, nose bleeding, nose congestion, nose pain, photophobia, tearing, throat pain, throat swelling, voice changes, others Respiratory: denies: cough, hemoptysis, orthopnea, SOB at rest, shortness of breath, SOB with excertion, stridor, wheezing, others Cardiovascular: denies: chest pain, dizzy spells, diaphoresis, Dyspnea on exertion, edema, irregular heart beat, left arm pain, lightheadedness, palpitat ions, PND, syncope, others Gastrointestinal: denies: abdomen distended, abdominal pain, blood streaked bow els, constipated, diarrhea, dysphagia, difficulty swallowing, hematemesis, melena, nausea, poor appetite, poor fluid intake, rectal bleeding, rectal pain, vomiting, others Genitourinary: reports: burning, flank pain; denies: abnormal vagina bleeding, dyspareunia, dysuria, frequency, hematuria, incontinence, pain, , vagina discharge, urgency, others Neurological: denies: dizziness, fainting, headache, left sided numbness, left sided weakness, numbness, paresthesia, pre-existing deficit, right sided numbness, right sided weakness, seizure, speech problems, tingling, tremors, weakness, others Musculoskeletal: denies: back pain, gout, joint pain, joint swelling, muscle pain, muscle stiffness, neck pain, others Integumetry: denies: bruises, change in color, change in hair/nails, dryness, laceration, lesions, lumps, rash, wounds, others Allergic/Immunocompromised: denies: Difficulty Healing, Frequent Infections, Hives, Itching, others Hematologic/Lymphatic: denies: anemia, blood clots, easy bleeding, easy bruising, swollen glands, others Endocrine: denies: excessive hunger, excessive sweating, excessive thirst, excessive urination, flushing, intolerance to cold, intolerance to heat, unexplained weight gain, unexplained weight loss, others Psychiatric: denies: anxiety, bipolar disorder, depression, hopeless, panic disorder, schizophrenia, sleepless, suicidal, others All Other Systems: Reviewed and Negative Physical Exam General Appearance: No Apparent Distress, Normal HEENT: Normal ENT Inspection, Pharynx Normal Neck: Full Range of Motion, Non-Tender, Normal, Normal Inspection Respiratory: Chest Non-Tender, Lungs Clear, No Accessory Muscle Use, No Respiratory Distress, Normal Breath Sounds Cardiovascular: No Edema, No Murmur, No Gallop, Normal Peripheral Pulses, Regular Rate/Rhythm Breast Exam: Deferred Gastrointestinal: No Organomegaly, Non Tender, No Pulsatile Mass, Normal Bowel Sounds, Soft Genitalia: Deferred Pelvic: Deferred Rectal: Deferred Extremities: No calf tenderness, Normal capillary refill, Normal inspection, Normal range of motion, Non-tender, No pedal edema Musculoskeletal : Apperance: Normal Neurologic: Alert, erp pm II-XII nml as Tested, No Motor Deficits, Normal Affect, Normal Mood, No Sensory Deficits Cerebellar Function: Normal Reflexes: Normal Skin: Dry, Normal Color, Warm Lymphatic: No Adenopathy Was a procedure done? Was a procedure done?: No Differential Diagnosis Kidney stone (Female): Pyelonephritis, Urinary obstruction, Urolithiasis Kidney stone (Male): N/A Penile/Scrotal: N/A Urinary Problem (Male): N/A Urinary Problem (Female): UTI X-Ray, Labs, Meds, VS Vital Signs Date Time Temp Pulse Resp B/P (MAP) Pulse Ox O2 Delivery O2 Flow Rate FiO2 06/27/25 15:25 98.7 73 16 156/72 97 98.7 Lab Test 06/27/25 16:39 Range/Units White Blood Count Pending Red Blood Count Pending Hemoglobin Pending Hematocrit Pending Mean Corpuscular Volume Pending Mean Corpuscular Hemoglobin Pending Mean Corpuscular Hemoglobin Concent Pending Red Cell Distribution Width Pending Platelet Count Pending Mean Platelet Volume Pending Neutrophils (%) (Auto) Pending Lymphocytes (%) (Auto) Pending Monocytes (%) (Auto) Pending Basophils (%) (Auto) Pending Neutrophils # (Auto) Pending Lymphocytes # (Auto) Pending Monocytes # (Auto) Pending Sodium Level Pending Potassium Level Pending Chloride Level Pending Carbon Dioxide Level Pending Anion Gap Pending Blood Urea Nitrogen Pending Creatinine Pending Glomerular Filtration Rate Calc Pending BUN/Creatinine Ratio Pending Serum Glucose Pending Calcium Level Pending Time of 1ST Reevaluation: 17:20 Reevaluation 1ST: Unchanged Patient Education/Counseling: Diagnosis, Treatment Family Education/Counseling: No Family Present SEPSIS Sepsis Screen Date sepsis recognized/suspect: Jun 27, 2025 Time Sepsis recognized/suspect: 1528 Recent Procedure: No On Antibiotic Therapy: No Respiratory Rate >20: No Heart Rate >90: No Temp<36 C (96.8 F) or >38.3 C: No SBP <90 or MAP <65 mmHG: No New Acute Mental Status Change: No Is the patient on CPAP, BIPAP,: No Physician Orders Basic Metabolic Panel (06/27/25 16:14) Complete Blood Count (06/27/25 16:14) Urinalysis (06/27/25 16:14) Vital Signs Date Time Temp Pulse Resp B/P (MAP) Pulse Ox O2 Delivery O2 Flow Rate FiO2 06/27/25 15:25 98.7 73 16 156/72 97 98.7 Laboratory Tests Test 06/27/25 16:39 White Blood Count Pending Critical Care Note Critical Care Time?: No Stability Stability form required: No Heart Score Heart Score: Heart Score Response (Comments) Value History N/A 0 EKG N/A 0 Age N/A 0 Risk Factors N/A 0 Troponin N/A 0 Total 0 I personally scribed for JOSE GRIMES MD ([email or web address]) on 06/27/25 at 17:03. Electronically submitted by Maryellen Carrasquillo ([email or web address]). JOSE GRIMES MD Jun 27, 2025 17:03
[2025-06-27 17:09] LABS: Chloride 105 mmol/L (98-107); Potassium 4.3 mmol/L (3.5-5.1); Sodium 137 mmol/L (136-145)
[2025-06-27 17:10] LABS: Anion Gap 10 (5-15); Calcium 9.4 mg/dL (8.7-10.4); Carbon Dioxide 22 mmol/L (20-31)
[2025-06-27 17:15] LABS: BUN/Creatinine Ratio 20.6 (10.0-20.0)
[2025-06-27 17:17] LABS: Blood Urea Nitrogen 29 mg/dL (9-23); Glucose 131 mg/dL (74-106)
[2025-06-27 18:23] LABS: Urine Protein, UAD Negative (Negative)
[2025-06-27 18:34] LABS: Nucleated Red Blood Cells % 0.1 %
[2025-06-27 18:37] LABS: Hematocrit 42.7 % (36.0-46.0); Hemoglobin 13.9 g/dL (12.2-16.2); Mean Corpuscular Hemoglobin 23.3 pg (28.0-32.0); Mean Corpuscular Volume 71.8 fL (80.0-100.0)
[2025-06-27 19:13] LABS: Anisocytosis Moderate
[2025-06-27] MEDS ORDERED: NITR-87 PO (19:30)
[2025-06-27 19:47] VITALS: BP 182/59; PULSE 74; RESP 16; TEMP 98.5; O2SAT 97
== END 2025-06-27 19:52 | disposition home or self-care (01) ==
LOC: ER 15:18
DX: R10.9 Unspecified abdominal pain (principal); R19.7 Diarrhea, unspecified; E11.9 Type 2 diabetes mellitus without complications; I10 Essential (primary) hypertension; Z90.49 Acquired absence of other specified parts of digestive tract; Z88.0 Allergy status to penicillin; Z79.899 Other long term (current) drug therapy; Z79.85 Long-term (current) use of injectable non-insulin antidiabetic drugs; Z79.84 Long term (current) use of oral hypoglycemic drugs; Z79.82 Long term (current) use of aspirin; Z79.4 Long term (current) use of insulin
CPT/HCPCS: 36415; 80048; 81001; 85025; 87086

== ENCOUNTER 2025-08-20 12:34 | Inpatient (IN) | payer OTHER, MEDICAID ==
[~2025-08-20] VITALS: Ht 167.6 cm; Wt 90.6 kg
[~2025-08-20 12:34] MED LIST changes: +NITR-87 PO
--- NOTE | 2025-08-20 12:55 | ED.PDOC ---
GI ASSESSMENT HPI Comments 69 y/o F, with PMHx of liver disease, HTN, and DM presents to the ED for CC of abdominal pain. EMS reports, patient is coming from home where she c/o epigastric abdominal pain with associated nausea/vomiting/diarrhea sudden onset, today (08/20/25). Patient relays, pain has been intermittent since, having a failed hysterectomy d/t abdominal mesh. In the field, patient was given 100mcg of Fentanyl with no relief of symptoms. At this time patient was transferred to ED bed 11; care is ongoing at this time. Chief Complaint: Abdominal Pain Time Seen by MD: 12:50 Primary Care Provider: July HINKLE Reviewed Notes: Nurses Notes, Medications, Allergies Allergies: Coded Allergies: Penicillins (Verified Allergy, Unknown, 06/27/25) Home Meds Active Scripts Nitrofurantoin Monohydrate Mac (Macrobid) 100 Mg Cap, 100 MG PO BID for 7 Days, #14 CAP Prov:DUANE MONTERROSO MD 06/27/25 Carvedilol (Coreg) 25 Mg Tab, 1 TAB PO BID, #60 TAB 5 Refills Prov:MARTIN LIMON MD 05/02/25 Cephalexin (KEFLEX CAPSULE) 250 Mg Cp, 1 CAP PO QID for 7 Days, #28 CAP Prov:MARTIN LIMON MD 05/02/25 Reported Medications Acetaminophen W/ Codeine (Tylenol #4 W/Codeine) 1 Tab Tb, 1 TAB PO PRN, TAB 02/03/25 Semaglutide (Ozempic) 2 Mg/3 Ml Inj, 3 MG SC QWEEKLY, INJ 02/03/25 Glipizide (Glipizide) 5 Mg Tab, 5 MG PO DAILY, TAB 02/03/25 Furosemide (Furosemide) 20 Mg Tab, 20 MG PO DAILY, TAB 02/03/25 Insulin Aspart (Novolog) 100 Unit/Ml Inj, 20 UNIT IJ TID, INJ 02/03/25 Cholecalciferol (D3 ULTRA STRENGTH) 5,000 Unit Cap, 5000 UNIT PO DAILY, CAP 02/03/25 Duloxetine HCl (Duloxetine HCl) 60 Mg Cap, 2 CAP PO DAILY, CAP 02/03/25 Donepezil Hydrochloride (DONEPEZIL HCL) 5 Mg Tab, 5 MG PO DAILY, TAB 02/03/25 Dorzolamide-Timolol (Dorzolamide Hcl/Timolol M) 1 Ml Elsy, 1 DROP EACHEYE BID, #10 ML 6 Refills 12/13/24 Timolol Maleate (Timolol Maleate Ophthalmi) 0.5 % Elsy, 1 DROP EACHEYE QAM, #5 ML 5 Refills 12/13/24 Brimonidine Tartrate (Brimonidine Tartrate) 0.15 % Elsy, 1 DROP OP TID, DROP 12/13/24 Loratadine (Loratadine) 10 Mg Cap, 10 MG PO, CAP 12/09/24 Atorvastatin Calcium (ATORVASTATIN CALCIUM) 20 Mg Tab, 1 TAB PO DAILY, #30 TAB 5 Refills 12/09/24 Aspirin (Aspir-Low) 81 Mg Tab, 81 MG PO DAILY for 30 Days, MG 12/09/24 Information Source: Patient Mode of Arrival: EMS Timing: Hours Duration: Since onset Prehospital treatment: None Vomitus: Watery Stool: Watery Severity: Moderate Recent: None Recent Hx of: None Pain Location: Epigastric Modifying Factors: Nothing Associated sign and symptoms: Nausea, Vomiting, Diarrhea, Abdominal Pain Past Medical History PAST MEDICAL HISTORY: DM, HTN, Liver 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 History Family History Family History: Family hx of DM, Family hx of HTN Social History Smoker: Non-Smoker Alcohol: Denies ETOH Use Drugs: Denies Drug Use Lives In: Home Constitutional: denies: chills, diaphoresis, fatigue, fever, malaise, sweats, weakness, others EENTM: denies: blurred vision, double vision, ear bleeding, ear discharge, ear drainage, ear pain, ear ringing, eye pain, eye redness, hearing loss, mouth pain, mouth swelling, nasal discharge, nose bleeding, nose congestion, nose pain, photophobia, tearing, throat pain, throat swelling, voice changes, others Respiratory: denies: cough, hemoptysis, orthopnea, SOB at rest, shortness of breath, SOB with excertion, stridor, wheezing, others Cardiovascular: denies: chest pain, dizzy spells, diaphoresis, Dyspnea on exertion, edema, irregular heart beat, left arm pain, lightheadedness, palpitations, PND, syncope, others Gastrointestinal: reports: abdominal pain; denies: abdomen distended, blood streaked bowels, constipated, diarrhea, dysphagia, difficulty swallowing, hematemesis, melena, nausea, poor appetite, poor fluid intake, rectal bleeding, rectal pain, vomiting, others Genitourinary: denies: abnormal vagina bleeding, burning, dyspareunia, dysuria, flank pain, frequency, hematuria, incontinence, pain, , vagina discharge, urgency, others Neurological: denies: dizziness, fainting, headache, left sided numbness, left sided weakness, numbness, paresthesia, pre-existing deficit, right sided numbness, right sided weakness, seizure, speech problems, tingling, tremors, weakness, others Musculoskeletal: denies: back pain, gout, joint pain, joint swelling, muscle pain, muscle stiffness, neck pain, others Integumetry: denies: bruises, change in color, change in hair/nails, dryness, laceration, lesions, lumps, rash, wounds, others Allergic/Immunocompromised: denies: Difficulty Healing, Frequent Infections, Hives, Itching, others Hematologic/Lymphatic: denies: anemia, blood clots, easy bleeding, easy bruising, swollen glands, others Endocrine: denies: excessive hunger, excessive sweating, excessive thirst, excessive urination, flushing, intolerance to cold, intolerance to heat, unexplained weight gain, unexplained weight loss, others Psychiatric: denies: anxiety, bipolar disorder, depression, hopeless, panic disorder, schizophrenia, sleepless, suicidal, others All Other Systems: Reviewed and Negative Physical Exam General Appearance: Severe Distress HEENT: Normal ENT Inspection, Pharynx Normal, TMs Normal Neck: Full Range of Motion, Non-Tender, Normal, Normal Inspection Respiratory: Chest Non-Tender, Lungs Clear, No Accessory Muscle Use, No Respiratory Distress, Normal Breath Sounds Cardiovascular: No Edema, No JVD, No Murmur, No Gallop, Normal Peripheral Pulses, Regular Rate/Rhythm Breast Exam: Deferred Gastrointestinal: Diffuse, No Organomegaly, No Pulsatile Mass, Normal Bowel Sounds, Soft, Tenderness Genitalia: Deferred Pelvic: Deferred Rectal: Deferred Extremities: No calf tenderness, Normal capillary refill, No pedal edema Musculoskeletal : Apperance: Normal Neurologic: Alert, medical doctor nuclear medicine II-XII nml as Tested, Motor Weakness, Normal Affect, Normal Mood, No Sensory Deficits Cerebellar Function: Normal Reflexes: Normal Skin: Dry, Normal Color, Warm Lymphatic: No Adenopathy Was a procedure done? Was a procedure done?: No GI differential Dx Differential Diagnosis: Bowel Obstruction, Gastritis/PUD, Gastroenteritis, Inflammatory BD, Electrolyte Imbalance, Food Poisoning, Bacterial, Viral X-Ray, Labs, Meds, VS Vital Signs Date Time Temp Pulse Resp B/P (MAP) Pulse Ox O2 Delivery O2 Flow Rate FiO2 08/20/25 14:49 98 16 164/89 08/20/25 13:45 102 28 184/102 08/20/25 12:41 118 08/20/25 12:38 98.4 122 20 197/103 98 98.4 Lab Test 08/20/25 13:03 Range/Units White Blood Count 11.5 H 4.4-10.8 10^3/uL Red Blood Count 7.10 H 4.0-5.20 10^6/uL Hemoglobin 17.1 H 12.2-16.2 g/dL Hematocrit 52.4 H 36.0-46.0 % Mean Corpuscular Volume 73.8 L 80.0-100.0 fL Mean Corpuscular Hemoglobin 24.0 L 28.0-32.0 pg Mean Corpuscular Hemoglobin Concent 32.5 32.0-36.0 g/dL Red Cell Distribution Width 22.7 H 11.8-14.3 % Platelet Count 270 140-450 10^3/uL Mean Platelet Volume 9.0 6.9-10.8 fL Neutrophils (%) (Auto) 79.0 37.0-80.0 % Lymphocytes (%) (Auto) 15.3 10.0-50.0 % Monocytes (%) (Auto) 5.6 0.0-12.0 % Eosinophils (%) (Auto) 0.0 0.0-7.0 % Basophils (%) (Auto) 0.1 0.0-2.0 % Neutrophils # (Auto) 9.1 H 1.6-8.6 10 ^3/uL Lymphocytes # (Auto) 1.8 0.4-5.4 10 ^3/uL Monocytes # (Auto) 0.6 0-1.3 10 ^3/uL Eosinophils # (Auto) 0 0-0.8 10 ^3/uL Basophils # (Auto) 0 0-0.2 10 ^3/uL Nucleated Red Blood Cells 0.1 % Sodium Level 136 136-145 mmol/L Potassium Level 4.1 3.5-5.1 mmol/L Chloride Level 97 L 98-107 mmol/L Carbon Dioxide Level 19 L 20-31 mmol/L Anion Gap 20 H 5-15 Blood Urea Nitrogen 21 9-23 mg/dL Creatinine 1.78 H 0.550-1.02 mg/dL Glomerular Filtration Rate Calc 30 >90 mL/min BUN/Creatinine Ratio 11.8 10.0-20.0 Serum Glucose 282 H 74-106 mg/dL Calcium Level 10.3 8.7-10.4 mg/dL Total Bilirubin 1.1 H 0.2-1.0 mg/dL Aspartate Amino Transferase (AST) 73 H 13-40 U/L Alanine Aminotransferase (ALT) 52 H 7-40 U/L Alkaline Phosphatase 176 H 46-116 U/L Total Protein 8.8 H 5.7-8.2 g/dL Albumin 5.1 H 3.2-4.8 g/dL Lipase 32 12-53 U/L Current Medications Medications (Trade) Dose Ordered Sig/Carlos Route Start Time Stop Time Status Last Admin Ondansetron HCl (Zofran) 4 mg ONCE ONCE IV 08/20/25 13:00 08/20/25 13:01 DC 08/20/25 13:45 Morphine Sulfate 4 mg ONCE ONCE IV 08/20/25 13:00 08/20/25 13:01 DC 08/20/25 13:45 Sodium Chloride 500 ml @ 500 mls/hr Q1H ONCE IVB 08/20/25 13:00 08/20/25 13:59 DC 08/20/25 13:45 Pantoprazole Sodium (Protonix) 40 mg ONCE ONCE IV 08/20/25 13:00 08/20/25 13:01 DC 08/20/25 13:45 Morphine Sulfate 4 mg ONCE ONCE IV 08/20/25 14:45 08/20/25 14:46 DC 08/20/25 14:49 CT ABD PEL: IMPRESSION: Interval significant improvement in the ventral abdominal wall postoperative seroma adjacent to the area of large ventral abdominal hernia repair Redemonstration of the diastasis recti/wide neck shallow ventral abdominal hernia. Punctate nonobstructing left renal calculus. 3.4 cm right renal cyst. Fibroid uterus. The patient was given Protonix 40 mg IV push The patient was given morphine 4 mg IV push The patient did have another episode of pain so the morphine was repeated and the patient was given Zofran 4 mg IV push for the nausea The patient's lipase level is negative The patient's liver enzymes are elevated The patient is total bilirubin is 1.1 which is elevated The CO2 level is 19 The CBC shows an elevated white blood cell count of 11.5 Based on the findings on the CAT scan, the patient is being admitted. We do not feel that this patient's pain is secondary to acute pancreatitis The patient is admitted. Images Reviewed?: Images reviewed and evaluated by me Time of 1ST Reevaluation: 13:20 Reevaluation 1ST: Unchanged Patient Education/Counseling: Diagnosis, Treatment, Prognosis Family Education/Counseling: No Family Present SEPSIS Sepsis Screen Date sepsis recognized/suspect: Aug 20, 2025 Time Sepsis recognized/suspect: 1238 Recent Procedure: No On Antibiotic Therapy: No Respiratory Rate >20: No Heart Rate >90: Yes Temp<36 C (96.8 F) or >38.3 C: No SBP <90 or MAP <65 mmHG: No New Acute Mental Status Change: No Is the patient on CPAP, BIPAP,: No Physician Orders Urinalysis (08/20/25 12:54) Ct Ab Pel Wo Con-No Oral Or Iv (08/20/25 12:54) Heplock Iv (08/20/25 12:54) Vital Signs Date Time Temp Pulse Resp B/P (MAP) Pulse Ox O2 Delivery O2 Flow Rate FiO2 08/20/25 14:49 98 16 164/89 08/20/25 13:45 102 28 184/102 08/20/25 12:41 118 08/20/25 12:38 98.4 122 20 197/103 98 98.4 Laboratory Tests Test 08/20/25 13:03 White Blood Count 11.5 10^3/uL (4.4-10.8) H Medications Medications Dose Ordered Sig/Carlos Route Start Time Stop Time Status Last Admin Dose Admin Morphine Sulfate 4 mg ONCE ONCE IV 08/20/25 13:00 08/20/25 13:01 DC 08/20/25 13:45 Morphine Sulfate 4 mg ONCE ONCE IV 08/20/25 14:45 08/20/25 14:46 DC 08/20/25 14:49 Ondansetron HCl 4 mg ONCE ONCE IV 08/20/25 13:00 08/20/25 13:01 DC 08/20/25 13:45 Pantoprazole Sodium 40 mg ONCE ONCE IV 08/20/25 13:00 08/20/25 13:01 DC 08/20/25 13:45 Sodium Chloride 500 ml @ 500 mls/hr Q1H ONCE IVB 08/20/25 13:00 08/20/25 13:59 DC 08/20/25 13:45 Departure 1 Departure Time of Disposition: 16:32 Impression: Primary Impression: Intractable abdominal pain Additional Impressions: Elevated liver enzymes Hyperbilirubinemia Disposition: ADMITTED INPATIENT Admit to: Tele Condition: Fair Critical Care Note Critical Care Time?: Yes (45 min-critical care time only) Stability Stability form required: Yes Unstable for transfer: Telemetry monitoring (Telemetry monitoring required), ED Physician Assesment (Clinical assesment) Heart Score Heart Score: Heart Score Response (Comments) Value History N/A 0 EKG N/A 0 Age N/A 0 Risk Factors N/A 0 Troponin N/A 0 Total 0 I personally scribed for SELENE GUEVARA MD ([email or web address]) on 08/20/25 at 12:55. Electronically submitted by Maryellen Carrasquillo ([email or web address]). I personally scribed for SELENE GUEVARA MD ([email or web address]) on 08/20/25 at 13:00. Electronically submitted by Maryellen Carrasquillo ([email or web address]). I personally scribed for SELENE GUEVARA MD ([email or web address]) on 08/20/25 at 13:10. Electronically submitted by Maryellen Carrasquillo ([email or web address]). I personally scribed for SELENE GUEVARA MD ([email or web address]) on 08/20/25 at 16:14. Electronically submitted by Maryellen Carrasquillo ([email or web address]). SELENE GUEVARA MD Aug 20, 2025 12:55
--- NOTE | 2025-08-20 13:12 | ECG ---
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
[2025-08-20 13:36] LABS: Hematocrit 52.4 % (36.0-46.0); Hemoglobin 17.1 g/dL (12.2-16.2); Mean Corpuscular Hemoglobin 24.0 pg (28.0-32.0); Mean Corpuscular Volume 73.8 fL (80.0-100.0); Nucleated Red Blood Cells % 0.1 %
[2025-08-20] MEDS: MORPHINE SULFATE 4 MG/ML SYR/VIAL IV ONE ×2 (13:45→14:49)
[2025-08-20] MEDS: SODIUM CHLORIDE 0.9% 500 ML IVB ONE (13:45)
[2025-08-20] MEDS: ONDANSETRON HCL 4 MG/2 ML VIAL IV ONE (13:45)
[2025-08-20] MEDS: PANTOPRAZOLE 40 MG/10 ML VIAL INJ IV ONE (13:45)
[2025-08-20 13:52] LABS: Anion Gap 20 (5-15); BUN/Creatinine Ratio 11.8 (10.0-20.0); Blood Urea Nitrogen 21 mg/dL (9-23); Calcium 10.3 mg/dL (8.7-10.4); Lipase 32 U/L (12-53); Potassium 4.1 mmol/L (3.5-5.1); Sodium 136 mmol/L (136-145)
[2025-08-20 13:53] LABS: Alanine Aminotransferase 52 U/L (7-40); Albumin 5.1 g/dL (3.2-4.8); Alkaline Phosphatase 176 U/L (46-116); Bilirubin, Total 1.1 mg/dL (0.2-1.0); Carbon Dioxide 19 mmol/L (20-31); Chloride 97 mmol/L (98-107); Glucose 282 mg/dL (74-106); Total Protein 8.8 g/dL (5.7-8.2)
--- NOTE | 2025-08-20 14:26 | DVH ---
Exam: CT CT AB PEL WO CON-NO ORAL OR IV History: pain Comparison Study: CT CT AB PEL WO CON-NO ORAL OR IV on DOS: 04/28/25, CT CT AB PEL WO CON-NO ORAL OR I V on DOS: 12/14/24 TECHNIQUE: Multidetector CT of the abdomen and pelvis without IV contrast. Axial, coronal and sagitta l multiplanar reformats were obtained from the axial data set by the technologist. Radiation Dose Information: CT Dose: CTDI volume is 18.11 mGy. Dose-length product is 939.6 mGy*cm FINDINGS: The lung bases are clear. Partially visualized heart is normal in size with trace pericardial effusio n. Subtle micronodular contour of the liver which may be seen with cirrhosis. Otherwise, liver, spleen, pancreas and adrenal glands are unremarkable. Status post cholecystectomy. Punctate nonobstructing left renal calculi. 3.4 cm right renal upper pole cyst. Otherwise, kidneys, a nd ureters are unremarkable. Urinary bladder is decompressed limiting evaluation. Multiple partially calcified uterine fibroids. Bilateral adnexa are unremarkable. Stomach is unremarkable. Small bowel loops unremarkable. Postsurgical changes of the small bowel with in the right hemiabdomen. Appendix is not definitely visualized. [id number] amount of fecal mat erial within the colon. No evidence of intraperitoneal free air or free fluid. No evidence of aortic aneurysm. Mild atherosclerotic calcification of the aorta and bilateral iliacs . No significant lymphadenopathy. Mid to lower abdominal diastasis recti with wide neck shallow hernia containing bowel loops without e vidence of obstruction or strangulation. The wide neck hernia demonstrates postsurgical changes of pr ior hernia repair with significant improvement in the associated postoperative seroma. Partially visu alized left femoral intramedullary kathy. No evidence of acute osseous abnormalities. 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 IMPRESSION: Interval significant improvement in the ventral abdominal wall postoperative seroma adjacent to the a armand of large ventral abdominal hernia repair Redemonstration of the diastasis recti/wide neck shallow ventral abdominal hernia. Punctate nonobstructing left renal calculus. 3.4 cm right renal cyst. Fibroid uterus.
[2025-08-20] MEDS ORDERED: DEXTROSE (50%) 50ML SYRG IV PRN (18:30)
[2025-08-20] MEDS ORDERED: MORPHINE SULFATE INJ 2 MG/ml SYRG IV PRN (18:30)
[2025-08-20] MEDS ORDERED: ACETAMINOPHEN 325 MG TAB PO PRN (18:30)
[2025-08-20 18:44] LABS: Chloride 99 mmol/L (98-107); Potassium 4.2 mmol/L (3.5-5.1); Sodium 139 mmol/L (136-145)
[2025-08-20 18:45] LABS: Anion Gap 17 (5-15); Calcium 9.7 mg/dL (8.7-10.4); Carbon Dioxide 23 mmol/L (20-31)
[2025-08-20 18:50] LABS: BUN/Creatinine Ratio 16.1 (10.0-20.0)
[2025-08-20 18:52] LABS: Blood Urea Nitrogen 35 mg/dL (9-23); Glucose 203 mg/dL (74-106)
[2025-08-20] MEDS: SODIUM CHLORIDE 0.9% 1,000 ML IV ONE ×2 (18:55→23:41)
[2025-08-20 20:03] LABS: COVID19 ANTIGEN SOFIA FIA NEGATIVE (NEGATIVE)
--- NOTE | 2025-08-20 20:17 | DVH ---
Bilateral lower extremity venous duplex Clinical History: calf pain Comparison: None Technique: Duplex Doppler evaluation of the deep venous systems of both lower extremities from the common femora l veins to the popliteal veins including color Doppler and spectral/pulsed waveform analysis was perf ormed. Findings: RIGHT SIDE: The common femoral vein demonstrates appropriate compressibility and waveform variability. There is compressibility/patency of the great saphenous vein at the proximal thigh. The femoral vein demonstrates appropriate compressibility and waveform variability. The deep femoral vein demonstrates appropriate compressibility and waveform variability. The popliteal vein demonstrates appropriate compressibility and waveform variability. There is normal compressibility at the tibioperoneal trunk. LEFT SIDE: The common femoral vein demonstrates appropriate compressibility and waveform variability. There is compressibility/patency of the great saphenous vein at the proximal thigh. The femoral vein demonstrates appropriate compressibility and waveform variability. The deep femoral vein demonstrates appropriate compressibility and waveform variability. The popliteal vein demonstrates appropriate compressibility and waveform variability. There is normal compressibility at the tibioperoneal trunk. Impression: 1. No right or left femoropopliteal venous thrombosis.
[2025-08-20 23:26] VITALS: BP 139/61; PULSE 73; RESP 19; TEMP 97.9; O2SAT 100
[2025-08-20] MEDS: InsuLIN REG 1unit/0.01ml Soln (100units/ml) SC SCH (23:38)
[2025-08-20] MEDS: INSULIN LANTUS (GLARGINE) 1 /0.01ml (100units/ml) SC SCH (23:39)
[2025-08-20] MEDS: ACCU-CHEK COMFORT CURVE STRIP VI SCH (23:41)
--- NOTE | 2025-08-20 23:42 | DVHHPRES ---
History of Present Illness Resident Creating Document: JHDESIRAETIMOTHY RESIDENT History of Present Illness Patient is a 69-year-old female with a medical history of hypertension, type 2 diabetes mellitus, hyperlipidemia, glaucoma, ?Heart failure presented to the ER with a chief complaint of intractable vomiting for the last 2 days. As per the patient she had hernia repair surgery in 2017 and again in 2021. In November of 2024 patient had another surgery for hysterectomy but she was not able to get it because of the hernia mesh repair and at the same time got a pelvic floor muscle repair surgery for incontinence. Patient complained that she started to have right-sided abdominal pain about 2 days ago associated with intractable nausea and vomiting about 20 times in the last 2 days with the vomitus mostly containing greenish material without any blood. Patient also reported that she has had 4-5 watery stools without any blood. She also reports of burning pain on urination. She reportedly was admitted in April of this year with the abdominal wall abscess which was drained and the patient was sent home on oral antibiotics. Past medical history as per HPI Past surgical history: Hernia repair, exploratory laparotomy, pelvic floor repair Social history: Patient lives by herself and denies smoking, alcohol, drug use Home medications: Carvedilol 25 mg twice daily, clonidine, losartan hydrochlorothiazide, Jardiance, latanoprost Review of Systems Review of Systems Patient seen and examined with the bedside Reports that the abdominal pain is present but has decreased since he has been in the hospital and no episode of vomiting or diarrhea while being in the hospital No fever, chills, headache Allergies: Coded Allergies: Penicillins (Verified Allergy, Unknown, 06/27/25) Medications Current Medications Medications Dose Ordered Sig/Carlos Route Start Time Stop Time Status Last Admin Dose Admin Ceftriaxone Sodium 50 ml @ 100 mls/hr DAILY@09 IV 08/21/25 09:00 Insulin Glargine 20 units HS SC 08/20/25 22:00 08/20/25 23:39 20 UNITS Pantoprazole Sodium 40 mg DAILY@0600 PO 08/21/25 06:00 Morphine Sulfate 2 mg Q6HPRN PRN IV 08/20/25 18:30 Acetaminophen 650 mg Q6HP PRN PO 08/20/25 18:30 Diagnostic Test (Pha) 1 strip Q6HR 08/21/25 00:00 08/20/25 23:41 1 STRIP Insulin Human Regular Q6HR SC 08/21/25 00:00 08/20/25 23:38 9 UNITS Dextrose 50 ml UD PRN IV 08/20/25 18:30 Nifedipine 60 mg DAILY PO 08/21/25 22:00 Metronidazole 100 ml @ 100 mls/hr Q8HR IV 08/21/25 06:00 Exam Vital Signs Vital Signs Date Time Temp Pulse Resp B/P (MAP) Pulse Ox O2 Delivery O2 Flow Rate FiO2 08/20/25 20:00 89 20 142/67 (92) 93 08/20/25 19:30 Room Air* 0 21 08/20/25 19:30 98.2 98.2 Exam Gen - no pallor, no icterus, no cyanosis, no edema . Skin - Patients skin is warm and dry. HEENT - normocephalic, atraumatic, dry mucous membranes. Neck - full ROM, no LAD, no JVD Pulmonary - B/L equal breath sounds, no crackles, no wheezing cardiovascular - regular S1,S2 heard, no added sounds, no murmurs heard. GI - soft abdomen with tenderness to palpation in the midline and on the right side. no hepatospleenomegaly. Bowel sounds normoactive Neurological - Patient is A/O X 3 . Bilateral upper extremity strength 5/5, bilateral lower extremity strength 5/5, no facial droop, normal speech, no tremor, no sensory deficiets. Labs/Xrays Labs Test 08/20/25 19:50 08/20/25 18:59 08/20/25 18:15 08/20/25 13:03 Range/Units Influenza Type A Antigen Negative Negative Influenza Type B Antigen Negative Negative SARS-CoV-2 Antigen (Rapid) Negative NEGATIVE D-Dimer, Quantitative 0.88 H 0.0-0.49 mg/L FEU Sodium Level 139 136-145 mmol/L Potassium Level 4.2 3.5-5.1 mmol/L Chloride Level 99 98-107 mmol/L Carbon Dioxide Level 23 20-31 mmol/L Anion Gap 17 H 5-15 Blood Urea Nitrogen 35 #H 9-23 mg/dL Creatinine 2.17 H 0.550-1.02 mg/dL Glomerular Filtration Rate Calc 24 >90 mL/min BUN/Creatinine Ratio 16.1 10.0-20.0 Serum Glucose 203 H 74-106 mg/dL Lactic Acid Level 1.9 0.4-2.0 mmol/L Calcium Level 9.7 8.7-10.4 mg/dL Magnesium Level 2.3 1.6-2.6 mg/dL White Blood Count 11.5 H 4.4-10.8 10^3/uL Red Blood Count 7.10 H 4.0-5.20 10^6/uL Hemoglobin 17.1 H 12.2-16.2 g/dL Hematocrit 52.4 H 36.0-46.0 % Mean Corpuscular Volume 73.8 L 80.0-100.0 fL Mean Corpuscular Hemoglobin 24.0 L 28.0-32.0 pg Mean Corpuscular Hemoglobin Concent 32.5 32.0-36.0 g/dL Red Cell Distribution Width 22.7 H 11.8-14.3 % Platelet Count 270 140-450 10^3/uL Mean Platelet Volume 9.0 6.9-10.8 fL Neutrophils (%) (Auto) 79.0 37.0-80.0 % Lymphocytes (%) (Auto) 15.3 10.0-50.0 % Monocytes (%) (Auto) 5.6 0.0-12.0 % Eosinophils (%) (Auto) 0.0 0.0-7.0 % Basophils (%) (Auto) 0.1 0.0-2.0 % Neutrophils # (Auto) 9.1 H 1.6-8.6 10 ^3/uL Lymphocytes # (Auto) 1.8 0.4-5.4 10 ^3/uL Monocytes # (Auto) 0.6 0-1.3 10 ^3/uL Eosinophils # (Auto) 0 0-0.8 10 ^3/uL Basophils # (Auto) 0 0-0.2 10 ^3/uL Nucleated Red Blood Cells 0.1 % Hemoglobin A1c 7.8 H <5.7 % A1C Total Bilirubin 1.1 H 0.2-1.0 mg/dL Aspartate Amino Transferase (AST) 73 H 13-40 U/L Alanine Aminotransferase (ALT) 52 H 7-40 U/L Alkaline Phosphatase 176 H 46-116 U/L Total Protein 8.8 H 5.7-8.2 g/dL Albumin 5.1 H 3.2-4.8 g/dL Lipase 32 12-53 U/L Beta-Hydroxybutyric Acid 1.357 H < 0.4 mmol/L SEPSIS Sepsis Screen Date sepsis recognized/suspect: Aug 20, 2025 Time Sepsis recognized/suspect: 1400 Recent Procedure: No On Antibiotic Therapy: No Respiratory Rate >20: No Heart Rate >90: No Temp<36 C (96.8 F) or >38.3 C: No SBP <90 or MAP <65 mmHG: No New Acute Mental Status Change: No Is the patient on CPAP, BIPAP,: No Physician Orders Admit (08/20/25 17:56) Oxygen By Nasal Cannula (08/20/25 17:56) Stat Ekg For Chest Pain (08/20/25:56) Notify Md Of Changes From Base (08/20/25:) Intervention Nurse For 24 Hours (08/20/25 17:56) Emergency Dysrhythmia Protocol (08/20/25 17:56) Blood Culture (08/20/25 17:59) Bilat Lower Dvt (08/20/25 18:16) Clear Liq Diet (08/20/25 Dinner) Ceftriaxone 1gm/50ml (Rocephin) (08/21/25 09:00) Insulin Lantus (Glargine) (Lantus) (08/20/25 22:00) Drug Screen (08/20/25 18:30) Pantoprazole Tablet (Protonix Tablet) (08/21/25 06:00) Morphine Sulfate Injection (08/20/25 18:30) Acetaminophen Tablet (Tylenol Tablet) (08/20/25 18:30) Glucose Blood (Accu-Chek Comfort Curve T (08/21/25 00:00) Insulin R (Human) (Insulin R) (08/21/25 00:00) Dextrose 50% Syringe (08/20/25 18:30) Nifedipine Er (Procardia Xl (Time-Releas (08/21/25 22:00) Metronidazole 500mg/100ml (Flagyl 500mg/ (08/21/25 06:00) Sodium Chloride 0.9% (08/20/25 23:30) Complete Blood Count (08/21/25 04:00) Comprehensive Metabolic Panel (08/21/25 04:00) Vital Signs Date Time Temp Pulse Resp B/P (MAP) Pulse Ox O2 Delivery O2 Flow Rate FiO2 08/20/25 20:00 89 20 142/67 (92) 93 08/20/25 19:30 Room Air* 0 21 08/20/25 19:30 98.2 89 23 155/91 (112) 94 98.2 08/20/25 18:00 90 29 155/91 (112) 96 08/20/25 16:00 99 22 176/86 (116) 95 Laboratory Tests Test 08/20/25 13:03 08/20/25 18:15 White Blood Count 11.5 10^3/uL (4.4-10.8) H Lactic Acid Level 1.9 mmol/L (0.4-2.0) Medications Medications Dose Ordered Sig/Carlos Route Start Time Stop Time Status Last Admin Dose Admin Ceftriaxone Sodium 50 ml @ 100 mls/hr ONCE ONCE IV 08/20/25 18:30 08/20/25 19:10 DC 08/20/25 23:39 100 MLS/HR Diagnostic Test (Pha) 1 strip Q6HR 08/21/25 00:00 08/20/25 23:41 1 STRIP Insulin Glargine 20 units HS SC 08/20/25 22:00 08/20/25 23:39 20 UNITS Insulin Human Regular Q6HR SC 08/21/25 00:00 08/20/25 23:38 9 UNITS Metronidazole 100 ml @ 100 mls/hr ONCE ONCE IV 08/20/25 18:30 08/20/25 19:29 DC 08/20/25 19:20 100 MLS/HR Morphine Sulfate 4 mg ONCE ONCE IV 08/20/25 13:00 08/20/25 13:01 DC 08/20/25 13:45 4 MG Morphine Sulfate 4 mg ONCE ONCE IV 08/20/25 14:45 08/20/25 14:46 DC 08/20/25 14:49 4 MG Ondansetron HCl 4 mg ONCE ONCE IV 08/20/25 13:00 08/20/25 13:01 DC 08/20/25 13:45 4 MG Pantoprazole Sodium 40 mg ONCE ONCE IV 08/20/25 13:00 08/20/25 13:01 DC 08/20/25 13:45 40 MG Sodium Chloride 500 ml @ 500 mls/hr Q1H ONCE IVB 08/20/25 13:00 08/20/25 13:59 DC 08/20/25 13:45 500 MLS/HR Sodium Chloride 1,000 ml @ 125 mls/hr Q8H ONCE IV 08/20/25 23:30 08/21/25 07:29 08/20/25 23:41 125 MLS/HR Sodium Chloride 1,000 ml @ 500 mls/hr Q2H ONCE IV 08/20/25 18:30 08/20/25 20:29 DC 08/20/25 18:55 500 MLS/HR Assessment/Plan Assessment/Plan Acute intractable nausea and vomiting likely from gastroenteritis Sepsis likely due to above Acute abdominal pain likely from the surgical site seroma Ventral hernia, no obstruction or strangulation - CT abdomen pelvis demonstrates Interval significant improvement in the ventral abdominal wall postoperative seroma adjacent to the area of large ventral abdominal hernia repair and Redemonstration of the diastasis recti/wide neck shallow ventral abdominal hernia containing bowel loops without evidence of obstruction or strangulation. - IV fluids - IV antibiotics Hypertensive heart disease with chronic diastolic heart failure - has a patient's septic not currently started on all medication - judicious use of IV fluids JAKE on CKD likely due to VMN - on IV fluids Uncontrolled type 2 diabetes mellitus with a hyperglycemia - insulin Lantus and sliding scale PUD prophylaxis: Protonix DVT prophylaxis: Enoxaparin Goals of care discussed with the patient for over 27 minutes. Time spent: 39 minutes Plan discussed with Plan discussed with: Patient My Orders Orders - TIMOTHY LANE RESIDENT Procedure Category Date Status Time Admit ADMIT 08/20/25 Transmitted 17:56 Oxygen By Nasal RT 08/20/25 Transmitted Cannula 17:56 Stat Ekg For Chest ABEBE 08/20/25 In Process Pain 17:56 Notify Of Changes ABEBE 08/20/25 In Process From Base 17:56 Intervention Nurse For ABEBE 08/20/25 In Process 24 Hours 17:56 Emergency Dysrhythmia ABEBE 08/20/25 In Process Protocol 17:56 Blood Culture MADELYN 08/20/25 In Process 17:59 Bilat Lower Dvt US 08/20/25 Resulted 18:16 Clear Liq Diet DIET 08/20/25 Transmitted Dinner Ceftriaxone 1gm/50ml PHA 08/21/25 In Process (Rocephin) 09:00 Insulin Lantus PHA 08/20/25 In Process (Glargine) (Lantus) 22:00 Drug Screen LAB 08/20/25 Logged 18:30 Pantoprazole Tablet PHA 08/21/25 In Process (Protonix Tablet) 06:00 Morphine Sulfate PHA 08/20/25 In Process Injection 18:30 Acetaminophen Tablet PHA 08/20/25 In Process (Tylenol Tablet) 18:30 Glucose Blood PHA 08/21/25 In Process (Accu-Chek Comfort 00:00 Insulin R (Human) PHA 08/21/25 In Process (Insulin R) 00:00 Dextrose 50% Syringe PHA 08/20/25 In Process 18:30 Nifedipine Er PHA 08/21/25 In Process (Procardia Xl 22:00 Metronidazole PHA 08/21/25 In Process 500mg/100ml (Flagyl 06:00 Sodium Chloride 0.9% PHA 08/20/25 In Process 23:30 Complete Blood Count LAB 08/21/25 Verified 04:00 Comprehensive LAB 08/21/25 Verified Metabolic Panel 04:00 Date of Service: Aug 20, 2025 Billing Provider: JOY ACHARYA MD Common Visit Codes: [id number] INP/OBS CARE (HIGH) Secondary Visit Codes: 05201-[id number] CARE PLAN [address] RESIDENT Aug 20, 2025 23:42
[2025-08-21] VITALS (7 sets, daily range): BP systolic 97–156; BP diastolic 59–89; PULSE 66–83; RESP 16–19; TEMP 97.8–98.9; O2SAT 95–99
[2025-08-21] MEDS ORDERED: INSU1INJ19 SC (04:15)
[2025-08-21] MEDS ORDERED: INSU100I28 SC (04:15)
[2025-08-21] MEDS ORDERED: DONE1TAB88 PO (04:15)
[2025-08-21] MEDS ORDERED: CLON0.1T PO (04:15)
[2025-08-21] MEDS: MORPHINE SULFATE 4 MG/ML SYR/VIAL IV PRN (04:40)
[2025-08-21] MEDS: PANTOPRAZOLE 40 MG TAB PO SCH (06:12)
[2025-08-21 07:02] LABS: Hemoglobin 14.9 g/dL (12.2-16.2)
[2025-08-21 07:04] LABS: Hematocrit 45.9 % (36.0-46.0); Mean Corpuscular Hemoglobin 24.3 pg (28.0-32.0); Mean Corpuscular Volume 75.2 fL (80.0-100.0); Nucleated Red Blood Cells % 0.1 %
[2025-08-21 07:21] LABS: Alanine Aminotransferase 39 U/L (7-40); Alkaline Phosphatase 130 U/L (46-116); Anion Gap 13 (5-15); BUN/Creatinine Ratio 13.6 (10.0-20.0); Blood Urea Nitrogen 32 mg/dL (9-23); Calcium 8.5 mg/dL (8.7-10.4); Carbon Dioxide 24 mmol/L (20-31); Chloride 102 mmol/L (98-107); Glucose 103 mg/dL (74-106); Potassium 3.6 mmol/L (3.5-5.1); Sodium 139 mmol/L (136-145); Total Protein 7.0 g/dL (5.7-8.2)
[2025-08-21 07:22] LABS: Albumin 4.0 g/dL (3.2-4.8); Bilirubin, Total 0.5 mg/dL (0.2-1.0)
[2025-08-21] MEDS: ENOXAPARIN SOD 30 MG/0.3 ML SYRINGE SC SCH (09:03)
[2025-08-21] MEDS: SODIUM CHLORIDE 0.9% 1,000 ML IV ONE (11:29)
[2025-08-21] MEDS: TIMOLOL MAL 0.5% OPTH(EYE) SOL 5ML EACHEYE ONE (11:33)
[2025-08-21] MEDS: BRIMONIDINE 0.2% OPTH Soln 5ml EACHEYE SCH (13:53)
--- NOTE | 2025-08-21 17:24 | DVHPNRES ---
Progress Note Date Seen: Aug 21, 2025 Resident Creating Document: HANSEL CASTILLO RESIDENT Medical Necessity Reason Pt with a Central, PICC or Fol: No Subjective Review of Systems Ms Zavala 69-year-old female with a medical history of hypertension, type 2 diabetes mellitus, hyperlipidemia, glaucoma, ?Heart failure presented to the ER with a chief complaint of intractable vomiting for the last 2 days. As per the patient she had hernia repair surgery in 2017 and again in 2021. In November of 2024 patient was scheduled for hysterectomy, however which was not performed because of the mesh in place. and at the same time got a pelvic floor muscle repair surgery for incontinence. Patient complained that she started to have right-sided abdominal pain about 2 days ago associated with intractable nausea and vomiting about 20 times in the last 2 days with the vomitus mostly containing greenish material without any blood. Patient also reported that she has had 4-5 watery stools without any blood. She also reports of burning pain on urination. She reportedly was admitted in April of this year with the abdominal wall abscess which was drained and the patient was sent home on oral antibiotics. Past medical history as per HPI Past surgical history: Hernia repair, exploratory laparotomy, pelvic floor repair Social history: Patient lives by herself and denies smoking, alcohol, drug use Home medications: Carvedilol 25 mg twice daily, clonidine, losartan hydrochlorothiazide, Jardiance, latanoprost Patient was seen and examined at bedside. Overnight events were reviewed. She reports significant improvement in her symptoms. She denies nausea, vomiting, diarrhea, abdominal pain, chest pain, shortness of breath or any other complaints today. Objective vital signs Vital Sign Date Time Temp Pulse Resp B/P (MAP) Pulse Ox O2 Delivery O2 Flow Rate FiO2 08/21/25 16:52 88 18 127/70 08/21/25 13:00 98.0 98 98.0 08/21/25 08:00 Room Air* 0 21 Total Intake and Output 08/20/25 08/20/25 08/21/25 15:00 23:00 07:00 Intake Total 50 ml Balance 50 ml medications Current Medications Medications Dose Ordered Sig/Carlos Route Start Time Stop Time Status Last Admin Dose Admin Ceftriaxone Sodium 50 ml @ 100 mls/hr DAILY@09 IV 08/21/25 09:00 08/21/25 09:02 100 MLS/HR Insulin Glargine 20 units HS SC 08/20/25 22:00 08/20/25 23:39 20 UNITS Pantoprazole Sodium 40 mg DAILY@0600 PO 08/21/25 06:00 08/21/25 06:12 40 MG Acetaminophen 650 mg Q6HP PRN PO 08/20/25 18:30 Diagnostic Test (Pha) 1 strip Q6HR 08/21/25 00:00 08/21/25 16:55 1 STRIP Insulin Human Regular Q6HR SC 08/21/25 00:00 08/21/25 16:55 2 UNITS Dextrose 50 ml UD PRN IV 08/20/25 18:30 Metronidazole 100 ml @ 100 mls/hr Q8HR IV 08/21/25 06:00 08/21/25 13:53 100 MLS/HR Morphine Sulfate 2 mg Q6HPRN PRN IV 08/21/25 04:30 08/21/25 16:52 2 MG Enoxaparin Sodium 30 mg DAILY SC 08/21/25 10:00 08/21/25 09:03 30 MG Brimonidine Tartrate 1 drop TID EACHEYE 08/21/25 14:00 08/21/25 13:53 1 DROP Nifedipine 30 mg DAILY PO 08/22/25 10:00 Examination Pt is lying on bed General Appearance: Alert, Oriented X3, Cooperative, Mild distress HEENT: Atraumatic, Mucous membranes moist/pink Respiratory: Clear to auscultation, Normal air movement, No added sounds Cardiovascular: Regular rate, Normal S1, Normal S2, No murmurs Abdominal/ : Midline laparotomy scar, Active bowel sounds, Soft, no distention, no tenderness Extremities: No edema, Normal pulses, No tenderness/swelling Skin: No Significant rash, except past surgical scars Neuro: Normal speech, sensorimotor deficits none Psych/Mental Status: Mental status NL, Mood NL Nurse was there as public health microbiologist during examination laboratory and microbiology Laboratory Tests 08/21/25 05:42 Test 08/21/25 05:42 Range/Units Serum Glucose 103 74-106 mg/dL Labs and/or images reviewed: Labs reviewed by me, Image(s) reviewed by me Problem List/Assessment/Plan Problem List/Assessment/Plan Acute intractable nausea and vomiting likely from gastroenteritis Sepsis likely due to above Acute abdominal pain likely from the surgical site seroma Ventral hernia, no obstruction or strangulation - CT abdomen pelvis demonstrates Interval significant improvement in the ventral abdominal wall postoperative seroma adjacent to the area of large ventral abdominal hernia repair and diastasis recti/wide neck shallow ventral abdominal hernia containing bowel loops without evidence of obstruction or strangulation. - IV fluids discontinued, diet advanced as tolerated - IV ceftriaxone and metronidazole. Hypertensive heart disease with chronic diastolic heart failure -nifedipine -BNP high initially, monitor labs. JAKE on CKD likely due to VMN - on IV fluids Uncontrolled type 2 diabetes mellitus with a hyperglycemia -HbA1c 7.8 - Insulin Lantus and sliding scale Mild transaminitis Monitor labs Glaucoma Timolol and brimonidine eyedrops PUD prophylaxis: Protonix DVT prophylaxis: Enoxaparin Goals of care discussed with the patient for over 27 minutes. Time spent: 39 minutes Plan discussed with Plan discussed with: Patient Plan discussed with: Patient, Other (RN) My Orders My Orders Orders - HANSEL CASTILLO RESIDENT Procedure Category Date Status Time Full Liq Diet DIET 08/21/25 Transmitted Lunch HANSEL CASTILLO RESIDENT Aug 21, 2025 17:24
[2025-08-22] VITALS (8 sets, daily range): BP systolic 136–172; BP diastolic 79–91; PULSE 71–87; RESP 16–18; TEMP 36.6; O2SAT 95–98
[2025-08-22 07:04] LABS: Nucleated Red Blood Cells % 0.1 %
[2025-08-22 07:06] LABS: Hematocrit 45.0 % (36.0-46.0); Hemoglobin 14.9 g/dL (12.2-16.2); Mean Corpuscular Hemoglobin 24.5 pg (28.0-32.0); Mean Corpuscular Volume 73.8 fL (80.0-100.0)
[2025-08-22 07:12] LABS: Anion Gap 11 (5-15); Calcium 9.0 mg/dL (8.7-10.4); Carbon Dioxide 25 mmol/L (20-31); Chloride 105 mmol/L (98-107); Potassium 3.7 mmol/L (3.5-5.1); Sodium 141 mmol/L (136-145)
[2025-08-22 07:19] LABS: BUN/Creatinine Ratio 14.9 (10.0-20.0); Blood Urea Nitrogen 18 mg/dL (9-23); Glucose 79 mg/dL (74-106)
[2025-08-22] MEDS ORDERED: HYDR-4902 PO (10:25)
[2025-08-22] MEDS: CARVEDILOL 12.5 MG TAB PO SCH (12:00)
[2025-08-22] MEDS ORDERED: CIPR-173 PO (12:56)
[2025-08-22] MEDS ORDERED: NIFE1TAB31 PO (12:56)
--- NOTE | 2025-08-22 17:10 | DVHDSRES ---
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 Creating Document: HANSEL CASTILLO Aug 20, 2025 at 17:56 Date of Discharge: Aug 22, 2025 Labs/Diagnostic Data: Laboratory Results Test 08/22/25 11:25 08/22/25 05:13 08/21/25 05:42 08/20/25 19:50 POC Glucose 224 mg/dl (70-106) White Blood Count 8.0 10^3/uL (4.4-10.8) Red Blood Count 6.09 10^6/uL (4.0-5.20) Hemoglobin 14.9 g/dL (12.2-16.2) Hematocrit 45.0 % (36.0-46.0) Mean Corpuscular Volume 73.8 fL (80.0-100.0) Mean Corpuscular Hemoglobin 24.5 pg (28.0-32.0) Mean Corpuscular Hemoglobin Concent 33.2 g/dL (32.0-36.0) Red Cell Distribution Width 21.8 % (11.8-14.3) Platelet Count 204 10^3/uL (140-450) Mean Platelet Volume 9.0 fL (6.9-10.8) Neutrophils (%) (Auto) 59.3 % (37.0-80.0) Lymphocytes (%) (Auto) 27.0 % (10.0-50.0) Monocytes (%) (Auto) 12.3 % (0.0-12.0) Eosinophils (%) (Auto) 1.2 % (0.0-7.0) Basophils (%) (Auto) 0.2 % (0.0-2.0) Neutrophils # (Auto) 4.7 10 ^3/uL (1.6-8.6) Lymphocytes # (Auto) 2.2 10 ^3/uL (0.4-5.4) Monocytes # (Auto) 1.0 10 ^3/uL (0-1.3) Eosinophils # (Auto) 0.1 10 ^3/uL (0-0.8) Basophils # (Auto) 0 10 ^3/uL (0-0.2) Nucleated Red Blood Cells 0.1 % Sodium Level 141 mmol/L (136-145) Potassium Level 3.7 mmol/L (3.5-5.1) Chloride Level 105 mmol/L (98-107) Carbon Dioxide Level 25 mmol/L (20-31) Anion Gap 11 (5-15) Blood Urea Nitrogen 18 mg/dL (9-23) Creatinine 1.21 mg/dL (0.550-1.02) Glomerular Filtration Rate Calc 48 mL/min (>90) BUN/Creatinine Ratio 14.9 (10.0-20.0) Serum Glucose 79 mg/dL (74-106) Calcium Level 9.0 mg/dL (8.7-10.4) Total Bilirubin 0.5 mg/dL (0.2-1.0) Aspartate Amino Transferase (AST) 43 U/L (13-40) Alanine Aminotransferase (ALT) 39 U/L (7-40) Alkaline Phosphatase 130 U/L (46-116) Total Protein 7.0 g/dL (5.7-8.2) Albumin 4.0 g/dL (3.2-4.8) Influenza Type A Antigen Negative (Negative) Influenza Type B Antigen Negative (Negative) SARS-CoV-2 Antigen (Rapid) Negative (NEGATIVE) Test 08/20/25 18:59 08/20/25 18:15 08/20/25 13:03 D-Dimer, Quantitative 0.88 mg/L FEU (0.0-0.49) Lactic Acid Level 1.9 mmol/L (0.4-2.0) Magnesium Level 2.3 mg/dL (1.6-2.6) Hemoglobin A1c 7.8 % A1C (<5.7) Lipase 32 U/L (12-53) Beta-Hydroxybutyric Acid 1.357 mmol/L (< 0.4) Other Laboratory Tests 08/22/25 05:13 Brief Hx & Hospital Course: HPI: Ms Zavala 69-year-old female with a medical history of hypertension, type 2 diabetes mellitus, hyperlipidemia, glaucoma, ?Heart failure presented to the ER with a chief complaint of intractable vomiting for the last 2 days. As per the patient she had hernia repair surgery in 2017 and again in 2021. In November of 2024 patient was scheduled for hysterectomy, however which was not performed because of the mesh in place. and at the same time got a pelvic floor muscle repair surgery for incontinence. Patient complained that she started to have right-sided abdominal pain about 2 days ago associated with intractable nausea and vomiting about 20 times in the last 2 days with the vomitus mostly containing greenish material without any blood. Patient also reported that she has had 4-5 watery stools without any blood. She also reports of burning pain on urination. She reportedly was admitted in April of this year with the abdominal wall abscess which was drained and the patient was sent home on oral antibiotics. Past medical history as per HPI Past surgical history: Hernia repair, exploratory laparotomy, pelvic floor repair Social history: Patient lives by herself and denies smoking, alcohol, drug use Home medications: Carvedilol 25 mg twice daily, clonidine, losartan hydrochlorothiazide, Jardiance, latanoprost Brief hospital course: A CT abdomen of and pelvis demonstrated a large ventral abdominal wall postoperative seroma adjacent to the prior hernia repair site, along with a shallow ventral hernia containing bowel loops but without evidence of obstruction or strangulation. Her nausea and vomiting and abdominal pain was attributed to possible gastroenteritis after excluding strangulated hernia. She was started on IV fluid, ceftriaxone and metronidazole, with gradual improvement in symptoms. Her vomiting and abdominal pain resolved, and she was able to tolerate oral intake prior to discharge. Her lab was notable for hyperglycemia and transaminases, which was improved. She had JAKE on CKD, which improved with IV fluid. Her type 2 diabetes mellitus with hyperglycemia was treated with insulin Lantus and insulin sliding scale. Glaucoma treatment was continued with her home medications. On the day of discharge, the patient was hemodynamically stable, was tolerating solid diet. Treatment and discharge plan was discussed thoroughly with the patient, but she verbalized understanding. Patient was advised to follow up with [facility], PCP. She was prescribed ciprofloxacin with her antihypertensive (nifedipine) and antidiabetic medications. Examination Pt is lying on bed General Appearance: Alert, Oriented X3, Cooperative, Mild distress HEENT: Atraumatic, Mucous membranes moist/pink Respiratory: Clear to auscultation, Normal air movement, No added sounds Cardiovascular: Regular rate, Normal S1, Normal S2, No murmurs Abdominal/ : Midline laparotomy scar, Active bowel sounds, Soft, no distention, no tenderness Extremities: No edema, Normal pulses, No tenderness/swelling Skin: No Significant rash, except past surgical scars Neuro: Normal speech, sensorimotor deficits none Psych/Mental Status: Mental status NL, Mood NL Nurse was there as sawing and assembly supervisor during examination Case discussed with Dr. Villavicencio Operations or Procedures PATIENT: ANEESH ZAVALA MAKI ACCT: [id number] UNIT: [id number] : 1955 LOC: OVERFLOW ROOM / BED: 1011-ERT / A AGE / SEX: 69 / F ADM STATUS: ADM IN SERVICE 1816 ORDERING PHYSICIAN: TIMOTHY LANE PROCEDURE(s): BLDVT - BiLat Lower DVT REASON: calf pain ORDER NUMBER(s): [id number], ACCESSION NUMBER(s): [id number] Bilateral lower extremity venous duplex Clinical History: calf pain Comparison: None Technique: Duplex Doppler evaluation of the deep venous systems of both lower extremities from the common femoral veins to the popliteal veins including color Doppler and spectral/pulsed waveform analysis was performed. Findings: RIGHT SIDE: The common femoral vein demonstrates appropriate compressibility and waveform variability. There is compressibility/patency of the great saphenous vein at the proximal thigh. The femoral vein demonstrates appropriate compressibility and waveform variability. The deep femoral vein demonstrates appropriate compressibility and waveform variability. The popliteal vein demonstrates appropriate compressibility and waveform variability. There is normal compressibility at the tibioperoneal trunk. LEFT SIDE: The common femoral vein demonstrates appropriate compressibility and waveform variability. There is compressibility/patency of the great saphenous vein at the proximal thigh. The femoral vein demonstrates appropriate compressibility and waveform variability. The deep femoral vein demonstrates appropriate compressibility and waveform variability. The popliteal vein demonstrates appropriate compressibility and waveform variability. There is normal compressibility at the tibioperoneal trunk. Impression: 1. No right or left femoropopliteal venous thrombosis. PATIENT: ANEESH ZAVALA MAKI ACCT: [id number] UNIT: [id number] : 1955 LOC: ER ROOM / BED: / AGE / SEX: 69 / F ADM STATUS: REG ER SERVICE 1254 ORDERING PHYSICIAN: SELENE GUEVARA MD PROCEDURE(s): ABPL - CT AB PEL WO CON-NO ORAL OR IV REASON: pain ORDER NUMBER(s): [id number], ACCESSION NUMBER(s): [id number] Exam: CT CT AB PEL WO CON-NO ORAL OR IV History: pain Comparison Study: CT CT AB PEL WO CON-NO ORAL OR IV on DOS: 04/28/25, CT CT AB PEL WO CON-NO ORAL OR IV on DOS: 12/14/24 TECHNIQUE: Multidetector CT of the abdomen and pelvis without IV contrast. Axial, coronal and sagittal multiplanar reformats were obtained from the axial data set by the technologist. Radiation Dose Information: CT Dose: CTDI volume is 18.11 mGy. Dose-length product is 939.6 mGy*cm FINDINGS: The lung bases are clear. Partially visualized heart is normal in size with trace pericardial effusion. Subtle micronodular contour of the liver which may be seen with cirrhosis. Otherwise, liver, spleen, pancreas and adrenal glands are unremarkable. Status post cholecystectomy. Punctate nonobstructing left renal calculi. 3.4 cm right renal upper pole cyst. Otherwise, kidneys, and ureters are unremarkable. Urinary bladder is decompressed limiting evaluation. Multiple partially calcified uterine fibroids. Bilateral adnexa are unremarkable. Stomach is unremarkable. Small bowel loops unremarkable. Postsurgical changes of the small bowel within the right hemiabdomen. Appendix is not definitely visualized. [id number] amount of fecal material within the colon. No evidence of intraperitoneal free air or free fluid. No evidence of aortic aneurysm. Mild atherosclerotic calcification of the aorta and bilateral iliacs. No significant lymphadenopathy. Mid to lower abdominal diastasis recti with wide neck shallow hernia containing bowel loops without evidence of obstruction or strangulation. The wide neck hernia demonstrates postsurgical changes of prior hernia repair with significant improvement in the associated postoperative seroma. Partially visualized left femoral intramedullary kathy. No evidence of acute osseous abnormalities. 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 IMPRESSION: Interval significant improvement in the ventral abdominal wall postoperative seroma adjacent to the area of large ventral abdominal hernia repair Redemonstration of the diastasis recti/wide neck shallow ventral abdominal hernia. Punctate nonobstructing left renal calculus. 3.4 cm right renal cyst. Fibroid uterus. Condition at Discharge: Stable Final Diagnosis/Problems List Acute gastroenteritis Sepsis due to acute gastroenteritis Surgical site seroma Ventral hernia, no obstruction or strangulation Hypertensive heart disease with chronic diastolic heart failure JAKE on CKD likely due to VMN Uncontrolled type 2 diabetes mellitus with a hyperglycemia Mild transaminitis Glaucoma Discharge Disposition: Home Discharge Instruct/Medications Diet: Consistent carbohydrate, Cardiac 2g Na,low cholest Activity: No Restrictions, As Tolerated Follow Up/Referral: Follow up in [facility], PCP and car pincher in 2 weeks Medications: As per EMR Scheduled Carvedilol (Coreg), 1 TAB PO BID Ciprofloxacin Hcl (Cipro), 1 TAB PO BID Clonidine Hydrochloride (Clonidine Hcl), 0.2 MG PO BID, (Reported) Donepezil Hydrochloride (Donepezil Hcl), 10 MG PO HS, (Reported) Insulin Aspart (Novolog), 4 UNIT SC TID, (Reported) Insulin Glargine (Basaglar Kwikpen), 20 UNIT SC DAILY, (Reported) Nifedipine (Nifedipine Er), 30 MG PO DAILY Semaglutide (Ozempic), 3 MG SC QWEEKLY, (Reported) Scheduled PRN Hydrocodone-Acetaminophen (Hydrocodone Bitartrate/AC 5-325 mg), 1 TAB PO Q6HP PRN Discontinued Medications Acetaminophen W/ Codeine (Tylenol #4 W/Codeine), 1 TAB PO PRN, (Reported) Aspirin (Aspir-Low), 81 MG PO DAILY, (Reported) Atorvastatin Calcium (Atorvastatin Calcium), 1 TAB PO DAILY, (Reported) Brimonidine Tartrate (Brimonidine Tartrate), 1 DROP OP TID, (Reported) Cholecalciferol (D3 Ultra Strength), 5,000 UNIT PO DAILY, (Reported) Donepezil Hydrochloride (Donepezil Hcl), 5 MG PO DAILY, (Reported) Dorzolamide-Timolol (Dorzolamide Hcl/Timolol M), 1 DROP EACHEYE BID, (Reported) Duloxetine HCl (Duloxetine HCl), 2 CAP PO DAILY, (Reported) Furosemide (Furosemide), 20 MG PO DAILY, (Reported) Glipizide (Glipizide), 5 MG PO DAILY, (Reported) Insulin Aspart (Novolog), 20 UNIT IJ TID, (Reported) Insulin Aspart (Novolog), 4 UNIT IJ TID, (Reported) Loratadine (Loratadine), 10 MG PO, (Reported) Timolol Maleate (Timolol Maleate Ophthalmi), 1 DROP EACHEYE QAM, (Reported) Discharge Statement: "Patient was advised to return to the ER or call 911 if any headaches, dizziness, shortness of breath, chest pain, abdominal pain, bleeding, fevers, or worsening of medical condition. Patient was counseled about treatment plan, medications, possible side effects, patientverbalized understanding. All questions were answered to the best of my ability. This discharge took greater then 30 minutes in planning, reviewing documentation, counseling the patient, and discussing with other team members." ASSESSMENT ASSESSMENT Assessment Acute gastroenteritis HANSEL CASTILLO RESIDENT Aug 22, 2025 17:10
[2025-08-23] MEDS ORDERED: ENOXAPARIN SOD 40 MG/0.4 ML SYRINGE SC SCH (10:00)
== END 2025-08-22 17:00 | disposition home or self-care (01) | DRG 871 ==
LOC: ER 12:34 → EDBD 12:34 → OVERFLOW 17:56 → TELE-CENTR 23:01
PROVIDERS: ADMIT Internal Medicine Geriatric Medicine; ATTEND Internal Medicine Geriatric Medicine
DX: A41.9 Sepsis, unspecified organism (principal); N17.0 Acute kidney failure with tubular necrosis; I50.32 Chronic diastolic (congestive) heart failure; I13.0 Hypertensive heart and chronic kidney disease with heart failure and stage 1 through stage 4 chronic kidney disease, or unspecified chronic kidney disease; K91.873 Postprocedural seroma of a digestive system organ or structure following other procedure; K52.9 Noninfective gastroenteritis and colitis, unspecified; Z20.822 Contact with and (suspected) exposure to COVID-19; K43.9 Ventral hernia without obstruction or gangrene; R74.01 Elevation of levels of liver transaminase levels; E11.65 Type 2 diabetes mellitus with hyperglycemia; R74.8 Abnormal levels of other serum enzymes; E80.6 Other disorders of bilirubin metabolism; E78.5 Hyperlipidemia, unspecified; E11.22 Type 2 diabetes mellitus with diabetic chronic kidney disease; N18.9 Chronic kidney disease, unspecified; H40.9 Unspecified glaucoma; Y83.8 Other surgical procedures as the cause of abnormal reaction of the patient, or of later complication, without mention of misadventure at the time of the procedure; Y82.8 Other medical devices associated with adverse incidents; Z88.0 Allergy status to penicillin; Z90.49 Acquired absence of other specified parts of digestive tract; Z83.3 Family history of diabetes mellitus; Z82.49 Family history of ischemic heart disease and other diseases of the circulatory system; Y92.89 Other specified places as the place of occurrence of the external cause; Z79.82 Long term (current) use of aspirin; Z79.4 Long term (current) use of insulin
CPT/HCPCS: 36415; 74176; 80048; 80053; 82010; 82962; 83036; 83605; 83690; 83735; 85025; 85379; 87040; 87426; 87804; 93005; 93970; 96374; 96375; 99291; G0378; J1815; J2405; J2470; J3490